=== PATIENT | male | born 1955 | race Caucasian/White ===

== ENCOUNTER → 2016-08-29 | Outpatient (CLI) | payer OTHER ==
[~2016-08-29] MED LIST: /PANT40TA PO; AZIT250T3 PO; BENA25TA4 PO; DOCU10ELUD PO; MIRA255PW PO; MOM30SS PO; MORP10SU PO; PERCOCET FT; RISP1TAB3 PO; TYLE325T5 PO; ULTR50TA PO
--- NOTE | 2016-08-29 14:30 | REP ---
RIGHT FOOT SERIES: Four views. HISTORY: Contusion of the right foot. FINDINGS: Four views right foot demonstrate a transverse fracture through the mid shaft of the 5th proximal phalanx with associated swelling. There is plantar calcaneal spurring. No other fracture is seen. There is 1 to 2 mm of medial displacement. IMPRESSION: 5th proximal phalangeal fracture. Signed by Ata Desir MD 08/29/2016 03:49 P
== END ==
LOC: M ADAMS 12:58
PROVIDERS: ATTEND Physician Assistant Medical
DX: S92.511A Displaced fracture of proximal phalanx of right lesser toe(s), initial encounter for closed fracture (principal); X58.XXXA Exposure to other specified factors, initial encounter; Y92.89 Other specified places as the place of occurrence of the external cause; Y93.89 Activity, other specified; Y99.8 Other external cause status

== ENCOUNTER → 2017-03-24 | Outpatient (REF) | payer OTHER ==
[~2017-03-24] MED LIST changes: +AZIT-12 PO; -AZIT250T3 PO
[2017-03-24 12:44] LABS: ALBUMIN 3.8 GM/DL (3.2-5.2); ALBUMIN/GLOBULIN RATIO 1.41 (1.00-1.93); ALKALINE PHOSPHATASE 61 U/L (45-117); ALT/SGPT 28 U/L (12-78); ANION GAP 8 MEQ/L (8-16); AST/SGOT 14 U/L (15-37); BILIRUBIN,TOTAL 0.6 MG/DL (0.2-1.0); BLOOD UREA NITROGEN 11 MG/DL (7-18); CARBON DIOXIDE LEVEL 26 MEQ/L (21-32); CHLORIDE LEVEL 105 MEQ/L (98-107); CHOLESTEROL LEVEL 214 MG/DL (<200); GLOMERULAR FILTRATION RATE > 60.0 (>49); GLUCOSE, FASTING 89 MG/DL (80-110); POTASSIUM SERUM 4.7 MEQ/L (3.5-5.1); SODIUM LEVEL 139 MEQ/L (136-145); TOTAL PROTEIN 6.5 GM/DL (6.4-8.2); TRIGLYCERIDES LEVEL 56 MG/DL (<150)
== END ==
LOC: M SFHCADAM 10:11
PROVIDERS: ATTEND Physician Assistant Medical
DX: M54.5 Low back pain (principal); E78.2 Mixed hyperlipidemia; C91.10 Chronic lymphocytic leukemia of B-cell type not having achieved remission

== ENCOUNTER → 2017-03-31 | Outpatient (CLI) | payer OTHER ==
--- NOTE | 2017-03-31 14:16 | REP ---
RIGHT SHOULDER THREE VIEWS: HISTORY: Pain. There is no acute fracture or dislocation. There is narrowing of the acromioclavicular joint space with associated osteophyte formation. A calcified density is present in and superior to the joint space. This represents ligamentous or tendon calcification. IMPRESSION: Degenerative change as described above. Signed by Yon Prater MD 03/31/2017 02:19 P
== END ==
LOC: M ADAMS 13:40
PROVIDERS: ATTEND Physician Assistant Medical
DX: M25.511 Pain in right shoulder (principal)

== ENCOUNTER 2017-07-02 15:49 | Emergency (ER) | payer OTHER ==
[~2017-07-02] VITALS: Ht 180.3 cm; Wt 32.8 kg
--- NOTE | 2017-07-02 18:00 | REP ---
Clinical: Acute altered mental status. Comparison: 06/05/2015 . Findings: Age-related atrophy and microvascular ischemic changes are appreciated. The ventricles and sulci are symmetric. Crowell-white differentiation is maintained. There is no evidence for acute intracranial hemorrhage, mass/mass effect, pathology or infarction. No extra-axial fluid collection. Calvarium is intact. Paranasal sinuses and mastoid air cells are clear. Impression: Age related atrophy and microvascular ischemic changes. No acute intracranial hemorrhage, infarction, or mass/mass effect. Signed by Wale Green MD 07/02/2017 05:51 P
[2017-07-02 18:17] LABS: MEAN CORPUSCULAR HEMOGLOBIN 28.3 pg (27.0-33.0); MEAN CORPUSCULAR HGB CONC 33.3 g/dl (32.0-36.5); MEAN CORPUSCULAR VOLUME 85.1 fl (80.0-96.0); PLATELET COUNT, AUTOMATED 293 10^3/uL (150-450); RED CELL DISTRIBUTION WIDTH 14.7 % (11.5-14.5)
[2017-07-02 18:24] LABS: ADD MANUAL DIFFER YES; BLASTS POS FLAG; DIFF SLIDE NUMBER 298; POSITIVE DIFF POS FLAG; POSITIVE MORPH POS FLAG; WHITE BLOOD COUNT 28.3 10^3/uL (4.0-10.0)
--- NOTE | 2017-07-02 18:36 | REP ---
Clinical: Altered mental status . Comparison: 06/07/2015 . Findings: The mediastinum and cardiac silhouette are stable and within normal limits for portable technique. The lung ding are clear without acute consolidation, effusion, or pneumothorax. Skeletal structures are intact. Impression: No acute cardiopulmonary process appreciated. Signed by Wale Green MD 07/02/2017 06:28 P
[2017-07-02 18:42] LABS: ALBUMIN 4.3 GM/DL (3.2-5.2); ALBUMIN/GLOBULIN RATIO 1.43 (1.00-1.93); ALKALINE PHOSPHATASE 56 U/L (45-117); ALT/SGPT 27 U/L (12-78); ANION GAP 9 MEQ/L (8-16); AST/SGOT 18 U/L (7-37); BILIRUBIN,DIRECT 0.1 MG/DL (0.0-0.2); BILIRUBIN,TOTAL 0.7 MG/DL (0.2-1.0); BLOOD UREA NITROGEN 23 MG/DL (7-18); CALCIUM LEVEL 9.3 MG/DL (8.8-10.2); CARBON DIOXIDE LEVEL 24 MEQ/L (21-32); CHLORIDE LEVEL 104 MEQ/L (98-107); CREATININE FOR GFR 1.21 MG/DL (0.70-1.30); GLOMERULAR FILTRATION RATE > 60.0 (>49); GLUCOSE, FASTING 81 MG/DL (80-110); POTASSIUM SERUM 4.8 MEQ/L (3.5-5.1); SODIUM LEVEL 137 MEQ/L (136-145); TOTAL PROTEIN 7.3 GM/DL (6.4-8.2)
[2017-07-02 18:54] LABS: BASOPHILS 1 % (0-4); SMUDGE CELLS 3+
[2017-07-02] MEDS ORDERED: NS 1,000 ML IV ONE (19:00)
[2017-07-02 19:54] VITALS: BP 133/73
--- NOTE | 2017-07-03 09:19 | ECGEPIP ---
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
== END 2017-07-02 21:08 | disposition home or self-care (01) ==
LOC: M ED 15:49 → EDBD 15:49 → M ED 21:08
DX: C91.10 Chronic lymphocytic leukemia of B-cell type not having achieved remission (principal); G10 Huntington's disease

== ENCOUNTER → 2017-10-01 | Outpatient (REF) | payer OTHER ==
[2017-10-01 19:57] LABS: HEMATOCRIT 39.5 % (42.0-52.0); HEMOGLOBIN 12.5 g/dl (14.0-18.0); MEAN CORPUSCULAR HEMOGLOBIN 28.5 pg (27.0-33.0); MEAN CORPUSCULAR HGB CONC 31.6 g/dl (32.0-36.5); PLATELET COUNT, AUTOMATED 299 10^3/uL (150-450); RED BLOOD COUNT 4.39 10^6/uL (4.30-6.10); RED CELL DISTRIBUTION WIDTH 15.5 % (11.5-14.5)
[2017-10-01 20:03] LABS: POSITIVE DIFF POS FLAG; POSITIVE MORPH POS FLAG; WHITE BLOOD COUNT 19.3 10^3/uL (4.0-10.0)
[2017-10-01 20:04] LABS: ADD MANUAL DIFFER YES; DIFF SLIDE NUMBER 258
[2017-10-01 21:40] LABS: TOTAL 25(OH) VITAMIN D 15.4 NG/ML (30.0-100.0)
[2017-10-01 21:49] LABS: ALBUMIN 3.9 GM/DL (3.2-5.2); ALKALINE PHOSPHATASE 56 U/L (45-117); ALT/SGPT 26 U/L (12-78); ANION GAP 6 MEQ/L (8-16); AST/SGOT 20 U/L (7-37); BILIRUBIN,TOTAL 0.5 MG/DL (0.2-1.0); BLOOD UREA NITROGEN 14 MG/DL (7-18); CALCIUM LEVEL 8.8 MG/DL (8.8-10.2); CARBON DIOXIDE LEVEL 29 MEQ/L (21-32); CHLORIDE LEVEL 105 MEQ/L (98-107); CHOLESTEROL LEVEL 204 MG/DL (<200); CHOLESTEROL RISK RATIO 2.457 (<5); CREATININE FOR GFR 0.98 MG/DL (0.70-1.30); GLOMERULAR FILTRATION RATE > 60.0 (>49); GLUCOSE, FASTING 53 MG/DL (70-100); HDL CHOLESTEROL 83 MG/DL (>40); NON-HDL-C 121 MG/DL; POTASSIUM SERUM 4.5 MEQ/L (3.5-5.1); SODIUM LEVEL 140 MEQ/L (136-145); TOTAL PROTEIN 6.5 GM/DL (6.4-8.2); TRIGLYCERIDES LEVEL 65 MG/DL (<150)
[2017-10-01 22:34] LABS: ATYPICAL LYMPH 15 % (0-5); LYMPHOCYTES 68 % (16-52); MONOCYTES 3 % (0-8); NEUTROPHILS 14 % (35-75); PLATELET ESTIMATE NORMAL (NORMAL)
[2017-10-01 22:35] LABS: SMUDGE CELLS 1+
== END ==
LOC: M SFHCADAM 13:23
DX: M54.5 Low back pain (principal); E78.2 Mixed hyperlipidemia; G10 Huntington's disease
CPT/HCPCS: 84443

== ENCOUNTER 2017-12-11 11:39 | Emergency (ER) | payer OTHER ==
[2017-12-11] MEDS: LORazepam 2 MG/ML VIAL (J2060) IV (12:08)
[2017-12-11] MEDS: NS 1,000 ML IV (12:08)
[2017-12-11 12:12] LABS: HEMATOCRIT 39.2 % (42.0-52.0); HEMOGLOBIN 12.9 g/dl (13.5-17.5); MEAN CORPUSCULAR HEMOGLOBIN 28.7 pg (27.0-33.0); MEAN CORPUSCULAR HGB CONC 32.9 g/dl (32.0-36.5); MEAN CORPUSCULAR VOLUME 87.1 fl (80.0-96.0); PLATELET COUNT, AUTOMATED 276 10^3/uL (150-450); RED CELL DISTRIBUTION WIDTH 14.9 % (11.5-14.5)
[2017-12-11 12:16] LABS: ADD MANUAL DIFFER YES; DIFF SLIDE NUMBER 245; POSITIVE DIFF POS FLAG; POSITIVE MORPH POS FLAG; WHITE BLOOD COUNT 22.6 10^3/uL (4.0-10.0)
[2017-12-11 12:24] LABS: VENOUS BASE EXCESS -5.1 (-2.0-2.0); VENOUS HCO3 20.1 MEQ/L (23.0-27.0); VENOUS O2 SATURATION 83.1 % (60.0-80.0); VENOUS PARTIAL PRESSURE CO2 37.8 mmHg (38.0-50.0); VENOUS PARTIAL PRESSURE O2 48.6 mmHg (30.0-50.0); VENOUS PH 7.343 UNITS (7.330-7.430); VENOUS TOTAL CO2 21.2 MEQ/L (24.0-28.0)
[2017-12-11 12:25] LABS: BEDSIDE GLUCOSE 82 MG/DL (80-115)
[2017-12-11 12:31] LABS: ACETAMINOPHEN LEVEL < 2.0 UG/ML (10.0-30.0); ALBUMIN 3.9 GM/DL (3.2-5.2); ALKALINE PHOSPHATASE 61 U/L (45-117); ALT/SGPT 29 U/L (12-78); ANION GAP 6 MEQ/L (8-16); AST/SGOT 19 U/L (7-37); BILIRUBIN,DIRECT 0.2 MG/DL (0.0-0.2); BILIRUBIN,TOTAL 0.6 MG/DL (0.2-1.0); BLOOD UREA NITROGEN 15 MG/DL (7-18); CALCIUM LEVEL 8.7 MG/DL (8.8-10.2); CARBON DIOXIDE LEVEL 26 MEQ/L (21-32); CHLORIDE LEVEL 109 MEQ/L (98-107); CPK CREATINE PHOSPHOKINASE 126 U/L (39-308); CREATININE FOR GFR 1.09 MG/DL (0.70-1.30); GLOMERULAR FILTRATION RATE > 60.0 (>49); GLUCOSE, FASTING 98 MG/DL (70-100); POTASSIUM SERUM 3.9 MEQ/L (3.5-5.1); SALICYLATE LEVEL < 1.7 MG/DL (5.0-30.0); SODIUM LEVEL 141 MEQ/L (136-145); TOTAL PROTEIN 6.5 GM/DL (6.4-8.2); TROPONIN I < 0.02 NG/ML (< 0.10)
[2017-12-11 12:32] LABS: LACTIC ACID SEPSIS PROTOCOL 1.3 MMOL/L (0.4-2.0)
[2017-12-11 12:37] LABS: ATYPICAL LYMPH 18 % (0-5); CK-MB VALUE MASS 1.9 NG/ML (<3.6); LYMPHOCYTES 45 % (16-52); MONOCYTES 18 % (0-8); MYELOCYTES 1 % (0-0); NEUTROPHILS 18 % (35-75)
[2017-12-11 12:38] LABS: ANISOCYTOSIS 1+; HYPOCHROMASIA 1+; MICROCYTOSIS 1+; PLATELET ESTIMATE NORMAL (NORMAL)
[2017-12-11 12:40] LABS: ETHYL ALCOHOL (ETHANOL) < 0.003 % (0.000-0.010)
[2017-12-11 12:42] LABS: AMMONIA 28 uMOL/L (<32)
[2017-12-11 12:47] LABS: OSMOLALITY SERUM 289 MOSM/KG (280-301)
[2017-12-11 13:50] LABS: APPEARANCE, URINE CLEAR (CLEAR); BACTERIA, URINE AUTO NEGATIVE (NEGATIVE); BILIRUBIN, URINE AUTO NEGATIVE (NEGATIVE); BLOOD, URINE BLOOD NEGATIVE (NEGATIVE); COLOR, URINE YELLOW (YELLOW); GLUCOSE, URINE (UA) AUTO NEGATIVE (NEGATIVE); KETONE, URINE AUTO NEGATIVE (NEGATIVE); LEUKOCYTE ESTERASE, URINE AUTO NEGATIVE (NEGATIVE); NITRITE, URINE AUTO NEGATIVE (NEGATIVE); PROTEIN, URINE AUTO NEGATIVE (NEGATIVE); RBC, URINE AUTO 1 /HPF (0-3); SPECIFIC GRAVITY URINE AUTO 1.012 (1.002-1.035); SQUAMOUS EPITHELIAL CELL UR AU 0 /HPF (0-6); UROBILINOGEN, URINE AUTO 0.2 mg/dL (0.0-2.0); WBC, URINE AUTO 0 /HPF (0-3)
[2017-12-11 14:14] LABS: AMPHETAMINES LEVEL URINE NEGATIVE (NEGATIVE); BARBITURATES URINE NEGATIVE (NEGATIVE); BENZODIAZEPINES URINE NEGATIVE (NEGATIVE); CANNABINOIDS URINE NEGATIVE (NEGATIVE); COCAINE METABOLITE URINE NEGATIVE (NEGATIVE); METHADONE URINE NEGATIVE (NEGATIVE); OPIATES URINE NEGATIVE (NEGATIVE); PHENCYCLIDINE URINE NEGATIVE (NEGATIVE)
[2017-12-11 15:29] LABS: HEMATOCRIT 36.4 % (42.0-52.0); HEMOGLOBIN 11.8 g/dl (13.5-17.5); MEAN CORPUSCULAR HEMOGLOBIN 28.6 pg (27.0-33.0); MEAN CORPUSCULAR HGB CONC 32.4 g/dl (32.0-36.5); MEAN CORPUSCULAR VOLUME 88.1 fl (80.0-96.0); PLATELET COUNT, AUTOMATED 250 10^3/uL (150-450); RED BLOOD COUNT 4.13 10^6/uL (4.30-6.10); RED CELL DISTRIBUTION WIDTH 14.8 % (11.5-14.5); WHITE BLOOD COUNT 19.4 10^3/uL (4.0-10.0)
== END 2017-12-11 16:02 | disposition home or self-care (01) ==
LOC: M ED 11:39
DX: G10 Huntington's disease (principal); F02.80 Dementia in other diseases classified elsewhere, unspecified severity, without behavioral disturbance, psychotic disturbance, mood disturbance, and anxiety; R00.1 Bradycardia, unspecified; E78.5 Hyperlipidemia, unspecified; F79 Unspecified intellectual disabilities; C91.10 Chronic lymphocytic leukemia of B-cell type not having achieved remission; Z87.891 Personal history of nicotine dependence
CPT/HCPCS: J2060

== ENCOUNTER 2017-12-12 08:02 | Emergency (ER) | payer OTHER ==
[2017-12-12 08:24] LABS: HEMATOCRIT 37.4 % (42.0-52.0); HEMOGLOBIN 12.3 g/dl (13.5-17.5); MEAN CORPUSCULAR HEMOGLOBIN 28.7 pg (27.0-33.0); MEAN CORPUSCULAR HGB CONC 32.9 g/dl (32.0-36.5); MEAN CORPUSCULAR VOLUME 87.4 fl (80.0-96.0); PLATELET COUNT, AUTOMATED 284 10^3/uL (150-450); RED BLOOD COUNT 4.28 10^6/uL (4.30-6.10); RED CELL DISTRIBUTION WIDTH 14.9 % (11.5-14.5)
[2017-12-12 08:32] LABS: ADD MANUAL DIFFER YES; DIFF SLIDE NUMBER 111; POSITIVE DIFF POS FLAG
[2017-12-12 09:14] LABS: ATYPICAL LYMPH 22 % (0-5); LYMPHOCYTES 61 % (16-52); MONOCYTES 6 % (0-8); NEUTROPHILS 11 % (35-75)
[2017-12-12 09:15] LABS: ANISOCYTOSIS 1+; PLATELET ESTIMATE NORMAL (NORMAL)
== END 2017-12-12 09:51 | disposition home or self-care (01) ==
LOC: M ED 08:02
DX: D72.829 Elevated white blood cell count, unspecified (principal); G40.909 Epilepsy, unspecified, not intractable, without status epilepticus; G93.40 Encephalopathy, unspecified; G10 Huntington's disease
CPT/HCPCS: 85025

== ENCOUNTER 2018-01-02 23:37 | Emergency (ER) | payer OTHER ==
[2018-01-02 22:48] LABS: HEMATOCRIT 38.3 % (42.0-52.0); HEMOGLOBIN 12.5 g/dl (13.5-17.5); MEAN CORPUSCULAR HEMOGLOBIN 28.4 pg (27.0-33.0); MEAN CORPUSCULAR HGB CONC 32.6 g/dl (32.0-36.5); PLATELET COUNT, AUTOMATED 328 10^3/uL (150-450); RED CELL DISTRIBUTION WIDTH 15.1 % (11.5-14.5); WHITE BLOOD COUNT 25.6 10^3/uL (4.0-10.0)
[2018-01-02] MEDS: AMANTADINE 100 MG CAP PO (23:01)
[2018-01-02 23:23] LABS: ACETAMINOPHEN LEVEL < 2.0 UG/ML (10.0-30.0); ALBUMIN 3.9 GM/DL (3.2-5.2); ALKALINE PHOSPHATASE 61 U/L (45-117); ALT/SGPT 32 U/L (12-78); ANION GAP 9 MEQ/L (8-16); AST/SGOT 36 U/L (7-37); BILIRUBIN,DIRECT < 0.1 MG/DL (0.0-0.2); BILIRUBIN,TOTAL 0.5 MG/DL (0.2-1.0); BLOOD UREA NITROGEN 16 MG/DL (7-18); CALCIUM LEVEL 8.3 MG/DL (8.8-10.2); CARBON DIOXIDE LEVEL 23 MEQ/L (21-32); CHLORIDE LEVEL 105 MEQ/L (98-107); CREATININE FOR GFR 1.02 MG/DL (0.70-1.30); ETHYL ALCOHOL (ETHANOL) 0.117 % (0.000-0.010); GLOMERULAR FILTRATION RATE > 60.0 (>49); GLUCOSE, FASTING 88 MG/DL (70-100); POTASSIUM SERUM 4.7 MEQ/L (3.5-5.1); SALICYLATE LEVEL < 1.7 MG/DL (5.0-30.0); SODIUM LEVEL 137 MEQ/L (136-145); TOTAL PROTEIN 6.5 GM/DL (6.4-8.2)
== END 2018-01-02 23:40 | disposition home or self-care (01) ==
LOC: M ED 23:40
DX: D72.829 Elevated white blood cell count, unspecified (principal); G10 Huntington's disease; F10.129 Alcohol abuse with intoxication, unspecified
CPT/HCPCS: 80320

== ENCOUNTER 2018-03-13 08:39 | Emergency (ER) | payer MEDICARE, MEDICAID, OTHER ==
[2018-03-13 09:19] LABS: HEMATOCRIT 35.8 % (42.0-52.0); HEMOGLOBIN 11.7 g/dl (13.5-17.5); MEAN CORPUSCULAR HEMOGLOBIN 29.1 pg (27.0-33.0); MEAN CORPUSCULAR HGB CONC 32.7 g/dl (32.0-36.5); MEAN CORPUSCULAR VOLUME 89.1 fl (80.0-96.0); PLATELET COUNT, AUTOMATED 315 10^3/uL (150-450); RED BLOOD COUNT 4.02 10^6/uL (4.30-6.10); RED CELL DISTRIBUTION WIDTH 15.9 % (11.5-14.5)
[2018-03-13 09:22] LABS: ADD MANUAL DIFFER YES; DIFF SLIDE NUMBER 111; POSITIVE DIFF POS FLAG; POSITIVE MORPH POS FLAG; WHITE BLOOD COUNT 19.7 10^3/uL (4.0-10.0)
[2018-03-13] MEDS: NS 1,000 ML IV (09:32)
[2018-03-13 09:42] LABS: AMMONIA < 10 uMOL/L (<32)
[2018-03-13 09:44] LABS: BEDSIDE GLUCOSE 87 MG/DL (80-115)
[2018-03-13 09:47] LABS: ACETAMINOPHEN LEVEL < 2.0 UG/ML (10.0-30.0); ALBUMIN 3.4 GM/DL (3.2-5.2); ALBUMIN/GLOBULIN RATIO 1.36 (1.00-1.93); ALKALINE PHOSPHATASE 59 U/L (45-117); ALT/SGPT 33 U/L (12-78); ANION GAP 9 MEQ/L (8-16); AST/SGOT 23 U/L (7-37); BILIRUBIN,DIRECT 0.1 MG/DL (0.0-0.2); BILIRUBIN,TOTAL 0.4 MG/DL (0.2-1.0); BLOOD UREA NITROGEN 19 MG/DL (7-18); CALCIUM LEVEL 8.3 MG/DL (8.8-10.2); CARBON DIOXIDE LEVEL 25 MEQ/L (21-32); CHLORIDE LEVEL 109 MEQ/L (98-107); CPK CREATINE PHOSPHOKINASE 220 U/L (39-308); CREATININE FOR GFR 0.92 MG/DL (0.70-1.30); ETHYL ALCOHOL (ETHANOL) 0.003 % (0.000-0.010); GLOMERULAR FILTRATION RATE > 60.0 (>49); GLUCOSE, FASTING 100 MG/DL (70-100); SALICYLATE LEVEL < 1.7 MG/DL (5.0-30.0); SODIUM LEVEL 143 MEQ/L (136-145); TOTAL PROTEIN 5.9 GM/DL (6.4-8.2); TROPONIN I < 0.02 NG/ML (< 0.10)
[2018-03-13 09:53] LABS: CK-MB VALUE MASS 3.9 NG/ML (<3.6); MB/CK RELATIVE INDEX 1.77 (< OR =4)
[2018-03-13 09:57] LABS: ATYPICAL LYMPH 1 % (0-5); LYMPHOCYTES 66 % (16-52); MONOCYTES 2 % (0-8); NEUTROPHILS 31 % (35-75)
[2018-03-13 09:58] LABS: ANISOCYTOSIS 1+; PLATELET ESTIMATE NORMAL (NORMAL)
[2018-03-13 11:29] LABS: AMPHETAMINES LEVEL URINE NEGATIVE (NEGATIVE); BARBITURATES URINE NEGATIVE (NEGATIVE); BENZODIAZEPINES URINE NEGATIVE (NEGATIVE); CANNABINOIDS URINE NEGATIVE (NEGATIVE); COCAINE METABOLITE URINE NEGATIVE (NEGATIVE); METHADONE URINE NEGATIVE (NEGATIVE); OPIATES URINE NEGATIVE (NEGATIVE); PHENCYCLIDINE URINE NEGATIVE (NEGATIVE)
== END 2018-03-13 11:43 | disposition home or self-care (01) ==
LOC: M ED 08:39
DX: E86.0 Dehydration (principal); G10 Huntington's disease; E78.5 Hyperlipidemia, unspecified; C91.10 Chronic lymphocytic leukemia of B-cell type not having achieved remission
CPT/HCPCS: 93005

== ENCOUNTER 2018-03-28 11:30 | Emergency (ER) | payer MEDICARE, MEDICAID ==
[2018-03-28] MEDS: NS 1,000 ML IV (12:15)
[2018-03-28 12:32] LABS: HEMATOCRIT 32.9 % (42.0-52.0); HEMOGLOBIN 10.8 g/dl (13.5-17.5); MEAN CORPUSCULAR HGB CONC 32.8 g/dl (32.0-36.5); MEAN CORPUSCULAR VOLUME 88.2 fl (80.0-96.0); PLATELET COUNT, AUTOMATED 284 10^3/uL (150-450); RED BLOOD COUNT 3.73 10^6/uL (4.30-6.10); RED CELL DISTRIBUTION WIDTH 15.9 % (11.5-14.5)
[2018-03-28 12:47] LABS: ADD MANUAL DIFFER YES; DIFF SLIDE NUMBER 107; POSITIVE DIFF POS FLAG; POSITIVE MORPH POS FLAG; WHITE BLOOD COUNT 15.2 10^3/uL (4.0-10.0)
[2018-03-28 12:51] LABS: ALBUMIN 3.3 GM/DL (3.2-5.2); ALBUMIN/GLOBULIN RATIO 1.27 (1.00-1.93); ALKALINE PHOSPHATASE 54 U/L (45-117); ALT/SGPT 32 U/L (12-78); ANION GAP 4 MEQ/L (8-16); AST/SGOT 24 U/L (7-37); BILIRUBIN,DIRECT 0.1 MG/DL (0.0-0.2); BILIRUBIN,TOTAL 0.5 MG/DL (0.2-1.0); BLOOD UREA NITROGEN 17 MG/DL (7-18); C REACTIVE PROTEIN QUANTITATIV < 0.30 MG/DL (0.00-0.30); CALCIUM LEVEL 8.2 MG/DL (8.8-10.2); CARBON DIOXIDE LEVEL 29 MEQ/L (21-32); CHLORIDE LEVEL 107 MEQ/L (98-107); CREATININE FOR GFR 0.85 MG/DL (0.70-1.30); GLOMERULAR FILTRATION RATE > 60.0 (>49); GLUCOSE, FASTING 79 MG/DL (70-100); POTASSIUM SERUM 3.8 MEQ/L (3.5-5.1); SODIUM LEVEL 140 MEQ/L (136-145); TOTAL PROTEIN 5.9 GM/DL (6.4-8.2)
[2018-03-28 12:57] LABS: ERYTHROCYTE SEDIMENTATION RATE 4 mm/hr (0-20)
[2018-03-28 13:00] LABS: ATYPICAL LYMPH 1 % (0-5); LYMPHOCYTES 70 % (16-52); MONOCYTES 3 % (0-8); NEUTROPHILS 26 % (35-75)
[2018-03-28 13:01] LABS: ANISOCYTOSIS 1+; HYPOCHROMASIA 1+; PLATELET ESTIMATE NORMAL (NORMAL)
== END 2018-03-28 13:43 | disposition home or self-care (01) ==
LOC: M ED 11:30
DX: S00.86XA Insect bite (nonvenomous) of other part of head, initial encounter (principal); S20.469A Insect bite (nonvenomous) of unspecified back wall of thorax, initial encounter; S80.862A Insect bite (nonvenomous), left lower leg, initial encounter; W57.XXXA Bitten or stung by nonvenomous insect and other nonvenomous arthropods, initial encounter; Y92.007 Garden or yard of unspecified non-institutional (private) residence as the place of occurrence of the external cause
CPT/HCPCS: 80076

== ENCOUNTER → 2018-04-13 | Outpatient (REF) | payer MEDICARE, OTHER, MEDICAID | LOC: M SFHCADAM 11:22 | DX: E55.9 Vitamin D deficiency, unspecified (principal) | CPT/HCPCS: 82306 ==

== ENCOUNTER 2018-07-01 08:54 | Emergency (ER) | payer MEDICARE, MEDICAID, OTHER ==
[2018-07-01 10:24] LABS: HEMATOCRIT 36.7 % (42.0-52.0); MEAN CORPUSCULAR HEMOGLOBIN 28.5 pg (27.0-33.0); MEAN CORPUSCULAR HGB CONC 32.7 g/dl (32.0-36.5); MEAN CORPUSCULAR VOLUME 87.2 fl (80.0-96.0); PLATELET COUNT, AUTOMATED 267 10^3/uL (150-450); RED BLOOD COUNT 4.21 10^6/uL (4.30-6.10); RED CELL DISTRIBUTION WIDTH 14.7 % (11.5-14.5)
[2018-07-01 10:26] LABS: POSITIVE DIFF POS FLAG; POSITIVE MORPH POS FLAG; WHITE BLOOD COUNT 13.2 10^3/uL (4.0-10.0)
[2018-07-01 10:27] LABS: ADD MANUAL DIFFER YES; DIFF SLIDE NUMBER 176
[2018-07-01 10:36] LABS: ANION GAP 4 MEQ/L (8-16); BLOOD UREA NITROGEN 18 MG/DL (7-18); CALCIUM LEVEL 8.3 MG/DL (8.8-10.2); CARBON DIOXIDE LEVEL 27 MEQ/L (21-32); CHLORIDE LEVEL 106 MEQ/L (98-107); CPK CREATINE PHOSPHOKINASE 143 U/L (39-308); CREATININE FOR GFR 1.06 MG/DL (0.70-1.30); GLOMERULAR FILTRATION RATE > 60.0 (>49); GLUCOSE, FASTING 88 MG/DL (70-100); MB/CK RELATIVE INDEX 1.96 (< OR =4); POTASSIUM SERUM 4.3 MEQ/L (3.5-5.1); SODIUM LEVEL 137 MEQ/L (136-145); TROPONIN I < 0.02 NG/ML (< 0.10)
[2018-07-01 10:57] LABS: LYMPHOCYTES 78 % (16-52); NEUTROPHILS 22 % (35-75)
[2018-07-01 10:58] LABS: PLATELET ESTIMATE NORMAL (NORMAL); SMUDGE CELLS 1+
== END 2018-07-01 11:23 | disposition home or self-care (01) ==
LOC: M ED 08:54
DX: R55 Syncope and collapse (principal); C91.10 Chronic lymphocytic leukemia of B-cell type not having achieved remission; G10 Huntington's disease; F70 Mild intellectual disabilities; Z78.9 Other specified health status; F17.210 Nicotine dependence, cigarettes, uncomplicated
CPT/HCPCS: 93005

== ENCOUNTER → 2018-09-30 | Outpatient (REF) | payer MEDICARE, MEDICAID ==
[~2018-09-30] MED LIST changes: +APAP325T4 PO; +IBUP-1022 PO; +IBUP200T45 PO
[2018-09-30 13:00] LABS: HEMATOCRIT 40.1 % (42.0-52.0); HEMOGLOBIN 12.8 g/dl (13.5-17.5); MEAN CORPUSCULAR HGB CONC 31.9 g/dl (32.0-36.5); MEAN CORPUSCULAR VOLUME 90.7 fl (80.0-96.0); PLATELET COUNT, AUTOMATED 304 10^3/uL (150-450); RED BLOOD COUNT 4.42 10^6/uL (4.30-6.10)
[2018-09-30 13:22] LABS: ALBUMIN 4.1 GM/DL (3.2-5.2); ALT/SGPT 31 U/L (12-78); BILIRUBIN,TOTAL 0.4 MG/DL (0.2-1.0); BLOOD UREA NITROGEN 13 MG/DL (7-18); CALCIUM LEVEL 8.8 MG/DL (8.8-10.2); CARBON DIOXIDE LEVEL 30 MEQ/L (21-32); CHLORIDE LEVEL 108 MEQ/L (98-107); CHOLESTEROL LEVEL 208 MG/DL (<200); CHOLESTEROL RISK RATIO 2.736 (<5); CREATININE FOR GFR 0.94 MG/DL (0.70-1.30); GLOMERULAR FILTRATION RATE > 60.0 (>49); GLUCOSE, FASTING 100 MG/DL (70-100); HDL CHOLESTEROL 76 MG/DL (>40); LDL CHOLESTEROL 114 MG/DL (<100); NON-HDL-C 132 MG/DL; POTASSIUM SERUM 4.5 MEQ/L (3.5-5.1); SODIUM LEVEL 142 MEQ/L (136-145); TOTAL 25(OH) VITAMIN D 10.1 NG/ML (30.0-100.0); TOTAL PROTEIN 6.7 GM/DL (6.4-8.2); TRIGLYCERIDES LEVEL 88 MG/DL (<150)
[2018-09-30 13:31] LABS: WHITE BLOOD COUNT 16.8 10^3/uL (4.0-10.0)
[2018-09-30 14:01] LABS: ATYPICAL LYMPH 5 % (0-5); LYMPHOCYTES 54 % (16-52); MONOCYTES 4 % (0-8); NEUTROPHILS 37 % (35-75)
[2018-09-30 14:03] LABS: ANISOCYTOSIS 1+; PLATELET ESTIMATE NORMAL (NORMAL)
== END ==
LOC: M SFHCADAM 09:57
PROVIDERS: ATTEND Physician Assistant Medical
DX: E78.2 Mixed hyperlipidemia (principal); E55.9 Vitamin D deficiency, unspecified; R10.84 Generalized abdominal pain
CPT/HCPCS: 80053; 80061; 82306; 84443; 85025; 90471; 90732; G0463

== ENCOUNTER → 2018-11-09 | Outpatient (CLI) | payer MEDICARE, MEDICAID ==
[~2018-11-09] MED LIST changes: -/PANT40TA PO; -DOCU10ELUD PO; +DOCU5LIQ PO; +GASTROGRAFIN SOLUTION 30ML (Q9963) As Ordered ONE; +ISOVUE-370 76% 100ML VIAL (Q9967) As Ordered ONE; -MIRA255PW PO; +OXYC1TAB23 FT; -PERCOCET FT; +POLY1POW4 PO; +PROT1TAB2 PO
--- NOTE | 2018-11-09 17:39 | REP ---
CT of the abdomen pelvis with IV and oral contrast for generalized abdominal pain, left upper quadrant mass: Comparison is 09/26/2012. The visualized lung dign are unremarkable. The previous left pleural fluid collection has resolved. The hepatic parenchyma is homogeneous and unremarkable. The gallbladder and pancreas are unremarkable. The previous large in splenic subcapsular hematoma as significantly decreased in size and there are no calcifications at its periphery. The spleen is normal size and contains calcified granulomas. This is unchanged. There is no ascites or free pelvic fluid. The adrenals are unremarkable. The kidneys are unremarkable. Abdominal aorta is unremarkable. There is no retroperitoneal mass or adenopathy. There is lumbar scoliosis convex left. There is multilevel lumbar degenerative disc disease. This is unchanged. There is no bowel distension or obstruction. Pelvis: The pelvic bowel loops are unremarkable. The bladder is unremarkable. The prostate is enlarged and effaces the bladder base. There is no adenopathy or ascites. There is an old pubic symphysis fracture on the left with internal fixation. There is internal fixation of the iliac wings and sacrum. There is an old healed left ischial fracture. Impression: There is no bowel distension or obstruction. There is no ascites, adenopathy or mass. The previous left pleural fluid collection has resolved. The previous large splenic subcapsular hematoma has significantly decreased in size. There is lumbar scoliosis convex left and multilevel lumbar degenerative disc disease. There is internal fixation of the pelvis as described. The prostate is enlarged and effaces the bladder base. Electronically Signed by Nahum Lebron MD 11/09/2018 05:30 P
== END ==
LOC: M RAD 13:46
PROVIDERS: ATTEND Physician Assistant Medical
DX: R10.9 Unspecified abdominal pain (principal)
CPT/HCPCS: 74177; Q9963; Q9967

== ENCOUNTER 2018-11-27 15:38 | Emergency (ER) | payer MEDICARE, MEDICAID ==
[~2018-11-27] VITALS: Ht 180.3 cm; Wt 68.2 kg
[~2018-11-27 15:38] MED LIST changes: -GASTROGRAFIN SOLUTION 30ML (Q9963) As Ordered ONE; -ISOVUE-370 76% 100ML VIAL (Q9967) As Ordered ONE
[2018-11-27] MEDS ORDERED: IBUP200C28 PO (15:47)
[2018-11-27] MEDS ORDERED: NS 1,000 ML IV ONE (16:15)
[2018-11-27] MEDS ORDERED: KETOROLAC 30 MG/ML VIAL (J1885) IV ONE (16:30)
[2018-11-27 16:53] LABS: HEMOGLOBIN 13.6 g/dl (13.5-17.5); MEAN CORPUSCULAR HEMOGLOBIN 28.9 pg (27.0-33.0); MEAN CORPUSCULAR HGB CONC 32.4 g/dl (32.0-36.5); MEAN CORPUSCULAR VOLUME 89.4 fl (80.0-96.0); PLATELET COUNT, AUTOMATED 272 10^3/uL (150-450)
[2018-11-27 17:01] LABS: WHITE BLOOD COUNT 17.4 10^3/uL (4.0-10.0)
[2018-11-27 17:19] LABS: ATYPICAL LYMPH 1 % (0-5); LYMPHOCYTES 63 % (16-52); MONOCYTES 3 % (0-8); NEUTROPHILS 33 % (35-75)
[2018-11-27 17:20] LABS: ALBUMIN 4.1 GM/DL (3.2-5.2); ALT/SGPT 24 U/L (12-78); BILIRUBIN,DIRECT 0.1 MG/DL (0.0-0.2); BILIRUBIN,TOTAL 0.6 MG/DL (0.2-1.0); BLOOD UREA NITROGEN 18 MG/DL (7-18); CALCIUM LEVEL 8.7 MG/DL (8.8-10.2); CARBON DIOXIDE LEVEL 28 MEQ/L (21-32); CHLORIDE LEVEL 109 MEQ/L (98-107); CREATININE FOR GFR 0.82 MG/DL (0.70-1.30); GLOMERULAR FILTRATION RATE > 60.0 (>49); GLUCOSE, FASTING 87 MG/DL (70-100); LIPASE 110 U/L (73-393); PLATELET ESTIMATE NORMAL (NORMAL); POTASSIUM SERUM 4.1 MEQ/L (3.5-5.1); SODIUM LEVEL 141 MEQ/L (136-145); TOTAL PROTEIN 6.7 GM/DL (6.4-8.2)
[2018-11-27 17:21] LABS: SMUDGE CELLS 1+
[2018-11-27] MEDS ORDERED: ISOVUE-370 76% 100ML VIAL (Q9967) As Ordered ONE (17:36)
--- NOTE | 2018-11-27 18:40 | REPVR ---
EXAM: CT Abdomen and Pelvis With Contrast EXAM DATE/TIME: 11/27/2018 5:43 PM CLINICAL HISTORY: 63 years old, male; Abdominal pain; Generalized; Prior surgery; Surgery date: 6+ months; Surgery type: Pelvic fractures; Additional info: Diffuse abd pain TECHNIQUE: Imaging protocol: Axial computed tomography images of the abdomen and pelvis with intravenous contrast. Coronal and sagittal reformatted images were created and reviewed. Radiation optimization: All CT scans at this facility use at least one of these dose optimization techniques: automated exposure control; mA and/or kV adjustment per patient size (includes targeted exams where dose is matched to clinical indication); or iterative reconstruction. Contrast material: ISOVUE 370; Contrast volume: 100 ml; Contrast route: IV; COMPARISON: CT ABD PELVIS WITH CONTRAST 11/09/2018 4:04 PM FINDINGS: Limitations: This examination is limited secondary to motion artifact and artifact from orthopedic instrumentation. Lungs: Minimal opacities within the lung bases, likely atelectasis and/or scar. Pleural space: Minimal left posterior pleural thickening, unchanged. ABDOMEN: Liver: Unremarkable. No mass. Gallbladder and bile ducts: Unremarkable. No calcified stones. No ductal dilation. Pancreas: Unremarkable. No ductal dilation. 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 No new splenic hematoma. Calcified splenic granulomas, unchanged. Adrenals: Normal. No mass. Kidneys and ureters: Unremarkable. No stones. No hydronephrosis. Stomach and bowel: Unremarkable. No obstruction. No mucosal thickening. Appendix: No evidence of appendicitis. PELVIS: Bladder: Unremarkable as visualized. Reproductive: The prostate is mildly enlarged, measuring 5.8 cm transverse by 3.8 cm AP by 4.3 cm craniocaudad. ABDOMEN and PELVIS: Intraperitoneal space: Unremarkable. No free air. No significant fluid collection. Bones/joints: Degenerative spondylosis and scoliosis of the lower thoracic and lumbar spine. The sacroiliac joints are fixed by a single cannulated cancellus screw. There is a healed internally fixed fracture deformity of the left superior pubic ramus. Soft tissues: There are postoperative changes from left herniorrhaphy. No recurrent inguinal hernia identified. Vasculature: Unremarkable. No abdominal aortic aneurysm. Lymph nodes: Numerous small bilateral inguinal lymph nodes, unchanged. No pathologically enlarged lymphadenopathy. IMPRESSION: No acute abnormality. Electronically signed by: Mark Murillo On 11/27/2018 18:39:37 PM
[2018-11-27] MEDS ORDERED: ONDANSETRON 4MG/2ML VIAL (J2405) IV ONE (18:45)
[2018-11-27] MEDS ORDERED: MORPHINE 4 MG/ML 1ML VIAL/SYRINGE (J2270) IV PRN (18:45)
[2018-11-27 20:14] VITALS: BP 140/76
[2018-11-27] MEDS ORDERED: OXYCODONE/APAP 5MG/325MG(BULK FOR ED) 1 TABLET PO ONE (20:15)
== END 2018-11-27 20:29 | disposition home or self-care (01) ==
LOC: M ED 15:38
DX: G10 Huntington's disease (principal); F70 Mild intellectual disabilities; C91.10 Chronic lymphocytic leukemia of B-cell type not having achieved remission; E78.9 Disorder of lipoprotein metabolism, unspecified; G93.40 Encephalopathy, unspecified; Z87.891 Personal history of nicotine dependence
CPT/HCPCS: 74177; 80048; 80076; 81001; 83690; 85025; 96361; 96374; 96375; 99284; J1885; J2270; J2405; Q9967

== ENCOUNTER 2019-01-25 07:45 | Day surgery (SDC) | payer MEDICARE, MEDICAID ==
[~2019-01-25] VITALS: Ht 175.3 cm; Wt 81.6 kg
[~2019-01-25 07:45] MED LIST changes: +IBUP200C28 PO; +NS 1,000 ML IV ONE
[2019-01-25] MEDS ORDERED: fentaNYL 100 MCG/2 ML INJECTION (J3010) As Ordered ONE (09:37)
[2019-01-25] MEDS ORDERED: PROPOFOL 500 MG/50 ML VIAL As Ordered ONE (09:37)
[2019-01-25] MEDS ORDERED: LIDOCAINE 2% INJ 100 MG/5 ML SDV (FOR ANES.) As Ordered ONE (09:37)
--- NOTE | 2019-01-25 10:31 | ROOR ---
Patient Name: Yon Motley Procedure Date: 01/25/2019 9:29 AM Date of : 1955 Age: 63 Room: [facility] Gender: Male Note Status: Finalized Procedure: Upper GI endoscopy Indications: Epigastric abdominal pain, Dyspepsia Providers: Cal Bauer MD Referring MD: XAVIER Villatoro Requesting Provider: Medicines: Monitored Anesthesia Care Complications: No immediate complications. Procedure: Pre-Anesthesia Assessment: - Prior to the procedure, a History and Physical was performed, and patient medications and allergies were reviewed. The patient is competent. The risks and benefits of the procedure and the sedation options and risks were discussed with the patient. All questions were answered and informed consent was obtained. Patient identification and proposed procedure were verified by the physician, the nurse and the anesthesiologist in the procedure room. Mental Status Examination: alert and oriented. Airway Examination: normal oropharyngeal airway and neck mobility. Respiratory Examination: clear to auscultation. CV Examination: normal. Prophylactic Antibiotics: The patient does not require prophylactic antibiotics. Prior Anticoagulants: The patient has taken no previous anticoagulant or antiplatelet agents. ASA Grade Assessment: II - A patient with mild systemic disease. After reviewing the risks and benefits, the patient was deemed in satisfactory condition to undergo the procedure. The anesthesia plan was to use monitored anesthesia care (MAC). Immediately prior to administration of medications, the patient was re-assessed for adequacy to receive sedatives. The heart rate, respiratory rate, oxygen saturations, blood pressure, adequacy of pulmonary ventilation, and response to care were monitored throughout the procedure. The physical status of the patient was re-assessed after the procedure. The Endoscope was introduced through the mouth, and advanced to the second part of duodenum. The upper GI endoscopy was accomplished without difficulty. The patient tolerated the procedure well. Findings: The examined esophagus was normal. The Z-line was regular and was found in the distal esophagus. Scattered moderate inflammation characterized by erosions, erythema and granularity was found in the gastric body and in the gastric antrum. Biopsies were taken with a cold forceps for Helicobacter pylori testing. Verification of patient identification for the specimen was done by the physician and nurse using the patient's name, date and medical record number. Estimated blood loss was minimal. The duodenal bulb and second portion of the duodenum were normal. Biopsies for histology were taken with a cold forceps for evaluation of celiac disease. Impression: - Normal esophagus. - Z-line regular, in the distal esophagus. - Gastritis. Biopsied. - Normal duodenal bulb and second portion of the duodenum. Biopsied. Recommendation: - Patient has a contact number available for emergencies. The signs and symptoms of potential delayed complications were discussed with the patient. Return to normal activities tomorrow. Written discharge instructions were provided to the patient. - Resume previous diet. - Continue present medications. - Await pathology results. - Based on the biopsy results you will receive a phone call from GI clinic in 2-3 weeks to review the pathology results AND/OR your results will be faxed to your Primary care physician. - Return to primary care physician. Cal Bauer MD Cal Bauer MD 01/25/2019 10:31:05 AM Electronically signed by Cal Bauer MD Number of Addenda: 0 Note Initiated On: 01/25/2019 9:29 AM Estimated Blood Loss: Estimated blood loss was minimal.
--- NOTE | 2019-01-25 10:37 | ROOR ---
Patient Name: Yon Motley Procedure Date: 01/25/2019 9:30 AM Date of : 1955 Age: 63 Room: [facility] Gender: Male Note Status: Finalized Procedure: Colonoscopy Indications: Screening for colorectal malignant neoplasm Providers: Cal Bauer MD Referring MD: XAVIER Villatoro Requesting Provider: Medicines: Monitored Anesthesia Care Complications: No immediate complications. Procedure: Pre-Anesthesia Assessment: - Prior to the procedure, a History and Physical was performed, and patient medications and allergies were reviewed. The patient is competent. The risks and benefits of the procedure and the sedation options and risks were discussed with the patient. All questions were answered and informed consent was obtained. Patient identification and proposed procedure were verified by the physician, the nurse and the anesthesiologist in the procedure room. Mental Status Examination: alert and oriented. Airway Examination: normal oropharyngeal airway and neck mobility. Respiratory Examination: clear to auscultation. CV Examination: normal. Prophylactic Antibiotics: The patient does not require prophylactic antibiotics. Prior Anticoagulants: The patient has taken no previous anticoagulant or antiplatelet agents. ASA Grade Assessment: II - A patient with mild systemic disease. After reviewing the risks and benefits, the patient was deemed in satisfactory condition to undergo the procedure. The anesthesia plan was to use monitored anesthesia care (MAC). Immediately prior to administration of medications, the patient was re-assessed for adequacy to receive sedatives. The heart rate, respiratory rate, oxygen saturations, blood pressure, adequacy of pulmonary ventilation, and response to care were monitored throughout the procedure. The physical status of the patient was re-assessed after the procedure. The Colonoscope was introduced through the anus and advanced to the terminal ileum, with identification of the appendiceal orifice and IC valve. The colonoscopy was performed without difficulty. The patient tolerated the procedure well. The quality of the bowel preparation was good. The terminal ileum, ileocecal valve, appendiceal orifice, and rectum were photographed. Scope insertion time was 4 minutes. Scope withdrawal time was 8 minutes. The total duration of the procedure was 12 minutes. Findings: The perianal and digital rectal examinations were normal. The terminal ileum appeared normal. A 10 mm polyp was found in the transverse colon. The polyp was sessile. The polyp was removed with a cold snare. Resection and retrieval were complete. Verification of patient identification for the specimen was done by the physician and nurse using the patient's name, date and medical record number. Estimated blood loss was minimal. Non-bleeding external and internal hemorrhoids were found during retroflexion. The hemorrhoids were medium-sized. Impression: - The examined portion of the ileum was normal. - One 10 mm polyp in the transverse colon, removed with a cold snare. Resected and retrieved. - Non-bleeding external and internal hemorrhoids. Recommendation: - Patient has a contact number available for emergencies. The signs and symptoms of potential delayed complications were discussed with the patient. Return to normal activities tomorrow. Written discharge instructions were provided to the patient. - High fiber diet. - Continue present medications. - Await pathology results. - Repeat colonoscopy in 3 - 5 years for surveillance based on pathology results. - Based on the biopsy results you will receive a phone call from GI clinic in 2-3 weeks to review the pathology results AND/OR your results will be faxed to your Primary care physician. - Return to primary care physician. Cal Bauer MD Cal Bauer MD 01/25/2019 10:36:57 AM Electronically signed by Cal Bauer MD Number of Addenda: 0 Note Initiated On: 01/25/2019 9:30 AM Estimated Blood Loss: Estimated blood loss: none.
[2019-01-25 10:53] VITALS: BP 148/80
== END 2019-01-25 11:40 | disposition home or self-care (01) ==
LOC: M OPP 07:45
PROVIDERS: ATTEND Internal Medicine Gastroenterology
DX: D12.3 Benign neoplasm of transverse colon (principal); K64.8 Other hemorrhoids; K29.70 Gastritis, unspecified, without bleeding; R10.13 Epigastric pain; Z12.11 Encounter for screening for malignant neoplasm of colon
CPT/HCPCS: 45385; 88305; J3010

== ENCOUNTER 2019-07-26 14:14 | Emergency (ER) | payer MEDICARE, MEDICAID ==
[~2019-07-26] VITALS: Ht 167.6 cm; Wt 68.2 kg
[~2019-07-26 14:14] MED LIST changes: -NS 1,000 ML IV ONE
[2019-07-26] MEDS ORDERED: ACETAMINOPHEN 325 MG TAB PO ONE (15:00)
--- NOTE | 2019-07-26 15:07 | REP ---
Clinical: Trauma. Confusion . Comparison: 12/11/2017 . Findings: The ventricles, sulci, and cisterns are normal in position and appearance. Crowell-white differentiation is maintained. No acute intracranial hemorrhage, mass/mass effect, pathology or trauma/injury. No evidence for acute infarction. No extra-axial fluid collection. Calvarium is intact. Paranasal sinuses and mastoid air cells are clear. Impression: Normal noncontrast head CT. No evidence for acute intracranial pathology or trauma/injury. Electronically Signed by Wale Green MD 07/26/2019 02:58 P
--- NOTE | 2019-07-26 15:09 | REP ---
Clinical: Trauma. Confusion. Technique: Axial noncontrast images from the skull base to the thoracic inlet with coronal and sagittal re-formations. Comparison: 09/13/2012 Findings: Reversal of normal lordosis and moderate multilevel degenerative disc osteophyte complexes are appreciated which have mildly progressed since prior examination. Alignment is otherwise maintained. There is no evidence for acute fracture / compression injury or subluxation. Spinal canal appears patent. Posterior elements and spinous processes are intact. Paravertebral soft tissues are normal. Impression: Reversal of normal lordosis and moderate multilevel degenerative spondylosis. No evidence for acute fracture / compression injury. Electronically Signed by Wale Green MD 07/26/2019 03:00 P
[2019-07-26 16:53] VITALS: BP 115/82
== END 2019-07-26 16:59 | disposition home or self-care (01) ==
LOC: M ED 14:14 → EDBD 14:14 → M ED 16:59
DX: S06.0X0A Concussion without loss of consciousness, initial encounter (principal); W01.10XA Fall on same level from slipping, tripping and stumbling with subsequent striking against unspecified object, initial encounter; Y92.099 Unspecified place in other non-institutional residence as the place of occurrence of the external cause; Y93.9 Activity, unspecified; Y99.9 Unspecified external cause status; M25.78 Osteophyte, vertebrae; M47.812 Spondylosis without myelopathy or radiculopathy, cervical region

== ENCOUNTER → 2019-09-06 | Outpatient (REF) | payer MEDICARE, MEDICAID ==
[2019-09-06 13:12] LABS: HEMATOCRIT 41.2 % (42.0-52.0); HEMOGLOBIN 12.6 g/dl (13.5-17.5); MEAN CORPUSCULAR HEMOGLOBIN 27.2 pg (27.0-33.0); MEAN CORPUSCULAR HGB CONC 30.6 g/dl (32.0-36.5); MEAN CORPUSCULAR VOLUME 88.8 fl (80.0-96.0); PLATELET COUNT, AUTOMATED 370 10^3/uL (150-450); RED BLOOD COUNT 4.64 10^6/uL (4.30-6.10)
[2019-09-06 13:19] LABS: WHITE BLOOD COUNT 19.4 10^3/uL (4.0-10.0)
[2019-09-06 13:46] LABS: ATYPICAL LYMPH 27 % (0-5); EOSINOPHILS 2 % (0-3); LYMPHOCYTES 40 % (16-44); MONOCYTES 4 % (0-5); NEUTROPHILS 27 % (28-66)
[2019-09-06 13:58] LABS: OVALOCYTES 1+; PLATELET ESTIMATE NORMAL (NORMAL)
[2019-09-06 14:00] LABS: ALBUMIN 3.5 GM/DL (3.2-5.2); ALT/SGPT 19 U/L (12-78); BILIRUBIN,TOTAL 0.2 MG/DL (0.2-1.0); BLOOD UREA NITROGEN 21 MG/DL (7-18); CALCIUM LEVEL 8.6 MG/DL (8.8-10.2); CARBON DIOXIDE LEVEL 29 MEQ/L (21-32); CHLORIDE LEVEL 107 MEQ/L (98-107); CHOLESTEROL LEVEL 217 MG/DL (<200); CHOLESTEROL RISK RATIO 4.931 (<5); CREATININE FOR GFR 0.92 MG/DL (0.70-1.30); GLOMERULAR FILTRATION RATE > 60.0 (>49); GLUCOSE, FASTING 85 MG/DL (70-100); HDL CHOLESTEROL 44 MG/DL (>40); LDL CHOLESTEROL 151 MG/DL (<100); NON-HDL-C 173 MG/DL; POTASSIUM SERUM 4.1 MEQ/L (3.5-5.1); SODIUM LEVEL 140 MEQ/L (136-145); TOTAL 25(OH) VITAMIN D 11.2 NG/ML (30.0-100.0); TOTAL PROTEIN 6.5 GM/DL (6.4-8.2); TRIGLYCERIDES LEVEL 110 MG/DL (<150)
== END ==
LOC: M SFHCADAM 10:01
PROVIDERS: ATTEND Physician Assistant Medical
DX: K29.50 Unspecified chronic gastritis without bleeding (principal); E78.2 Mixed hyperlipidemia; C91.10 Chronic lymphocytic leukemia of B-cell type not having achieved remission; E55.9 Vitamin D deficiency, unspecified
CPT/HCPCS: 80053; 80061; 82306; 84443; 85025; G0463

== ENCOUNTER 2020-03-17 05:15 | Inpatient (IN) | payer MEDICARE, MEDICAID ==
[2020-03-17] MEDS ORDERED: GASTROGRAFIN SOLUTION 30ML (Q9963) As Ordered ONE (06:47)
[2020-03-17] MEDS ORDERED: ISOVUE-370 76% 100ML VIAL As Ordered ONE (07:25)
[2020-03-17] MEDS ORDERED: cefTRIAXone SOD 1GM VIAL (J0696 PER 250MG) As Ordered ONE ×2 (07:33→15:57)
[2020-03-17] MEDS ORDERED: AZITHROMYCIN INJ 500MG VIAL (J0456 PER 500MG) As Ordered ONE ×2 (08:58→17:02)
[2020-03-17] MEDS ORDERED: fentaNYL 100 MCG/2 ML INJECTION (J3010) As Ordered ONE (08:58)
[2020-03-17] MEDS ORDERED: FUROSEMIDE 20MG/2ML VIAL (J1940) As Ordered ONE (13:16)
[2020-03-17] MEDS ORDERED: ENOXAPARIN 40MG/0.4ML SYRINGE (J1650 PER 10MG) As Ordered ONE (15:57)
[2020-03-18] MEDS ORDERED: ENOXAPARIN 40MG/0.4ML SYRINGE (J1650 PER 10MG) As Ordered ONE (08:23)
[2020-03-18] MEDS ORDERED: cefTRIAXone SOD 1GM VIAL (J0696 PER 250MG) As Ordered ONE (14:06)
[2020-03-18] MEDS ORDERED: FUROSEMIDE 40 MG TAB As Ordered ONE (14:43)
[2020-03-18] MEDS ORDERED: AZITHROMYCIN INJ 500MG VIAL (J0456 PER 500MG) As Ordered ONE (15:30)
[2020-03-18] MEDS ORDERED: ONDANSETRON 4MG/2ML VIAL As Ordered ONE (16:18)
[2020-03-19] MEDS ORDERED: FUROSEMIDE 40 MG TAB As Ordered ONE (08:26)
[2020-03-19] MEDS ORDERED: ENOXAPARIN 40MG/0.4ML SYRINGE (J1650 PER 10MG) As Ordered ONE ×2 (08:26→14:47)
[2020-03-19] MEDS ORDERED: cefTRIAXone SOD 1GM VIAL (J0696 PER 250MG) As Ordered ONE (14:47)
[2020-03-19] MEDS ORDERED: AZITHROMYCIN INJ 500MG VIAL (J0456 PER 500MG) As Ordered ONE (15:44)
[2020-03-20] MEDS ORDERED: ENOXAPARIN 40MG/0.4ML SYRINGE (J1650 PER 10MG) As Ordered ONE (07:54)
[2020-03-20] MEDS ORDERED: FUROSEMIDE 40 MG TAB As Ordered ONE (07:54)
[2020-03-20] MEDS ORDERED: ACETAMINOPHEN TAB 650MG DOSE (2X325MG) PO PRN (10:15)
[2020-03-20] MEDS ORDERED: IBUPROFEN 400 MG TAB PO PRN (10:15)
[2020-03-20] MEDS ORDERED: ONDANSETRON 4MG/2ML VIAL IV PRN (10:15)
[2020-03-20] MEDS ORDERED: IBUP200C28 PO (10:57)
[2020-03-20] MEDS ORDERED: cefTRIAXone SOD 1GM VIAL (J0696 PER 250MG) As Ordered ONE (14:25)
[2020-03-20] MEDS ORDERED: AZITHROMYCIN INJ 500MG VIAL (J0456 PER 500MG) As Ordered ONE (15:21)
[2020-03-20 21:25] LABS: HEMATOCRIT 36.1 % (42.0-52.0); HEMOGLOBIN 11.3 g/dl (13.5-17.5); MEAN CORPUSCULAR HEMOGLOBIN 26.7 pg (27.0-33.0); MEAN CORPUSCULAR HGB CONC 31.3 g/dl (32.0-36.5); MEAN CORPUSCULAR VOLUME 85.3 fl (80.0-96.0); PLATELET COUNT, AUTOMATED 281 10^3/uL (150-450); RED BLOOD COUNT 4.23 10^6/uL (4.30-6.10); WHITE BLOOD COUNT 10.3 10^3/uL (4.0-10.0)
[2020-03-20 22:00] VITALS: BP 128/64
[2020-03-21 05:53] LABS: HEMATOCRIT 34.6 % (42.0-52.0); MEAN CORPUSCULAR HEMOGLOBIN 26.5 pg (27.0-33.0); MEAN CORPUSCULAR HGB CONC 31.8 g/dl (32.0-36.5); MEAN CORPUSCULAR VOLUME 83.4 fl (80.0-96.0); PLATELET COUNT, AUTOMATED 284 10^3/uL (150-450); RED BLOOD COUNT 4.15 10^6/uL (4.30-6.10); WHITE BLOOD COUNT 11.3 10^3/uL (4.0-10.0)
[2020-03-21 06:00] VITALS: BP 132/66
[2020-03-21 06:32] LABS: ALT/SGPT 47 U/L (12-78); BILIRUBIN,TOTAL 0.6 MG/DL (0.2-1.0); BLOOD UREA NITROGEN 20 MG/DL (7-18); C REACTIVE PROTEIN QUANTITATIV 0.85 MG/DL (0.00-0.30); CARBON DIOXIDE LEVEL 30 MEQ/L (21-32); CHLORIDE LEVEL 106 MEQ/L (98-107); CREATININE FOR GFR 0.96 MG/DL (0.70-1.30); GLOMERULAR FILTRATION RATE > 60.0 (>49); GLUCOSE, FASTING 86 MG/DL (70-100); LIPASE 97 U/L (73-393); MAGNESIUM LEVEL 2.1 MG/DL (1.8-2.4); PHOSPHORUS LEVEL 4.1 MG/DL (2.5-4.9); POTASSIUM SERUM 4.1 MEQ/L (3.5-5.1); SODIUM LEVEL 138 MEQ/L (136-145)
[2020-03-21 08:26] LABS: ERYTHROCYTE SEDIMENTATION RATE 22 mm/hr (0-20)
[2020-03-21] MEDS: FUROSEMIDE 40 MG TAB PO SCH (09:34)
[2020-03-21] MEDS: ENOXAPARIN 40MG/0.4ML SYRINGE (J1650 PER 10MG) SC SCH (09:34)
[2020-03-21 14:00] VITALS: BP 130/74
--- NOTE | 2020-03-21 15:27 | IPNPDOC ---
Date Seen The patient was seen on 03/21/20. Progress Note SUBJECTIVE: Patient seen and examined at bedside this AM. No issues overnight and no complaints today. Denies any SOB, CP, palpitation or abdominal pain. No diarrhea or urinary symptoms. He is very eager to go home. OBJECTIVE PHYSICAL EXAMINATION: VITAL SIGNS: Please see below. GENERAL: NAD, laying flat in bed, calm, cooperative, spastic movements, difficult to understand HEENT: NC/AT, MMM, EOMI CARDIOVASCULAR: RRR, no m/r/g RESPIRATORY: decreased tactile fremitus in RLL up to RML, otherwise CTAB ABDOMINAL: soft, nontender to light/deep palpation, +BS, no organomegaly EXTREMITIES: trace edema of lower extremities bilaterally NEUROLOGICAL: spastic movements, unable to perform entire neurologic exam PSYCHOLOGICAL: normal mood/flat affect LABORATORY DATA, IMAGING STUDIES, MICROBIOLOGY: Please see below. Echocardiogram: Performed on admission. 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 R pleural effusion: mostly resolved s/p thoracentesis -awaiting fluid cultures, although most likely 2/2 CHF 2. RLL PNA: -Continue IV Ceftriaxone/Azithromycin (day 4) -No cough, normal WBC, no oxygen requirement at this time 3. CHF: (unknown details, as Echo read in paper chart?) -Continue PO Lasix 40mg 4. Abdominal pain: patient reported abdominal pain on 03/20 with palpation. He was tolerating food, no diarrhea -CT abd/pel unrevealing for etiology. Abdominal pain resolved this AM. DISPOSITION: Will contact family and determine disposition, PT recommending home with services. Likely discharge in next 48h VS, I&O, 24H, [place] Vital Signs/I&O Vital Signs Date Time Temp Pulse Resp B/P (MAP) Pulse Ox O2 Delivery O2 Flow Rate FiO2 03/21/20 06:00 98.5 71 16 132/66 (88) 96 Room Air I&O- Last 24 Hours up to 6 AM 03/21/20 06:00 Intake Total 480 ml Output Total 650 ml Balance -170 ml Laboratory Data 24H LABS Laboratory Tests 2 03/21/20 05:34: Nucleated Red Blood Cells % (auto) 0.0, Erythrocyte Sedimentation Rate 22H, Anion Gap 2L, Glomerular Filtration Rate > 60.0, Calcium Level 9.0, Phosphorus Level 4.1, Magnesium Level 2.1, Total Bilirubin 0.6, Aspartate Amino Transf (AST/SGOT) 21, Alanine Aminotransferase (ALT/SGPT) 47, Alkaline Phosphatase 247H, C-Reactive Protein, Quantitative 0.85H, Total Protein 6.0L, Albumin 3.0L, Albumin/Globulin Ratio 1.0, Lipase 97 CBC/BMP Laboratory Tests 03/21/20 05:34 GME ATTESTATION GME ATTESTATION My faculty preceptor for this patient encounter was physically present during the encounter and was fully available. All aspects of the patient interview, examination, medical decision making process, and medical care plan development were reviewed and approved by the faculty preceptor. The faculty preceptor is aware and concurs with the plan as stated in the body of this note and will attest to such by his/her cosignature. ATTENDING NOTE Patient independently seen and examined. Agree with resident's note. DAVE HUNTER MD Mar 21, 2020 15:27 ANASTASIA TOLEDO MD Apr 17, 2020 11:41
[2020-03-21] MEDS: cefTRIAXone SOD 1 GM in D5W MINI-BAG PLUS 50 ML IV SCH (16:10)
[2020-03-21] MEDS: AZITHROMYCIN INJ 500 MG, VIAL MATE ADAPTER 1 EACH in D5W 250 ML IV SCH (16:56)
[2020-03-21 22:00] VITALS: BP 130/70
[2020-03-22 06:00] VITALS: BP 130/66
[2020-03-22 06:59] LABS: HEMATOCRIT 37.2 % (42.0-52.0); HEMOGLOBIN 11.7 g/dl (13.5-17.5); MEAN CORPUSCULAR HEMOGLOBIN 26.5 pg (27.0-33.0); MEAN CORPUSCULAR HGB CONC 31.5 g/dl (32.0-36.5); MEAN CORPUSCULAR VOLUME 84.2 fl (80.0-96.0); PLATELET COUNT, AUTOMATED 317 10^3/uL (150-450); RED BLOOD COUNT 4.42 10^6/uL (4.30-6.10); WHITE BLOOD COUNT 11.7 10^3/uL (4.0-10.0)
[2020-03-22 07:27] LABS: BLOOD UREA NITROGEN 19 MG/DL (7-18); CALCIUM LEVEL 9.3 MG/DL (8.8-10.2); CARBON DIOXIDE LEVEL 31 MEQ/L (21-32); CHLORIDE LEVEL 103 MEQ/L (98-107); CREATININE FOR GFR 1.03 MG/DL (0.70-1.30); GLOMERULAR FILTRATION RATE > 60.0 (>49); GLUCOSE, FASTING 80 MG/DL (70-100); POTASSIUM SERUM 4.2 MEQ/L (3.5-5.1); SODIUM LEVEL 138 MEQ/L (136-145)
[2020-03-22] MEDS: ENOXAPARIN 40MG/0.4ML SYRINGE (J1650 PER 10MG) SC SCH (08:46)
[2020-03-22] MEDS: FUROSEMIDE 40 MG TAB PO SCH (08:46)
[2020-03-22 12:54] LABS: APPEARANCE, BODY FLUID HAZY (CLEAR); PLEURAL FL COLOR YELLOW (COLORLESS); SOURCE, BODY FLUID PLEURAL
[2020-03-22 13:00] LABS: HEMATOCRIT 35.2 % (42.0-52.0); HEMOGLOBIN 10.9 g/dl (13.5-17.5); MEAN CORPUSCULAR HEMOGLOBIN 26.8 pg (27.0-33.0); MEAN CORPUSCULAR VOLUME 86.5 fl (80.0-96.0); PLATELET COUNT, AUTOMATED 275 10^3/uL (150-450); RED BLOOD COUNT 4.07 10^6/uL (4.30-6.10); WHITE BLOOD COUNT 11.6 10^3/uL (4.0-10.0)
[2020-03-22 14:00] VITALS: BP 130/74
--- NOTE | 2020-03-22 14:12 | IPNPDOC ---
Date Seen The patient was seen on 03/22/20. Progress Note SUBJECTIVE: Patient seen and examined at bedside this AM. No issues overnight and no complaints today. Denies any SOB, CP, palpitation or abdominal pain. No diarrhea or urinary symptoms. He is very eager to go home. OBJECTIVE PHYSICAL EXAMINATION: VITAL SIGNS: Please see below. GENERAL: NAD, laying flat in bed, calm, cooperative, spastic movements, difficult to understand HEENT: NC/AT, MMM, EOMI CARDIOVASCULAR: RRR, no m/r/g RESPIRATORY: decreased tactile fremitus in RLL up to RML, otherwise CTAB ABDOMINAL: soft, nontender to light/deep palpation, +BS, no organomegaly EXTREMITIES: trace edema of lower extremities bilaterally NEUROLOGICAL: spastic movements, unable to perform entire neurologic exam PSYCHOLOGICAL: normal mood/flat affect LABORATORY DATA, IMAGING STUDIES, MICROBIOLOGY: Please see below. Echocardiogram: Performed on admission. 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 R pleural effusion: mostly resolved s/p thoracentesis -awaiting fluid cultures, although most likely 2/2 CHF 2. RLL PNA: WBC increased today from 11.3 to 11.7 -Continue IV Ceftriaxone/Azithromycin (day 5/7) -No cough, normal WBC, no oxygen requirement at this time 3. CHF: (unknown details, as Echo read in paper chart?) -Continue PO Lasix 40mg 4. Abdominal pain: patient reported abdominal pain on 03/20 with palpation. He was tolerating food, no diarrhea -CT abd/pel unrevealing for etiology. Abdominal pain resolved this AM. DISPOSITION: Likely discharge in next 48h VS, I&O, 24H, [place] Vital Signs/I&O Vital Signs Date Time Temp Pulse Resp B/P (MAP) Pulse Ox O2 Delivery O2 Flow Rate FiO2 03/22/20 06:00 98.0 70 18 130/66 (87) 97 Room Air I&O- Last 24 Hours up to 6 AM 03/22/20 06:00 Intake Total 1160 ml Output Total 1400 ml Balance -240 ml Laboratory Data 24H LABS Laboratory Tests 2 03/22/20 05:38: Nucleated Red Blood Cells % (auto) 0.0 03/22/20 05:39: Anion Gap 4L, Glomerular Filtration Rate > 60.0, Calcium Level 9.3 CBC/BMP Laboratory Tests 03/22/20 05:38 03/22/20 05:39 Microbiology Microbiology 03/19/20 Gram Stain - Final, Complete 03/19/20 Body Fluid Culture - Final, Complete 03/17/20 Respiratory Virus Panel (PCR) ([facility]) - Final, Complete GME ATTESTATION GME ATTESTATION My faculty preceptor for this patient encounter was physically present during the encounter and was fully available. All aspects of the patient interview, examination, medical decision making process, and medical care plan development were reviewed and approved by the faculty preceptor. The faculty preceptor is aware and concurs with the plan as stated in the body of this note and will attest to such by his/her cosignature. ATTENDING NOTE Patient independently seen and examined. Agree with resident's note. DAVE HUNTER MD Mar 22, 2020 14:12 ANASTASIA TOLEDO MD Apr 17, 2020 11:41
[2020-03-22] MEDS: cefTRIAXone SOD 1 GM in D5W MINI-BAG PLUS 50 ML IV SCH (16:07)
[2020-03-22] MEDS: AZITHROMYCIN INJ 500 MG, VIAL MATE ADAPTER 1 EACH in D5W 250 ML IV SCH (16:59)
[2020-03-22 22:00] VITALS: BP 130/60
[2020-03-23 06:00] VITALS: BP 138/62
[2020-03-23 06:56] LABS: HEMATOCRIT 37.8 % (42.0-52.0); MEAN CORPUSCULAR HEMOGLOBIN 26.5 pg (27.0-33.0); MEAN CORPUSCULAR HGB CONC 31.7 g/dl (32.0-36.5); MEAN CORPUSCULAR VOLUME 83.6 fl (80.0-96.0); PLATELET COUNT, AUTOMATED 315 10^3/uL (150-450); RED BLOOD COUNT 4.52 10^6/uL (4.30-6.10)
[2020-03-23 07:12] LABS: WHITE BLOOD COUNT 11.6 10^3/uL (4.0-10.0)
[2020-03-23 07:25] LABS: BLOOD UREA NITROGEN 18 MG/DL (7-18); CALCIUM LEVEL 9.2 MG/DL (8.8-10.2); CARBON DIOXIDE LEVEL 30 MEQ/L (21-32); CHLORIDE LEVEL 105 MEQ/L (98-107); CREATININE FOR GFR 1.04 MG/DL (0.70-1.30); GLOMERULAR FILTRATION RATE > 60.0 (>49); GLUCOSE, FASTING 84 MG/DL (70-100); POTASSIUM SERUM 4.6 MEQ/L (3.5-5.1); SODIUM LEVEL 138 MEQ/L (136-145)
[2020-03-23 07:30] LABS: ANISOCYTOSIS 1+; ATYPICAL LYMPH 1 % (0-5); EOSINOPHILS 3 % (0-3); LYMPHOCYTES 56 % (16-44); MONOCYTES 5 % (0-5); NEUTROPHILS 35 % (28-66); PLATELET ESTIMATE NORMAL (NORMAL)
[2020-03-23] MEDS: ENOXAPARIN 40MG/0.4ML SYRINGE (J1650 PER 10MG) SC SCH (09:35)
[2020-03-23] MEDS: FUROSEMIDE 40 MG TAB PO SCH (09:35)
[2020-03-23] MEDS ORDERED: AZIT500T5 PO (10:41)
[2020-03-23] MEDS ORDERED: CEFD300CAP PO (10:41)
--- NOTE | 2020-03-24 15:47 | DS.PDOC ---
Discharge Summary General Date of Admission Mar 17, 2020 at 15:38 Date of Discharge March 23, 2020 Primary Care Physician: ANIL MARQUEZ PA-C Attending Physician: ANASTASIA TOLEDO MD Discharge Summary PROCEDURES PERFORMED DURING STAY: [None]. ADMITTING DIAGNOSES: 1. weakness DISCHARGE DIAGNOSES: 1. RLL PNA 2. R-sided pleural effusions COMPLICATIONS/CHIEF COMPLAINT: Abdominal Pain. 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 Patient unable to verbalize exactly what is wrong. He remotely complained of abdominal pain but no etiology was found. HOSPITAL COURSE: Patient was admitted to PCU as he was found to have large R pleural effusion. He underwent thoracentesis drainage in IR. Fluid was found to be transudative, most likely from CHF origin. After drainage, patient was found to have SOB and cough and imaging concerning for RLL PNA. He was started on Ceftriaxone/Azithromycin. He underwent CT abd/pelvis for his abdominal pain which was essentially normal. Patient was discharged home with rest of antibiotic course and instructed to follow up with PCP within 7 days. DISCHARGE MEDICATIONS: Please see below. ALLERGIES: Please see below. PHYSICAL EXAMINATION ON DISCHARGE: VITAL SIGNS: Please see below. PHYSICAL EXAMINATION: VITAL SIGNS: Please see below. GENERAL: NAD, laying flat in bed, calm, cooperative, spastic movements, difficult to understand HEENT: NC/AT, MMM, EOMI CARDIOVASCULAR: RRR, no m/r/g RESPIRATORY: decreased tactile fremitus in RLL up to RML, otherwise CTAB ABDOMINAL: soft, nontender to light/deep palpation, +BS, no organomegaly EXTREMITIES: trace edema of lower extremities bilaterally NEUROLOGICAL: spastic movements, unable to perform entire neurologic exam PSYCHOLOGICAL: normal mood/flat affect LABORATORY DATA: Please see below. IMAGING: See paper chart PROGNOSIS: fair ACTIVITY: [As tolerated]. DIET: mechanical soft DISCHARGE PLAN: home with home care DISPOSITION: . DISCHARGE INSTRUCTIONS: 1. f/u with PCP within 7 days DISCHARGE CONDITION: [Stable]. TIME SPENT ON DISCHARGE: Greater than 30 minutes. Vital Signs/I&Os Vital Signs Date Time Temp Pulse Resp B/P (MAP) Pulse Ox O2 Delivery O2 Flow Rate FiO2 03/23/20 06:00 98.5 68 18 138/62 (87) 96 Room Air I&O- Last 24 Hours up to 6 AM 03/23/20 06:00 Intake Total 1745 ml Output Total 1050 ml Balance 695 ml Laboratory Data Labs 24H Laboratory Tests 2 03/23/20 06:00: Neutrophils (%) (Auto) , Nucleated Red Blood Cells % (auto) 0.0, Neutrophils 35, Lymphocytes (Manual) 56H, Monocytes (Manual) 5, Eosinophils (Manual) 3, Atypical Lymphocytes 1, Anisocytosis 1+, Platelet Estimate NORMAL, Anion Gap 3L, Glomerular Filtration Rate > 60.0, Calcium Level 9.2 CBC/BMP Laboratory Tests 03/23/20 06:00 Microbiology Microbiology 03/19/20 Gram Stain - Final, Complete 03/19/20 Body Fluid Culture - Final, Complete 03/17/20 Respiratory Virus Panel (PCR) ([facility]) - Final, Complete Discharge Medications No Active Prescriptions or Reported Meds Allergies Coded Allergies: No Known Allergies (Unverified , 01/12/19) GME ATTESTATION GME ATTESTATION My faculty preceptor for this patient encounter was physically present during the encounter and was fully available. All aspects of the patient interview, examination, medical decision making process, and medical care plan development were reviewed and approved by the faculty preceptor. The faculty preceptor is aware and concurs with the plan as stated in the body of this note and will attest to such by his/her cosignature. ATTENDING NOTE Patient independently seen and examined. Agree with resident's note. DAVE HUNTER MD Mar 23, 2020 08:02 ANASTASIA TOLEDO MD Apr 17, 2020 11:31
[2020-03-24 23:19] LABS: BLOOD UREA NITROGEN 20 MG/DL (7-18); CALCIUM LEVEL 8.8 MG/DL (8.8-10.2); CARBON DIOXIDE LEVEL 31 MEQ/L (21-32); CHLORIDE LEVEL 106 MEQ/L (98-107); GLOMERULAR FILTRATION RATE > 60.0 (>49); GLUCOSE, FASTING 84 MG/DL (70-100); POTASSIUM SERUM 4.4 MEQ/L (3.5-5.1); SODIUM LEVEL 140 MEQ/L (136-145)
--- NOTE | 2020-04-13 15:14 | ECHO ---
DATE OF PROCEDURE: 03/19/2020 Height: 180 cm Weight: 68 kg REFERRING PHYSICIAN: Dr. Costa INDICATION: Congestive heart failure unspecified. MEASUREMENTS: 2D Measurements: Interventricular septum 1.21 cm Posterior wall 0.90 cm Left ventricle diastole 4.3 cm Aortic root 3.0 cm LVOT 2.0 cm Left atrium 3.8 cm Left atrial volume index 19 Inferior vena cava 2.4 cm Doppler Measurements: Very mild aortic regurgitation No aortic stenosis Aortic valve velocity 91.0 cm/s LVOT VTI 66.9 cm/s Very mild mitral regurgitation Mitral E velocity 64.7 cm/s Mitral A velocity 38.0 cm/s Mitral deceleration time 229 msec Mild tricuspid regurgitation Estimated right ventricular systolic pressure 18-23 mmHg Estimated right atrial pressure 5-10 mmHg No pulmonic regurgitation MITRAL ANNULAR TISSUE DOPPLER E prime lateral 8.1 cm/s, E prime septal 9.3 cm/s DESCRIPTION: Rhythm was sinus. Image quality was good. No pericardial effusion. This was a 2D, M-mode, color flow Doppler, and pulsed wave Doppler examination including mitral annular tissue Doppler. CONCLUSIONS: Mild focal hypertrophy of the basal interventricular septum. Normal regional LV wall motion and wall thickening. Normal LV systolic function. LVEF 60% by visual estimate. Normal LV diastolic function. Very mild aortic valve sclerosis. Very mild aortic regurgitation. Aortic valve was 3-cuspid. Normal right ventricle size and systolic function. Normal estimated right ventricle systolic pressure. Otherwise normal appearing echocardiogram Doppler findings. MTDD
--- NOTE | 2020-04-20 14:58 | ECGEPIP ---
SINUS RHYTHM POSSIBLE LEFT ATRIAL ENLARGEMENT NONSPECIFIC ST & T WAVE ABNORMALITY VS ISCHEMIA ABNORMAL ECG CLINICAL CORRELATION ADVISED NO PRIOR FOR COMPARISON DUE TO DOWNTIME SEE SCANNED DOWNTIME REPORT MTDD
--- NOTE | 2020-04-24 09:24 | ECGEPIP ---
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
--- NOTE | 2020-04-25 09:44 | REP ---
ULTRASOUND-GUIDED RIGHT THORACENTESIS The procedure was performed under the direct supervision of Dr. Desir. The risks and benefits of the procedure were explained to the patient and informed consent was obtained. The right pleural effusion was localized using ultrasound guidance. The skin was prepped and draped in a sterile fashion. 1% Lidocaine was used as a local anesthesia. An 8-Danish multi-side hole catheter was inserted using trocar technique. 1000 mL of clear yellow fluid was withdrawn with a sample sent to the lab for analysis. The patient tolerated the procedure well and there were no immediate complications. After the appropriate amount of monitored convalescence, the patient was discharged from the department. ZHANNA
--- NOTE | 2020-04-25 09:46 | REP ---
CHEST X-RAY: 2-VIEWS HISTORY: Post thoracentesis on the right. COMPARISON: 03/17/2020. FINDINGS: Monitoring electrodes overlie the chest. There is no evidence of pneumothorax. The right pleural angle is improved, much less blunted. Cardiomediastinal silhouette is unchanged. IMPRESSION: No complication seen. MTDD
[2020-04-30 11:39] LABS: INR 1.12; PARTIAL THROMBOPLASTIN TIME 33.2 SECONDS (24.2-38.5); PROTHROMBIN TIME 14.7 SECONDS (12.5-14.3)
[2020-04-30 13:38] LABS: BASO # 0.1 10^3/uL (0.0-0.2); BASO % 0.4 % (0.0-1.0); EOS # 0.1 10^3/uL (0.0-0.5); EOS % 0.5 % (0.0-3.0); HEMATOCRIT 38.2 % (42.0-52.0); HEMOGLOBIN 11.9 g/dl (13.5-17.5); LYMPH # 6.3 10^3/uL (1.5-5.0); LYMPH % 40.1 % (24.0-44.0); MEAN CORPUSCULAR HEMOGLOBIN 26.8 pg (27.0-33.0); MEAN CORPUSCULAR HGB CONC 31.2 g/dl (32.0-36.5); MONO # 1.1 10^3/uL (0.0-0.8); MONO % 6.7 % (0.0-5.0); NEUTROPHILS # 8.2 10^3/uL (1.5-8.5); NEUTROPHILS % 51.9 % (36.0-66.0); PLATELET COUNT, AUTOMATED 304 10^3/uL (150-450); RED BLOOD COUNT 4.44 10^6/uL (4.30-6.10); WHITE BLOOD COUNT 15.7 10^3/uL (4.0-10.0)
[2020-05-29 10:10] LABS: HEMATOCRIT 35.6 % (42.0-52.0); HEMOGLOBIN 10.9 g/dl (13.5-17.5); MEAN CORPUSCULAR VOLUME 86.4 fl (80.0-96.0); RED BLOOD COUNT 4.12 10^6/uL (4.30-6.10); WHITE BLOOD COUNT 12.1 10^3/uL (4.0-10.0)
[2020-05-29 10:11] LABS: LYMPHOCYTES 32 % (16-44); MEAN CORPUSCULAR HEMOGLOBIN 26.5 pg (27.0-33.0); MEAN CORPUSCULAR HGB CONC 30.6 g/dl (32.0-36.5); NEUTROPHILS 55 % (28-66); PLATELET COUNT, AUTOMATED 268 10^3/uL (150-450)
[2020-05-29 10:12] LABS: ANISOCYTOSIS 1+; ATYPICAL LYMPH 5 % (0-5); EOSINOPHILS 3 % (0-3); MONOCYTES 5 % (0-5); PLATELET ESTIMATE NORMAL (NORMAL); SMUDGE CELLS 1+
[2020-06-03 07:48] LABS: ALBUMIN 3.1 GM/DL (3.2-5.2); ALT/SGPT 59 U/L (12-78); BILIRUBIN,TOTAL 0.9 MG/DL (0.2-1.0); BLOOD UREA NITROGEN 19 MG/DL (7-18); CALCIUM LEVEL 8.8 MG/DL (8.8-10.2); CARBON DIOXIDE LEVEL 30 MEQ/L (21-32); CHLORIDE LEVEL 108 MEQ/L (98-107); CREATININE FOR GFR 1.08 MG/DL (0.70-1.30); GLOMERULAR FILTRATION RATE > 60.0 (>49); GLUCOSE, FASTING 83 MG/DL (70-100); NT-PRO BNP 1063 PG/ML (<125); POTASSIUM SERUM 4.4 MEQ/L (3.5-5.1); SODIUM LEVEL 141 MEQ/L (136-145); TROPONIN I < 0.02 NG/ML (< 0.10)
[2020-06-10 11:49] LABS: ALBUMIN 3.5 GM/DL (3.2-5.2); ALT/SGPT 72 U/L (12-78); BILIRUBIN,DIRECT 0.4 MG/DL (0.0-0.2); BLOOD UREA NITROGEN 21 MG/DL (7-18); CALCIUM LEVEL 8.7 MG/DL (8.8-10.2); CARBON DIOXIDE LEVEL 27 MEQ/L (21-32); CHLORIDE LEVEL 112 MEQ/L (98-107); CREATININE FOR GFR 1.07 MG/DL (0.70-1.30); GLOMERULAR FILTRATION RATE > 60.0 (>49); GLUCOSE, FASTING 102 MG/DL (70-100); LIPASE 93 U/L (73-393); NT-PRO BNP 1409 PG/ML (<125); POTASSIUM SERUM 4.5 MEQ/L (3.5-5.1); SODIUM LEVEL 144 MEQ/L (136-145); TOTAL PROTEIN 6.6 GM/DL (6.4-8.2); TROPONIN I < 0.02 NG/ML (< 0.10)
[2020-06-10 13:02] LABS: LDH, BODY FLUID 48 U/L (NOT ESTABLISHED); SOURCE, BODY FLUID LDH PLEURAL; SOURCE, BODY FLUID TOT PROTEIN PLEURAL; TOTAL PROTEIN, BODY FLUID 1.4 G/DL (NOT ESTABLISHED)
[2020-06-10 13:02] LABS: ALBUMIN 3.1 GM/DL (3.2-5.2); ALT/SGPT 51 U/L (12-78); BILIRUBIN,TOTAL 0.6 MG/DL (0.2-1.0); BLOOD UREA NITROGEN 21 MG/DL (7-18); CALCIUM LEVEL 8.8 MG/DL (8.8-10.2); CARBON DIOXIDE LEVEL 29 MEQ/L (21-32); CHLORIDE LEVEL 107 MEQ/L (98-107); CREATININE FOR GFR 1.09 MG/DL (0.70-1.30); GLOMERULAR FILTRATION RATE > 60.0 (>49); GLUCOSE, FASTING 83 MG/DL (70-100); MAGNESIUM LEVEL 2.1 MG/DL (1.8-2.4); NT-PRO BNP 966 PG/ML (<125); POTASSIUM SERUM 4.6 MEQ/L (3.5-5.1); SODIUM LEVEL 141 MEQ/L (136-145); TOTAL PROTEIN 5.9 GM/DL (6.4-8.2); TROPONIN I < 0.02 NG/ML (< 0.10)
[2020-06-14] MEDS ORDERED: SPIR-10 PO (13:59)
[2020-06-14] MEDS ORDERED: METO25TA4 PO (13:59)
[2020-06-14] MEDS ORDERED: LISI-542 PO (13:59)
[2020-06-14] MEDS ORDERED: FURO40TA2 PO (13:59)
[2020-06-14] MEDS ORDERED: ROZE8TAB16 PO (13:59)
== END 2020-03-23 14:52 | disposition home or self-care (01) | DRG 194 ==
LOC: M ED 05:15 → M MSPAV 15:38 → M ED 03-20 05:15
PROVIDERS: ADMIT Internal Medicine; ATTEND Internal Medicine
PROC: 0W993ZZ Drainage of Right Pleural Cavity, Percutaneous Approach (ICD-10-PCS; principal; 2020-03-19)
DX: J18.9 Pneumonia, unspecified organism (principal); J90 Pleural effusion, not elsewhere classified; G10 Huntington's disease; Z79.899 Other long term (current) drug therapy; I50.9 Heart failure, unspecified

== ENCOUNTER 2020-04-13 08:35 | Inpatient (IN) | payer MEDICARE, MEDICAID ==
[~2020-04-13] VITALS: Ht 180.3 cm; Wt 75.8 kg
[~2020-04-13 08:35] MED LIST changes: +AZIT500T5 PO; +CEFD300CAP PO
[2020-04-13] MEDS ORDERED: NS 1,000 ML IV SCH (08:46)
[2020-04-13] MEDS ORDERED: GI COCKTAIL 50ML BTL(HYOSCYAMINE/MAALOX/LIDOCAINE VISCOUS)(1:3:1) PO ONE (09:15)
[2020-04-13 09:39] LABS: HEMATOCRIT 36.7 % (42.0-52.0); HEMOGLOBIN 11.1 g/dl (13.5-17.5); MEAN CORPUSCULAR HEMOGLOBIN 26.4 pg (27.0-33.0); MEAN CORPUSCULAR HGB CONC 30.2 g/dl (32.0-36.5); MEAN CORPUSCULAR VOLUME 87.2 fl (80.0-96.0); PLATELET COUNT, AUTOMATED 228 10^3/uL (150-450); RED BLOOD COUNT 4.21 10^6/uL (4.30-6.10)
[2020-04-13 09:49] LABS: INR 1.13; PROTHROMBIN TIME 14.8 SECONDS (11.8-14.0)
[2020-04-13 10:08] LABS: ALBUMIN 3.2 GM/DL (3.2-5.2); ALT/SGPT 61 U/L (12-78); BILIRUBIN,DIRECT 0.3 MG/DL (0.0-0.2); BILIRUBIN,TOTAL 0.6 MG/DL (0.2-1.0); BLOOD UREA NITROGEN 26 MG/DL (7-18); CALCIUM LEVEL 8.7 MG/DL (8.8-10.2); CARBON DIOXIDE LEVEL 23 MEQ/L (21-32); CHLORIDE LEVEL 116 MEQ/L (98-107); CK-MB VALUE MASS 1.3 NG/ML (<3.6); CPK CREATINE PHOSPHOKINASE 56 U/L (39-308); CREATININE FOR GFR 1.51 MG/DL (0.70-1.30); GLOMERULAR FILTRATION RATE 49.8 (>49); GLUCOSE, FASTING 103 MG/DL (70-100); LIPASE 109 U/L (73-393); MB/CK RELATIVE INDEX 2.32 (< OR =4); POTASSIUM SERUM 3.5 MEQ/L (3.5-5.1); SODIUM LEVEL 146 MEQ/L (136-145); TOTAL PROTEIN 6.7 GM/DL (6.4-8.2); TROPONIN I < 0.02 NG/ML (< 0.10)
[2020-04-13 10:21] LABS: ATYPICAL LYMPH 14 % (0-5); BASOPHILS 1 % (0-1); EOSINOPHILS 2 % (0-3); LYMPHOCYTES 34 % (16-44); MONOCYTES 5 % (0-5); NEUTROPHILS 44 % (28-66)
[2020-04-13 10:22] LABS: ANISOCYTOSIS 1+; HYPOCHROMASIA 1+; MICROCYTOSIS 1+; PLATELET ESTIMATE NORMAL (NORMAL); SMUDGE CELLS 2+
[2020-04-13] MEDS ORDERED: NS 1,000 ML IV ONE (10:30)
--- NOTE | 2020-04-13 12:12 | REPVR ---
PROCEDURE INFORMATION: Exam: CT Abdomen And Pelvis Without Contrast Exam date and time: 04/13/2020 11:45 AM Age: 64 years old Clinical indication: Abdominal pain; Generalized; Additional info: [employer] TECHNIQUE: Imaging protocol: Computed tomography of the abdomen and pelvis without contrast. Radiation optimization: All CT scans at this facility use at least one of these dose optimization techniques: automated exposure control; mA and/or kV adjustment per patient size (includes targeted exams where dose is matched to clinical indication); or iterative reconstruction. COMPARISON: CT ABD/PEL W/IV ORAL CONTRAS 03/17/2020 8:29 AM FINDINGS: Limitations: Lack of intravenous contrast material limits evaluation of the vascular and visceral structures. Lungs: Mild atelectasis in the dependent lower lobes. Pleural space: Moderate right and small to moderate left pleural effusions. Right pleural effusion appears essentially unchanged. Left pleural effusion appears slightly increased in size. Heart: Small pericardial effusion, unchanged. Liver: Normal. No mass. Gallbladder and bile ducts: Normal. No calcified stones. No ductal dilation. Pancreas: Normal. No ductal dilation. Spleen: Calcified splenic granulomas. Stable partial peripheral calcification of the spleen, likely related to remote trauma or remote infection. Adrenals: Normal. No mass. Kidneys and ureters: Normal. No hydronephrosis. Stomach and bowel: No bowel obstruction. Appendix: No evidence of appendicitis. Intraperitoneal space: Moderate amount of ascites. Vasculature: Mild atherosclerotic vascular calcifications. Lymph nodes: Mildly prominent bilateral inguinal lymph nodes, measuring up to 15 mm in short axis dimension, essentially unchanged. Prominent bilateral iliac lymph nodes, measuring up to 14 mm in short axis dimension, essentially unchanged. Bladder: Unremarkable as visualized. Reproductive: Enlarged prostate gland. Bones/joints: Degenerative change of the spine. Fixation screw extends across the sacroiliac joints. Mild bilateral sacroiliac joint DJD. Fixation screw extends through the left anterior acetabular column and left superior pubic ramus. Chronic fracture deformities of the left superior and inferior pubic rami. Bilateral hip joint DJD. Soft tissues: Moderate sized left inguinal hernia, containing a short segment of small bowel. No evidence of bowel obstruction or strangulation. Small fluid containing right inguinal hernia. Prominent anasarca. IMPRESSION: 1. Moderate amount of ascites, similar to prior CT. 2. Prominent anasarca. 3. Moderate right and small to moderate left pleural effusions. 4. Small pericardial effusion. 5. Enlarged prostate gland. 6. Bilateral inguinal hernias. Electronically signed by: Reina Chow On 04/13/2020 12:12:13 PM
[2020-04-13] MEDS ORDERED: FUROSEMIDE 40MG/4ML VIAL (J1940) IV ONE (15:45)
[2020-04-13 16:34] LABS: NT-PRO BNP 1527 PG/ML (<125)
--- NOTE | 2020-04-13 17:19 | HPEPDOC ---
General Date of Admission Apr 13, 2020 at 15:32 Date of Service: Apr 13, 2020 Attending Physician: VICENTE AYALA DO Chief Complaint The patient is a 64-year-old male admitted with a reason for visit of Ascites. Source: Patient, Family Exam Limitations: Mild cognitive slowing (Intellectual disability) Associated Symptoms: Other (Abdominal pain) History of Present Illness Mr. Motley is a 64 year old male with [place]'s disease, CLL, and recurrent pleural effusion here with abdominal discomfort. He was recently admitted on 03/17/2020 and discharged on 03/23/2020 for right pleural effusion and right lower lobe PNA. The pleural effusion was transudative and most likely CHF in nature. Mr. Motley has intellectual disability and limited history was obtain from him. Most of his history comes from his sister. He was at his regular oncologist visit for when he started to fell ill. He wanted to go to the ED. While in the ED he was complaining of abdominal pain. CT of the abdomen and pelvis demonstrated moderate amount of ascites, similar to prior CT, prominent anasarca, and moderate right pleural effusion. The left side had small to moderate left pleural effusion. Patient was then called for admission. When I saw the patient, he felt that his abdominal pain was better. He did not want me to touch his abdomen. He did have pitting edema up to his hip and prominent JVD. He denied shortness of breath or chest pain. Denies fever/chills, chest pain, sore throat, diarrhea, or dysuria. Home Medications No Active Prescriptions or Reported Meds Allergies Coded Allergies: No Known Allergies (Unverified , 01/12/19) Past Medical History Medical History [place]'s chorea, CLL, Ascites, Recurrent pleural effusion, , chronic generalized abdominal pain, splenic hematoma, Pelvic and rib fracture Surgical History Repair of pelvic fracture Family History Obtained from chart Mother in her 80s from old age. History of CVA Father age 71 secondary to prostate cancer Siblings: Sister is alive ([place] [phone]) Social History * Smoker: other (Limited history due to intellectual disability) A-FIB/CHADSVASC A-FIB History Current/History of A-Fib/PAF?: No Review of Systems Constitutional: Denies: Chills, Fever Eyes: Denies: Pain ENT: Denies: Head Aches Skin: Denies: Rash Pulmonary: Denies: Dyspnea, Cough Cardiovascular: Denies: Chest Pain Gastrointestinal: Reports: Abdominal Pain Genitourinary: Denies: Dysuria Musculoskeletal: Reports: Other Symptoms (Edema) Neurological: Reports: Other Symptoms (Choreform movement) Physical Examination General Exam: Positive: No Acute Distress Eye Exam: Positive: EOMI, Sclera icteric ENT Exam: Positive: Atraumatic, Mucous membr. moist/pink Neck Exam: Positive: JVD Chest Exam: Positive: Other (Upper lungs clear to auscultation, lower lungs diminished) Heart Exam: Positive: Rate Normal, Regular Rhythm Abdomen Exam: Positive: Normal bowel sounds, Tenderness; Negative: Soft (Firm) Extremity Exam: Positive: Edema (Up to hip) Neuro Exam: Positive: Cranial Nerves 3-12 NL Psych Exam: Positive: Other (Intellectual disability) Vital Signs Vital Signs Date Time Temp Pulse Resp B/P (MAP) Pulse Ox O2 Delivery O2 Flow Rate FiO2 04/13/20 14:18 81 18 188/100 (129) 92 Room Air 04/13/20 08:36 97.3 Laboratory Data Labs 24H Laboratory Tests 2 04/13/20 09:20: Neutrophils (%) (Auto) , Nucleated Red Blood Cells % (auto) 0.0, Neutrophils 44, Lymphocytes (Manual) 34, Monocytes (Manual) 5, Eosinophils (Manual) 2, Basophils (Manual) 1, Atypical Lymphocytes 14H, Hypochromasia 1+, Anisocytosis 1+, Microcytosis 1+, Smudge Cells 2+, Platelet Estimate NORMAL, Prothrombin Time 14.8H, Prothromb Time International Ratio 1.13, Anion Gap 7L, Glomerular Filtration Rate 49.8, Calcium Level 8.7L, Total Bilirubin 0.6, Direct Bilirubin 0.3H, Aspartate Amino Transf (AST/SGOT) 31, Alanine Aminotransferase (ALT/SGPT) 61, Alkaline Phosphatase 249H, Total Creatine Kinase 56, Creatine Kinase MB 1.3, Creatine Kinase MB Relative Index 2.32, Troponin I < 0.02, PS-Eqc-J-Type Natriuretic Peptide 1527H, Total Protein 6.7, Albumin 3.2, Albumin/Globulin Ratio 0.9, Lipase 109 04/13/20 09:21: Lactic Acid Level 1.2 04/13/20 16:19: CBC/BMP Laboratory Tests 04/13/20 09:20 Microbiology Microbiology 04/13/20 Blood Culture, Received Pending 04/13/20 Blood Culture, Received Pending Assessment/Plan Mr. Motley is a 64 year old male with [place]'s disease here with abdominal pain, anasarca, and bilateral pleural effusion. He appears to be fluid overloaded with JVD, ascites, and anasarca. We will diurese and evaluate for CHF. Plan / VTE VTE Prophylaxis Ordered?: Yes Plan Plan 1. Decompensated heart failure - Imaging demonstrates pleural effusion, anasarca, and ascites. Physical exam demonstrates bilateral pitting edema up to his hip and JVD. AST and ALT are within normal. Albumin is 3.2. Pro-BNP elevated at 1527. We will diurese him and evaluate for CHF. He will be monitored on tele and put on a low sodium diet. I/O's and daily weights. Will order echocardiogram 2. Acute kidney injury - Baseline creatinine of 1, current creatinine 1.5. May be secondary to cardiorenal disease vs hypertensive damage. Will continue to trend creatinine and control blood pressure 3. Hypertension - Blood pressure labile, which may be secondary to uncontrolled movement. Will hold off on EVERT/ARB until renal function improves. Will start amlodipine and monitor blood pressures. Current asymptomatic 4. CLL - WBC at 10 today. Will monitor CBC 5. Code status - Spoke with his sister who wants him to be full code 6. DVT ppx - Due to MARA, will start patient on heparin. VICENTE AYALA DO Apr 13, 2020 17:19
[2020-04-13] MEDS ORDERED: amLODIPine 5 MG TAB PO SCH (18:00)
[2020-04-13] MEDS ORDERED: SLF 3 ML SYR IV PRN (18:15)
[2020-04-13 18:30] VITALS: BP 150/110
[2020-04-13 18:53] VITALS: BP 150/92
[2020-04-13 20:00] VITALS: BP 182/106
[2020-04-13] MEDS: HEPARIN SOD (PORCINE) 5000UNITS/ML 1ML VIAL/SYRINGE SC SCH (20:40)
[2020-04-13] MEDS: SLF 3 ML SYR IV SCH (20:40)
[2020-04-14] VITALS: BP 150/82
[2020-04-14 04:00] VITALS: BP 162/106
[2020-04-14 04:53] LABS: HEMATOCRIT 37.1 % (42.0-52.0); HEMOGLOBIN 11.5 g/dl (13.5-17.5); MEAN CORPUSCULAR HEMOGLOBIN 26.6 pg (27.0-33.0); MEAN CORPUSCULAR VOLUME 85.7 fl (80.0-96.0); PLATELET COUNT, AUTOMATED 234 10^3/uL (150-450); RED BLOOD COUNT 4.33 10^6/uL (4.30-6.10); WHITE BLOOD COUNT 10.9 10^3/uL (4.0-10.0)
[2020-04-14 05:09] LABS: ALBUMIN 3.4 GM/DL (3.2-5.2); BILIRUBIN,TOTAL 0.9 MG/DL (0.2-1.0); CREATININE FOR GFR 1.48 MG/DL (0.70-1.30); GLOMERULAR FILTRATION RATE 50.9 (>49); POTASSIUM SERUM 3.5 MEQ/L (3.5-5.1); TOTAL PROTEIN 6.7 GM/DL (6.4-8.2)
[2020-04-14] MEDS: SLF 3 ML SYR IV SCH ×3 (06:42→21:30)
[2020-04-14 07:53] VITALS: BP 160/90
[2020-04-14] MEDS ORDERED: POTASSIUM CHLORIDE 10 MEQ SR TABLET PO ONE (09:00)
[2020-04-14] MEDS: HEPARIN SOD (PORCINE) 5000UNITS/ML 1ML VIAL/SYRINGE SC SCH ×2 (09:21→21:30)
[2020-04-14] MEDS: FUROSEMIDE 40MG/4ML VIAL (J1940) IV SCH (09:22)
[2020-04-14] MEDS: amLODIPine 10 MG TAB PO SCH (09:22)
--- NOTE | 2020-04-14 10:00 | IPNPDOC ---
Subjective Date Seen The patient was seen on 04/14/20. Subjective Chief Complaint/HPI Mr. Motley is a 64 year old male with [place]'s disease and recurrent pleural effusions here with abdominal discomfort. When he was here in March,, he hald pleural effusions secondary to CHF. The echo report at that time reported EF of 60 suggesting heart failure with preserved ejection fraction. Overnight no events. This morning, he feels better. Denies abdominal pain, but has abdominal tenderness. Denies fever/chills, chest pain, dyspnea, diarrhea, or dysuria. Constitutional: Denies: Chills, Fever Eyes: Denies: Pain ENT: Denies: Head Aches Pulmonary: Denies: Dyspnea Cardiovascular: Denies: Chest Pain Gastrointestinal: Denies: Abdominal Pain Genitourinary: Denies: Dysuria Objective Physical Examination General Exam: Positive: No Acute Distress Eye Exam: Positive: EOMI, Sclera icteric ENT Exam: Positive: Atraumatic, Mucous membr. moist/pink Neck Exam: Positive: JVD Chest Exam: Positive: Other (Upper lungs clear to auscultation, lower lungs diminished) Heart Exam: Positive: Rate Normal, Regular Rhythm Abdomen Exam: Positive: Normal bowel sounds, Tenderness; Negative: Soft (Firm) Extremity Exam: Positive: Edema (Up to hip) Neuro Exam: Positive: Cranial Nerves 3-12 NL Psych Exam: Positive: Other (Intellectual disability) Assessment /Plan Assessment Mr. Motley is a 64 year old male with [place]'s disease who is here for fluid overload demonstrated by anasarca, bilateral pleural effusion, and JVD. Echocardiogram demonstrated an EF of 60% less than a month ago. Albumin at 3.4 and INR at 1.13. Suspecting heart failure with preserved ejection fraction as liver is functional. Will continue diuresis Plan/VTE VTE Prophylaxis Ordered?: Yes Plan 1. Decompensated heart failure with preserved ejection fracture - Imaging demonstrates pleural effusion, anasarca, and ascites. Physical exam demonstrates bilateral pitting edema up to his hip and JVD. AST and ALT are within normal. Albumin is 3.2 on admission. Pro-BNP elevated at 1527 on admission. We will diurese him. He will be monitored on tele and put on a low sodium diet. I/O's and daily weights. Repeat echo was done since previous echo report had not been up at time of admission. 2. Acute kidney injury - Baseline creatinine of 1, admission creatinine 1.5. May be secondary to cardiorenal disease vs hypertensive damage. Will continue to trend creatinine and control blood pressure. 3. Hypertension - Blood pressure labile, which may be secondary to uncontrolled movement. Will hold off on EVERT/ARB until renal function improves. Will start amlodipine and monitor blood pressures. Current asymptomatic. Today, increased amlodipine from 5mg to 10mg daily 4. CLL - On admission, WBC 10. Will monitor CBC 5. Code status - Spoke with his sister who wants him to be full code 6. DVT ppx - Due to MARA, will start patient on heparin. VS, I&O, 24H, Fishbone Vital Signs/I&O Vital Signs Date Time Temp Pulse Resp B/P (MAP) Pulse Ox O2 Delivery O2 Flow Rate FiO2 04/14/20 09:22 71 160/90 04/14/20 07:53 97.7 16 98 Room Air I&O- Last 24 Hours up to 6 AM 04/14/20 06:00 Intake Total 2900 ml Output Total 1000 ml Balance 1900 ml Laboratory Data 24H LABS Laboratory Tests 2 04/13/20 16:19: Troponin I < 0.02 04/14/20 04:24: Nucleated Red Blood Cells % (auto) 0.0, Anion Gap 4L, Glomerular Filtration Rate 50.9, Calcium Level 9.0, Total Bilirubin 0.9, Aspartate Amino Transf (AST/SGOT) 21, Alanine Aminotransferase (ALT/SGPT) 53, Alkaline Phosphatase 247H, Total Protein 6.7, Albumin 3.4, Albumin/Globulin Ratio 1.0 CBC/BMP Laboratory Tests 04/14/20 04:24 Microbiology Microbiology 04/13/20 Blood Culture - Preliminary, Resulted No growth after 24 hours . All specim... 04/13/20 Blood Culture - Preliminary, Resulted No growth after 24 hours . All specim... VICENTE AYALA DO Apr 14, 2020 10:00
[2020-04-14 11:56] VITALS: BP 120/80
[2020-04-14 15:54] VITALS: BP 130/90
[2020-04-14 20:00] VITALS: BP 128/70
[2020-04-15] VITALS: BP 138/90
[2020-04-15] MEDS ORDERED: ACETAMINOPHEN 500 MG TAB PO ONE (02:30)
[2020-04-15 04:00] VITALS: BP 138/92
[2020-04-15] MEDS: SLF 3 ML SYR IV SCH ×3 (04:36→20:20)
[2020-04-15 04:45] LABS: BASO # 0.1 10^3/uL (0.0-0.2); BASO % 0.5 % (0.0-1.0); EOS # 0.2 10^3/uL (0.0-0.5); EOS % 1.6 % (0.0-3.0); HEMATOCRIT 35.4 % (42.0-52.0); LYMPH # 4.9 10^3/uL (1.5-5.0); LYMPH % 52.1 % (24.0-44.0); MEAN CORPUSCULAR HEMOGLOBIN 26.5 pg (27.0-33.0); MEAN CORPUSCULAR HGB CONC 31.1 g/dl (32.0-36.5); MEAN CORPUSCULAR VOLUME 85.3 fl (80.0-96.0); MONO # 0.7 10^3/uL (0.0-0.8); MONO % 7.3 % (0.0-5.0); NEUTROPHILS # 3.6 10^3/uL (1.5-8.5); NEUTROPHILS % 38.2 % (36.0-66.0); PLATELET COUNT, AUTOMATED 203 10^3/uL (150-450); RED BLOOD COUNT 4.15 10^6/uL (4.30-6.10); WHITE BLOOD COUNT 9.5 10^3/uL (4.0-10.0)
[2020-04-15 05:10] LABS: CALCIUM LEVEL 8.1 MG/DL (8.8-10.2); CREATININE FOR GFR 1.46 MG/DL (0.70-1.30); GLOMERULAR FILTRATION RATE 51.7 (>49); POTASSIUM SERUM 3.5 MEQ/L (3.5-5.1)
[2020-04-15 07:35] VITALS: BP 140/98
[2020-04-15] MEDS: amLODIPine 10 MG TAB PO SCH (08:24)
[2020-04-15] MEDS: HEPARIN SOD (PORCINE) 5000UNITS/ML 1ML VIAL/SYRINGE SC SCH ×2 (08:25→20:20)
[2020-04-15] MEDS: FUROSEMIDE 40MG/4ML VIAL (J1940) IV SCH (08:25)
[2020-04-15] MEDS ORDERED: FLUBLOK(EGG FREE)(QUAD)INFLUENZA VACC 0.5ML SYRINGE 18YRS & OLDER IM ONE (09:00)
[2020-04-15 11:49] VITALS: BP 140/90
[2020-04-15 16:00] VITALS: BP 130/88
--- NOTE | 2020-04-15 17:04 | IPNPDOC ---
Subjective Date Seen The patient was seen on 04/15/20. Subjective Chief Complaint/HPI Mr. Motley is a 64 year old male with [place]'s disease and recurrent pleural effusions here with abdominal discomfort. Overnight, no events. Denies abdominal pain, but has abdominal tenderness. Denies fever/chills, chest pain, dyspnea, diarrhea, or dysuria. Constitutional: Denies: Chills, Fever Eyes: Denies: Pain ENT: Denies: Head Aches Pulmonary: Denies: Dyspnea Cardiovascular: Denies: Chest Pain Gastrointestinal: Denies: Abdominal Pain Genitourinary: Denies: Dysuria Objective Physical Examination General Exam: Positive: No Acute Distress Eye Exam: Positive: EOMI, Sclera icteric ENT Exam: Positive: Atraumatic, Mucous membr. moist/pink Neck Exam: Positive: JVD Chest Exam: Positive: Other (Upper lungs clear to auscultation, lower lungs diminished) Heart Exam: Positive: Rate Normal, Regular Rhythm Abdomen Exam: Positive: Normal bowel sounds, Tenderness; Negative: Soft (Firm) Extremity Exam: Positive: Edema (Up to hip) Neuro Exam: Positive: Cranial Nerves 3-12 NL Psych Exam: Positive: Other (Intellectual disability) Assessment /Plan Assessment Mr. Motley is a 64 year old male with [place]'s disease who is here for fluid overload demonstrated by anasarca, bilateral pleural effusion, and JVD. Echocardiogram demonstrated an EF of 60% less than a month ago. Albumin at 3.4 and INR at 1.13. Suspecting heart failure with preserved ejection fraction as liver is functional. Will continue diuresis. Renal function slowly improving. Continue to monitor creatinine Plan/VTE VTE Prophylaxis Ordered?: Yes Plan 1. Decompensated heart failure with preserved ejection fracture - Imaging demonstrates pleural effusion, anasarca, and ascites. Physical exam demonstrates bilateral pitting edema up to his hip and JVD. AST and ALT are within normal. Albumin is 3.2 on admission. Pro-BNP elevated at 1527 on admission. We will diurese him. He will be monitored on tele and put on a low sodium diet. I/O's and daily weights. Repeat echo was done since previous echo report had not been up at time of admission. 2. Acute kidney injury - Baseline creatinine of 1, admission creatinine 1.5. May be secondary to cardiorenal disease vs hypertensive damage. Will continue to trend creatinine and control blood pressure. Creatinine slowly downtrending. 3. Hypertension - Blood pressure labile, which may be secondary to uncontrolled movement. Will hold off on EVERT/ARB until renal function improves. Will start amlodipine and monitor blood pressures. Current asymptomatic. Continue amlodipine 10mg. Blood pressure better controlled today 4. CLL - On admission, WBC 10. Will monitor CBC 5. Code status - Spoke with his sister who wants him to be full code 6. DVT ppx - Due to MARA, heparin Subq VS, I&O, 24H, Fishbone Vital Signs/I&O Vital Signs Date Time Temp Pulse Resp B/P (MAP) Pulse Ox O2 Delivery O2 Flow Rate FiO2 04/15/20 16:00 97.8 70 18 130/88 (102) 96 Room Air I&O- Last 24 Hours up to 6 AM 04/15/20 06:00 Intake Total 1170 ml Output Total 4150 ml Balance -2980 ml Laboratory Data 24H LABS Laboratory Tests 2 04/15/20 04:11: Immature Granulocyte % (Auto) 0.3, Neutrophils (%) (Auto) 38.2, Lymphocytes (%) (Auto) 52.1H, Monocytes (%) (Auto) 7.3H, Eosinophils (%) (Auto) 1.6, Basophils (%) (Auto) 0.5, Neutrophils # (Auto) 3.6, Lymphocytes # (Auto) 4.9, Monocytes # (Auto) 0.7, Eosinophils # (Auto) 0.2, Basophils # (Auto) 0.1, Nucleated Red Blood Cells % (auto) 0.0, Anion Gap 6L, Glomerular Filtration Rate 51.7, Calcium Level 8.1L CBC/BMP Laboratory Tests 04/15/20 04:11 Microbiology Microbiology 04/13/20 Blood Culture - Preliminary, Resulted No Growth after 48 hours. All Specime... 04/13/20 Blood Culture - Preliminary, Resulted No Growth after 48 hours. All Specime... VICENTE AYALA DO Apr 15, 2020 17:04
[2020-04-15 20:00] VITALS: BP 131/98
[2020-04-16] VITALS: BP 139/86
[2020-04-16 04:00] VITALS: BP 143/92
[2020-04-16] MEDS: SLF 3 ML SYR IV SCH ×3 (04:49→21:19)
[2020-04-16 06:44] LABS: HEMATOCRIT 36.8 % (42.0-52.0); HEMOGLOBIN 11.5 g/dl (13.5-17.5); MEAN CORPUSCULAR HEMOGLOBIN 26.6 pg (27.0-33.0); MEAN CORPUSCULAR HGB CONC 31.3 g/dl (32.0-36.5); MEAN CORPUSCULAR VOLUME 85.2 fl (80.0-96.0); PLATELET COUNT, AUTOMATED 215 10^3/uL (150-450); RED BLOOD COUNT 4.32 10^6/uL (4.30-6.10); WHITE BLOOD COUNT 9.5 10^3/uL (4.0-10.0)
[2020-04-16 07:03] LABS: CALCIUM LEVEL 8.5 MG/DL (8.8-10.2); CREATININE FOR GFR 1.31 MG/DL (0.70-1.30); GLOMERULAR FILTRATION RATE 58.6 (>49); POTASSIUM SERUM 3.6 MEQ/L (3.5-5.1)
[2020-04-16 07:10] VITALS: BP 139/88
[2020-04-16] MEDS: HEPARIN SOD (PORCINE) 5000UNITS/ML 1ML VIAL/SYRINGE SC SCH ×2 (08:22→21:19)
[2020-04-16] MEDS: FUROSEMIDE 40MG/4ML VIAL (J1940) IV SCH (08:23)
[2020-04-16] MEDS: amLODIPine 10 MG TAB PO SCH (08:23)
[2020-04-16 11:44] VITALS: BP 132/93
[2020-04-16 16:00] VITALS: BP 136/83
[2020-04-16] MEDS ORDERED: FLUBLOK(EGG FREE)(QUAD)INFLUENZA VACC 0.5ML SYRINGE 18YRS & OLDER IM ONE (17:00)
--- NOTE | 2020-04-16 19:05 | IPNPDOC ---
Subjective Date Seen The patient was seen on 04/16/20. Subjective Chief Complaint/HPI Mr. Motley is a 64 year old male with [place]'s disease, intellectual disability, and recurrent pleural effusions here with abdominal discomfort. Overnight, no events. Denies abdominal pain, but has abdominal tenderness. Denies fever/chills, chest pain, dyspnea, diarrhea, or dysuria. Constitutional: Denies: Chills, Fever ENT: Denies: Head Aches Pulmonary: Denies: Dyspnea Cardiovascular: Denies: Chest Pain Gastrointestinal: Reports: Other Symptoms (has abdominal tenderness); Denies: Abdominal Pain Genitourinary: Denies: Dysuria Objective Physical Examination General Exam: Positive: No Acute Distress Eye Exam: Positive: EOMI, Sclera icteric ENT Exam: Positive: Atraumatic, Mucous membr. moist/pink Neck Exam: Positive: JVD Chest Exam: Positive: Other (Upper lungs clear to auscultation, lower lungs diminished) Heart Exam: Positive: Rate Normal, Regular Rhythm Abdomen Exam: Positive: Normal bowel sounds, Tenderness; Negative: Soft (Firm) Extremity Exam: Positive: Edema (Up to hip) Neuro Exam: Positive: Cranial Nerves 3-12 NL Psych Exam: Positive: Other (Intellectual disability) Assessment /Plan Assessment Mr. Motley is a 64 year old male with [place]'s disease who is here for fluid overload demonstrated by anasarca, bilateral pleural effusion, and JVD. Echocardiogram demonstrated an EF of 60% less than a month ago. Albumin at 3.4 and INR at 1.13. Suspecting heart failure with preserved ejection fraction as liver is functional. Will continue diuresis. Renal function slowly improving. Continue to monitor creatinine Plan/VTE VTE Prophylaxis Ordered?: Yes Plan 1. Decompensated heart failure with preserved ejection fracture - Imaging demonstrates pleural effusion, anasarca, and ascites. Physical exam demonstrates bilateral pitting edema up to his hip and JVD. AST and ALT are within normal. Albumin is 3.2 on admission. Pro-BNP elevated at 1527 on admission. Low sodium diet with 1800cc fluid restriction (patient does drink a lot of fluids throughout day). Continue with diuresis. I/O's and daily weights. Repeat echo was done since previous echo report had not been up at time of admission. 2. Acute kidney injury - Baseline creatinine of 1, admission creatinine 1.5. May be secondary to cardiorenal disease vs hypertensive damage. Will continue to trend creatinine and control blood pressure. Creatinine slowly downtrending. 3. Hypertension - Blood pressure labile, which may be secondary to uncontrolled movement. Will hold off on EVERT/ARB until renal function improves. Will start amlodipine and monitor blood pressures. Current asymptomatic. Continue amlodipine 10mg. Blood pressure better controlled today 4. CLL - On admission, WBC 10. Will monitor CBC 5. Code status - Spoke with his sister who wants him to be full code 6. Intellectual disability - Severe intellectual disability. Lives with sister. May need help with home. 6. DVT ppx - Due to MARA, heparin Subq VS, I&O, 24H, Fishbone Vital Signs/I&O Vital Signs Date Time Temp Pulse Resp B/P (MAP) Pulse Ox O2 Delivery O2 Flow Rate FiO2 04/16/20 16:00 98.0 65 20 136/83 (100) 97 Room Air I&O- Last 24 Hours up to 6 AM 04/16/20 06:00 Intake Total 1180 ml Output Total 3150 ml Balance -1970 ml Laboratory Data 24H LABS Laboratory Tests 2 04/16/20 06:09: Nucleated Red Blood Cells % (auto) 0.0, Anion Gap 7L, Glomerular Filtration Rate 58.6, Calcium Level 8.5L CBC/BMP Laboratory Tests 04/16/20 06:09 Microbiology Microbiology 04/13/20 Blood Culture - Preliminary, Resulted No Growth after 72 hours. All specime... 04/13/20 Blood Culture - Preliminary, Resulted No Growth after 72 hours. All specime... VICENTE AYALA DO Apr 16, 2020 18:42
[2020-04-16 22:00] VITALS: BP 147/79
[2020-04-17 02:00] VITALS: BP 143/81
[2020-04-17] MEDS: SLF 3 ML SYR IV SCH ×3 (04:54→20:38)
[2020-04-17 05:48] LABS: BASO # 0.1 10^3/uL (0.0-0.2); BASO % 0.5 % (0.0-1.0); EOS # 0.1 10^3/uL (0.0-0.5); EOS % 1.4 % (0.0-3.0); HEMATOCRIT 35.8 % (42.0-52.0); HEMOGLOBIN 11.3 g/dl (13.5-17.5); LYMPH # 5.1 10^3/uL (1.5-5.0); LYMPH % 51.5 % (24.0-44.0); MEAN CORPUSCULAR HEMOGLOBIN 26.5 pg (27.0-33.0); MEAN CORPUSCULAR HGB CONC 31.6 g/dl (32.0-36.5); MEAN CORPUSCULAR VOLUME 83.8 fl (80.0-96.0); MONO # 0.7 10^3/uL (0.0-0.8); NEUTROPHILS # 3.9 10^3/uL (1.5-8.5); NEUTROPHILS % 39.3 % (36.0-66.0); PLATELET COUNT, AUTOMATED 219 10^3/uL (150-450); RED BLOOD COUNT 4.27 10^6/uL (4.30-6.10)
[2020-04-17 05:54] LABS: WHITE BLOOD COUNT 9.9 10^3/uL (4.0-10.0)
[2020-04-17 06:00] VITALS: BP 139/87
[2020-04-17 06:09] LABS: BLOOD UREA NITROGEN 20 MG/DL (7-18); CALCIUM LEVEL 8.6 MG/DL (8.8-10.2); CARBON DIOXIDE LEVEL 29 MEQ/L (21-32); CHLORIDE LEVEL 111 MEQ/L (98-107); CREATININE FOR GFR 1.06 MG/DL (0.70-1.30); GLOMERULAR FILTRATION RATE > 60.0 (>49); GLUCOSE, FASTING 87 MG/DL (70-100); POTASSIUM SERUM 3.6 MEQ/L (3.5-5.1); SODIUM LEVEL 145 MEQ/L (136-145)
[2020-04-17] MEDS: HEPARIN SOD (PORCINE) 5000UNITS/ML 1ML VIAL/SYRINGE SC SCH ×2 (09:58→20:37)
[2020-04-17] MEDS: FUROSEMIDE 40MG/4ML VIAL (J1940) IV SCH (09:58)
[2020-04-17 10:00] VITALS: BP 136/74
[2020-04-17] MEDS: amLODIPine 10 MG TAB PO SCH (10:06)
--- NOTE | 2020-04-17 13:45 | ECHO ---
DATE OF PROCEDURE: 04/13/2020 Age: Gender: Male Height: Weight: Patient Location: [facility] REFERRING PHYSICIAN: Dr. Fidencio Ramos INDICATION: Congestive heart failure. MEASUREMENTS: 2D measurements: IVS 1.4 cm LV 3.5 cm LVPW 1.4 cm LA 3.6 cm Aorta 2.9 cm IVC 2.3 cm DOPPLER MEASUREMENTS: Peak velocity across the aortic valve 0.94 m/s Peak velocity across the LVOT 0.75 m/s Mitral E 0.65, mitral A 0.71 with a ratio of 0.9 Maximum tricuspid jet velocity 2.2 m/s 2D COMMENTS: 1. Mildly increased left ventricular wall thickness with normal left ventricular size, but left ventricular systolic function appears to be mildly depressed. The anterior septum, the mid portion and the apical septum appear to be hypokinetic. The mid anterior wall, as well as the apical anterior also appear to be hypokinetic. Estimated global left ventricular systolic ejection fraction is 45 to 50% 2. Subjectively, the left atrium appear to be mildly enlarged, as well as the right atrium. The right ventricle also appears to be mildly enlarged, but the right ventricular free wall was not well visualized. 3. The atrial septum appears to be normal without evidence of defect or shunt. 4. Normal aortic root. 5. Trace pericardial effusion noted. No evidence of cardiac tamponade. In limited views, there are findings that may be associated with right pleural effusion. 6. Mildly calcified aortic valve with normal leaflet excursion. Mildly calcified mitral annulus with normal anterior mitral valve leaflet motion. Normal tricuspid valve and pulmonary valve. The proximal pulmonary artery branches were not well visualized. 7. The inferior vena cava was mildly enlarged, central venous pressure might be elevated. DOPPLER: It detects just mild mitral regurgitation (MR) and mild tricuspid regurgitation. The calculated pulmonary artery systolic pressure appears to be normal, but may be underestimated. Abnormal relaxation pattern was noted across the mitral valve leaflets, as well as the mitral valve annulus consisted with features of grade 1 left ventricular diastolic dysfunction. IMPRESSION: 1. Probably mildly depressed global left ventricular systolic dysfunction with regional wall motion abnormalities. The findings consistent with left ventricular systolic dysfunction, grade 1. 2. Aortic valve sclerosis without stenosis or aortic regurgitation. 3. Mitral annulus calcification with just mild mitral regurgitation and subjectively, the left atrium appear to be mildly enlarged. 4. Mild tricuspid regurgitation with a normal pulmonary artery systolic pressure. The right atrium appears to be mildly enlarged. 5. There are features consistent with elevated central venous pressure; the inferior vena cava was mildly enlarged. 6. Trace pericardial effusion noted. Possible pleural effusion. 7. The patient had an echocardiogram on 03/19/2020; and at that time, left ventricular ejection fraction (LVEF) appeared to be higher. There was also mild aortic regurgitation and moderate mitral regurgitation, as well as moderate tricuspid regurgitation. The inferior vena cava/IVC then was also dilated. MTDD
[2020-04-17 14:00] VITALS: BP 132/85
--- NOTE | 2020-04-17 14:19 | IPNPDOC ---
Text Note Date of Service The patient was seen on 04/17/20. NOTE S: Patient seen and examined at bedside. no acute overnight events reported. He states he has abdominal discomfort in the morning and at night, but seems to spontaneously resolve. He states there were some medications he had previously, with apple sauce, that helped. Difficult to understand details. Otherwise, no other medical complaints. O: General: NAD, sitting comfortably in chair HEENT: NC/AT Lungs: CTA B/L Heart: +S1S2, RRR Abd: soft, NT, +BS Ext: +1 edema A/P: Mr. Motley is a 64 year old male with [place]'s disease who is here for fluid overload demonstrated by anasarca, bilateral pleural effusion, and JVD. Echocardiogram demonstrated an EF of 60% less than a month ago. Albumin at 3.4 and INR at 1.13. Suspecting heart failure with preserved ejection fraction as liver is functional. Will continue diuresis. Renal function slowly improving. Continue to monitor creatinine #Decompensated HFpEF - appears grossly euvolemic today - Low sodium diet with 1800cc fluid restriction (patient does drink a lot of fluids throughout day). Continue with diuresis. I/O's and daily weights. Repeat echo was done since previous echo report had not been up at time of admission. #MARA - resolved - Baseline creatinine of 1, admission creatinine 1.5. #HTN - continue norvasc - will reassess home meds #CLL - On admission, WBC 10. Will monitor CBC #Code status - Spoke with his sister who wants him to be full code #Intellectual disability - Severe intellectual disability. Lives with sister. May need help with home. #DVT ppx - heparin Subq VS,Fishbone, I+O VS, Fishbone, I+O Laboratory Tests 04/17/20 05:07 Vital Signs Date Time Temp Pulse Resp B/P (MAP) Pulse Ox O2 Delivery O2 Flow Rate FiO2 04/17/20 10:06 77 137/87 04/17/20 10:00 97.4 17 96 Room Air I&O- Last 24 Hours up to 6 AM0 04/17/20 06:00 Intake Total 1360 ml Output Total 1200 ml Balance 160 ml ANASTASIA TOLEDO MD Apr 17, 2020 14:19
[2020-04-17 22:00] VITALS: BP 132/84
[2020-04-18 02:00] VITALS: BP 127/84
[2020-04-18] MEDS: SLF 3 ML SYR IV SCH ×3 (05:05→20:45)
[2020-04-18 06:00] VITALS: BP 126/83
[2020-04-18] MEDS: HEPARIN SOD (PORCINE) 5000UNITS/ML 1ML VIAL/SYRINGE SC SCH ×2 (08:37→20:45)
[2020-04-18] MEDS: FUROSEMIDE 40MG/4ML VIAL (J1940) IV SCH (08:37)
[2020-04-18] MEDS: amLODIPine 10 MG TAB PO SCH (08:39)
[2020-04-18 10:00] VITALS: BP 125/84
--- NOTE | 2020-04-18 10:33 | IPNPDOC ---
Text Note Date of Service The patient was seen on 04/18/20. NOTE S: Patient seen and examined at bedside. No acute overnight events reported. No new medical complaints. Feels his abdominal pain has improved. O: General: NAD, sitting comfortably in chair HEENT: NC/AT Lungs: CTA B/L Heart: +S1S2, RRR Abd: soft, NT, +BS Ext: +1 edema A/P: Mr. Motley is a 64 year old male with [place]'s disease who is here for fluid overload demonstrated by anasarca, bilateral pleural effusion, and JVD on admission. Echocardiogram demonstrated an EF of 60% less than a month ago. #Decompensated HFpEF - appears grossly euvolemic today - Low sodium diet with 1800cc fluid restriction (patient does drink a lot of fluids throughout day) - will continue with IV lasix for today - monitor creatinine - I/O's and daily weights - as per documentation - repeat echo was done since previous echo report had not been up at time of admission. #abdominal pain? - unclear etiology - trial of PPI #MARA - resolved #HTN - continue norvasc #CLL - as per medical records - On admission, WBC 10. Will monitor CBC #Code status - Spoke with his sister who wants him to be full code #Intellectual disability - Severe intellectual disability. Lives with sister. May need help with home. #DVT ppx - heparin Subq VS,Fishbone, I+O VS, Fishbone, I+O Vital Signs Date Time Temp Pulse Resp B/P (MAP) Pulse Ox O2 Delivery O2 Flow Rate FiO2 04/18/20 08:39 73 124/82 04/18/20 06:00 97.5 20 97 Room Air I&O- Last 24 Hours up to 6 AM 04/18/20 05:59 Intake Total 1530 ml Output Total 1325 ml Balance 205 ml ANASTASIA TOLEDO MD Apr 18, 2020 10:33
[2020-04-18] MEDS: PANTOPRAZOLE 20 MG TAB PO SCH (10:46)
[2020-04-18 14:25] LABS: ALBUMIN 3.4 GM/DL (3.2-5.2); ALT/SGPT 61 U/L (12-78); BILIRUBIN,TOTAL 0.8 MG/DL (0.2-1.0); BLOOD UREA NITROGEN 23 MG/DL (7-18); CALCIUM LEVEL 9.1 MG/DL (8.8-10.2); CARBON DIOXIDE LEVEL 32 MEQ/L (21-32); CHLORIDE LEVEL 107 MEQ/L (98-107); CREATININE FOR GFR 1.21 MG/DL (0.70-1.30); GLOMERULAR FILTRATION RATE > 60.0 (>49); GLUCOSE, FASTING 108 MG/DL (70-100); POTASSIUM SERUM 3.6 MEQ/L (3.5-5.1); SODIUM LEVEL 142 MEQ/L (136-145); TOTAL PROTEIN 6.7 GM/DL (6.4-8.2)
[2020-04-18 18:00] VITALS: BP 123/85
--- NOTE | 2020-04-18 21:02 | REPVR ---
PROCEDURE INFORMATION: Exam: US Abdomen; Limited Exam date and time: 04/18/2020 2:19 PM Age: 64 years old Clinical indication: Screening exam; Other: Eval for ascites; Additional info: Further eval ascites TECHNIQUE: Imaging protocol: US abdomen. Real time ultrasound with image documentation. Limited exam focused on the region of clinical interest. COMPARISON: CT ABD PELVIS W/O CONTRAST 04/13/2020 11:34 AM FINDINGS: Pleural space: Right pleural effusion. Intraperitoneal space: Scant ascites demonstrated in the right flank and adjacent to the right lobe of the liver and within Kauffman's pouch. IMPRESSION: 1. Right pleural effusion. 2. Scant ascites demonstrated in the right flank and adjacent to the right lobe of the liver and within Kauffman's pouch. Electronically signed by: Jett Abdullahi On 04/18/2020 21:02:01 PM
--- NOTE | 2020-04-18 21:41 | ECGEPIP ---
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
[2020-04-18 22:00] VITALS: BP 128/87
[2020-04-19 02:00] VITALS: BP 135/75
[2020-04-19] MEDS: SLF 3 ML SYR IV SCH ×3 (05:08→20:07)
[2020-04-19 06:00] VITALS: BP 128/86
[2020-04-19] MEDS: PANTOPRAZOLE 20 MG TAB PO SCH (08:56)
[2020-04-19] MEDS: HEPARIN SOD (PORCINE) 5000UNITS/ML 1ML VIAL/SYRINGE SC SCH ×2 (08:56→20:06)
[2020-04-19] MEDS: amLODIPine 10 MG TAB PO SCH (09:01)
--- NOTE | 2020-04-19 09:12 | REPVR ---
PROCEDURE INFORMATION: Exam: CT Chest Without Contrast Exam date and time: 04/19/2020 7:32 AM Age: 64 years old Clinical indication: Further evaluate pleural effusions TECHNIQUE: Imaging protocol: Computed tomography of the chest without contrast. Coronal and sagittal reformats were created and reviewed. 3D rendering (Not supervised by radiologist): MIP and/or 3D reconstructed images were created by the technologist. Radiation optimization: All CT scans at this facility use at least one of these dose optimization techniques: automated exposure control; mA and/or kV adjustment per patient size (includes targeted exams where dose is matched to clinical indication); or iterative reconstruction. COMPARISON: 1. CT ABD PELVIS W/O CONTRAST 04/13/2020 11:34:[address] Chest without contrast 12/11/2017 12:[address] Chest with contrast 06/18/2016 2:55:59 PM FINDINGS: Thyroid: Unremarkable as visualized. Lungs: Evaluation of the lungs is limited by motion. The trachea is unremarkable. Mild lingular atelectasis. Mild left lower lobe basilar atelectasis. Mild right upper lobe atelectasis. Mild right middle lobe atelectasis. Moderate right lower lobe atelectasis. Multiple calcified pulmonary nodules consistent with benign remote granulomas. Pleural space: Very small dependently layering low-attenuation left pleural effusion. Large low-attenuation right pleural effusion mostly layers dependently. Some contours of the right lower lobe and right upper lobe are angular and are suspicious for a partly loculated right pleural effusion. No pneumothorax. Heart: Mild coronary arterial atherosclerotic calcification. Minimal pericardial effusion. Mild diffuse pericardial thickening, most pronounced overlying the right atrium and right ventricle. Mild cardiomegaly with biatrial dilation. Mediastinal space: No abnormal esophageal dilation. Pulmonary arteries: The main pulmonary arterial trunk is not enlarged. Aorta: Mild aortic atherosclerosis. Mild fusiform dilation of the descending thoracic aorta measuring up to 3.3 cm in diameter. Veins: The imaged inferior vena cava at the upper abdomen is dilated. Lymph nodes: Mildly enlarged right axillary lymph nodes are increased in size compared to 12/11/2017. Enlarged left internal mammary lymph node measuring 0.6 cm in short axis. Spleen: Splenic and perisplenic calcifications are unchanged compared to 04/13/2020. Intraperitoneal space: Ascites is redemonstrated at the imaged upper abdomen. Bones/joints: Degenerative spine disease. Soft tissues: Diffuse body wall edema appears improved compared to 04/13/2020 but is not resolved. Other findings: Diffuse hypoattenuation of the blood pool suggestive of anemia. IMPRESSION: 1. Large right pleural effusion mostly layers dependently but appears partly loculated. 2. Very small dependently layering left pleural effusion. 3. Bilateral pulmonary atelectasis as described, most pronounced at the right lower lobe. 4. Improved but not resolved diffuse body wall edema compared to 04/13/2020. Ascites redemonstrated. 5. Mild cardiomegaly with biatrial dilation. 6. Mild diffuse pericardial thickening. Minimal pericardial effusion. Clinical correlation for possible pericarditis is recommended. 7. Nonspecific right axillary and left internal mammary adenopathy. 8. Please see the body of the report for other findings as described. Electronically signed by: Basim Bradshaw On 04/19/2020 09:11:39 AM
[2020-04-19 10:00] VITALS: BP 120/82
--- NOTE | 2020-04-19 12:20 | IPNPDOC ---
Text Note Date of Service The patient was seen on 04/19/20. NOTE S: Patient seen and examined at bedside. No acute overnight events reported. No new medical complaints. Feels his abdominal pain has improved. O: General: NAD, sitting comfortably in chair HEENT: NC/AT Lungs: CTA B/L Heart: +S1S2, RRR Abd: soft, NT, +BS Ext: +1 edema A/P: Mr. Motley is a 64 year old male with [place]'s disease who is here for fluid overload demonstrated by anasarca, bilateral pleural effusion, and JVD on admission. Echocardiogram demonstrated an EF of 60% less than a month ago. #Decompensated HFpEF - appears grossly euvolemic today - Low sodium diet with 1800cc fluid restriction (patient does drink a lot of fluids throughout day) - will continue with IV lasix for today - monitor creatinine - I/O's and daily weights - as per documentation - repeat echo was done since previous echo report had not been up at time of admission. #pleural effusion - plan for thoracentesis today #abdominal pain? - unclear etiology - trial of PPI #MARA - resolved #HTN - continue norvasc #CLL - as per medical records - On admission, WBC 10. Will monitor CBC #Code status - Spoke with his sister who wants him to be full code #Intellectual disability - Severe intellectual disability. Lives with sister. May need help with home. #DVT ppx - heparin Subq Dispo: thoracentesis today; discussed with sister danielle [phone] VS,Fishbone, I+O VS, Fishbone, I+O Laboratory Tests 04/18/20 13:45 Vital Signs Date Time Temp Pulse Resp B/P (MAP) Pulse Ox O2 Delivery O2 Flow Rate FiO2 04/19/20 10:00 97.1 68 20 120/82 (95) 96 Room Air I&O- Last 24 Hours up to 6 AM 04/19/20 06:00 Intake Total 1795 ml Output Total 2200 ml Balance -405 ml ANASTASIA TOLEDO MD Apr 19, 2020 12:20
[2020-04-19 18:00] VITALS: BP 122/89
[2020-04-19 22:00] VITALS: BP 128/84
[2020-04-20] VITALS (9 sets, daily range): BP systolic 110–126; BP diastolic 79–83
[2020-04-20] MEDS: SLF 3 ML SYR IV SCH ×3 (05:36→19:45)
[2020-04-20] MEDS: amLODIPine 10 MG TAB PO SCH (08:28)
[2020-04-20] MEDS: PANTOPRAZOLE 20 MG TAB PO SCH (08:28)
[2020-04-20 12:18] LABS: PH BODY FLUID 7.733 UNITS (NOT ESTABLISHED); SOURCE, BODY FLUID pH PLEURAL
[2020-04-20 12:23] LABS: SOURCE, BODY FLUID PLEURAL
[2020-04-20 12:24] LABS: APPEARANCE, BODY FLUID HAZY (CLEAR); PLEURAL FL COLOR PALE YELLOW (COLORLESS)
[2020-04-20 13:05] LABS: LDH, BODY FLUID 55 U/L (NOT ESTABLISHED); SOURCE, BODY FLUID GLUCOSE PLEURAL; SOURCE, BODY FLUID LDH PLEURAL
[2020-04-20 13:23] LABS: SOURCE, BODY FLUID TOT PROTEIN THORACENTESIS; TOTAL PROTEIN, BODY FLUID 1.9 G/DL (NOT ESTABLISHED)
[2020-04-21 02:00] VITALS: BP 118/82
[2020-04-21] MEDS: SLF 3 ML SYR IV SCH (04:58)
[2020-04-21 06:00] VITALS: BP 118/82
[2020-04-21 08:30] LABS: HEMATOCRIT 39.2 % (42.0-52.0); HEMOGLOBIN 12.1 g/dl (13.5-17.5); MEAN CORPUSCULAR HEMOGLOBIN 26.7 pg (27.0-33.0); MEAN CORPUSCULAR HGB CONC 30.9 g/dl (32.0-36.5); MEAN CORPUSCULAR VOLUME 86.5 fl (80.0-96.0); PLATELET COUNT, AUTOMATED 235 10^3/uL (150-450); RED BLOOD COUNT 4.53 10^6/uL (4.30-6.10)
[2020-04-21 08:40] LABS: WHITE BLOOD COUNT 10.2 10^3/uL (4.0-10.0)
[2020-04-21 08:43] VITALS: BP 122/86
[2020-04-21] MEDS: amLODIPine 10 MG TAB PO SCH (08:43)
[2020-04-21] MEDS: PANTOPRAZOLE 20 MG TAB PO SCH (08:43)
[2020-04-21 08:55] LABS: ALBUMIN 3.3 GM/DL (3.2-5.2); ALT/SGPT 75 U/L (12-78); BILIRUBIN,TOTAL 0.9 MG/DL (0.2-1.0); BLOOD UREA NITROGEN 24 MG/DL (7-18); CALCIUM LEVEL 8.9 MG/DL (8.8-10.2); CARBON DIOXIDE LEVEL 30 MEQ/L (21-32); CHLORIDE LEVEL 109 MEQ/L (98-107); CREATININE FOR GFR 1.02 MG/DL (0.70-1.30); GLOMERULAR FILTRATION RATE > 60.0 (>49); GLUCOSE, FASTING 112 MG/DL (70-100); POTASSIUM SERUM 3.7 MEQ/L (3.5-5.1); SODIUM LEVEL 144 MEQ/L (136-145); TOTAL PROTEIN 6.2 GM/DL (6.4-8.2)
[2020-04-21 09:11] LABS: ATYPICAL LYMPH 6 % (0-5); BASOPHILS 1 % (0-1); LYMPHOCYTES 55 % (16-44); MONOCYTES 3 % (0-5); NEUTROPHILS 35 % (28-66); PLATELET ESTIMATE NORMAL (NORMAL)
[2020-04-21 09:12] LABS: ANISOCYTOSIS 1+
[2020-04-21] MEDS ORDERED: AMLO1TAB25 PO (09:14)
[2020-04-21] MEDS ORDERED: PANT20TA6 PO (09:14)
[2020-04-21 10:00] VITALS: BP 120/80
--- NOTE | 2020-04-21 11:09 | DS.PDOC ---
Discharge Summary General Date of Admission Apr 13, 2020 at 15:32 Date of Discharge 04/21/20 Discharge Summary PROCEDURES PERFORMED DURING STAY: thoracentesis DISCHARGE DIAGNOSES: recurrent pleural effusion abdominal pain COMPLICATIONS/CHIEF COMPLAINT: Ascites. HISTORY OF PRESENT ILLNESS: Mr. Motley is a 64 year old male with [place]'s disease, CLL, and recurrent pleural effusion here with abdominal discomfort. He was recently admitted on 03/17/2020 and discharged on 03/23/2020 for right pleural effusion and right lower lobe PNA. The pleural effusion was transudative and most likely CHF in nature. Mr. Motley has intellectual disability and limited history was obtain from him. Most of his history comes from his sister. He was at his regular oncologist visit for when he started to fell ill. He wanted to go to the ED. While in the ED he was complaining of abdominal pain. CT of the abdomen and pelvis demonstrated moderate amount of ascites, similar to prior CT, prominent anasarca, and moderate right pleural effusion. The left side had small to moderate left pleural effusion. Patient was then called for admission. HOSPITAL COURSE: #Decompensated HFpEF - appears grossly euvolemic today - responded well to IV lasix - Low sodium diet with 1800cc fluid restriction (patient does drink a lot of fluids throughout day) - echo completed - hypokinetic LV - EF 50% #pleural effusion - s/p thoracentesis - d/w CTS - no further intervention - question etiology - LAURY/RA pending - outpatient follow up #abdominal pain? - improving - trial of PPI - ultrasound showed not enough fluid for paracentesis #MARA - resolved #HTN - continue norvasc #CLL - as per medical records #Code status - Spoke with his sister who wants him to be full code #Intellectual disability - Severe intellectual disability. Lives with sister. PT/OT/PFS evaluation noted DISCHARGE MEDICATIONS: Please see below. ALLERGIES: Please see below. PHYSICAL EXAMINATION ON DISCHARGE: VITAL SIGNS: Please see below. General: NAD, sitting comfortably in chair HEENT: NC/AT Lungs: CTA B/L Heart: +S1S2, RRR Abd: soft, NT, +BS Ext: +1 edema LABORATORY DATA: Please see below. ACTIVITY: [As tolerated]. DIET: low salt, 1800 cc daily fluid restriction DISPOSITION: discharge home DISCHARGE INSTRUCTIONS: 1. PCP in 3-5 days DISCHARGE CONDITION: [Stable]. TIME SPENT ON DISCHARGE: 35 minutes. Vital Signs/I&Os Vital Signs Date Time Temp Pulse Resp B/P (MAP) Pulse Ox O2 Delivery O2 Flow Rate FiO2 04/21/20 10:00 98.3 76 17 120/80 (93) 97 Room Air I&O- Last 24 Hours up to 6 AM 04/21/20 06:00 Intake Total 1560 ml Output Total 600 ml Balance 960 ml Laboratory Data Labs 24H Laboratory Tests 2 04/20/20 11:30: Body Fluid pH 7.733, Body Fluid pH Source PLEURAL, Body Fluid WBC (Auto) 1084H, Body Fluid RBC (Auto) < 2, Body Fluid Mononuclear Cells % Auto 96.9H, Fluid Polymorphonuclear Cell % Auto 3.1H, Body Fluid Glucose Source PLEURAL, Body Fluid Glucose 114, Body Fluid Protein Source THORACENTESIS, Body Fluid Total Protein 1.9, Body Fluid LDH Source PLEURAL, Body Fluid Lactate Dehydrogenase 55, Pleural Fluid Source PLEURAL, Pleural Fluid Color PALE YELLOW, Pleural Fluid A ppearance HAZY 04/20/20 13:08: Rheumatoid Factor < 10.0 04/21/20 07:52: Neutrophils (%) (Auto) , Nucleated Red Blood Cells % (auto) 0.0, Neutrophils 35, Lymphocytes (Manual) 55H, Monocytes (Manual) 3, Basophils (Manual) 1, Atypical Lymphocytes 6H, Anisocytosis 1+, Platelet Estimate NORMAL, Anion Gap 5L, Glomerular Filtration Rate > 60.0, Calcium Level 8.9, Total Bilirubin 0.9, Aspartate Amino Transf (AST/SGOT) 40H, Alanine Aminotransferase (ALT/SGPT) 75, Alkaline Phosphatase 254H, Total Protein 6.2L, Albumin 3.3, Albumin/Globulin Ratio 1.1 CBC/BMP Laboratory Tests 04/21/20 07:52 Microbiology Microbiology 04/20/20 Gram Stain - Final, Resulted 04/20/20 Body Fluid Culture, Resulted Pending 04/13/20 Blood Culture - Final, Complete NO GROWTH AFTER 5 DAYS 04/13/20 Blood Culture - Final, Complete NO GROWTH AFTER 5 DAYS Discharge Medications Scheduled Amlodipine Besylate (Amlodipine Besylate) 10 Mg Tablet, 10 MG PO DAILY Pantoprazole Sodium (Pantoprazole Sodium) 20 Mg Tablet.dr, 20 MG PO DAILY Allergies Coded Allergies: No Known Allergies (Unverified , 01/12/19) ANASTASIA TOLEDO MD Apr 21, 2020 11:09
[2020-04-21 16:08] LABS: ANTINUCLEAR ANTIBODIES DIRECT Negative (Negative)
--- NOTE | 2020-05-02 13:52 | REP ---
LEFT SHOULDER SERIES: CLINICAL: Pain. TECHNIQUE: Internal rotation, external rotation and Y-view of the left shoulder. FINDINGS: The acromioclavicular joint appears essentially normal and age appropriate. Bulky calcification along the posterior inferior glenoid rim is suggested and may represent sequelae of old injury or arthritic change. The humeral head is intact and normal in appearance. The subacromial space is normal. IMPRESSION: Bulky calcification/heterotopic ossification along the posteroinferior margin of the glenoid rim is appreciated. Evaluation is limited due to positioning. Findings may represent arthritic change or sequelae of old injury. If the patient remains symptomatic, MRI may be considered for further investigation, if necessary. LEONILAD
--- NOTE | 2020-05-02 13:54 | REP ---
ULTRASOUND-GUIDED RIGHT THORACENTESIS The procedure was performed under the direct supervision of Dr. Desir. The risks and benefits of the procedure were explained to the patient and informed consent was obtained. The right pleural effusion was localized using ultrasound guidance. The skin was prepped and draped in a sterile fashion. A 1% Lidocaine was used as a local anesthetic. An 8-English multi-side holed catheter was inserted using trocar technique. There was 1000 mL of yellow fluid withdrawn with a sample sent to the lab for analysis. The patient tolerated the procedure well and there were no immediate complications. After the appropriate amount of monitored convalescence, the patient was discharged from the department. ZHANNA
--- NOTE | 2020-05-02 13:56 | REP ---
CHEST X-RAY: 2-VIEWS HISTORY: Post thoracentesis. COMPARISON: Chest x-ray 04/16/2020. FINDINGS: Sitting AP view and lateral view shows no evidence of pneumothorax. There is sling blunting of the right lateral pleural angle. No complication is identified. IMPRESSION: No complication seen. MTDD
== END 2020-04-21 12:15 | disposition home health service (06) | DRG 682 ==
LOC: M ED 08:35 → M ED INP 15:32 → M PCU 18:15 → M MSPAV 04-16 18:04
PROVIDERS: ADMIT Internal Medicine; ATTEND Internal Medicine
PROC: 0W993ZZ Drainage of Right Pleural Cavity, Percutaneous Approach (ICD-10-PCS; principal; 2020-04-20 14:00)
DX: N17.9 Acute kidney failure, unspecified (principal); I50.33 Acute on chronic diastolic (congestive) heart failure; G10 Huntington's disease; C91.10 Chronic lymphocytic leukemia of B-cell type not having achieved remission; J90 Pleural effusion, not elsewhere classified; F72 Severe intellectual disabilities

== ENCOUNTER → 2020-04-26 | Outpatient (CLI) | payer MEDICARE, MEDICAID ==
[~2020-04-26] MED LIST changes: +ACET-907 PO; +ACET1TAB55 PO; +ALDA25TA2 PO; +AMLO1TAB25 PO; +FURO40TA2 PO; +FURO80TA2 PO; +KLOR10TA76 PO; +LASI40TA9 PO; +LISI-542 PO; +MED REC COMMENT; +METO1TAB87 PO; +METO25TA4 PO; +PANT20TA51 PO; +PANT20TA6; +PANT20TA6 PO; +PATIENT COMMENT; +POTA10TA17 PO; +RAME8TAB2 PO; +ROZE8TAB16 PO; +SPIR-10 PO
[2020-04-26 12:55] LABS: BLOOD UREA NITROGEN 24 MG/DL (7-18); CALCIUM LEVEL 9.2 MG/DL (8.8-10.2); CARBON DIOXIDE LEVEL 25 MEQ/L (21-32); CHLORIDE LEVEL 111 MEQ/L (98-107); CREATININE FOR GFR 1.06 MG/DL (0.70-1.30); GLOMERULAR FILTRATION RATE > 60.0 (>49); GLUCOSE, FASTING 90 MG/DL (70-100); NT-PRO BNP 683 PG/ML (<125); POTASSIUM SERUM 4.6 MEQ/L (3.5-5.1); SODIUM LEVEL 143 MEQ/L (136-145)
== END ==
LOC: M LABDRWAD 10:18
PROVIDERS: ATTEND Physician Assistant Medical
DX: I50.82 Biventricular heart failure (principal)

== ENCOUNTER → 2020-04-26 | Outpatient (CLI) | payer MEDICARE, MEDICAID ==
--- NOTE | 2020-05-02 13:57 | REP ---
CHEST X-RAY: 2-VIEWS HISTORY: Edema. COMPARISON: Chest x-ray from 04/20/2020. On that date, the patient had undergone an ultrasound-guided right thoracentesis with removal of 1 liter of pleural fluid. FINDINGS: There is slight blunting of the right lateral pleural angle similar to the prior study. A small amount of right pleural fluid is likely present. No new infiltrate is seen. Left hemidiaphragm remains slightly elevated. The aorta is calcific and tortuous. The heart is not felt to be enlarged. No acute bony abnormality. IMPRESSION: Slight blunting of the right lateral pleural angles consistent with small right pleural effusion. Elevated left hemidiaphragm. No evidence of pulmonary edema. MTDD
== END ==
LOC: M ADAMS 10:14
PROVIDERS: ATTEND Physician Assistant Medical
DX: R60.9 Edema, unspecified (principal); I50.82 Biventricular heart failure
CPT/HCPCS: 36415; 71046; 80048; 83880; G0463

== ENCOUNTER 2020-04-30 19:46 | Inpatient (IN) | payer MEDICARE, MEDICAID ==
[~2020-04-30] VITALS: Ht 182.9 cm; Wt 76.7 kg
[~2020-04-30 19:46] MED LIST changes: -ACET-907 PO; -ACET1TAB55 PO; -ALDA25TA2 PO; -FURO40TA2 PO; -FURO80TA2 PO; -KLOR10TA76 PO; -LASI40TA9 PO; -LISI-542 PO; -MED REC COMMENT; -METO1TAB87 PO; -METO25TA4 PO; -PANT20TA51 PO; -PANT20TA6; -PATIENT COMMENT; -POTA10TA17 PO; -RAME8TAB2 PO; -ROZE8TAB16 PO; -SPIR-10 PO
[2020-04-30] MEDS ORDERED: LASI40TA9 PO (19:58)
--- NOTE | 2020-04-30 21:36 | REPVR ---
PROCEDURE INFORMATION: Exam: XR Chest, 1 View Exam date and time: 04/30/2020 9:29 PM Age: 64 years old Clinical indication: Shortness of breath; Additional info: Dyspnea/cough TECHNIQUE: Imaging protocol: XR of the chest Views: 1 view. COMPARISON: DX CHEST 2 VIEW 04/26/2020 10:02 AM FINDINGS: Lungs: There is decreased inflation of the lungs. There is bibasilar vascular crowding. Pleural space: Blunted right costophrenic angle which is similar to the prior study. Heart/Mediastinum: The heart and mediastinum are unchanged. Bones/joints: Unremarkable. IMPRESSION: Decreased inflation since 04/26/2020. In view of this, there has probably been little change. Electronically signed by: Sanjeev Yousif On 04/30/2020 21:36:13 PM
[2020-04-30 21:40] LABS: HEMATOCRIT 38.4 % (42.0-52.0); HEMOGLOBIN 11.9 g/dl (13.5-17.5); MEAN CORPUSCULAR HEMOGLOBIN 26.5 pg (27.0-33.0); MEAN CORPUSCULAR VOLUME 85.5 fl (80.0-96.0); PLATELET COUNT, AUTOMATED 328 10^3/uL (150-450); RED BLOOD COUNT 4.49 10^6/uL (4.30-6.10)
[2020-04-30 21:51] LABS: INR 1.12; PROTHROMBIN TIME 14.6 SECONDS (12.5-14.3)
[2020-04-30 21:52] LABS: PARTIAL THROMBOPLASTIN TIME 32.2 SECONDS (24.2-38.5)
[2020-04-30 22:10] LABS: BASOPHILS 1 % (0-1); EOSINOPHILS 2 % (0-3); LYMPHOCYTES 37 % (16-44); MONOCYTES 8 % (0-5); NEUTROPHILS 52 % (28-66)
[2020-04-30 22:11] LABS: ANISOCYTOSIS 1+; PLATELET ESTIMATE NORMAL (NORMAL); POIKILOCYTOSIS 1+
[2020-04-30 22:14] LABS: ALBUMIN 3.5 GM/DL (3.2-5.2); ALT/SGPT 48 U/L (12-78); BILIRUBIN,DIRECT 0.4 MG/DL (0.0-0.2); BILIRUBIN,TOTAL 0.7 MG/DL (0.2-1.0); BLOOD UREA NITROGEN 22 MG/DL (7-18); C REACTIVE PROTEIN QUANTITATIV 0.88 MG/DL (0.00-0.30); CARBON DIOXIDE LEVEL 29 MEQ/L (21-32); CHLORIDE LEVEL 110 MEQ/L (98-107); CK-MB VALUE MASS 1.3 NG/ML (<3.6); CPK CREATINE PHOSPHOKINASE 56 U/L (39-308); CREATININE FOR GFR 1.19 MG/DL (0.70-1.30); GLOMERULAR FILTRATION RATE > 60.0 (>49); GLUCOSE, FASTING 104 MG/DL (70-100); MB/CK RELATIVE INDEX 2.32 (< OR =4); NT-PRO BNP 943 PG/ML (<125); POTASSIUM SERUM 3.4 MEQ/L (3.5-5.1); SODIUM LEVEL 142 MEQ/L (136-145); THYROXINE (T4) 9.2 UG/DL (4.5-12.0); TOTAL PROTEIN 6.7 GM/DL (6.4-8.2); TROPONIN I < 0.02 NG/ML (< 0.10)
[2020-04-30] MEDS ORDERED: ISOVUE-370 76% 100ML VIAL As Ordered ONE (22:32)
[2020-04-30 22:53] LABS: ERYTHROCYTE SEDIMENTATION RATE 13 mm/hr (0-20)
--- NOTE | 2020-04-30 23:41 | REPVR ---
PROCEDURE INFORMATION: Exam: CT Abdomen And Pelvis With Contrast Exam date and time: 04/30/2020 10:58 PM Age: 64 years old Clinical indication: Abdominal pain; Generalized; Additional info: Shortness of breath/abd pain TECHNIQUE: Imaging protocol: Computed tomography of the abdomen and pelvis with intravenous contrast. Radiation optimization: All CT scans at this facility use at least one of these dose optimization techniques: automated exposure control; mA and/or kV adjustment per patient size (includes targeted exams where dose is matched to clinical indication); or iterative reconstruction. Contrast material: ISOVUE 370; Contrast volume: 100 ml; Contrast route: INTRAVENOUS (IV); COMPARISON: CT ABD PELVIS W/O CONTRAST 04/13/2020 11:34 AM FINDINGS: Lungs: Mild bibasilar fibro-atelectatic change, greatest in the lower lobes. Pleural space: Mild right pleural effusion and minimal left pleural effusion. Heart: Trace pericardial effusion. Liver: Normal. No mass. Gallbladder and bile ducts: The gallbladder is contracted with no stones. Pancreas: Normal. No ductal dilation. Spleen: Splenic calcifications are noted. Adrenals: Normal. No mass. Kidneys and ureters: Normal. No hydronephrosis. Stomach and bowel: Unremarkable. No obstruction. No mucosal thickening. Appendix: There are no changes of appendicitis. A normal appendix is not seen. Intraperitoneal space: Mild peritoneal ascites about the abdomen. Vasculature: Incidental note of an accessory retroaortic left renal vein. Lymph nodes: Unremarkable. No enlarged lymph nodes. Urinary bladder: Unremarkable as visualized. Reproductive: Unremarkable as visualized. Bones/joints: Old fractures of the left superior and inferior pubic rami with a metallic pin traversing the left superior pubic ramus. Soft tissues: Mild left inguinal hernia and minimal right inguinal hernia which contain ascites fluid. Mild subcutaneous edema about the abdomen and pelvis. IMPRESSION: 1. Mild right pleural effusion and minimal left pleural effusion, trace pericardial effusion, mild peritoneal ascites and diffuse subcutaneous edema which is similar to 04/13/2020 and may reflect generalized anasarca. 2. Mild bibasilar fibro-atelectatic change, greatest in the lower lobes which is similar. 3. Bilateral inguinal hernias, left greater than right containing ascites fluid, slightly decreased in size on the left since the prior study. Electronically signed by: Sanjeev Yousif On 04/30/2020 23:40:42 PM
--- NOTE | 2020-04-30 23:47 | REPVR ---
PROCEDURE INFORMATION: Exam: CT Angiography Chest With Contrast Exam date and time: 04/30/2020 10:58 PM Age: 64 years old Clinical indication: Shortness of breath; Additional info: Shortness of breath/abd pain TECHNIQUE: Imaging protocol: Computed tomographic angiography of the chest with intravenous contrast. 3D rendering (Not supervised by radiologist): MIP and/or 3D reconstructed images were created by the technologist. Radiation optimization: All CT scans at this facility use at least one of these dose optimization techniques: automated exposure control; mA and/or kV adjustment per patient size (includes targeted exams where dose is matched to clinical indication); or iterative reconstruction. Contrast material: ISOVUE 370; Contrast volume: 100 ml; Contrast route: INTRAVENOUS (IV); COMPARISON: CT Chest without contrast 04/19/2020 8:12 AM FINDINGS: Pulmonary arteries: The main pulmonary artery measures 28 mm. No pulmonary embolism is identified. Aorta: The ascending thoracic aorta measures 32 mm. Lungs: Mild bibasilar fibro-atelectatic change, greatest in the lower lobes. Pleural space: Mild right pleural effusion and minimal left pleural effusion. Heart: Trace pericardial effusion. Lymph nodes: Unremarkable. No enlarged lymph nodes. Bones/joints: Decreased height of T7 and T8 and to a lesser degree T9 which appear to be chronic. Old fracture of the left 12th rib. Soft tissues: Unremarkable. IMPRESSION: 1. Mild right and minimal left pleural effusions with mild bibasilar fibro-atelectatic change, greatest in the lower lobes. The left pleural effusion is slightly increased since 04/19/2020. The right pleural effusion is similar to slightly increased. 2. Trace pericardial effusion. 3. Otherwise negative CTA chest. No pulmonary embolism is identified. Electronically signed by: Sanjeev Yousif On 04/30/2020 23:47:43 PM
[2020-05-01] MEDS ORDERED: FUROSEMIDE 40MG/4ML VIAL (J1940) IV ONE (00:30)
[2020-05-01] MEDS ORDERED: PANT20TA51 PO (00:37)
[2020-05-01] MEDS ORDERED: AMLO1TAB25 PO (00:37)
[2020-05-01] MEDS ORDERED: ACETAMINOPHEN TAB 650MG DOSE (2X325MG) PO PRN (01:00)
--- NOTE | 2020-05-01 01:04 | HPEPDOC ---
General Date of Admission 05/01/20 Date of Service: May 01, 2020 Chief Complaint The patient is a 64-year-old male admitted with a reason for visit of Increased Sob. 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 According to his sister patient was recently discharged from [facility] with prescribed Lasix by mouth due to CHF exacerbation. However for past 2-3 days days he has been having increased shortness of breath with increased leg swelling. In emergency room patient was found to have hemoglobin 11.9, BNP 943, CTA showed Mild right and minimal left pleural effusions with mild bibasilar fibro-atelectatic change, greatest in the lower lobes. The left pleural \effusion is slightly increased since 04/19/2020. The right pleural effusion is similar to slightly increased. No PE Home Medications Scheduled Amlodipine Besylate (Amlodipine Besylate) 10 Mg Tablet, 10 MG PO DAILY, (Reported) Furosemide (Lasix) 40 Mg Tablet, 40 MG PO DAILY, (Reported) Pantoprazole Sodium (Pantoprazole Sodium) 20 Mg Tablet.dr, 20 MG PO DAILY, (Reported) Allergies Coded Allergies: No Known Allergies (Unverified , 01/12/19) Past Medical History Medical History [place]'s chorea, CLL, Ascites, Recurrent pleural effusion, , chronic generalized abdominal pain, splenic hematoma, Pelvic and rib fracture, diastolic CHF Family History Obtained from chart Mother in her 80s from old age. History of CVA Father age 71 secondary to prostate cancer Siblings: Sister is alive (Chantel [phone]) Social History * Smoker: Denies Alcohol: Denies Drugs: denies A-FIB/CHADSVASC A-FIB History Current/History of A-Fib/PAF?: No Current PO Anticoag Therapy: No Review of Systems Constitutional: Reports: Fatigue; Denies: Chills Eyes: Denies: Pain ENT: Reports: Head Aches Skin: Denies: Rash, Lesions Pulmonary: Reports: Dyspnea Cardiovascular: Denies: Chest Pain, Palpitations Gastrointestinal: Denies: Nausea, Vomiting Genitourinary: Denies: Dysuria Hematologic: Denies: Bruising Endocrine: Denies: Polydipsia, Polyphagia Musculoskeletal: Denies: Neck Pain Neurological: Denies: Weakness Psych: Reports: Mood Normal, Other Psych (intellectual disability) Physical Examination General Exam: Positive: No Acute Distress Eye Exam: Positive: PERRLA, Conjunctiva & lids normal ENT Exam: Positive: Atraumatic Neck Exam: Positive: Supple, JVD Chest Exam: Positive: Diminished Heart Exam: Positive: Rate Normal Telemetry: Positive: No significant arrhythmia Abdomen Exam: Positive: Normal bowel sounds Extremity Exam: Negative: Clubbing Skin Exam: Positive: Nl turgor and temperature Neuro Exam: Positive: Normal Tone, Cranial Nerves 3-12 NL Psych Exam: Positive: Other (intellectual disability) Vital Signs Vital Signs Date Time Temp Pulse Resp B/P (MAP) Pulse Ox O2 Delivery O2 Flow Rate FiO2 04/30/20 23:31 70 04/30/20 23:30 151/90 (110) 04/30/20 22:46 96 04/30/20 20:52 20 Room Air 04/30/20 19:50 98.5 Laboratory Data Labs 24H Laboratory Tests 2 04/30/20 21:32: Neutrophils (%) (Auto) , Nucleated Red Blood Cells % (auto) 0.0, Neutrophils 52, Lymphocytes (Manual) 37, Monocytes (Manual) 8H, Eosinophils (Manual) 2, Basophils (Manual) 1, Poikilocytosis 1+, Anisocytosis 1+, Platelet Estimate NORMAL, Erythrocyte Sedimentation Rate 13, Prothrombin Time 14.6H, Prothromb Time International Ratio 1.12, Activated Partial Thromboplast Time 32.2, Anion Gap 3L, Glomerular Filtration Rate > 60.0, Calcium Level 9.0, Total Bilirubin 0.7, Direct Bilirubin 0.4H, Aspartate Amino Transf (AST/SGOT) 23, Alanine Aminotransferase (ALT/SGPT) 48, Alkaline Phosphatase 273H, Total Creatine Kinase 56, Creatine Kinase MB 1.3, Creatine Kinase MB Relative Index 2.32, Troponin I < 0.02, C-Reactive Protein, Quantitative 0.88H, KN-Ett-R-Type Natriuretic Peptide 943H, Total Protein 6.7, Albumin 3.5, Albumin/Globulin Ratio 1.1, Thyroid Stimulating Hormone (TSH) 3.150, Thyroxine (T4) 9.2 CBC/BMP Laboratory Tests 04/30/20 21:32 Microbiology Microbiology 04/30/20 Blood Culture, Received Pending 04/30/20 Blood Culture, Received Pending Assessment/Plan Patient is a 64 year old male with [place]'s disease, CLL, diastolic CHF and recurrent pleural effusion presented to the hospital with increased shortness of breath and leg swelling. According to his sister patient was recently discharged from [facility] with prescribed Lasix by mouth. However for past 2-3 days days he has been having increased shortness of breath with increased leg swelling. In emergency room patient was found to have hemoglobin 11.9, BNP 943, CTA showed Mild right and minimal left pleural effusions with mild bibas ilar fibro-atelectatic change, greatest in the lower lobes. The left pleural \effusion is slightly increased since 04/19/2020. The right pleural effusion is similar to slightly increased. No PE Problems (1) CHF exacerbation Status: Acute Problem Text: Diastolic CHF exacerbation Echo was done on the April 13 and showed ejection fraction 40-45% Lasix IV I's and O's Cardiac diet Plan / VTE VTE Prophylaxis Ordered?: Yes JANEE FLORES DO May 01, 2020 01:04
[2020-05-01] MEDS ORDERED: POTASSIUM CHLORIDE 10 MEQ SR TABLET PO ONE (01:15)
[2020-05-01 02:15] VITALS: BP 148/105
[2020-05-01] MEDS: FUROSEMIDE 40MG/4ML VIAL (J1940) IV SCH ×4 (03:13→16:00)
[2020-05-01 06:00] VITALS: BP 138/90
[2020-05-01] MEDS: PANTOPRAZOLE 20 MG TAB PO SCH (08:20)
[2020-05-01] MEDS: HEPARIN SOD (PORCINE) 5000UNITS/ML 1ML VIAL/SYRINGE SC SCH ×2 (08:20→20:47)
[2020-05-01] MEDS: amLODIPine 10 MG TAB PO SCH (08:23)
--- NOTE | 2020-05-01 09:41 | ECGEPIP ---
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
[2020-05-01 12:15] LABS: HEMATOCRIT 37.7 % (42.0-52.0); HEMOGLOBIN 11.7 g/dl (13.5-17.5); MEAN CORPUSCULAR HEMOGLOBIN 26.5 pg (27.0-33.0); MEAN CORPUSCULAR VOLUME 85.5 fl (80.0-96.0); PLATELET COUNT, AUTOMATED 320 10^3/uL (150-450); RED BLOOD COUNT 4.41 10^6/uL (4.30-6.10); WHITE BLOOD COUNT 9.1 10^3/uL (4.0-10.0)
[2020-05-01 12:43] LABS: ALBUMIN 3.4 GM/DL (3.2-5.2); ALT/SGPT 46 U/L (12-78); BILIRUBIN,TOTAL 0.7 MG/DL (0.2-1.0); BLOOD UREA NITROGEN 17 MG/DL (7-18); CARBON DIOXIDE LEVEL 30 MEQ/L (21-32); CHLORIDE LEVEL 107 MEQ/L (98-107); CREATININE FOR GFR 1.03 MG/DL (0.70-1.30); GLOMERULAR FILTRATION RATE > 60.0 (>49); GLUCOSE, FASTING 64 MG/DL (70-100); MAGNESIUM LEVEL 2.1 MG/DL (1.8-2.4); PHOSPHORUS LEVEL 4.2 MG/DL (2.5-4.9); POTASSIUM SERUM 3.4 MEQ/L (3.5-5.1); SODIUM LEVEL 143 MEQ/L (136-145); TOTAL PROTEIN 6.6 GM/DL (6.4-8.2)
[2020-05-01 13:19] LABS: EOSINOPHILS 3 % (0-3); LYMPHOCYTES 43 % (16-44); MONOCYTES 5 % (0-5); NEUTROPHILS 49 % (28-66)
[2020-05-01 13:23] LABS: ANISOCYTOSIS 2+; HYPOCHROMASIA 1+
[2020-05-01 13:24] LABS: POIKILOCYTOSIS 1+
[2020-05-01 13:25] LABS: PLATELET ESTIMATE NORMAL (NORMAL)
--- NOTE | 2020-05-01 13:55 | IPNPDOC ---
Date Seen The patient was seen on 05/01/20. Progress Note SUBJECTIVE: Patient was seen and examined at bedside, doing well, no acute overnight events. Her RN. Patient denies acute shortness of breath, chest pain, palpitations. He does endorse persistent swelling of his bilateral lower extremities. OBJECTIVE PHYSICAL EXAMINATION: VITAL SIGNS: Please see below. General: NAD, comfortable HEENT: PERRLA, EOMI, sclerae clear Neck: supple, normal ROM, no JVD Resp: lungs CTAB, no wheeze, no rales, no crackles CVS: RRR, normal S1, S2, no murmurs Abdo: soft, no masses, no hepatosplenomegaly, BS+, no rebound tenderness Extremities: 2+ pitting edema bilaterally MSK: no joint deformities, normal ROM Neuro: chorea Psych: calm, cooperative, AAO x 3 LABORATORY DATA, IMAGING STUDIES, MICROBIOLOGY: Please see below. Echocardiogram: last performed 04/13/20. EF 40-45%. Left ventricular systolic dysfunction, Grade 1. Mod mitral regurg. DVT prophylaxis ordered?: Y ASSESSMENT AND PLAN: Patient is a 64 year old male with [place]'s disease, CLL, diastolic CHF and recurrent pleural effusion presented to the hospital with increased shortness of breath and leg swelling. According to his sister patient was recently discharged from [facility] with prescribed Lasix by mouth. However for past 2-3 days days he has been having increased shortness of breath with increased leg swelling. In emergency room patient was found to have hemoglobin 11.9, BNP 943, CTA showed Mild right and minimal left pleural effusions with mild bibasilar fibro-atelectatic change, greatest in the lower lobes. The left pleural \effusion is slightly increased since 04/19/2020. The right pleural effusion is similar to slightly increased. No PE PROBLEMS: #Decompensated HFpEF: lasix 40 mg q8h IV. Recent 2D echo as above. Strict I&O. Fluid restiction 1.5L. Keep Mg >2. #Pleural effusion: stable, slight increase from prior. likely 2/2 CHF. Drained on prior admission. RF, LAURY screen negative. #HTN: norvasc #CLL: outpatient follow up oncology Dispo: The patient is has been physical therapy will likely be cleared to return home in 1-2 sessions. VS, I&O, 24H, Fishbone Vital Signs/I&O Vital Signs Date Time Temp Pulse Resp B/P (MAP) Pulse Ox O2 Delivery O2 Flow Rate FiO2 05/01/20 08:23 69 147/98 05/01/20 06:00 97.3 18 93 Room Air I&O- Last 24 Hours up to 6 AM 05/01/20 05:59 Intake Total 120 ml Output Total 1800 ml Balance -1680 ml Laboratory Data 24H LABS Laboratory Tests 2 04/30/20 21:32: Neutrophils (%) (Auto) , Nucleated Red Blood Cells % (auto) 0.0, Neutrophils 52, Lymphocytes (Manual) 37, Monocytes (Manual) 8H, Eosinophils (Manual) 2, Basophils (Manual) 1, Poikilocytosis 1+, Anisocytosis 1+, Platelet Estimate NORMAL, Erythrocyte Sedimentation Rate 13, Prothrombin Time 14.6H, Prothromb Time International Ratio 1.12, Activated Partial Thromboplast Time 32.2, Anion Gap 3L, Glomerular Filtration Rate > 60.0, Calcium Level 9.0, Total Bilirubin 0.7, Direct Bilirubin 0.4H, Aspartate Amino Transf (AST/SGOT) 23, Alanine Aminotransferase (ALT/SGPT) 48, Alkaline Phosphatase 273H, Total Creatine Kinase 56, Creatine Kinase MB 1.3, Creatine Kinase MB Relative Index 2.32, Troponin I < 0.02, C-Reactive Protein, Quantitative 0.88H, ML-Tqi-G-Type Natriuretic Peptide 943H, Total Protein 6.7, Albumin 3.5, Albumin/Globulin Ratio 1.1, Thyroid Stimulating Hormone (TSH) 3.150, Thyroxine (T4) 9.2 05/01/20 11:58: Neutrophils (%) (Auto) , Nucleated Red Blood Cells % (auto) 0.0, Neutrophils 49, Lymphocytes (Manual) 43, Monocytes (Manual) 5, Eosinophils (Manual) 3, Poi kilocytosis 1+, Anisocytosis 2+, Platelet Estimate NORMAL, Anion Gap 6L, Glomerular Filtration Rate > 60.0, Calcium Level 9.0, Total Bilirubin 0.7, Aspartate Amino Transf (AST/SGOT) 18, Alanine Aminotransferase (ALT/SGPT) 46, Alkaline Phosphatase 265H, Total Protein 6.6, Albumin 3.4, Albumin/Globulin Ratio 1.1, Hypochromasia 1+, Phosphorus Level 4.2, Magnesium Level 2.1 CBC/BMP Laboratory Tests 04/30/20 21:32 05/01/20 11:58 Microbiology Microbiology 04/30/20 Blood Culture, Received Pending 04/30/20 Blood Culture, Received Pending ANY TREVINO MD May 01, 2020 13:55
[2020-05-01 14:00] VITALS: BP 93/68
[2020-05-01 18:00] VITALS: BP 96/68
[2020-05-01 22:00] VITALS: BP 96/68
[2020-05-02] VITALS (7 sets, daily range): BP systolic 98–123; BP diastolic 62–90
[2020-05-02 06:24] LABS: HEMATOCRIT 36.9 % (42.0-52.0); HEMOGLOBIN 11.7 g/dl (13.5-17.5); MEAN CORPUSCULAR HEMOGLOBIN 26.8 pg (27.0-33.0); MEAN CORPUSCULAR HGB CONC 31.7 g/dl (32.0-36.5); MEAN CORPUSCULAR VOLUME 84.4 fl (80.0-96.0); PLATELET COUNT, AUTOMATED 303 10^3/uL (150-450); RED BLOOD COUNT 4.37 10^6/uL (4.30-6.10); WHITE BLOOD COUNT 10.4 10^3/uL (4.0-10.0)
[2020-05-02 06:47] LABS: BLOOD UREA NITROGEN 22 MG/DL (7-18); CALCIUM LEVEL 8.8 MG/DL (8.8-10.2); CARBON DIOXIDE LEVEL 31 MEQ/L (21-32); CHLORIDE LEVEL 106 MEQ/L (98-107); CREATININE FOR GFR 1.06 MG/DL (0.70-1.30); GLOMERULAR FILTRATION RATE > 60.0 (>49); GLUCOSE, FASTING 84 MG/DL (70-100); MAGNESIUM LEVEL 2.2 MG/DL (1.8-2.4); POTASSIUM SERUM 3.7 MEQ/L (3.5-5.1); SODIUM LEVEL 141 MEQ/L (136-145)
[2020-05-02] MEDS: FUROSEMIDE 40MG/4ML VIAL (J1940) IV SCH ×2 (09:22)
[2020-05-02] MEDS: HEPARIN SOD (PORCINE) 5000UNITS/ML 1ML VIAL/SYRINGE SC SCH ×2 (09:23→20:25)
[2020-05-02] MEDS: amLODIPine 10 MG TAB PO SCH (09:23)
[2020-05-02] MEDS: PANTOPRAZOLE 20 MG TAB PO SCH (09:29)
--- NOTE | 2020-05-02 12:25 | IPNPDOC ---
Date Seen The patient was seen on 05/02/20. Progress Note SUBJECTIVE: Patient was seen and examined at bedside, doing well, no acute overnight events. Patient denies acute shortness of breath, chest pain, palpitations. Reports improvement in bilateral leg swelling. OBJECTIVE PHYSICAL EXAMINATION: VITAL SIGNS: Please see below. General: NAD, comfortable HEENT: PERRLA, EOMI, sclerae clear Neck: supple, normal ROM, no JVD Resp: lungs CTAB, no wheeze, no rales, no crackles CVS: RRR, normal S1, S2, no murmurs Abdo: soft, no masses, no hepatosplenomegaly, BS+, no rebound tenderness Extremities: 1+ pitting edema bilaterally (improved) MSK: no joint deformities, normal ROM Neuro: chorea Psych: calm, cooperative, AAO x 3 LABORATORY DATA, IMAGING STUDIES, MICROBIOLOGY: Please see below. Echocardiogram: last performed 04/13/20. EF 40-45%. Left ventricular systolic dysfunction, Grade 1. Mod mitral regurg. 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 According to his sister patient was recently discharged from [facility] with prescribed Lasix by mouth. However for past 2-3 days days he has been having increased shortness of breath with increased leg swelling. In emergency room patient was found to have hemoglobin 11.9, BNP 943, CTA showed Mild right and minimal left pleural effusions with mild bibasilar fibro-atelectatic change, greatest in the lower lobes. The left pleural \effusion is slightly increased since 04/19/2020. The right pleural effusion is similar to slightly increased. No PE PROBLEMS: #Decompensated HFpEF: transition to lasix 60 mg PO BID. Negative fluid balance 3L. Weight reduced by 3 KG. LLE much imrpoved. Recent 2D echo as above. Strict I&O. Fluid restiction 1.5L. Keep Mg >2. #Pleural effusion: stable, slight increase from prior. likely 2/2 CHF. Drained on prior admission. RF, LAURY screen negative. #HTN: norvasc #CLL: outpatient follow up oncology Dispo: The patient is has been physical therapy will likely be cleared to return home in 1-2 sessions. Transitioned to PO lasix, if fluid overload controlled on PO meds, will DC home. VS, I&O, 24H, Fishbone Vital Signs/I&O Vital Signs Date Time Temp Pulse Resp B/P (MAP) Pulse Ox O2 Delivery O2 Flow Rate FiO2 05/02/20 10:00 97.5 71 18 114/74 (87) 96 Room Air I&O- Last 24 Hours up to 6 AM 05/02/20 06:00 Intake Total 1400 ml Output Total 2175 ml Balance -775 ml Laboratory Data 24H LABS Laboratory Tests 2 05/02/20 05:54: Nucleated Red Blood Cells % (auto) 0.0, Anion Gap 4L, Glomerular Filtration Rate > 60.0, Calcium Level 8.8, Magnesium Level 2.2 CBC/BMP Laboratory Tests 05/02/20 05:54 Microbiology Microbiology 04/30/20 Blood Culture - Preliminary, Resulted No growth after 24 hours . All specim... 04/30/20 Blood Culture - Preliminary, Resulted No growth after 24 hours . All specim... ANY TREVINO MD May 02, 2020 12:25
[2020-05-02] MEDS ORDERED: FUROSEMIDE 20 MG TAB PO SCH (17:00)
[2020-05-03 02:00] VITALS: BP 120/78
[2020-05-03 06:00] VITALS: BP 114/80
[2020-05-03 08:46] LABS: HEMOGLOBIN 11.3 g/dl (13.5-17.5); MEAN CORPUSCULAR HEMOGLOBIN 26.7 pg (27.0-33.0); MEAN CORPUSCULAR HGB CONC 31.4 g/dl (32.0-36.5); MEAN CORPUSCULAR VOLUME 85.1 fl (80.0-96.0); PLATELET COUNT, AUTOMATED 299 10^3/uL (150-450); RED BLOOD COUNT 4.23 10^6/uL (4.30-6.10)
[2020-05-03 08:48] LABS: WHITE BLOOD COUNT 10.1 10^3/uL (4.0-10.0)
[2020-05-03] MEDS: lisinopriL 5 MG TAB PO SCH (09:00)
[2020-05-03] MEDS: SPIRONOLACTONE 25 MG TAB PO SCH (09:00)
[2020-05-03] MEDS: PANTOPRAZOLE 20 MG TAB PO SCH (09:00)
[2020-05-03 09:21] LABS: ALBUMIN 3.2 GM/DL (3.2-5.2); ALT/SGPT 37 U/L (12-78); BILIRUBIN,TOTAL 0.9 MG/DL (0.2-1.0); BLOOD UREA NITROGEN 22 MG/DL (7-18); CALCIUM LEVEL 8.9 MG/DL (8.8-10.2); CARBON DIOXIDE LEVEL 30 MEQ/L (21-32); CHLORIDE LEVEL 104 MEQ/L (98-107); CREATININE FOR GFR 1.17 MG/DL (0.70-1.30); GLOMERULAR FILTRATION RATE > 60.0 (>49); GLUCOSE, FASTING 221 MG/DL (70-100); POTASSIUM SERUM 3.8 MEQ/L (3.5-5.1); SODIUM LEVEL 139 MEQ/L (136-145); TOTAL PROTEIN 6.1 GM/DL (6.4-8.2)
[2020-05-03 09:23] LABS: LYMPHOCYTES 45 % (16-44); MONOCYTES 13 % (0-5); NEUTROPHILS 42 % (28-66); PLATELET ESTIMATE NORMAL (NORMAL)
[2020-05-03 10:00] VITALS: BP 113/79
[2020-05-03] MEDS: HEPARIN SOD (PORCINE) 5000UNITS/ML 1ML VIAL/SYRINGE SC SCH ×2 (10:15→22:13)
[2020-05-03] MEDS: amLODIPine 10 MG TAB PO SCH (10:15)
--- NOTE | 2020-05-03 10:55 | IPNPDOC ---
Date Seen The patient was seen on 05/03/20. Progress Note SUBJECTIVE: Patient was seen and examined at bedside, doing well, no acute overnight events. Patient denies acute shortness of breath, chest pain, palpitations. Bilateral LE edema persists. Patient endorses mild diffuse abdo pain. No diarrhea, no vomiting. Good appetite. OBJECTIVE PHYSICAL EXAMINATION: VITAL SIGNS: Please see below. General: NAD, comfortable HEENT: PERRLA, EOMI, sclerae clear Neck: supple, normal ROM, no JVD Resp: lungs CTAB, no wheeze, no rales, no crackles CVS: RRR, normal S1, S2, no murmurs Abdo: soft, no masses, no hepatosplenomegaly, BS+, no rebound tenderness. Extremities: 2+ pitting edema bilaterally MSK: no joint deformities, normal ROM Neuro: chorea Psych: calm, cooperative, AAO x 3 LABORATORY DATA, IMAGING STUDIES, MICROBIOLOGY: Please see below. Echocardiogram: last performed 04/13/20. EF 40-45%. Left ventricular systolic dysfunction, Grade 1. Mod mitral regurg. 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 According to his sister patient was recently discharged from [facility] with prescribed Lasix by mouth. However for past 2-3 days days he has been having increased shortness of breath with increased leg swelling. In emergency room patient was found to have hemoglobin 11.9, BNP 943, CTA showed Mild right and minimal left pleural effus ions with mild bibasilar fibro-atelectatic change, greatest in the lower lobes. The left pleural \effusion is slightly increased since 04/19/2020. The right pleural effusion is similar to slightly increased. No PE PROBLEMS: #Decompensated HFpEF: will require an additional day of IV lasix. 60 mg IV BID. Edema persists today. Negative fluid balance. Weight reduced by 3 KG. Recent 2D echo as above. Strict I&O. Fluid restiction 1.5L. Keep Mg >2. #Pleural effusions: stable, slight increase from prior. likely 2/2 CHF. Drained on prior admission. RF, LAURY screen negative. #Abdo pain: repeat limited abdo US. Had trace ascites on prior exam 04/20/20. PPI. Tolerating PO well. Had degree of anasarca on admission. #HTN: norvasc #CLL: outpatient follow up oncology Dispo: pending ongoing diuresis. Ongoing PT eval. VS, I&O, 24H, Fishbone Vital Signs/I&O Vital Signs Date Time Temp Pulse Resp B/P (MAP) Pulse Ox O2 Delivery O2 Flow Rate FiO2 05/03/20 10:15 72 114/79 05/03/20 10:00 98.7 19 92 Room Air I&O- Last 24 Hours up to 6 AM 05/03/20 05:59 Intake Total 1070 ml Output Total 1275 ml Balance -205 ml Laboratory Data 24H LABS Laboratory Tests 2 05/03/20 08:23: Neutrophils (%) (Auto) , Nucleated Red Blood Cells % (auto) 0.0, Neutrophils 42, Lymphocytes (Manual) 45H, Monocytes (Manual) 13H, Red Blood Cell Morphology NORMAL, Platelet Estimate NORMAL, Anion Gap 5L, Glomerular Filtration Rate > 60.0, Calcium Level 8.9, Total Bilirubin 0.9, Aspartate Amino Transf (AST/SGOT) 19, Alanine Aminotransferase (ALT/SGPT) 37, Alkaline Phosphatase 231H, Total Protein 6.1L, Albumin 3.2, Albumin/Globulin Ratio 1.1 CBC/BMP Laboratory Tests 05/03/20 08:23 Microbiology Microbiology 04/30/20 Blood Culture - Preliminary, Resulted No Growth after 48 hours. All Specime... 04/30/20 Blood Culture - Preliminary, Resulted No Growth after 48 hours. All Specime... ANY TREVINO MD May 03, 2020 10:55
--- NOTE | 2020-05-03 12:07 | REPVR ---
PROCEDURE INFORMATION: Exam: US Abdomen; Limited Exam date and time: 05/03/2020 11:48 AM Age: 64 years old Clinical indication: Screening exam; Other: Evaluate for ascites; Additional info: Abdominal pain, trace ascites on prior exam TECHNIQUE: Imaging protocol: US abdomen. Real time ultrasound with image documentation. Limited exam focused on the region of clinical interest. COMPARISON: 1. US Abdomen 04/18/2020 2:[address] ABD/PEL W/IV CONTRAST ONLY 04/30/2020 10:41:07 PM FINDINGS: Pleural space: Incompletely imaged right pleural effusion. Inferior vena cava: The inferior vena cava is incompletely imaged. The imaged inferior vena cava at the upper abdomen appears dilated. Intraperitoneal space: Very small anechoic perihepatic ascites does not appear significantly changed in volume compared to 04/18/2020. IMPRESSION: 1. Very small perihepatic ascites does not appear significantly changed in volume compared to 04/18/2020. 2. Incompletely imaged right pleural effusion. 3. The imaged inferior vena cava at the upper abdomen appears dilated. Clinical correlation for volume overload and/or right heart failure is recommended. Electronically signed by: Basim Bradshaw On 05/03/2020 12:06:47 PM
[2020-05-03] MEDS: FUROSEMIDE 40MG/4ML VIAL (J1940) IV SCH (12:55)
[2020-05-03 14:00] VITALS: BP 111/74
[2020-05-03 18:00] VITALS: BP 112/73
[2020-05-03 22:00] VITALS: BP 120/79
[2020-05-03] MEDS: METOPROLOL TART 12.5 MG PER 1/2 TAB PO SCH (22:14)
[2020-05-04] MEDS: FUROSEMIDE 40MG/4ML VIAL (J1940) IV SCH (00:13)
[2020-05-04 02:00] VITALS: BP 108/71
[2020-05-04 06:00] VITALS: BP 114/79
[2020-05-04] MEDS ORDERED: FUROSEMIDE 80 MG TAB PO SCH (09:00)
[2020-05-04] MEDS ORDERED: PANTOPRAZOLE 40MG TAB (PROTONIX) PO SCH (09:00)
[2020-05-04] MEDS: HEPARIN SOD (PORCINE) 5000UNITS/ML 1ML VIAL/SYRINGE SC SCH (09:13)
[2020-05-04 09:14] VITALS: BP 116/77
[2020-05-04] MEDS: SPIRONOLACTONE 25 MG TAB PO SCH (09:14)
[2020-05-04] MEDS: METOPROLOL TART 12.5 MG PER 1/2 TAB PO SCH (09:14)
[2020-05-04] MEDS: lisinopriL 5 MG TAB PO SCH (09:14)
[2020-05-04 09:42] LABS: HEMATOCRIT 36.7 % (42.0-52.0); HEMOGLOBIN 11.3 g/dl (13.5-17.5); MEAN CORPUSCULAR HEMOGLOBIN 26.3 pg (27.0-33.0); MEAN CORPUSCULAR HGB CONC 30.8 g/dl (32.0-36.5); MEAN CORPUSCULAR VOLUME 85.5 fl (80.0-96.0); PLATELET COUNT, AUTOMATED 301 10^3/uL (150-450); RED BLOOD COUNT 4.29 10^6/uL (4.30-6.10); WHITE BLOOD COUNT 8.9 10^3/uL (4.0-10.0)
[2020-05-04 09:48] LABS: ALBUMIN 3.2 GM/DL (3.2-5.2); ALT/SGPT 37 U/L (12-78); BILIRUBIN,TOTAL 0.9 MG/DL (0.2-1.0); BLOOD UREA NITROGEN 22 MG/DL (7-18); CALCIUM LEVEL 8.6 MG/DL (8.8-10.2); CARBON DIOXIDE LEVEL 32 MEQ/L (21-32); CHLORIDE LEVEL 105 MEQ/L (98-107); CREATININE FOR GFR 1.09 MG/DL (0.70-1.30); GLOMERULAR FILTRATION RATE > 60.0 (>49); GLUCOSE, FASTING 138 MG/DL (70-100); MAGNESIUM LEVEL 2.2 MG/DL (1.8-2.4); POTASSIUM SERUM 3.8 MEQ/L (3.5-5.1); SODIUM LEVEL 141 MEQ/L (136-145); TOTAL PROTEIN 6.2 GM/DL (6.4-8.2)
[2020-05-04 10:00] VITALS: BP 114/76
[2020-05-04 11:08] LABS: BASOPHILS 2 % (0-1); EOSINOPHILS 3 % (0-3); METAMYELOCYTES 1 % (0-0); NEUTROPHILS 47 % (28-66)
[2020-05-04 11:09] LABS: LYMPHOCYTES 38 % (16-44); MONOCYTES 9 % (0-5)
[2020-05-04 11:12] LABS: PLATELET ESTIMATE NORMAL (NORMAL)
[2020-05-04 12:22] VITALS: BP 115/76
--- NOTE | 2020-05-04 14:08 | DS.PDOC ---
Discharge Summary General Date of Admission May 01, 2020 at 00:51 Date of Discharge 05/04/20 Attending Physician: ANY TREVINO MD Discharge Summary PROCEDURES PERFORMED DURING STAY: None ADMITTING DIAGNOSES: acute diastolic CHF exacerbation DISCHARGE DIAGNOSES: decompensated HFpEF Pleural effusion abdominal pain CLL COMPLICATIONS/CHIEF COMPLAINT: Chf Exacerbation. 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 According to his sister patient was recently discharged from [facility] with prescribed Lasix by mouth. However for past 2-3 days days he has been having increased shortness of breath with increased leg swelling. In emergency room patient was found to have hemoglobin 11.9, BNP 943, CTA showed Mild right and minimal left pleural effusions with mild bibasilar fibro-atelectatic change, greatest in the lower lobes. The left pleural \effusion is slightly increased since 04/19/2020. The right pleural effusion is similar to slightly increased. No PE. HOSPITAL COURSE: Decompensated HFpEF: underwent sufficient diuresis with IV lasix. Negative fluid balance. Weight reduced by 5.7 KG. Recent 2D echo (04/13) EF 40-45%. Strict I&O. Fluid restriction 1.5L. Keep Mg >2. DC on lasix 40 mg BID. Started ACEi, BB on DC. Added spironolactone given frequent fluid overload, ascites. #Pleural effusions: stable, slight increase from prior. likely 2/2 CHF. Drained via thoracentesis on prior admission. RF, LAURY screen negative. #Abdo pain: repeat limited abdo US showing minimal amount of ascites. Had trace ascites on prior exam 04/20/20. PPI. Tolerating PO well. Had degree of anasarca on admission. #HTN: norvasc #CLL: outpatient follow up oncology DISCHARGE MEDICATIONS: Please see below. ALLERGIES: Please see below. PHYSICAL EXAMINATION ON DISCHARGE: VITAL SIGNS: Please see below. General: NAD, comfortable HEENT: PERRLA, EOMI, sclerae clear Neck: supple, normal ROM, no JVD Resp: lungs CTAB, no wheeze, no rales, no crackles CVS: RRR, normal S1, S2, no murmurs Abdo: soft, no masses, no hepatosplenomegaly, BS+, no rebound tenderness. Extremities: 1+ pitting edema bilaterally MSK: no joint deformities, normal ROM Neuro: chorea Psych: calm, cooperative, AAO x 3 LABORATORY DATA: Please see below. IMAGING: US abdomen (05/03/20) FINDINGS: Pleural space: Incompletely imaged right pleural effusion. Inferior vena cava: The inferior vena cava is incompletely imaged. The imaged inferior vena cava at the upper abdomen appears dilated. Intraperitoneal space: Very small anechoic perihepatic ascites does not appear significantly changed in volume compared to 04/18/2020. IMPRESSION: 1. Very small perihepatic ascites does not appear significantly changed in volume compared to 04/18/2020. 2. Incompletely imaged right pleural effusion. 3. The imaged inferior vena cava at the upper abdomen appears dilated. Clinical correlation for volume overload and/or right heart failure is recommended. CT abdo pelvis 04/30/20: FINDINGS: Lungs: Mild bibasilar fibro-atelectatic change, greatest in the lower lobes. Pleural space: Mild right pleural effusion and minimal left pleural effusion. Heart: Trace pericardial effusion. Liver: Normal. No mass. Gallbladder and bile ducts: The gallbladder is contracted with no stones. Pancreas: Normal. No ductal dilation. Spleen: Splenic calcifications are noted. Adrenals: Normal. No mass. Kidneys and ureters: Normal. No hydronephrosis. Stomach and bowel: Unremarkable. No obstruction. No mucosal thickening. Appendix: There are no changes of appendicitis. A normal appendix is not seen. Intraperitoneal space: Mild peritoneal ascites about the abdomen. Vasculature: Incidental note of an accessory retroaortic left renal vein. Lymph nodes: Unremarkable. No enlarged lymph nodes. Urinary bladder: Unremarkable as visualized. Reproductive: Unremarkable as visualized. Bones/joints: Old fractures of the left superior and inferior pubic rami with a metallic pin traversing the left superior pubic ramus. Soft tissues: Mild left inguinal hernia and minimal right inguinal hernia which contain ascites fluid. Mild subcutaneous edema about the abdomen and pelvis. IMPRESSION: 1. Mild right pleural effusion and minimal left pleural effusion, trace pericardial effusion, mild peritoneal ascites and diffuse subcutaneous edema which is similar to 04/13/2020 and may reflect generalized anasarca. 2. Mild bibasilar fibro-atelectatic change, greatest in the lower lobes which is similar. 3. Bilateral inguinal hernias, left greater than right containing ascites fluid, slightly decreased in size on the left since the prior study. CT angiogram chest (04/30/20): Pulmonary arteries: The main pulmonary artery measures 28 mm. No pulmonary embolism is identified. Aorta: The ascending thoracic aorta measures 32 mm. Lungs: Mild bibasilar fibro-atelectatic change, greatest in the lower lobes. Pleural space: Mild right pleural effusion and minimal left pleural effusion. Heart: Trace pericardial effusion. Lymph nodes: Unremarkable. No enlarged lymph nodes. Bones/joints: Decreased height of T7 and T8 and to a lesser degree T9 which appear to be chronic. Old fracture of the left 12th rib. Soft tissues: Unremarkable. IMPRESSION: 1. Mild right and minimal left pleural effusions with mild bibasilar fibro-atelectatic change, greatest in the lower lobes. The left pleural effusion is slightly increased since 04/19/2020. The right pleural effusion is similar to slightly increased. 2. Trace pericardial effusion. 3. Otherwise negative CTA chest. No pulmonary embolism is identified. PROGNOSIS: good ACTIVITY: As tolerated DIET: 2g Na limit, restrict PO fluids to 1800 cc/day DISCHARGE PLAN: PCP follow up. Recommend cardiology referral as outpatient. DISPOSITION: home. Cleared by PT. DISCHARGE INSTRUCTIONS: PLEASE FOLLOW UP WITH YOUR PRIMARY CARE DOCTOR WITHIN 3-5 DAYS PLEASE TAKE YOUR MEDICATIONS PRESCRIBED IF YOU DEVELOP CHEST PAIN, SHORTNESS OF BREATH, FEVERS, CHILLS, BLEEDING OR OTHERWISE WORSENING FO YOUR SYMPTOMS, PLASE CALL 911 OR RETURN TO THE EMERGENCY DEPARTMENT. ITEMS TO FOLLOWUP ON ON OUTPATIENT: WOULD RECOMMEND CARDIOLOGY REFERRAL PLEASE CHECK BMP FOR POTASSIUM IN 1 WEEK, PATIENT WAS STARTED ON SPIRONOLACTONE DISCHARGE CONDITION: Stable TIME SPENT ON DISCHARGE: Greater than 30 minutes. Vital Signs/I&Os Vital Signs Date Time Temp Pulse Resp B/P (MAP) Pulse Ox O2 Delivery O2 Flow Rate FiO2 05/04/20 12:22 62 115/76 (89) 05/04/20 10:00 98.4 18 96 Room Air l I&O- Last 24 Hours up to 6 AM 05/04/20 06:00 Intake Total 1300 ml Output Total 2590 ml Balance -1290 ml Laboratory Data Labs 24H Laboratory Tests 2 05/04/20 08:49: Neutrophils (%) (Auto) , Nucleated Red Blood Cells % (auto) 0.0, Neutrophils 47, Lymphocytes (Manual) 38, Monocytes (Manual) 9H, Eosinophils (Manual) 3, Basophils (Manual) 2H, Metamyelocytes 1H, Platelet Estimate NORMAL, Anion Gap 4L, Glomerular Filtration Rate > 60.0, Calcium Level 8.6L, Magnesium Level 2.2, Total Bilirubin 0.9, Aspartate Amino Transf (AST/SGOT) 20, Alanine Aminotransferase (ALT/SGPT) 37, Alkaline Phosphatase 241H, Total Protein 6.2L, Albumin 3.2, Albumin/Globulin Ratio 1.1 CBC/BMP Laboratory Tests 05/04/20 08:49 Microbiology Microbiology 04/30/20 Blood Culture - Preliminary, Resulted No Growth after 72 hours. All specime... 04/30/20 Blood Culture - Preliminary, Resulted No Growth after 72 hours. All specime... Discharge Medications Scheduled Furosemide (Furosemide) 40 Mg Tablet, 40 MG PO BID Lisinopril (Lisinopril) 5 Mg Tablet, 5 MG PO DAILY Metoprolol Tartrate (Metoprolol Tartrate) 25 Mg Tablet, 12.5 MG PO BID Pantoprazole Sodium (Pantoprazole Sodium) 20 Mg Tablet.dr, 20 MG PO DAILY, (Reported) Spironolactone (Aldactone) 25 Mg Tablet, 25 MG PO QAM Allergies Coded Allergies: No Known Allergies (Unverified , 01/12/19) ANY TREVINO MD May 04, 2020 14:08
[2020-05-04] MEDS ORDERED: METO1TAB87 PO (14:19)
[2020-05-04] MEDS ORDERED: ALDA25TA2 PO (14:19)
[2020-05-04] MEDS ORDERED: LISI-542 PO (14:19)
[2020-05-04] MEDS ORDERED: FURO40TA2 PO (14:20)
[2020-05-04] MEDS ORDERED: NYSTATIN 100,000 UNITS/GM TOPICAL PWD 15 GM TOP SCH (21:00)
--- NOTE | 2020-05-09 11:41 | REP ---
PORTABLE CHEST X-RAY: SINGLE VIEW HISTORY: Pleural effusion. COMPARISON: Portable chest x-ray 04/30/2020. Chest CT study 04/30/2020. FINDINGS: There is blunting of the right lateral pleural angle indicating small right pleural effusion. This is essentially unchanged from the 04/30/2020 study. Pulmonary vasculature is somewhat cephalized. Heart is not enlarged. Left pleural angle is sharp. IMPRESSION: Small right pleural effusion again noted radiographically essentially unchanged from comparison chest x-ray. MTDD
== END 2020-05-04 15:18 | disposition home or self-care (01) | DRG 292 ==
LOC: M ED 19:46 → M ED INP 05-01 00:51 → ENRESERV 05-01 01:27 → M MSPAV 05-01 02:10
PROVIDERS: ADMIT Internal Medicine; ATTEND Family Medicine
DX: I11.0 Hypertensive heart disease with heart failure (principal); C91.11 Chronic lymphocytic leukemia of B-cell type in remission; G10 Huntington's disease; Z79.899 Other long term (current) drug therapy; I50.33 Acute on chronic diastolic (congestive) heart failure

== ENCOUNTER → 2020-05-10 | Outpatient (REF) | payer MEDICARE, MEDICAID ==
[~2020-05-10] MED LIST changes: +ACET-907 PO; +ACET1TAB55 PO; +ALDA25TA2 PO; +FURO40TA2 PO; +FURO80TA2 PO; +KLOR10TA76 PO; +LASI40TA9 PO; +LISI-542 PO; +MED REC COMMENT; +METO1TAB87 PO; +METO25TA4 PO; +PANT20TA51 PO; +PANT20TA6; +PATIENT COMMENT; +POTA10TA17 PO; +RAME8TAB2 PO; +ROZE8TAB16 PO; +SPIR-10 PO
[2020-05-10 13:09] LABS: INR 1.12; PROTHROMBIN TIME 14.7 SECONDS (12.5-14.3)
[2020-05-10 13:32] LABS: ALBUMIN 3.6 GM/DL (3.2-5.2); ALT/SGPT 40 U/L (12-78); BILIRUBIN,TOTAL 0.9 MG/DL (0.2-1.0); BLOOD UREA NITROGEN 26 MG/DL (7-18); CALCIUM LEVEL 9.2 MG/DL (8.8-10.2); CARBON DIOXIDE LEVEL 31 MEQ/L (21-32); CHLORIDE LEVEL 108 MEQ/L (98-107); CREATININE FOR GFR 1.18 MG/DL (0.70-1.30); GLOMERULAR FILTRATION RATE > 60.0 (>49); GLUCOSE, FASTING 87 MG/DL (70-100); SODIUM LEVEL 142 MEQ/L (136-145); TOTAL PROTEIN 6.7 GM/DL (6.4-8.2)
[2020-05-10 13:51] LABS: HEPATITIS B SURFACE ANTIGEN NEGATIVE (NEGATIVE)
[2020-05-10 14:18] LABS: HEPATITIS C VIRUS ABY INDEX 0.1 INDEX (<0.8)
[2020-05-10 14:19] LABS: HEPATITIS B CORE ANTIBODY IGM NEGATIVE (NEGATIVE)
[2020-05-10 14:21] LABS: HEPATITIS A ANTIBODY IGM NEGATIVE (NEGATIVE)
== END ==
LOC: M SFHCADAM 11:33
PROVIDERS: ATTEND Physician Assistant Medical
DX: R18.8 Other ascites (principal); I11.0 Hypertensive heart disease with heart failure; I50.42 Chronic combined systolic (congestive) and diastolic (congestive) heart failure; F17.220 Nicotine dependence, chewing tobacco, uncomplicated

== ENCOUNTER 2020-05-11 13:16 | Inpatient (IN) | payer MEDICARE, MEDICAID ==
[~2020-05-11] VITALS: Ht 180.3 cm; Wt 70.3 kg
[~2020-05-11 13:16] MED LIST changes: -ACET-907 PO; -ACET1TAB55 PO; -FURO80TA2 PO; -KLOR10TA76 PO; -MED REC COMMENT; -METO25TA4 PO; -PANT20TA6; -PATIENT COMMENT; -POTA10TA17 PO; -RAME8TAB2 PO; -ROZE8TAB16 PO; -SPIR-10 PO
[2020-05-11] MEDS ORDERED: PANT20TA6 (13:40)
--- NOTE | 2020-05-11 14:51 | REPVR ---
PROCEDURE INFORMATION: Exam: XR Chest, 1 View Exam date and time: 05/11/2020 2:43 PM Age: 64 years old Clinical indication: Other: Abdominal pain TECHNIQUE: Imaging protocol: XR of the chest Views: 1 view. COMPARISON: MD Chest, 1 view 05/02/2020 1:42 PM FINDINGS: Lungs: Compression atelectasis/consolidation right lung base. Pleural space: Blunting right lateral costophrenic angle with hazy density over both lungs and prominence of the pulmonary vessels. Heart/Mediastinum: Unremarkable. No cardiomegaly. Bones/joints: Unremarkable. Other findings: Patient is slightly rotated to the right. Degenerative changes of the thoracolumbar spine IMPRESSION: Pulmonary vascular congestion with right pleural effusion and compression atelectasis at the right base no change. . Electronically signed by: Judy Dodge On 05/11/2020 14:51:07 PM
[2020-05-11 15:22] LABS: HEMATOCRIT 38.2 % (42.0-52.0); HEMOGLOBIN 11.8 g/dl (13.5-17.5); MEAN CORPUSCULAR HEMOGLOBIN 26.7 pg (27.0-33.0); MEAN CORPUSCULAR HGB CONC 30.9 g/dl (32.0-36.5); MEAN CORPUSCULAR VOLUME 86.4 fl (80.0-96.0); PLATELET COUNT, AUTOMATED 305 10^3/uL (150-450); RED BLOOD COUNT 4.42 10^6/uL (4.30-6.10); WHITE BLOOD COUNT 9.8 10^3/uL (4.0-10.0)
[2020-05-11] MEDS ORDERED: ISOVUE-370 76% 100ML VIAL As Ordered ONE (15:34)
[2020-05-11 15:51] LABS: ANISOCYTOSIS 1+; ATYPICAL LYMPH 4 % (0-5); BASOPHILS 1 % (0-1); EOSINOPHILS 1 % (0-3); LYMPHOCYTES 29 % (16-44); MONOCYTES 3 % (0-5); NEUTROPHILS 60 % (28-66); PLATELET ESTIMATE NORMAL (NORMAL); SCHISTOCYTES 1+
[2020-05-11 15:52] LABS: ALBUMIN 3.6 GM/DL (3.2-5.2); ALT/SGPT 35 U/L (12-78); AMYLASE 33 U/L (25-115); BILIRUBIN,DIRECT 0.5 MG/DL (0.0-0.2); BILIRUBIN,TOTAL 0.7 MG/DL (0.2-1.0); CK-MB VALUE MASS 1.2 NG/ML (<3.6); CPK CREATINE PHOSPHOKINASE 58 U/L (39-308); LIPASE 116 U/L (73-393); MB/CK RELATIVE INDEX 2.07 (< OR =4); NT-PRO BNP 1109 PG/ML (<125); TOTAL PROTEIN 6.9 GM/DL (6.4-8.2); TROPONIN I < 0.02 NG/ML (< 0.10)
--- NOTE | 2020-05-11 16:22 | REPVR ---
PROCEDURE INFORMATION: Exam: CT Abdomen And Pelvis With Contrast Exam date and time: 05/11/2020 2:34 PM Age: 64 years old Clinical indication: Abdominal pain TECHNIQUE: Imaging protocol: Computed tomography of the abdomen and pelvis with intravenous contrast. Radiation optimization: All CT scans at this facility use at least one of these dose optimization techniques: automated exposure control; mA and/or kV adjustment per patient size (includes targeted exams where dose is matched to clinical indication); or iterative reconstruction. Contrast material: ISOVUE 370; Contrast volume: 100 ml; Contrast route: INTRAVENOUS (IV); COMPARISON: CT ABD/PEL W/IV CONTRAST ONLY 04/30/2020 10:41 PM FINDINGS: Lungs: Compression atelectasis in the dependent portion of the right lower lobe. Pleural space: Large right pleural effusion. Small left pleural effusion. Heart: Small amount of pericardial fluid present. Liver: Liver measures 14.3 cm in craniocaudal span. Gallbladder and bile ducts: Normal. No calcified stones. No ductal dilation. Pancreas: Normal. No ductal dilation. Spleen: Calcified granuloma in the spleen. Spleen measures 9.1 cm in craniocaudal span. Adrenals: Normal. No mass. Kidneys and ureters: Normal. No hydronephrosis. Stomach and bowel: Unremarkable. No obstruction. No mucosal thickening. Appendix: No evidence of appendicitis. Intraperitoneal space: Large amount of intra-abdominal ascites. Ascites fluid extends into the inguinal canal bilaterally, left much greater than right. Vasculature: Unremarkable. No abdominal aortic aneurysm. Lymph nodes: Unremarkable. No enlarged lymph nodes. Urinary bladder: Unremarkable as visualized. Reproductive: Prostate measures 5.4 x 3 point 4 by 3.4 cm. Bones/joints: Underlying levoscoliosis of the lumbar spine with moderately advanced secondary degenerative disc disease. A screw projects through the left superior pubic ramus into the ileum. A screw projects through the left ilium into the sacrum and into the right ilium. Healed fracture left inferior pubic ramus Soft tissues: There is anasarca. Other findings: Hyperinflation noted at anterior basal segment of left lower lobe. IMPRESSION: Moderate amount of intra-abdominal ascites with anasarca, small pericardial effusion and bilateral pleural effusions right greater than left 2. Compression atelectasis dependent portion right lower lobe. Electronically signed by: Judy Dodge On 05/11/2020 16:22:22 PM
[2020-05-11] MEDS: MORPHINE 2 MG/ML 1ML VIAL (J2270) IV PRN ×2 (17:03→18:12)
[2020-05-11] MEDS ORDERED: FUROSEMIDE 40MG/4ML VIAL (J1940) IV ONE (18:45)
[2020-05-11] MEDS ORDERED: LISI-542 PO (18:56)
[2020-05-11] MEDS ORDERED: FURO40TA2 PO (18:56)
[2020-05-11] MEDS ORDERED: SPIR-10 PO (18:58)
[2020-05-11] MEDS ORDERED: METO25TA4 PO (18:58)
[2020-05-11] MEDS ORDERED: MOM 30ML SUSPENSION UDC PO PRN (19:45)
[2020-05-11 20:51] LABS: BLOOD UREA NITROGEN 31 MG/DL (7-18); CALCIUM LEVEL 9.2 MG/DL (8.8-10.2); CARBON DIOXIDE LEVEL 29 MEQ/L (21-32); CHLORIDE LEVEL 105 MEQ/L (98-107); CREATININE FOR GFR 1.38 MG/DL (0.70-1.30); GLOMERULAR FILTRATION RATE 55.2 (>49); GLUCOSE, FASTING 82 MG/DL (70-100); POTASSIUM SERUM 3.8 MEQ/L (3.5-5.1); SODIUM LEVEL 140 MEQ/L (136-145)
--- NOTE | 2020-05-11 20:57 | HPEPDOC ---
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 Found to have 2+ pitting edema increasing pleural effusion on chest x-ray and increasing abdominal ascites on abdominal CT. Patient admitted to medical for further management. 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 PAST MEDICAL HISTORY: Telfair's disease, CLL, diastolic CHF and recurrent pleural effusion SOCIAL HISTORY: Smoker: Denies Alcohol: Denies Drugs: denies FAMILY HISTORY: Obtained from chart Mother in her 80s from old age. History of CVA Father age 71 secondary to prostate cancer Siblings: Sister is alive ([place] [phone]) ALLERGIES: Please see below. REVIEW OF SYSTEMS: Unable to obtain review of systems due to patient's advanced Reid chorea HOME MEDICATIONS: Please see below. PHYSICAL EXAMINATION: Constitutional: Awake and alert, in no apparent distress has significant chorea ENT: Sclera are clear. Mucosa is moist. Respiratory: Lungs rhales at bases bilaterally. No respiratory distress. No use of accessory muscles. Cardiovascular: RRR S1 and S2 are normal, no murmur Gastrointestinal: Abdomen is soft, non distended, non tender, BS present. No fluid shift appreciated. Musculoskeletal: 2+ pitting edema extremities bilaterally. Neurologic: Chorea. Skin: Warm, dry LABORATORY DATA: See below. IMAGING: See chart MICROBIOLOGY: Please see below. 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 Found to have 2+ pitting edema increasing pleural effusion on chest x-ray and increasing abdominal ascites on abdominal CT. Patient admitted to medical for further management. # Acute on chronic HFpEF: IV lasix. Recent 2D echo (04/13) EF 40-45%. I and O, daily weights, elevate head of bed, Fluid restriction 1.5L. Maintain K>4 and Mg>2. Hold BB in light of acute CHF exacerbation. Consider consulting cardiology in a.m. given repeat CHF exacerbations. Continue spironolactone. #Pleural effusions: likely 2/2 CHF. Repeat CXR in am. Drained via thoracentesis on prior admission. #Abdo pain: Abdominal CT showing more ascites. Had trace ascites on prior exams. PPI. Consider IR consult for paracentesis #HTN: Lisinopril increased home dose & HCTZ. Monitor and titrate. #CLL: outpatient follow up oncology # DVT proph: heparin Vital Signs Vital Signs Date Time Temp Pulse Resp B/P (MAP) Pulse Ox O2 Delivery O2 Flow Rate FiO2 05/11/20 18:39 140/86 (104) 05/11/20 18:12 16 05/11/20 16:16 50 93 Room Air 05/11/20 13:36 97.8 Laboratory Data Labs 24H Laboratory Tests 2 05/11/20 14:34: Neutrophils (%) (Auto) , Nucleated Red Blood Cells % (auto) 0.0, Neutrophils 60, Band Neutrophils 2, Lymphocytes (Manual) 29, Monocytes (Manual) 3, Eosinophils (Manual) 1, Basophils (Manual) 1, Atypical Lymphocytes 4, Anisocytosis 1+, Schistocytes 1+, Platelet Estimate NORMAL, Lactic Acid Level 0.9, Total Bilirubin 0.7, Direct Bilirubin 0.5H, Aspartate Amino Transf (AST/SGOT) 20, Alanine Aminotransferase (ALT/SGPT) 35, Alkaline Phosphatase 256H, Total Creatine Kinase 58, Creatine Kinase MB 1.2, Creatine Kinase MB Relative Index 2.07, Troponin I < 0.02, YH-Iij-F-Type Natriuretic Peptide 1109H, Total Protein 6.9, Albumin 3.6, Albumin/Globulin Ratio 1.1, Amylase Level 33, Lipase 116 05/11/20 14:58: Urine Color STRAW, Urine Appearance CLEAR, Urine pH 5.0, Urine Specific [place] 1.009, Urine Protein NEGATIVE, Urine Glucose (UA) NEGATIVE, Urine Ketones NEGATIVE, Urine Blood NEGATIVE, Urine Nitrite NEGATIVE, Urine Bilirubin NEGATIVE, Urine Urobilinogen 0.2, Urine Leukocyte Esterase NEGATIVE, Urine WBC (Auto) 3, Urine RBC (Auto) 2, Urine Hyaline Casts (Auto) 4, Urine Bacteria (Auto) NEGATIVE, Urine Squamous Epithelial Cells 0, Urine Sperm (Auto) CBC/BMP Laboratory Tests 05/11/20 14:34 Home Medications Scheduled Furosemide (Furosemide) 40 Mg Tablet, 80 MG PO QAM Lisinopril (Lisinopril) 5 Mg Tablet, 5 MG PO DAILY Metoprolol Tartrate (Metoprolol Tartrate) 25 Mg Tablet, 12.5 MG PO BID Spironolactone (Spironolactone) 25 Mg Tablet, 25 MG PO QAM Allergies Coded Allergies: No Known Allergies (Unverified , 01/12/19) A-FIB/CHADSVASC A-FIB History Current/History of A-Fib/PAF?: No LIGIASECHRIS Maurer MD May 11, 2020 20:42
[2020-05-11 22:19] VITALS: BP 143/65
[2020-05-12 05:44] LABS: HEMATOCRIT 35.5 % (42.0-52.0); MEAN CORPUSCULAR HEMOGLOBIN 26.6 pg (27.0-33.0); MEAN CORPUSCULAR VOLUME 85.7 fl (80.0-96.0); PLATELET COUNT, AUTOMATED 298 10^3/uL (150-450); RED BLOOD COUNT 4.14 10^6/uL (4.30-6.10); WHITE BLOOD COUNT 9.4 10^3/uL (4.0-10.0)
[2020-05-12 06:00] VITALS: BP 142/67
[2020-05-12 06:08] LABS: CALCIUM LEVEL 8.7 MG/DL (8.8-10.2); CREATININE FOR GFR 1.35 MG/DL (0.70-1.30); GLOMERULAR FILTRATION RATE 56.6 (>49); POTASSIUM SERUM 3.6 MEQ/L (3.5-5.1)
[2020-05-12 06:09] LABS: ALBUMIN 3.3 GM/DL (3.2-5.2); BILIRUBIN,TOTAL 0.7 MG/DL (0.2-1.0); TOTAL PROTEIN 6.2 GM/DL (6.4-8.2)
--- NOTE | 2020-05-12 06:39 | ECGEPIP ---
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
[2020-05-12] MEDS ORDERED: lisinopriL 10 MG TAB PO SCH (09:00)
[2020-05-12] MEDS ORDERED: hydroCHLOROthiazide 12.5 MG CAPSULE PO SCH (09:00)
[2020-05-12] MEDS: SPIRONOLACTONE 25 MG TAB PO SCH (09:07)
[2020-05-12] MEDS: FUROSEMIDE 40MG/4ML VIAL (J1940) IV SCH ×2 (09:07→17:00)
[2020-05-12] MEDS: HEPARIN SOD (PORCINE) 5000UNITS/ML 1ML VIAL/SYRINGE SC SCH ×2 (09:07→20:18)
[2020-05-12 14:00] VITALS: BP 109/71
[2020-05-12] MEDS: ACETAMINOPHEN TAB 650MG DOSE (2X325MG) PO PRN ×2 (15:14→20:19)
--- NOTE | 2020-05-12 17:01 | IPNPDOC ---
Date Seen The patient was seen on 05/12/20. Progress Note SUBJECTIVE: No complaints overnight. IR to drain ascites on 05/14/20. Patient denies chest pain, increased SOB, fever, chills, n/v/d. OBJECTIVE: PHYSICAL EXAMINATION: VS: Please see below Constitutional: Awake and alert, in no apparent distress has significant chorea ENT: Sclera are clear. Mucosa is moist. Respiratory: crackles in lower lungs bilaterally. No W/R Cardiovascular: RRR S1 and S2 are normal, no murmur/R/G Gastrointestinal: Abdomen is soft, non distended, non tender, BS present. No fluid shift appreciated. Musculoskeletal: 2+ pitting edema extremities bilaterally. Neurologic: Chorea. No other focal deficits Skin: Warm, dry LABORATORY DATA: See below. IMAGING: No new imaging MICROBIOLOGY: Please see below. 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 Found to have 2+ pitting edema increasing pleural effusion on chest x-ray and increasing abdominal ascites on abdominal CT. Patient admitted to medical for further management. PLAN: # Acute on chronic HFpEF: -820 cc since midnight, on IV lasix BID. Recent 2D ech o (04/13) EF 40-45%. I and O, daily weights, elevate head of bed, Fluid restriction 1.5L. Hold BB in light of acute CHF exacerbation, c/w spironolactone. Consider cardiology consult if not improving #Pleural effusions likely 2/2 CHF. Drained via thoracentesis on prior admission. C/w diuresis for next 24-48 hrs to see if this helps and then reimage. Has not had enough time to see if this will be enough. C/w treatment above #Abdo pain: Abdominal CT showing more ascites. Had trace ascites on prior exams. PPI. IR consult for paracentesis likely to occur on 05/14/20 #Acute kidney injury likely 2/2 to medications. Stopping lisinopril for now. Monitor closely with daily labs. Avoid adding other nephrotoxic meds. #HTN: Stopped lisinopril. C/w HCTZ. Monitor and titrate. #CLL: outpatient follow up oncology #Reid's disease. Stable. F/u as o/p. # DVT proph: heparin DISPOSITION: C/w inpatient treatment. IR for paracentesis on 05/14/20. Plan is undecided for place of discharge. VS, I&O, 24H, Fishbone Vital Signs/I&O Vital Signs Date Time Temp Pulse Resp B/P (MAP) Pulse Ox O2 Delivery O2 Flow Rate FiO2 05/12/20 14:00 99.4 67 17 109/71 (84) 95 Room Air I&O- Last 24 Hours up to 6 AM 05/12/20 06:00 Intake Total 630 ml Output Total 1100 ml Balance -470 ml Laboratory Data 24H LABS Laboratory Tests 2 05/12/20 05:28: Nucleated Red Blood Cells % (auto) 0.0, Anion Gap 8, Glomerular Filtration Rate 56.6, Calcium Level 8.7L, Total Bilirubin 0.7, Aspartate Amino Transf (AST/SGOT) 15, Alanine Aminotransferase (ALT/SGPT) 31, Alkaline Phosphatase 230H, RT-Jqu-[id number]-Type Natriuretic Peptide 837H, Total Protein 6.2L, Albumin 3.3, Albumin/Globulin Ratio 1.1 CBC/BMP Laboratory Tests 05/12/20 05:28 Current Medications Current Medications Medications (Trade) Dose Ordered Sig/Gina Route PRN Reason Start Time Stop Time Status Last Admin Dose Admin Acetaminophen (Tylenol Tab) 650 mg Q4H PRN PO PAIN OR FEVER 05/11/20 19:45 05/12/20 15:14 Furosemide (LASIX injection) 40 mg BID@09,17 IV 05/12/20 09:00 05/12/20 09:07 Heparin Sodium (Porcine) (Heparin) 5,000 units Q12H SC 05/12/20 09:00 05/12/20 09:07 Home Med (Med Rec Complete!) ASDIRECTED XX 05/11/20 19:00 05/11/20 19:04 DC Hydrochlorothiazide (Hydrodiuril) 12.5 mg DAILY PO 05/12/20 09:00 05/12/20 09:07 Lisinopril (Prinivil) 10 mg DAILY PO 05/12/20 09:00 05/12/20 08:55 DC Magnesium Hydroxide (Milk Of Magnesia) 30 ml DAILY PRN PO CONSTIPATION 05/11/20 19:45 Morphine Sulfate (Morphine Sulfate Inj) 2 mg Q30M PRN IV MODERATE PAIN (PS 5-7) 05/11/20 17:00 05/11/20 18:12 DC 05/11/20 18:12 Spironolactone (Aldactone) 25 mg QAM PO 05/12/20 09:00 05/12/20 09:07 Allergies Coded Allergies: No Known Allergies (Unverified , 01/12/19) Arlene Jones MD May 12, 2020 17:01
[2020-05-12] MEDS ORDERED: ONDANSETRON 4MG/2ML VIAL IV PRN (20:30)
[2020-05-12 22:00] VITALS: BP 115/77
--- NOTE | 2020-05-13 05:40 | REPVR ---
PROCEDURE INFORMATION: Exam: XR Chest, 1 View Exam date and time: 05/12/2020 8:42 AM Age: 64 years old Clinical indication: Other: Chf TECHNIQUE: Imaging protocol: XR of the chest Views: 1 view. COMPARISON: CR PORTABLE CHEST X-RAY 05/11/2020 2:39 PM FINDINGS: Lungs: There is nonspecific central perihilar fullness with some vascular cephalization. Pleural space: There is small right-sided pleural effusion with overlying atelectasis versus infiltrates. Heart/Mediastinum: The cardiomediastinal silhouette is magnified. Bones/joints: Unremarkable. IMPRESSION: Congestive lung changes with small right-sided pleural effusion with overlying atelectasis versus infiltrates. Overall grossly unchanged since the prior exam. Electronically signed by: Jose G Jimenez On 05/13/2020 05:39:34 AM
[2020-05-13 06:00] VITALS: BP 110/72
[2020-05-13 06:32] LABS: HEMATOCRIT 35.5 % (42.0-52.0); MEAN CORPUSCULAR HEMOGLOBIN 26.6 pg (27.0-33.0); PLATELET COUNT, AUTOMATED 298 10^3/uL (150-450); RED BLOOD COUNT 4.13 10^6/uL (4.30-6.10); WHITE BLOOD COUNT 9.1 10^3/uL (4.0-10.0)
[2020-05-13 06:55] LABS: INR 1.23; PROTHROMBIN TIME 15.8 SECONDS (12.5-14.3)
[2020-05-13 06:56] LABS: PARTIAL THROMBOPLASTIN TIME 34.7 SECONDS (24.2-38.5)
[2020-05-13 07:04] LABS: ALBUMIN 3.2 GM/DL (3.2-5.2); BILIRUBIN,TOTAL 0.7 MG/DL (0.2-1.0); CALCIUM LEVEL 8.8 MG/DL (8.8-10.2); CREATININE FOR GFR 1.58 MG/DL (0.70-1.30); GLOMERULAR FILTRATION RATE 47.2 (>49); POTASSIUM SERUM 3.8 MEQ/L (3.5-5.1)
[2020-05-13] MEDS: SPIRONOLACTONE 25 MG TAB PO SCH (08:22)
[2020-05-13] MEDS: FUROSEMIDE 40MG/4ML VIAL (J1940) IV SCH ×2 (08:30→17:38)
[2020-05-13] MEDS: HEPARIN SOD (PORCINE) 5000UNITS/ML 1ML VIAL/SYRINGE SC SCH ×2 (08:31→20:00)
--- NOTE | 2020-05-13 12:44 | IPNPDOC ---
Date Seen The patient was seen on 05/13/20. Progress Note SUBJECTIVE: No complaints overnight. IR to drain ascites on 05/14/20. Patient denies chest pain, increased SOB, fever, chills, n/v/d. OBJECTIVE: PHYSICAL EXAMINATION: VS: Please see below Constitutional: Awake and alert, in no apparent distress has significant chorea ENT: Sclera are clear. Mucosa is moist. Respiratory: crackles in lower lungs bilaterally. No W/R Cardiovascular: RRR S1 and S2 are normal, no murmur/R/G Gastrointestinal: Abdomen is slightly tense but not distended, non tender, BS present. No fluid shift appreciated. Musculoskeletal: 2+ pitting edema extremities bilaterally. Neurologic: Chorea. No other focal deficits Skin: Warm, dry LABORATORY DATA: See below. IMAGING: No new imaging MICROBIOLOGY: Please see below. ASSESSMENT:64 year old male with [place]'s disease, CLL, CHF and recurrent pleural effusion presented to the hospital with increasing lower extremity edema and abdominal discomfort. Found to have 2+ pitting edema increasing pleural eff usion on chest x-ray and increasing abdominal ascites on abdominal CT. Patient admitted to medical for further management. PLAN: # Acute on chronic HFpEF - -750 mL/24hr, on RA without shortness of breath - Recent 2D echo (04/13) EF 40-45% - C/w IV lasix BID, close I & O monitoring, daily weights, elevate head of bed, fluid restriction 1.5L. Hold BB in light of acute CHF exacerbation - Stopped spironolactone, HCTZ due to MARA - Consider cardiology consult if not improving #Pleural effusions likely 2/2 CHF - Drained via thoracentesis on prior admission - C/w diuresis for next 24 hrs, then will reimage in the AM - If effusions persist, consider consulting thoracentesis - C/w treatment above #Lower ext swelling likely 2/2 to CHF; however, r/o DVT - R>L swelling - F/u doppler - C/w diuresis above #Abdo pain on admission likely 2/2 to abdominal ascities - Abdominal CT showing more ascites. Had trace ascites on prior exams. - IR consult for paracentesis likely to occur on 05/14/20 #Acute kidney injury likely 2/2 to medications -Cr even higher today at 1.58. -Holding lisinopril since 05/12/20. Stopped HCTZ and spironolactone today, as patient is also getting lasix BID. -Monitor daily labs and avoid future nephrotoxic meds. #HTN -Softer BP today -Stopped lisinopril. and holding HCTZ, spironolactone while diuresing with lasix BID -Monitor BP closely #CLL -Outpatient follow up oncology #Reid's disease -At baseline and Stable -F/u as o/p. # DVT Px -Heparin DISPOSITION: C/w inpatient treatment. IR for paracentesis on 05/14/20. Plan is undecided for place of discharge. VS, I&O, 24H, Fishbone Vital Signs/I&O Vital Signs Date Time Temp Pulse Resp B/P (MAP) Pulse Ox O2 Delivery O2 Flow Rate FiO2 05/13/20 06:00 99.1 70 18 110/72 (85) 96 Room Air I&O- Last 24 Hours up to 6 AM 05/13/20 06:00 Intake Total 1040 ml Output Total 1675 ml Balance -635 ml Laboratory Data 24H LABS Laboratory Tests 2 05/13/20 05:43: Nucleated Red Blood Cells % (auto) 0.0, Prothrombin Time 15.8H, Prothromb Time International Ratio 1.23, Activated Partial Thromboplast Time 34.7, Anion Gap 5L, Glomerular Filtration Rate 47.2L, Calcium Level 8.8, Total Bilirubin 0.7, Aspartate Amino Transf (AST/SGOT) 12, Alanine Aminotransferase (ALT/SGPT) 28, Alkaline Phosphatase 218H, Total Protein 6.0L, Albumin 3.2, Albumin/Globulin Ratio 1.1 CBC/BMP Laboratory Tests 05/13/20 05:43 Current Medications Current Medications Medications (Trade) Dose Ordered Sig/Gina Route PRN Reason Start Time Stop Time Status Last Admin Dose Admin Acetaminophen (Tylenol Tab) 650 mg Q4H PRN PO PAIN OR FEVER 05/11/20 19:45 05/12/20 20:19 Furosemide (LASIX injection) 40 mg BID@09,17 IV 05/12/20 09:00 05/13/20 08:30 Heparin Sodium (Porcine) (Heparin) 5,000 units Q12H SC 05/12/20 09:00 05/13/20 08:31 Home Med (Med Rec Complete!) ASDIRECTED XX 05/11/20 19:00 05/11/20 19:04 DC Hydrochlorothiazide (Hydrodiuril) 12.5 mg DAILY PO 05/12/20 09:00 05/13/20 08:30 DC 05/12/20 09:07 Lisinopril (Prinivil) 10 mg DAILY PO 05/12/20 09:00 05/12/20 08:55 DC Magnesium Hydroxide (Milk Of Magnesia) 30 ml DAILY PRN PO CONSTIPATION 05/11/20 19:45 Morphine Sulfate (Morphine Sulfate Inj) 2 mg Q30M PRN IV MODERATE PAIN (PS 5-7) 05/11/20 17:00 05/11/20 18:12 DC 05/11/20 18:12 Ondansetron HCl (ZOFRAN INJection) 4 mg Q6HP PRN IV NAUSEA OR VOMITING 05/12/20 20:30 05/12/20 20:40 Spironolactone (Aldactone) 25 mg QAM PO 05/12/20 09:00 05/13/20 08:30 DC 05/12/20 09:07 Allergies Coded Allergies: No Known Allergies (Unverified , 01/12/19) Arlene Jones MD May 13, 2020 12:44
[2020-05-13 14:00] VITALS: BP 110/76
--- NOTE | 2020-05-13 15:02 | REPVR ---
PROCEDURE INFORMATION: Exam: US Duplex Lower Extremity Veins, Bilateral Exam date and time: 05/13/2020 2:16 PM Age: 64 years old Clinical indication: Swelling (edema) of limb; Lower extremity, bilateral; Additional info: R>l swelling, R/O dvt TECHNIQUE: Imaging protocol: Real-time duplex ultrasound of the extremities with 2-D wooten scale, color Doppler flow and spectral waveform analysis with image documentation. Complete exam focused on the bilateral lower extremity veins. COMPARISON: US Duplex, Ext LOWER veins, bilat BILATERAL 03/17/2020 6:17 AM (report not provided) FINDINGS: Right deep veins: The common femoral, femoral, proximal profunda femoral and popliteal veins are patent without thrombus. Normal Doppler waveforms. Normal compressibility and/or augmentation response. The femoral vein is duplicated in its mid and distal aspects. Right superficial veins: Saphenofemoral junction is patent without thrombus. Left deep veins: The common femoral, femoral, proximal profunda femoral and popliteal veins are patent without thrombus. Normal Doppler waveforms. Normal compressibility and/or augmentation response. The femoral vein is duplicated in its mid and distal aspects. Left superficial veins: Saphenofemoral junction is patent without thrombus. Soft tissues: Subcutaneous edema is noted bilaterally. IMPRESSION: No deep venous thrombus demonstrated in either lower extremity. Electronically signed by: Charlie Russell On 05/13/2020 15:01:43 PM
[2020-05-13] MEDS: ACETAMINOPHEN TAB 650MG DOSE (2X325MG) PO PRN (20:00)
[2020-05-13 22:00] VITALS: BP 123/86
[2020-05-14 06:00] VITALS: BP 121/73
[2020-05-14 06:48] LABS: HEMATOCRIT 37.1 % (42.0-52.0); HEMOGLOBIN 11.4 g/dl (13.5-17.5); MEAN CORPUSCULAR HEMOGLOBIN 26.7 pg (27.0-33.0); MEAN CORPUSCULAR HGB CONC 30.7 g/dl (32.0-36.5); MEAN CORPUSCULAR VOLUME 86.9 fl (80.0-96.0); PLATELET COUNT, AUTOMATED 297 10^3/uL (150-450); RED BLOOD COUNT 4.27 10^6/uL (4.30-6.10); WHITE BLOOD COUNT 8.6 10^3/uL (4.0-10.0)
[2020-05-14 07:16] LABS: ALBUMIN 3.2 GM/DL (3.2-5.2); ALT/SGPT 27 U/L (12-78); BILIRUBIN,TOTAL 0.9 MG/DL (0.2-1.0); BLOOD UREA NITROGEN 29 MG/DL (7-18); CALCIUM LEVEL 8.5 MG/DL (8.8-10.2); CARBON DIOXIDE LEVEL 32 MEQ/L (21-32); CHLORIDE LEVEL 106 MEQ/L (98-107); CREATININE FOR GFR 1.26 MG/DL (0.70-1.30); GLOMERULAR FILTRATION RATE > 60.0 (>49); GLUCOSE, FASTING 90 MG/DL (70-100); POTASSIUM SERUM 3.7 MEQ/L (3.5-5.1); SODIUM LEVEL 144 MEQ/L (136-145); TOTAL PROTEIN 6.2 GM/DL (6.4-8.2)
[2020-05-14] MEDS: HEPARIN SOD (PORCINE) 5000UNITS/ML 1ML VIAL/SYRINGE SC SCH ×2 (08:27→20:40)
[2020-05-14] MEDS: FUROSEMIDE 40MG/4ML VIAL (J1940) IV SCH ×2 (09:04→17:11)
--- NOTE | 2020-05-14 10:14 | IPNPDOC ---
Date Seen The patient was seen on 05/14/20. Progress Note SUBJECTIVE: No complaints overnight but does continue to have diffuse abd discomfort. Doppler LE b/l neg for DVT. IR to drain ascites on 05/14/20. Patient denies chest pain, increased SOB, fever, chills, n/v/d. OBJECTIVE: PHYSICAL EXAMINATION: VS: Please see below Constitutional: Awake and alert x2- difficult to understand at times due to chorea ENT: Sclera are clear. Mucosa is moist. Respiratory: crackles in lower lungs bilaterally. No W/R Cardiovascular: RRR S1 and S2 are normal, no murmur/R/G Gastrointestinal: Abdomen is soft, mildly uncomfortable on exam, BS present. No fluid shift appreciated. Musculoskeletal: 2+ pitting edema extremities bilaterally. Neurologic: Chorea. No other focal deficits Skin: Warm, dry LABORATORY DATA: See below. IMAGING: Doppler LE b/l: No DVT MICROBIOLOGY: Please see below. ASSESSMENT:64 year old male with [place]'s disease, CLL, CHF and recurrent pleural effusion presented to the hospital with increasing lower extremity edema and abdominal discomfort. Found to have 2+ pitting edema increasing pleural effusion on chest x-ray and increasing abdominal ascites on abdominal CT. Patient admitted to medical for further management. PLAN: #Abd pain on admission likely 2/2 to abdominal ascities - Discomfort diffuse per patient - Abdominal CT showing more ascites. Had trace ascites on prior exams. - IR consult for paracentesis likely to occur on 05/14/20 # Acute on chronic HFpEF - -945 mL/24hr, on RA without shortness of breath - Recent 2D echo (04/13) EF 40-45% - C/w IV lasix BID, close I & O monitoring, daily weights, elevate head of bed, fluid restriction 1.5L. Hold BB in light of acute CHF exacerbation - Stopped spironolactone, HCTZ due to MARA - Consider cardiology consult if not improving #Pleural effusions likely 2/2 CHF - hx of thoracentesis - C/w diuresis for next 24 hrs, then will reimage in the AM - If effusions persist, consider consulting thoracentesis - C/w treatment above #Lower ext swelling likely 2/2 to CHF - R>L swelling - US LE b/l neg for DVT - C/w diuresis above #Acute kidney injury likely 2/2 to medications -Cr improved to 1.23 from 1.58. -Holding lisinopril since 05/12/20. Stopped HCTZ and spironolactone 05/14/20, as patient is getting lasix BID. -Monitor daily labs and avoid future nephrotoxic meds. #HTN -Softer BP on admission, improving with holding ACEi and multiple diuretics -Monitor BP closely #CLL -Outpatient follow up oncology #Reid's disease -At baseline and Stable -F/u as o/p. #GI Px -PPI # DVT Px -Heparin DISPOSITION: C/w inpatient treatment. PT/OT. IR for paracentesis on 05/14/20. Plan is undecided for place of discharge. VS, I&O, 24H, Fishbone Vital Signs/I&O Vital Signs Date Time Temp Pulse Resp B/P (MAP) Pulse Ox O2 Delivery O2 Flow Rate FiO2 05/14/20 06:00 98.6 71 17 121/73 (89) 97 Room Air I&O- Last 24 Hours up to 6 AM 05/14/20 06:00 Intake Total 1230 ml Output Total 2025 ml Balance -795 ml Laboratory Data 24H LABS Laboratory Tests 2 05/14/20 06:25: Nucleated Red Blood Cells % (auto) 0.0, Anion Gap 6L, Glomerular Filtration Rate > 60.0, Calcium Level 8.5L, Total Bilirubin 0.9, Aspartate Amino Transf (AST/SGOT) 16, Alanine Aminotransferase (ALT/SGPT) 27, Alkaline Phosphatase 219H, Total Protein 6.2L, Albumin 3.2, Albumin/Globulin Ratio 1.1 CBC/BMP Laboratory Tests 05/14/20 06:25 Current Medications Current Medications Medications (Trade) Dose Ordered Sig/Gina Route PRN Reason Start Time Stop Time Status Last Admin Dose Admin Acetaminophen (Tylenol Tab) 650 mg Q4H PRN PO PAIN OR FEVER 05/11/20 19:45 05/13/20 20:00 Furosemide (LASIX injection) 40 mg BID@09,17 IV 05/12/20 09:00 05/14/20 09:04 Heparin Sodium (Porcine) (Heparin) 5,000 units Q12H SC 05/12/20 09:00 05/13/20 20:00 Home Med (Med Rec Complete!) ASDIRECTED XX 05/11/20 19:00 05/11/20 19:04 DC Hydrochlorothiazide (Hydrodiuril) 12.5 mg DAILY PO 05/12/20 09:00 05/13/20 08:30 DC 05/12/20 09:07 Lisinopril (Prinivil) 10 mg DAILY PO 05/12/20 09:00 05/12/20 08:55 DC Magnesium Hydroxide (Milk Of Magnesia) 30 ml DAILY PRN PO CONSTIPATION 05/11/20 19:45 Morphine Sulfate (Morphine Sulfate Inj) 2 mg Q30M PRN IV MODERATE PAIN (PS 5-7) 05/11/20 17:00 05/11/20 18:12 DC 05/11/20 18:12 Ondansetron HCl (ZOFRAN INJection) 4 mg Q6HP PRN IV NAUSEA OR VOMITING 05/12/20 20:30 05/12/20 20:40 Spironolactone (Aldactone) 25 mg QAM PO 05/12/20 09:00 05/13/20 08:30 DC 05/12/20 09:07 Allergies Coded Allergies: No Known Allergies (Unverified , 01/12/19) Arlene Jones MD May 14, 2020 10:14
[2020-05-14] MEDS: PANTOPRAZOLE 20 MG TAB PO SCH (11:48)
[2020-05-14] MEDS ORDERED: SODIUM BICARBONATE 8.4% INJ 50MEQ 50 ML VIAL As Ordered ONE (13:25)
[2020-05-14 14:00] VITALS: BP 119/61
[2020-05-14 22:00] VITALS: BP 116/68
[2020-05-15 05:57] LABS: HEMATOCRIT 37.7 % (42.0-52.0); HEMOGLOBIN 11.6 g/dl (13.5-17.5); MEAN CORPUSCULAR HEMOGLOBIN 26.7 pg (27.0-33.0); MEAN CORPUSCULAR HGB CONC 30.8 g/dl (32.0-36.5); MEAN CORPUSCULAR VOLUME 86.9 fl (80.0-96.0); PLATELET COUNT, AUTOMATED 313 10^3/uL (150-450); RED BLOOD COUNT 4.34 10^6/uL (4.30-6.10); WHITE BLOOD COUNT 10.3 10^3/uL (4.0-10.0)
[2020-05-15 06:00] VITALS: BP 101/67
[2020-05-15 06:28] LABS: ALBUMIN 3.3 GM/DL (3.2-5.2); ALT/SGPT 27 U/L (12-78); BLOOD UREA NITROGEN 29 MG/DL (7-18); CARBON DIOXIDE LEVEL 33 MEQ/L (21-32); CHLORIDE LEVEL 105 MEQ/L (98-107); CREATININE FOR GFR 1.17 MG/DL (0.70-1.30); GLOMERULAR FILTRATION RATE > 60.0 (>49); GLUCOSE, FASTING 91 MG/DL (70-100); SODIUM LEVEL 142 MEQ/L (136-145); TOTAL PROTEIN 6.4 GM/DL (6.4-8.2)
[2020-05-15] MEDS: FUROSEMIDE 40MG/4ML VIAL (J1940) IV SCH (09:29)
[2020-05-15] MEDS: HEPARIN SOD (PORCINE) 5000UNITS/ML 1ML VIAL/SYRINGE SC SCH ×2 (09:29→20:40)
[2020-05-15] MEDS: PANTOPRAZOLE 20 MG TAB PO SCH (11:10)
--- NOTE | 2020-05-15 12:05 | IPNPDOC ---
Text Note Date of Service The patient was seen on 05/15/20. NOTE SUBJECTIVE: No complaints overnight, no chest pain, increased SOB, fever, chills, n/v/d. OBJECTIVE: VS: Please see below Constitutional: Has chorea per baseline. Sitting up in chair. EENT: PERRLA, EOMI, anicteric, MMM Respiratory: Persistent bilateral basilar crackles in lower lungs posteriorly. No wheezing or rhonchi. Cardiovascular: RRR, S1 and S2 are normal, no M/R/G GI: Normoactive sounds, is soft, mildly discomfort on exam throughout, negative Campos's, no rebound, no guarding EXT: 2+ pitting edema extremities bilaterally, otherwise WWP. Neurologic: Chorea. No other focal deficits, CN2-12 appear grossly intact. Psych: Aox3 LABORATORY DATA: Reviewed. See below. WBC 10.3 Hgb 11.6 platelets 313 na 142 K 4 Cr 1.17 IMAGING: Doppler LE b/l: No DVT MICROBIOLOGY: Please see below. ASSESSMENT:64 year old M with [place]'s disease, CLL, CHF and recurrent pleural effusion presented to the hospital with increasing lower extremity edema and abdominal girth with increasing abdominal ascites on abdominal CT admitted for acute on chronic HFrEF. PLAN: #Abd pain on admission likely 2/2 to abdominal ascites - Abdominal CT showed more ascites. s/paracentesis by IR on 05/14/20 -Diuresis as outlined below # Acute on chronic HFrEF - Recent 2D echo (04/13) EF 40-45% - Increase IV lasix to 60mg BID, close I & O monitoring, daily weights, elevate head of bed, fluid restriction 1.5L. Continue holding BB in light of acute CHF exacerbation - Held spironolactone, HCTZ due to MARA and soft BPs - Consider cardiology consult if not improving #Pleural effusions likely 2/2 CHF - hx of thoracentesis - C/w diuresis for now, would otherwise reaccumulate - If effusions worsen, will consider consulting thoracentesis #Lower ext swelling likely 2/2 to CHF - R>L swelling - US LE b/l neg for DVT - C/w diuresis above #Acute kidney injury likely 2/2 to medications and congestive nephropathy. Holding nephrotoxic meds and ongoing diuresis as chikis -Holding lisinopril, HCTZ and spironolactone 05/14/20 -getting lasix BID. -Monitor daily BMP #HTN -Softer BP on admission, improving with holding ACEi and multiple diuretics -Monitor BP closely #CLL -Outpatient follow up oncology #Reid's disease -At baseline and Stable -F/u as o/p. #GI Px -PPI # DVT Px -Heparin SC DISPOSITION: C/w inpatient treatment. PT/OT. VS,Fishbone, I+O VS, Fishbone, I+O Laboratory Tests 05/15/20 05:43 Vital Signs Date Time Temp Pulse Resp B/P (MAP) Pulse Ox O2 Delivery O2 Flow Rate FiO2 05/15/20 06:00 97.1 62 20 101/67 (78) 94 Room Air I&O- Last 24 Hours up to 6 AM 05/15/20 05:59 Intake Total 1310 ml Output Total 2025 ml Balance -715 ml JULISSA KILLIAN MD May 15, 2020 09:31
[2020-05-15 14:00] VITALS: BP 93/63
[2020-05-15] MEDS: FUROSEMIDE 100MG/10ML VIAL (J1940) IV SCH (17:16)
[2020-05-15 22:00] VITALS: BP 138/90
[2020-05-16 06:00] VITALS: BP 124/83
[2020-05-16 06:38] LABS: HEMOGLOBIN 11.5 g/dl (13.5-17.5); MEAN CORPUSCULAR HEMOGLOBIN 26.9 pg (27.0-33.0); MEAN CORPUSCULAR HGB CONC 31.1 g/dl (32.0-36.5); MEAN CORPUSCULAR VOLUME 86.4 fl (80.0-96.0); PLATELET COUNT, AUTOMATED 310 10^3/uL (150-450); RED BLOOD COUNT 4.28 10^6/uL (4.30-6.10); WHITE BLOOD COUNT 10.4 10^3/uL (4.0-10.0)
[2020-05-16 07:05] LABS: ALBUMIN 3.3 GM/DL (3.2-5.2); ALT/SGPT 28 U/L (12-78); BILIRUBIN,TOTAL 0.9 MG/DL (0.2-1.0); BLOOD UREA NITROGEN 30 MG/DL (7-18); CALCIUM LEVEL 8.9 MG/DL (8.8-10.2); CARBON DIOXIDE LEVEL 33 MEQ/L (21-32); CHLORIDE LEVEL 106 MEQ/L (98-107); CREATININE FOR GFR 1.17 MG/DL (0.70-1.30); GLOMERULAR FILTRATION RATE > 60.0 (>49); GLUCOSE, FASTING 98 MG/DL (70-100); POTASSIUM SERUM 3.6 MEQ/L (3.5-5.1); SODIUM LEVEL 143 MEQ/L (136-145); TOTAL PROTEIN 6.1 GM/DL (6.4-8.2)
[2020-05-16] MEDS: PANTOPRAZOLE 20 MG TAB PO SCH (08:45)
[2020-05-16] MEDS: HEPARIN SOD (PORCINE) 5000UNITS/ML 1ML VIAL/SYRINGE SC SCH ×2 (08:45→21:33)
[2020-05-16] MEDS: FUROSEMIDE 100MG/10ML VIAL (J1940) IV SCH (08:46)
[2020-05-16 14:00] VITALS: BP 121/76
[2020-05-16] MEDS ORDERED: ONDANSETRON 4 MG TAB PO PRN (14:15)
--- NOTE | 2020-05-16 14:20 | IPNPDOC ---
Text Note Date of Service The patient was seen on 05/16/20. NOTE SUBJECTIVE: No complaints overnight, no chest pain, increased SOB, fever, chills, n/v/d. OBJECTIVE: VS: Please see below Constitutional: Has chorea per baseline. Sitting up in chair. EENT: PERRLA, EOMI, anicteric, MMM Respiratory: Diminished bases posteriorly but no luis crackles today. No wheezing or rhonchi. Cardiovascular: RRR, S1 and S2 are normal, no M/R/G GI: Normoactive sounds, is soft, mildly discomfort on exam throughout, negative Campos's, no rebound, no guarding EXT: 1+ pitting edema extremities bilaterally, improving, otherwise WWP. Neurologic: Chorea. No other focal deficits, CN2-12 appear grossly intact. Psych: Aox3 LABORATORY DATA: Reviewed. Stable. Cr remains 1.17 IMAGING: Doppler LE b/l: No DVT MICROBIOLOGY: Please see below. ASSESSMENT:64 year old M with [place]'s disease, CLL, CHF and recurrent pleural effusion presented to the hospital with increasing lower extremity edema and abdominal girth with increasing abdominal ascites on abdominal CT admitted for acute on chronic HFrEF, much improved, now switching back to PO diuretics in preparation for discharge. PLAN: #Abd pain on admission likely 2/2 to abdominal ascites - Abdominal CT showed more ascites. s/paracentesis by IR on 05/14/20 -Diuresis as outlined below # Acute on chronic HFrEF - Recent 2D echo (04/13) EF 40-45% - Change IV lasix 60mg BID to 80mg PO BID, close I & O monitoring, daily weights, elevate head of bed, fluid restriction 1.5L. - Held spironolactone, HCTZ due to MARA and soft BPs - Consider cardiology consult if not improving #Pleural effusions likely 2/2 CHF - hx of thoracentesis - C/w diuresis - If effusions worsen, will consider consulting thoracentesis #Lower ext swelling likely 2/2 to CHF - R>L swelling - US LE b/l neg for DVT - C/w diuresis above #Acute kidney injury likely 2/2 to medications and congestive nephropathy. Holding nephrotoxic meds and ongoing diuresis as chikis -Holding lisinopril, HCTZ and spironolactone 05/14/20 -getting lasix BID. -Monitor daily BMP #HTN -Softer BP on admission, improving with holding ACEi and multiple diuretics -Monitor BP closely #CLL -Outpatient follow up oncology #[place]'s disease -At baseline and Stable -F/u as o/p. #GI Px -PPI # DVT Px -Heparin SC DISPOSITION: C/w inpatient treatment as we switch to PO diuretics today. PT/OT. VS,Fishbone, I+O VS, Fishbone, I+O Laboratory Tests 05/16/20 06:19 Vital Signs Date Time Temp Pulse Resp B/P (MAP) Pulse Ox O2 Delivery O2 Flow Rate FiO2 05/16/20 06:00 98.4 66 17 124/83 (97) 95 Room Air I&O- Last 24 Hours up to 6 AM 05/16/20 06:00 Intake Total 1270 ml Output Total 1475 ml Balance -205 ml JULISSA KILLIAN MD May 16, 2020 14:20
[2020-05-16] MEDS: FUROSEMIDE 80 MG TAB PO SCH (17:13)
[2020-05-16 22:00] VITALS: BP 117/78
[2020-05-17] MEDS: ACETAMINOPHEN TAB 650MG DOSE (2X325MG) PO PRN (01:03)
[2020-05-17 05:52] LABS: HEMATOCRIT 35.9 % (42.0-52.0); HEMOGLOBIN 11.3 g/dl (13.5-17.5); MEAN CORPUSCULAR HEMOGLOBIN 26.4 pg (27.0-33.0); MEAN CORPUSCULAR HGB CONC 31.5 g/dl (32.0-36.5); MEAN CORPUSCULAR VOLUME 83.9 fl (80.0-96.0); PLATELET COUNT, AUTOMATED 311 10^3/uL (150-450); RED BLOOD COUNT 4.28 10^6/uL (4.30-6.10); WHITE BLOOD COUNT 11.6 10^3/uL (4.0-10.0)
[2020-05-17 06:00] VITALS: BP 117/81
[2020-05-17 06:15] LABS: ALT/SGPT 28 U/L (12-78); BILIRUBIN,TOTAL 0.8 MG/DL (0.2-1.0); BLOOD UREA NITROGEN 24 MG/DL (7-18); CALCIUM LEVEL 8.5 MG/DL (8.8-10.2); CARBON DIOXIDE LEVEL 29 MEQ/L (21-32); CHLORIDE LEVEL 109 MEQ/L (98-107); CREATININE FOR GFR 1.14 MG/DL (0.70-1.30); GLOMERULAR FILTRATION RATE > 60.0 (>49); GLUCOSE, FASTING 92 MG/DL (70-100); POTASSIUM SERUM 3.4 MEQ/L (3.5-5.1); SODIUM LEVEL 145 MEQ/L (136-145); TOTAL PROTEIN 5.9 GM/DL (6.4-8.2)
[2020-05-17] MEDS ORDERED: POTASSIUM CHLORIDE 10 MEQ SR TABLET PO ONE (08:45)
[2020-05-17] MEDS: HEPARIN SOD (PORCINE) 5000UNITS/ML 1ML VIAL/SYRINGE SC SCH (09:17)
[2020-05-17] MEDS: FUROSEMIDE 80 MG TAB PO SCH (09:17)
[2020-05-17] MEDS: PANTOPRAZOLE 20 MG TAB PO SCH (09:17)
--- NOTE | 2020-05-17 09:19 | DS.PDOC ---
Discharge Summary General Date of Admission May 11, 2020 at 19:33 Date of Discharge 05/17/2020 Attending Physician: JULISSA KILLIAN MD Discharge Summary PROCEDURES PERFORMED DURING STAY: None ADMITTING DIAGNOSES: 1. 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 HISTORY OF PRESENT ILLNESS: 64 year old M with [place]'s disease, CLL, diastolic CHF and recurrent pleural effusion who presented to the hospital with increasing lower extremity edema and abdominal discomfort. HOSPITAL COURSE: In the ED, he was found to have 2+ pitting edema increasing pleural effusion on chest x-ray and increasing abdominal ascites on abdominal CT. He was admitted to the medicine service for CHF exacerbation for further management of his volume overload during which he had an attempted paracentesis by IR but did not have enough ascitic fluid and aggressive diuresis with improvement in his volume status. He was also quite deconditioned and worked with PT with eventual clearance for home discharge with continued supervised mobility given the degree of his [place]'s chorea. He is now being discharged home on lasix 80 BID with 20meq of K daily, with close PCP follow up for close volume status monitoring. DISCHARGE MEDICATIONS: Please see below. ALLERGIES: Please see below. PHYSICAL EXAMINATION ON DISCHARGE: VITAL SIGNS: Please see below. Constitutional: Has chorea per baseline. Sitting up in chair. EENT: PERRLA, EOMI, anicteric, MMM Respiratory: Diminished bases posteriorly but no luis crackles. No wheezing or rhonchi. Cardiovascular: RRR, S1 and S2 are normal, no M/R/G GI: Normoactive sounds, is soft, mildly discomfort on exam throughout, negative Campos's, no rebound, no guarding EXT: 1+ pitting edema extremities bilaterally, much improved. WWP. Neurologic: Chorea. No other focal deficits, CN2-12 appear grossly intact. Psych: Aox3 LABORATORY DATA: Please see below. IMAGING: Doppler LE bilateral venous ultrasound: No DVT CT A/P: Lungs: Compression atelectasis in the dependent portion of the right lower lobe. Pleural space: Large right pleural effusion. Small left pleural effusion. Heart: Small amount of pericardial fluid present. Liver: Liver measures 14.3 cm in craniocaudal span. Gallbladder and bile ducts: Normal. No calcified stones. No ductal dilation. Pancreas: Normal. No ductal dilation. Spleen: Calcified granuloma in the spleen. Spleen measures 9.1 cm in craniocaudal span. Adrenals: Normal. No mass. Kidneys and ureters: Normal. No hydronephrosis. Stomach and bowel: Unremarkable. No obstruction. No mucosal thickening. Appendix: No evidence of appendicitis. Intraperitoneal space: Large amount of intra-abdominal ascites. Ascites fluid extends into the inguinal canal bilaterally, left much greater than right. Vasculature: Unremarkable. No abdominal aortic aneurysm. Lymph nodes: Unremarkable. No enlarged lymph nodes. Urinary bladder: Unremarkable as visualized. Reproductive: Prostate measures 5.4 x 3 point 4 by 3.4 cm. Bones/joints: Underlying levoscoliosis of the lumbar spine with moderately advanced secondary degenerative disc disease. A screw projects through the left superior pubic ramus into the ileum. A screw projects through the left ilium into the sacrum and into the right ilium. Healed fracture left inferior pubic ramus Soft tissues: There is anasarca. Other findings: Hyperinflation noted at anterior basal segment of left lower lobe. IMPRESSION: Moderate amount of intra-abdominal ascites with anasarca, small pericardial effusion and bilateral pleural effusions right greater than left 2. Compression atelectasis dependent portion right lower lobe. PROGNOSIS: Good ACTIVITY: As tolerated DIET: Regular DISCHARGE PLAN: Home with lasix 80mg BID and close PCP follow up DISPOSITION: Home DISCHARGE INSTRUCTIONS: Home with lasix 80mg BID and close PCP follow up ITEMS TO FOLLOWUP ON ON OUTPATIENT: 1. CHF for continued volume optimization DISCHARGE CONDITION: Stable TIME SPENT ON DISCHARGE: 56 minutes. Vital Signs/I&Os Vital Signs Date Time Temp Pulse Resp B/P (MAP) Pulse Ox O2 Delivery O2 Flow Rate FiO2 05/17/20 06:00 98.6 68 18 117/81 (93) 96 Room Air I&O- Last 24 Hours up to 6 AM 05/17/20 06:00 Intake Total 1140 ml Output Total 2650 ml Balance -1510 ml Laboratory Data Labs 24H Laboratory Tests 2 05/17/20 05:31: Nucleated Red Blood Cells % (auto) 0.0, Anion Gap 7L, Glomerular Filtration Rate > 60.0, Calcium Level 8.5L, Total Bilirubin 0.8, Aspartate Amino Transf (AST/SGOT) 16, Alanine Aminotransferase (ALT/SGPT) 28, Alkaline Phosphatase 227H, Total Protein 5.9L, Albumin 3.0L, Albumin/Globulin Ratio 1.0 CBC/BMP Laboratory Tests 05/17/20 05:31 Discharge Medications Scheduled Furosemide (Furosemide) 40 Mg Tablet, 80 MG PO QAM, (Reported) Lisinopril (Lisinopril) 5 Mg Tablet, 5 MG PO DAILY, (Reported) Metoprolol Tartrate (Metoprolol Tartrate) 25 Mg Tablet, 12.5 MG PO BID, (Reported) Spironolactone (Spironolactone) 25 Mg Tablet, 25 MG PO QAM, (Reported) Allergies Coded Allergies: No Known Allergies (Unverified , 01/12/19) JULISSA KILLIAN MD May 17, 2020 09:10
[2020-05-17] MEDS ORDERED: FURO40TA2 PO ×2 (09:27→21:16)
[2020-05-17] MEDS ORDERED: KLOR10TA76 PO ×2 (09:27→21:16)
--- NOTE | 2020-05-17 10:53 | REP ---
CHEST X-RAY: 2-VIEWS HISTORY: Follow-up pleural effusions. COMPARISON CHEST X-RAY: 05/12/2020. FINDINGS: Frontal and lateral views of the chest show blunting of the posterior pleural angles and increased density in the lower lobe distribution bilaterally. There is plate-like atelectasis in the left base. Left hemidiaphragm is somewhat elevated. The right lateral pleural angle is also blunted. The findings are similar to the 05/12/2020 portable chest x-ray. Cardiomediastinal silhouette is unchanged. IMPRESSION: Bilateral effusions, right greater than left. Plate-like atelectasis left base. MTDD
--- NOTE | 2020-05-17 10:54 | REP ---
ABDOMINAL ULTRASOUND SURVEY HISTORY: Ascites. Patient referred for possible paracentesis. FINDINGS: Four quadrant abdominal ascites survey shows only a trace of ascites in the right flank. Paracentesis was deferred. IMPRESSION: Trace of abdominal ascites. MTDD
--- NOTE | 2020-05-22 19:24 | DS.PDOC ---
Discharge Summary General Date of Admission May 11, 2020 at 19:33 Date of Discharge 05/22/20 Attending Physician: Arlene Jones MD Discharge Summary HISTORY OF PRESENT ILLNESS: Patient is a 64 year old male with Kunkle's disease, CLL, CHF and recurrent pleural effusion presented to the hospital with increasing lower extremity edema and abdominal discomfort. Found to have 2+ pitting edema increasing pleural effusion on chest x-ray and increasing abdominal ascites on abdominal CT. Patient admitted to medical for further management. Patient may need assistance with placement as there is concern for him being able to take his medicines at home as he lives with his sister who tries system but his Kunkle chorea is fairly advanced. Patient was admitted for CHF, abdominal pain and ascites. In the ED, he was found to have 2+ pitting edema increasing pleural effusion on chest x-ray and increasing abdominal ascites on abdominal CT. HOSPITAL COURSE: He was admitted to the medicine service for CHF exacerbation for further management of his volume overload. He had an attempted paracentesis by IR but there was not enough ascitic fluid to drain. Aggressive diuresis showed improvement in his volume status. He was deconditioned and worked with PT, who eventually cleared him only with continued supervised mobility given the degree of his Kunkle's chorea. He is now being discharged to rehab today. PAST MEDICAL HISTORY: Reid's disease, CLL, diastolic CHF and recurrent pleural effusion SOCIAL HISTORY: Smoker: Denies Alcohol: Denies Drugs: denies FAMILY HISTORY: Obtained from chart Mother in her 80s from old age. History of CVA Father age 71 secondary to prostate cancer Siblings: Sister is alive (Chantel [phone]) ALLERGIES: Please see below. DISCHARGE MEDICATIONS: Please see below. PHYSICAL EXAMINATION: VS: Please see below Constitutional: Has chorea baseline. in bed EENT: PERRLA, EOMI, anicteric, MMM Respiratory: Diminished bases posteriorly but no luis crackles today. No wheezing or rhonchi. Cardiovascular: RRR, S1 and S2 are normal, no M/R/G GI: Normoactive sounds, is soft, mildly discomfort on exam throughout, negative Campos's, no rebound, no guarding EXT: 1+ pitting edema extremities bilaterally, improving, otherwise WWP. Neurologic: Chorea. No other focal deficits, CN2-12 appear grossly intact. Psych: Aox3 LABORATORY DATA: Please see below IMAGING: Doppler LE b/l: No DVT MICROBIOLOGY: Please see below. ASSESSMENT:64 year old M with Kunkle's disease, CLL, CHF and recurrent pleural effusion presented to the hospital with increasing lower extremity edema and abdominal girth with increasing abdominal ascites on abdominal CT admitted for acute on chronic HFrEF, much improved, now switching back to PO diuretics in preparation for discharge. PLAN: Abd pain on admission likely 2/2 to abdominal ascites -Abdominal CT showed more ascites. s/paracentesis by IR on 05/14/20 -C/w spironolactone Acute on chronic HFrEF - Recent 2D echo (04/13) EF 40-45% - Spironolactone on d/c - Consider cardiology consult as o/p Pleural effusions likely 2/2 CHF - hx of thoracentesis - C/w diuresis Lower ext swelling likely 2/2 to CHF - R>L swelling - US LE b/l neg for DVT - C/w diuresis above Acute kidney injury likely 2/2 to medications and congestive nephropathy. -Resolved. -C/w lisinopril, spironolactone -Monitor BMP at rehab HTN -Stable CLL -Outpatient follow up oncology Reid's disease -At baseline and Stable -F/u as o/p. DISPOSITION: Discharge today. TIME SPENT ON DISCHARGE: Greater than 30 minutes. Vital Signs/I&Os Vital Signs Date Time Temp Pulse Resp B/P (MAP) Pulse Ox O2 Delivery O2 Flow Rate FiO2 05/17/20 06:00 98.6 68 18 117/81 (93) 96 Room Air Discharge Medications Scheduled Furosemide (Furosemide) 40 Mg Tablet, 80 MG PO BID, (Reported) FOR 14 DAYS STARTING 05/17/2020 Potassium Chloride (Klor-Con M10) 10 Meq Tab.er.prt, 10 MEQ PO DAILY, (Reported) FOR 14 DAYS STARTING 05/17/2020 Spironolactone (Aldactone) 25 Mg Tablet, 25 MG PO QAM Scheduled PRN Ramelteon (Ramelteon) 8 Mg Tablet, 8 MG PO QHSP PRN for INSOMNIA Allergies Coded Allergies: No Known Allergies (Unverified , 01/12/19) Arlene Jones MD May 22, 2020 19:24
== END 2020-05-17 12:33 | disposition home or self-care (01) | DRG 292 ==
LOC: M ED 13:16 → EDBD 13:16 → M ED INP 19:33 → ENRESERV 20:43 → M MSPAV 22:18
PROVIDERS: ADMIT Family Medicine; ATTEND Internal Medicine
DX: I11.0 Hypertensive heart disease with heart failure (principal); G10 Huntington's disease; C91.90 Lymphoid leukemia, unspecified not having achieved remission; J90 Pleural effusion, not elsewhere classified; N17.9 Acute kidney failure, unspecified; R18.8 Other ascites; I50.33 Acute on chronic diastolic (congestive) heart failure; Z79.899 Other long term (current) drug therapy; Z53.20 Procedure and treatment not carried out because of patient's decision for unspecified reasons

== ENCOUNTER 2020-05-17 18:56 | Inpatient (IN) | payer MEDICARE, MEDICAID ==
[~2020-05-17] VITALS: Ht 180.3 cm; Wt 70.0 kg
[~2020-05-17 18:56] MED LIST changes: +KLOR10TA76 PO; +METO25TA4 PO; +PANT20TA6; +SPIR-10 PO
[2020-05-17] MEDS ORDERED: ISOVUE-370 76% 100ML VIAL As Ordered ONE (19:28)
[2020-05-17] MEDS ORDERED: ONDANSETRON 4MG/2ML VIAL IV ONE (19:30)
[2020-05-17 19:54] LABS: HEMOGLOBIN 12.2 g/dl (13.5-17.5); MEAN CORPUSCULAR HGB CONC 30.5 g/dl (32.0-36.5); MEAN CORPUSCULAR VOLUME 85.1 fl (80.0-96.0); PLATELET COUNT, AUTOMATED 360 10^3/uL (150-450); WHITE BLOOD COUNT 12.6 10^3/uL (4.0-10.0)
--- NOTE | 2020-05-17 19:58 | REPVR ---
PROCEDURE INFORMATION: Exam: CT Abdomen And Pelvis With Contrast Exam date and time: 05/17/2020 7:37 PM Age: 64 years old Clinical indication: Abdominal pain; Generalized; Additional info: Abd pain TECHNIQUE: Imaging protocol: Computed tomography of the abdomen and pelvis with intravenous contrast. Radiation optimization: All CT scans at this facility use at least one of these dose optimization techniques: automated exposure control; mA and/or kV adjustment per patient size (includes targeted exams where dose is matched to clinical indication); or iterative reconstruction. Contrast material: ISOVUE 370; Contrast volume: 100 ml; Contrast route: INTRAVENOUS (IV); COMPARISON: CT ABD/PEL W/IV CONTRAST ONLY 05/11/2020 3:34 PM FINDINGS: Lungs: Bibasilar atelectasis. Pleural space: Bilateral pleural effusions, right greater than left. Liver: There is a diffuse decrease in hepatic parenchymal density, consistent with steatosis. Gallbladder and bile ducts: The gallbladder is incompletely distended. This is most likely related to incomplete fasting. Clinical correlation to exclude gallbladder pathology suggested. Pancreas: Normal. No ductal dilation. Spleen: The spleen demonstrates punctate calcifications, consistent with remote granulomatous organism exposure. Peripherally calcified ovoid mass lateral to the spleen may represent a calcified chronic intra splenic or subcapsular hematoma. Findings are stable. Adrenals: Normal. No mass. Kidneys and ureters: Normal. No hydronephrosis. Stomach and bowel: Several small bowel loops demonstrate thickened hoang. Findings may indicate changes related to hypoproteinemia however enteritis is to be excluded clinically. Appendix: No evidence of appendicitis. Intraperitoneal space: There is a small amount of free intraperitoneal fluid present. Vasculature: The aortoiliac vessels demonstrate mild atherosclerotic calcification. Lymph nodes: Unremarkable. No enlarged lymph nodes. Urinary bladder: Unremarkable as visualized. Reproductive: The prostate gland demonstrates moderate hyperplasia. Bones/joints: Levoscoliosis.The spine demonstrates moderate degenerative changes. Moderate central spinal stenosis L2-L3, severe central spinal stenosis L3-L4 and L4-L5. Status post ORIF left superior pubic ramus. Soft tissues: Bilateral inguinal hernias without incarceration. There is soft tissue edema demonstrated in the abdominal wall, flanks and buttock regions consistent with anasarca. IMPRESSION: 1. Bilateral pleural effusions, right greater than left. 2. There is a small amount of free intraperitoneal fluid present. 3. There is a diffuse decrease in hepatic parenchymal density, consistent with steatosis. 4. The gallbladder is incompletely distended. This is most likely related to incomplete fasting. Clinical correlation to exclude gallbladder pathology suggested. 5. Moderate prostatic hyperplasia. 6. Anasarca. 7. Several small bowel loops demonstrate thickened hoang. Findings may indicate changes related to hypoproteinemia however enteritis is to be excluded clinically. Electronically signed by: Jett Abdullahi On 05/17/2020 19:57:23 PM
[2020-05-17 20:06] LABS: PARTIAL THROMBOPLASTIN TIME 33.1 SECONDS (24.2-38.5)
[2020-05-17 20:14] LABS: ALBUMIN 3.6 GM/DL (3.2-5.2); ALT/SGPT 34 U/L (12-78); BILIRUBIN,DIRECT 0.5 MG/DL (0.0-0.2); CK-MB VALUE MASS 6.8 NG/ML (<3.6); CPK CREATINE PHOSPHOKINASE 291 U/L (39-308); LIPASE 148 U/L (73-393); MB/CK RELATIVE INDEX 2.34 (< OR =4); TOTAL PROTEIN 6.9 GM/DL (6.4-8.2); TROPONIN I < 0.02 NG/ML (< 0.10)
[2020-05-17 20:27] LABS: ATYPICAL LYMPH 5 % (0-5); LYMPHOCYTES 26 % (16-44); NEUTROPHILS 69 % (28-66); PLATELET ESTIMATE NORMAL (NORMAL)
[2020-05-17 20:28] LABS: ANISOCYTOSIS 1+
[2020-05-17 20:28] LABS: INR 1.18; PROTHROMBIN TIME 15.2 SECONDS (12.5-14.3)
[2020-05-17] MEDS ORDERED: KLOR10TA76 PO (21:16)
[2020-05-17] MEDS ORDERED: FURO40TA2 PO (21:16)
[2020-05-17] MEDS: MORPHINE 4 MG/ML 1ML VIAL/SYRINGE (J2270) IV PRN (21:34)
[2020-05-17] MEDS ORDERED: POTASSIUM CHLORIDE 10 MEQ SR TABLET PO ONE (23:15)
--- NOTE | 2020-05-17 23:15 | HPEPDOC ---
General Date of Admission 05/17/20 Date of Service: May 17, 2020 Chief Complaint The patient is a 64-year-old male admitted with a reason for visit of Abd Pain. Source: Patient Exam Limitations: Clinical conditions, Mild cognitive slowing Timing/Duration: 24 hours Severity: Mild History of Present Illness Patient is 64 years old male with past medical history of with [place]'s disease, mental disability, CLL, CHF and recurrent pleural effusion presented to the hospital with generalized abdominal pain. Patient was discharged earlier today with recommendation to take Lasix for CHF exacerbation. However according to his sister patient developed generalized abdominal pain and she brought him to ER. In ER patient was found to have leukocytes count of 12.6 , hemoglobin 12.2. CT abdomen and pelvis showed Bilateral pleural effusions, right greater than left. There is a small amount of free intraperitoneal fluid present. Several small bowel loops demonstrate thickened hoang. Findings may indicate changes related to hypoproteinemia however enteritis is to be excluded clinically. Home Medications Scheduled Furosemide (Furosemide) 40 Mg Tablet, 80 MG PO BID, (Reported) FOR 14 DAYS STARTING 05/17/2020 Potassium Chloride (Klor-Con M10) 10 Meq Tab.er.prt, 10 MEQ PO DAILY, (Reported) FOR 14 DAYS STARTING 05/17/2020 Allergies Coded Allergies: No Known Allergies (Unverified , 01/12/19) Past Medical History Medical History Reid's disease, CLL, CHF and recurrent pleural effusion, mental disability Family History Mother in her 80s from old age. History of CVA Father age 71 secondary to prostate cancer Siblings: Sister is alive (Chantel [phone]) Social History * Smoker: Denies Alcohol: Denies Drugs: denies A-FIB/CHADSVASC A-FIB History Current/History of A-Fib/PAF?: No Current PO Anticoag Therapy: No Review of Systems Constitutional: Denies: Chills, Fever Eyes: Denies: Pain ENT: Denies: Head Aches Skin: Denies: Rash Pulmonary: Denies: Dyspnea, Cough Cardiovascular: Denies: Chest Pain Gastrointestinal: Reports: Abdominal Pain; Denies: Nausea, Vomiting Genitourinary: Denies: Dysuria Hematologic: Denies: Bruising Endocrine: Denies: Polydipsia Musculoskeletal: Denies: Neck Pain Neurological: Denies: Weakness Psych: Reports: Other Psych (mental disability) Physical Examination General Exam: Positive: Alert, No Acute Distress Eye Exam: Positive: PERRLA ENT Exam: Positive: Atraumatic Neck Exam: Positive: Supple, JVD Chest Exam: Positive: Rales Heart Exam: Positive: Rate Normal Telemetry: Positive: No significant arrhythmia Abdomen Exam: Positive: BS Hypoactive, Soft, Tenderness (diffuse abdominal tenderness) Extremity Exam: Negative: Clubbing Skin Exam: Positive: Nl turgor and temperature Neuro Exam: Positive: Strength at 5/5 X4 ext, Cranial Nerves 3-12 NL Psych Exam: Positive: Other (mental disability) Vital Signs Vital Signs Date Time Temp Pulse Resp B/P (MAP) Pulse Ox O2 Delivery O2 Flow Rate FiO2 05/17/20 21:34 19 05/17/20 21:15 121/85 (97) 05/17/20 21:11 75 05/17/20 20:26 98 Room Air 05/17/20 20:21 98.9 Laboratory Data Labs 24H Laboratory Tests 2 05/17/20 19:23: Neutrophils (%) (Auto) , Nucleated Red Blood Cells % (auto) 0.0, Neutrophils 69H, Lymphocytes (Manual) 26, Atypical Lymphocytes 5, Anisocytosis 1+, Platelet Estimate NORMAL 05/17/20 19:37: Prothrombin Time 15.2H, Prothromb Time International Ratio 1.18, Activated Partial Thromboplast Time 33.1, Total Bilirubin 1.0, Direct Bilirubin 0.5H, Aspartate Amino Transf (AST/SGOT) 25, Alanine Aminotransferase (ALT/SGPT) 34, Alkaline Phosphatase 259H, Total Creatine Kinase 291, Creatine Kinase MB 6.8H, Creatine Kinase MB Relative Index 2.34, Troponin I < 0.02, Total Protein 6.9, Albumin 3.6, Albumin/Globulin Ratio 1.1, Lipase 148 05/17/20 19:55: Lactic Acid Level 1.3 05/17/20 20:57: POC Glucose (Misc Panel) 104, POC Sodium (Misc Panel) 145, POC Potassium (Misc Panel) 2.9*L, POC Chloride (Misc Panel) 105, POC Total CO2 (Misc Panel) 23.0, P OC Blood Urea Nitrogen (Misc Panel 20, POC Ionized Calcium (Misc Panel) 4.3L, POC Creatinine (Misc Panel) 1.0, POC Hematocrit (Misc Panel) 34.0L CBC/BMP Laboratory Tests 10/15/20 19:23 Microbiology Microbiology 05/17/20 Blood Culture, Received Pending 05/17/20 Blood Culture, Received Pending Assessment/Plan Patient is 64 years old male with past medical history of with [place]'s disease, mental disability, CLL, CHF and recurrent pleural effusion presented to the hospital with generalized abdominal pain. Patient was discharged earlier today with recommendation to take Lasix for CHF exacerbation. However according to his sister patient developed generalized abdominal pain and she brought him to ER. In ER patient was found to have leukocytes count of 12.6 , hemoglobin 12.2. CT abdomen and pelvis showed Bilateral pleural effusions, right greater than left. There is a small amount of free intraperitoneal fluid present. Several small bowel loops demonstrate thickened hoang. Findings may indicate changes related to hypoproteinemia however enteritis is to be excluded clinically. Problems (1) CHF exacerbation Status: Acute Problem Text: Diastolic CHF Patient was recently treated for CHF exacerbation and was discharged with Lasix by mouth Patient has positive JVD and +2 pitting edema Continue Lasix by mouth I's and O's (2) Reid's disease Status: Chronic Problem Text: Follow-up with neurologist in the outpatient settings (3) Chronic generalized abdominal pain Status: Acute Problem Text: CT showed Several small bowel loops demonstrate thickened hoang. Findings may indicate changes related to hypoproteinemia however enteritis Flagyl IV, Cipro IV (4) Ascites Status: Chronic Problem Text: CT showed small amount of intraperitoneal fluid Most likely secondary to CHF Continue Lasix, spironolactone 25 mg added (5) Physical deconditioning Status: Chronic Problem Text: PT /OT Plan / VTE VTE Prophylaxis Ordered?: Yes JANEE FLORES DO May 17, 2020 23:15
[2020-05-17] MEDS: CIPROFLOXACIN 400 MG in IV 1 EA IV SCH (23:44)
[2020-05-18 00:34] VITALS: BP 126/78
[2020-05-18] MEDS: metroNIDAZOLE 500 MG in IV 1 EA IV SCH ×4 (03:08→22:17)
[2020-05-18 05:30] LABS: HEMATOCRIT 35.4 % (42.0-52.0); HEMOGLOBIN 10.8 g/dl (13.5-17.5); MEAN CORPUSCULAR HEMOGLOBIN 26.5 pg (27.0-33.0); MEAN CORPUSCULAR HGB CONC 30.5 g/dl (32.0-36.5); MEAN CORPUSCULAR VOLUME 86.8 fl (80.0-96.0); PLATELET COUNT, AUTOMATED 307 10^3/uL (150-450); RED BLOOD COUNT 4.08 10^6/uL (4.30-6.10); WHITE BLOOD COUNT 9.4 10^3/uL (4.0-10.0)
--- NOTE | 2020-05-18 05:49 | ECGEPIP ---
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
[2020-05-18 05:54] LABS: ALBUMIN 2.9 GM/DL (3.2-5.2); ALT/SGPT 26 U/L (12-78); BILIRUBIN,TOTAL 0.9 MG/DL (0.2-1.0); BLOOD UREA NITROGEN 23 MG/DL (7-18); CALCIUM LEVEL 8.6 MG/DL (8.8-10.2); CARBON DIOXIDE LEVEL 32 MEQ/L (21-32); CHLORIDE LEVEL 108 MEQ/L (98-107); CREATININE FOR GFR 1.24 MG/DL (0.70-1.30); GLOMERULAR FILTRATION RATE > 60.0 (>49); GLUCOSE, FASTING 96 MG/DL (70-100); MAGNESIUM LEVEL 2.3 MG/DL (1.8-2.4); POTASSIUM SERUM 4.2 MEQ/L (3.5-5.1); SODIUM LEVEL 144 MEQ/L (136-145); TOTAL PROTEIN 6.3 GM/DL (6.4-8.2)
[2020-05-18 08:00] VITALS: BP 107/73
[2020-05-18] MEDS: FUROSEMIDE 80 MG TAB PO SCH ×2 (08:30→17:58)
[2020-05-18] MEDS: POTASSIUM CHLORIDE 10 MEQ SR TABLET PO SCH (08:30)
[2020-05-18] MEDS: SPIRONOLACTONE 25 MG TAB PO SCH (08:30)
[2020-05-18] MEDS: CIPROFLOXACIN 400 MG in IV 1 EA IV SCH ×2 (08:30→20:52)
--- NOTE | 2020-05-18 11:42 | IPNPDOC ---
Text Note Date of Service The patient was seen on 05/18/20. NOTE SUBJECTIVE: -No complaints overnight, no chest pain, increased SOB, fever, chills -No complaints of abdominal pain this morning OBJECTIVE: VS: Please see below Constitutional: Has chorea per baseline. Sitting up in chair. EENT: PERRLA, EOMI, anicteric, MMM Respiratory: Diminished bases posteriorly but no luis crackles today. No wheezing or rhonchi. Cardiovascular: RRR, S1 and S2 are normal, no M/R/G GI: Normoactive sounds, is soft, no TTP, negative Campos's, no rebound, no guarding EXT: 1+ pitting edema extremities bilaterally, improving, otherwise WWP. Neurologic: Chorea. No other focal deficits, CN2-12 appear grossly intact. Psych: Aox3 LABORATORY DATA: Reviewed. WBC 9.4 hgb 10.8 na 144 K 4.2 Cr 1.24 lactate 1.3 AST 16 ALT 26 alk phos 218 IMAGING: CT A/P: 1. Bilateral pleural effusions, right greater than left. 2. There is a small amount of free intraperitoneal fluid present. 3. There is a diffuse decrease in hepatic parenchymal density, consistent with steatosis. 4. The gallbladder is incompletely distended. This is most likely related to incomplete fasting. Clinical correlation to exclude gallbladder pathology suggested. 5. Moderate prostatic hyperplasia. 6. Anasarca. 7. Several small bowel loops demonstrate thickened hoang. Findings may indicate changes related to hypoproteinemia however enteritis is to be excluded clinically. MICROBIOLOGY: Please see below. ASSESSMENT:64 year old M with [place]'s disease, CLL, CHF and recurrent pleural effusions who represented to the ED hours after discharge home with new abdominal after discharge discharge after treatment of CHF exacerbation with CT A/P with stable findings without acute pathology to explain sudden transient pain, now on empiric antibiotics. PLAN: #Abd pain on admission with CT showing minimal ascites, previously noted steatosis and small bowel loops with thickened hoang. -Diuresis as outlined below -on empiric cipro/flagyl day 2 -placed back on diet, tolerating it, will monitor -will discuss thoughts on safe discharge with family and what their thoughts are at this time given that he was home for a few hours and now readmitted for abdominal pain that has now subsided without clearly noted new pathology, with stable imaging, labs and nonfocal examination. # Acute on chronic HFrEF - Recent 2D echo (04/13) EF 40-45% - continue lasix 80mg PO BID, close I & O monitoring, daily weights, elevate head of bed, fluid restriction 1.5L. - hold spironolactone, HCTZ for now -close monitor Cr while diuresing #Pleural effusions likely 2/2 CHF, chronic - hx of thoracentesis - C/w diuresis - If effusions worsen, will consider consulting for thoracentesis #Lower ext swelling likely 2/2 to CHF - R>L swelling - recent US LE b/l neg for DVT - C/w diuresis above #Acute kidney injury likely 2/2 to medications and congestive nephropathy. Holding nephrotoxic meds and ongoing diuresis as chikis -Holding lisinopril, HCTZ and spironolactone -getting lasix BID. -Monitor daily BMP #HTN -holding his baselie ACEi and aldactone -Monitor BP closely #CLL -Outpatient follow up oncology #Reid's disease -At baseline and Stable -F/u as o/p. #GI Px -PPI # DVT Px -Heparin SC DISPOSITION: C/w inpatient treatment and discuss safe discharge planning with family and PFS. PT/OT. VS,Fishbone, I+O VS, Fishbone, I+O Laboratory Tests 05/17/20 19:23 05/18/20 04:58 Vital Signs Date Time Temp Pulse Resp B/P (MAP) Pulse Ox O2 Delivery O2 Flow Rate FiO2 05/18/20 00:34 97.1 67 18 126/78 (94) 99 Room Air I&O- Last 24 Hours up to 6 AM 05/18/20 06:00 Intake Total 100 ml Output Total 150 ml Balance -50 ml JULISSA KILLIAN MD May 18, 2020 08:12
[2020-05-18 16:00] VITALS: BP 112/68
[2020-05-19] VITALS: BP 106/78
[2020-05-19] MEDS: CIPROFLOXACIN 400 MG in IV 1 EA IV SCH (00:19)
[2020-05-19] MEDS: metroNIDAZOLE 500 MG in IV 1 EA IV SCH (03:24)
[2020-05-19 05:17] LABS: HEMATOCRIT 34.8 % (42.0-52.0); HEMOGLOBIN 10.8 g/dl (13.5-17.5); MEAN CORPUSCULAR HEMOGLOBIN 26.4 pg (27.0-33.0); MEAN CORPUSCULAR VOLUME 85.1 fl (80.0-96.0); PLATELET COUNT, AUTOMATED 280 10^3/uL (150-450); RED BLOOD COUNT 4.09 10^6/uL (4.30-6.10); WHITE BLOOD COUNT 10.2 10^3/uL (4.0-10.0)
[2020-05-19 05:36] LABS: BLOOD UREA NITROGEN 23 MG/DL (7-18); CALCIUM LEVEL 8.7 MG/DL (8.8-10.2); CARBON DIOXIDE LEVEL 29 MEQ/L (21-32); CHLORIDE LEVEL 107 MEQ/L (98-107); CREATININE FOR GFR 1.11 MG/DL (0.70-1.30); GLOMERULAR FILTRATION RATE > 60.0 (>49); GLUCOSE, FASTING 105 MG/DL (70-100); POTASSIUM SERUM 3.8 MEQ/L (3.5-5.1); SODIUM LEVEL 141 MEQ/L (136-145)
[2020-05-19 08:00] VITALS: BP 120/73
[2020-05-19] MEDS: FUROSEMIDE 80 MG TAB PO SCH ×2 (08:03→16:18)
[2020-05-19] MEDS: POTASSIUM CHLORIDE 10 MEQ SR TABLET PO SCH (08:03)
[2020-05-19] MEDS: SPIRONOLACTONE 25 MG TAB PO SCH (08:03)
[2020-05-19] MEDS ORDERED: SLF 3 ML SYR IV PRN (11:00)
[2020-05-19 12:00] VITALS: BP 115/78
--- NOTE | 2020-05-19 13:08 | IPNPDOC ---
Text Note Date of Service The patient was seen on 05/19/20. NOTE SUBJECTIVE: -No complaints overnight, no chest pain, increased SOB, fever, chills -No complaints of abdominal pain this morning OBJECTIVE: VS: Please see below Constitutional: Has chorea per baseline. Sitting up in chair. EENT: PERRLA, EOMI, anicteric, MMM Respiratory: Diminished bases posteriorly but no luis crackles today. No wheezing or rhonchi. Cardiovascular: RRR, S1 and S2 are normal, no M/R/G GI: Normoactive sounds, is soft, no TTP, negative Campos's, no rebound, no guarding EXT: 1+ pitting edema extremities bilaterally, improving, otherwise WWP. Neurologic: Chorea. No other focal deficits, CN2-12 appear grossly intact. Psych: Aox3 LABORATORY DATA: Reviewed. WBC 10.2 hgb 10.8 na 141 K 3.8 Cr 1.11 IMAGING: CT A/P: 1. Bilateral pleural effusions, right greater than left. 2. There is a small amount of free intraperitoneal fluid present. 3. There is a diffuse decrease in hepatic parenchymal density, consistent with steatosis. 4. The gallbladder is incompletely distended. This is most likely related to incomplete fasting. Clinical correlation to exclude gallbladder pathology suggested. 5. Moderate prostatic hyperplasia. 6. Anasarca. 7. Several small bowel loops demonstrate thickened hoang. Findings may indicate changes related to hypoproteinemia however enteritis is to be excluded clinically. MICROBIOLOGY: Please see below. ASSESSMENT:64 year old M with [place]'s disease, CLL, CHF and recurrent pleural effusions who represented to the ED hours after discharge home with new abdominal after discharge discharge after treatment of CHF exacerbation with CT A/P with stable findings without acute pathology to explain sudden transient pain, and was placed on GI coverage empiric antibiotics that I will discontinue today and monitor. PLAN: #Abd pain on admission with CT showing minimal ascites, previously noted steatosis and small bowel loops with thickened hoang. -Diuresis as outlined below -s/p 2d of empiric cipro/flagyl -placed back on diet, tolerating it, will monitor -Planning on safe discharge with family and what their thoughts are at this time given that he was home for a few hours and now readmitted for abdominal pain that has now subsided without clearly noted new pathology, with stable imaging, labs and nonfocal examination. The patient appears concerned about discharge home and does not feel ready at this time. Will continue PT/OT and will monitor him off abx and his labs as well. # Acute on chronic HFrEF - Recent 2D echo (04/13) EF 40-45% - continue lasix 80mg PO BID, close I & O monitoring, daily weights, elevate head of bed, fluid restriction 1.5L. - hold spironolactone, HCTZ for now -close monitor Cr while diuresing #Pleural effusions likely 2/2 CHF, chronic - hx of thoracentesis - C/w diuresis - If effusions worsen, will consider consulting for thoracentesis #Lower ext swelling likely 2/2 to CHF - R>L swelling - recent US LE b/l neg for DVT - C/w diuresis above #HTN -holding his baselie ACEi and aldactone -Monitor BP closely #CLL -Outpatient follow up oncology #[place]'s disease -At baseline and Stable -F/u as o/p. #GI Px -PPI # DVT Px -Heparin SC DISPOSITION: C/w inpatient treatment and discuss safe discharge planning with family and PFS. PT/OT. VS,Fishbone, I+O VS, Fishbone, I+O Laboratory Tests 05/19/20 05:06 Vital Signs Date Time Temp Pulse Resp B/P (MAP) Pulse Ox O2 Delivery O2 Flow Rate FiO2 05/19/20 00:00 97.3 69 18 106/78 (87) 96 Room Air I&O- Last 24 Hours up to 6 AM0 05/19/20 06:00 Intake Total 1440 ml Output Total 2975 ml Balance -1535 ml JULISSA KILLIAN MD May 19, 2020 07:39
[2020-05-19] MEDS: SLF 3 ML SYR IV SCH ×2 (13:13→22:27)
[2020-05-19 20:00] VITALS: BP 118/80
[2020-05-19] MEDS ORDERED: diphenhydrAMINE 25MG CAP PO ONE (23:30)
[2020-05-19] MEDS ORDERED: RAMELTEON 8 MG TAB (ROZEREM) PO PRN (23:30)
[2020-05-19] MEDS: ACETAMINOPHEN TAB 650MG DOSE (2X325MG) PO PRN (23:40)
[2020-05-20 04:00] VITALS: BP 114/73
[2020-05-20 05:00] LABS: HEMATOCRIT 35.3 % (42.0-52.0); MEAN CORPUSCULAR HEMOGLOBIN 26.3 pg (27.0-33.0); MEAN CORPUSCULAR HGB CONC 31.2 g/dl (32.0-36.5); MEAN CORPUSCULAR VOLUME 84.4 fl (80.0-96.0); PLATELET COUNT, AUTOMATED 300 10^3/uL (150-450); RED BLOOD COUNT 4.18 10^6/uL (4.30-6.10); WHITE BLOOD COUNT 11.9 10^3/uL (4.0-10.0)
[2020-05-20] MEDS: SLF 3 ML SYR IV SCH ×3 (05:11→22:17)
[2020-05-20 05:22] LABS: BLOOD UREA NITROGEN 26 MG/DL (7-18); CALCIUM LEVEL 8.7 MG/DL (8.8-10.2); CARBON DIOXIDE LEVEL 29 MEQ/L (21-32); CHLORIDE LEVEL 106 MEQ/L (98-107); CREATININE FOR GFR 1.15 MG/DL (0.70-1.30); GLOMERULAR FILTRATION RATE > 60.0 (>49); GLUCOSE, FASTING 89 MG/DL (70-100); POTASSIUM SERUM 3.9 MEQ/L (3.5-5.1); SODIUM LEVEL 140 MEQ/L (136-145)
[2020-05-20 08:00] VITALS: BP 125/76
[2020-05-20] MEDS: FUROSEMIDE 80 MG TAB PO SCH ×2 (08:31→17:19)
[2020-05-20] MEDS: SPIRONOLACTONE 25 MG TAB PO SCH (08:32)
[2020-05-20] MEDS: POTASSIUM CHLORIDE 10 MEQ SR TABLET PO SCH (08:32)
--- NOTE | 2020-05-20 10:35 | IPNPDOC ---
Text Note Date of Service The patient was seen on 05/20/20. NOTE SUBJECTIVE: -No complaints overnight, no chest pain, increased SOB, fever, chills -No complaints of abdominal pain this morning OBJECTIVE: VS: Please see below Constitutional: Has chorea per baseline. Sitting up in chair. EENT: PERRLA, EOMI, anicteric, MMM Respiratory: Diminished bases posteriorly without crackles. No wheezing or rhonchi. Cardiovascular: RRR, S1 and S2 are normal, no M/R/G GI: Normoactive sounds, is soft, no TTP, negative Campos's, no rebound, no gu arding EXT: 1+ pitting edema extremities bilaterally, improving, otherwise WWP. Neurologic: Chorea. No other focal deficits, CN2-12 appear grossly intact. Psych: Aox3 LABORATORY DATA: Reviewed. WBC 11.9 (uptrending) hgb 11 platelets 300 na 140 K 3.9 Cr 1.15 IMAGING: CT A/P: 1. Bilateral pleural effusions, right greater than left. 2. There is a small amount of free intraperitoneal fluid present. 3. There is a diffuse decrease in hepatic parenchymal density, consistent with steatosis. 4. The gallbladder is incompletely distended. This is most likely related to incomplete fasting. Clinical correlation to exclude gallbladder pathology suggested. 5. Moderate prostatic hyperplasia. 6. Anasarca. 7. Several small bowel loops demonstrate thickened hoang. Findings may indicate changes related to hypoproteinemia however enteritis is to be excluded clinically. MICROBIOLOGY: Please see below. 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 PLAN: #Abd pain on admission with CT showing minimal ascites, previously noted steatosis and small bowel loops with thickened hoang. -Diuresis as outlined below -s/p 2d of empiric cipro/flagyl. Discontinued on 05/19. Closely monitoring -On regular diet, tolerating it well -Planning on safe discharge with family and what their thoughts are at this time given that he was home for a few hours and now readmitted for abdominal pain that has now subsided without clearly noted new pathology, with stable imaging and nonfocal examination. Will monitor mild leukocytosis while off antibiotics and nonfocal examination. On my discussion with Mr. Motley and his sister, they were both open to STR after he did poorly with PT on 05/19 AM. # Acute on chronic HFrEF - Recent 2D echo (04/13) EF 40-45% - continue lasix 80mg PO BID, close I & O monitoring, daily weights, elevate head of bed, fluid restriction 1.5L. - hold spironolactone, HCTZ for now -close monitor Cr while diuresing #Pleural effusions likely 2/2 CHF, chronic - hx of thoracentesis - C/w diuresis - If effusions worsen, will consider consulting for thoracentesis #Lower ext swelling likely 2/2 to CHF - R>L swelling - recent US LE b/l neg for DVT - C/w diuresis above #HTN -holding his baseline ACEi and aldactone -Monitor BP closely #CLL -Outpatient follow up oncology #[place]'s disease -At baseline and Stable -F/u as o/p. #GI Px -PPI # DVT Px -Heparin SC DISPOSITION: C/w inpatient treatment and discuss safe discharge planning with family and PFS. PT/OT. At this time, Mr. Motley is clinically stable but has a mild leukocytosis that I am monitoring while off antibiotics and currently no nfocal on examination. PT is concerned that he may require STR and in speaking with him and his sister, they are in agreement with such a plan if that is the final recommendation. VS,Fishbone, I+O VS, Fishbone, I+O Laboratory Tests 05/20/20 04:27 Vital Signs Date Time Temp Pulse Resp B/P (MAP) Pulse Ox O2 Delivery O2 Flow Rate FiO2 05/20/20 08:00 97.1 64 20 125/76 (92) 99 Room Air I&O- Last 24 Hours up to 6 AM 05/20/20 06:00 Intake Total 780 ml Output Total 1750 ml Balance -970 ml JULISSA KILLIAN MD May 20, 2020 08:33
[2020-05-20 15:50] VITALS: BP 135/78
[2020-05-20 16:19] VITALS: BP 134/84
[2020-05-20] MEDS: ACETAMINOPHEN TAB 650MG DOSE (2X325MG) PO PRN ×2 (19:43→23:56)
[2020-05-20 22:00] VITALS: BP 114/43
[2020-05-21 06:00] VITALS: BP 122/84
[2020-05-21] MEDS: SLF 3 ML SYR IV SCH ×3 (06:00→21:56)
[2020-05-21] MEDS: SPIRONOLACTONE 25 MG TAB PO SCH (09:19)
[2020-05-21] MEDS: FUROSEMIDE 80 MG TAB PO SCH ×2 (09:19→16:53)
[2020-05-21] MEDS: POTASSIUM CHLORIDE 10 MEQ SR TABLET PO SCH (09:19)
--- NOTE | 2020-05-21 13:21 | IPN ---
DATE: 05/21/2020 SUBJECTIVE: Yon is seen in [facility] while rounding for the hospitalist. Case was discussed on case care rounds, it was decided he was SNF level of care. He has frequent admission. He has Huntingtons disease, CLL, recurrent pleural effusions, and several admissions for abdominal pain without acute pathology. Today he is back on a regular diet. OBJECTIVE: GENERAL: Communication is limited. He has chorea baseline. Lying in bed. HEENT: Unremarkable. LUNGS: Scattered rhonchi. HEART: Regular rhythm. ABDOMEN: Soft and nondistended. No masses. EXTREMITIES: No peripheral edema. LABORATORY DATA: No labs ordered for today. ASSESSMENT AND PLAN: 1. Abdominal pain. He seems to be tolerating this well. He is off his antibiotics. He is taking his usual diet. Per discussion today, he will be fdc facility (SNF) level. Plan for short term rehab. 2. Congestive heart failure with reduced ejection fraction. Echocardiogram shows ejection fraction of 40% to 45%. He is compensated on exam. 3. Huntingtons chorea. He is at his baseline. [facility]
[2020-05-21 14:01] VITALS: BP 97/63
[2020-05-21] MEDS ORDERED: LR 1,000 ML IV ONE (14:45)
[2020-05-21] MEDS: MORPHINE 4 MG/ML 1ML VIAL/SYRINGE (J2270) IV PRN (18:38)
[2020-05-22] MEDS: SLF 3 ML SYR IV SCH ×2 (05:38→13:34)
[2020-05-22 06:00] VITALS: BP 118/71
[2020-05-22] MEDS: FUROSEMIDE 80 MG TAB PO SCH (09:44)
[2020-05-22] MEDS: ACETAMINOPHEN TAB 650MG DOSE (2X325MG) PO PRN (09:44)
[2020-05-22] MEDS: SPIRONOLACTONE 25 MG TAB PO SCH (09:44)
[2020-05-22] MEDS: POTASSIUM CHLORIDE 10 MEQ SR TABLET PO SCH (09:44)
[2020-05-22] MEDS ORDERED: RAME8TAB2 PO (10:59)
[2020-05-22] MEDS ORDERED: ALDA25TA2 PO (10:59)
== END 2020-05-22 15:23 | DRG 391 ==
LOC: M ED 18:56 → M ED INP 22:57 → ENRESERV 23:36 → M PCU 05-18 00:51 → OBSVTOIN 05-18 18:05 → M MSPAV 05-20 16:00
PROVIDERS: ADMIT Internal Medicine; ATTEND Internal Medicine
DX: R10.84 Generalized abdominal pain (principal); I50.33 Acute on chronic diastolic (congestive) heart failure; G10 Huntington's disease; R18.8 Other ascites; J90 Pleural effusion, not elsewhere classified; C91.90 Lymphoid leukemia, unspecified not having achieved remission; F79 Unspecified intellectual disabilities; Z79.899 Other long term (current) drug therapy

== ENCOUNTER 2020-06-06 13:42 | Inpatient (IN) | payer MEDICARE, MEDICAID ==
[~2020-06-06] VITALS: Ht 188 cm; Wt 75.0 kg
[~2020-06-06 13:42] MED LIST changes: +RAME8TAB2 PO
[2020-06-06 14:27] LABS: HEMATOCRIT 40.6 % (42.0-52.0); HEMOGLOBIN 12.6 g/dl (13.5-17.5); MEAN CORPUSCULAR VOLUME 87.1 fl (80.0-96.0); PLATELET COUNT, AUTOMATED 349 10^3/uL (150-450); RED BLOOD COUNT 4.66 10^6/uL (4.30-6.10)
[2020-06-06 14:28] LABS: WHITE BLOOD COUNT 16.4 10^3/uL (4.0-10.0)
--- NOTE | 2020-06-06 14:29 | REP ---
INDICATION: CHEST PAIN. COMPARISON: 05/14/2020. TECHNIQUE: Single frontal portable view of the chest is performed. FINDINGS: Chronic vascular congestion is again noted. The heart does not appear to be significantly enlarged. The mediastinal silhouette is unchanged. There is poor ventilation. There appears to be improvement of the previously noted right pleural effusion and right base parenchymal opacity. IMPRESSION: Chronic vascular congestion again noted. Small right pleural effusion and adjacent right basilar parenchymal opacity improved since the prior study. <Electronically signed by Nahum Crowell > 06/06/20 [id number]
[2020-06-06 15:01] LABS: ALBUMIN 3.4 GM/DL (3.2-5.2); ALT/SGPT 46 U/L (12-78); BILIRUBIN,DIRECT 0.2 MG/DL (0.0-0.2); BILIRUBIN,TOTAL 1.9 MG/DL (0.2-1.0); LIPASE 68 U/L (73-393)
[2020-06-06 15:11] LABS: LYMPHOCYTES 39 % (16-44); MONOCYTES 3 % (0-5); NEUTROPHILS 58 % (28-66); PLATELET ESTIMATE NORMAL (NORMAL)
[2020-06-06 15:48] LABS: BLOOD UREA NITROGEN 25 MG/DL (7-18); CALCIUM LEVEL 9.3 MG/DL (8.8-10.2); CARBON DIOXIDE LEVEL 23 MEQ/L (21-32); CHLORIDE LEVEL 110 MEQ/L (98-107); CK-MB VALUE MASS 1.1 NG/ML (<3.6); CPK CREATINE PHOSPHOKINASE 196 U/L (39-308); CREATININE FOR GFR 1.21 MG/DL (0.70-1.30); GLOMERULAR FILTRATION RATE > 60.0 (>49); GLUCOSE, FASTING 114 MG/DL (70-100); MB/CK RELATIVE INDEX 0.56 (< OR =4); SODIUM LEVEL 138 MEQ/L (136-145)
[2020-06-06 16:20] LABS: NT-PRO BNP 731 PG/ML (<125)
--- NOTE | 2020-06-06 17:11 | REP ---
INDICATION: effusion/possible pneumonia. COMPARISON: Chest x-ray 06/06/2020, 05/14/2020 TECHNIQUE: Noncontrast chest CT with coronal and sagittal reconstructions. FINDINGS: A moderate-sized right pleural effusion and trace left. Dependent/compressive atelectatic changes adjacent to both in the lower lung zones. Lung ding were otherwise clear and with no pneumothorax. Do not see dense consolidation. Heart size not grossly enlarged. Some mild pericardial thickening or trace effusion in the pericardial space. The aorta has of calcifications at the arch without aneurysm. See no pathologic sized mediastinal or hilar adenopathy. No hiatal hernia. Appears to be some trace amount of ascites around the with right lobe of the liver. There is also small amount of ascites about the left upper quadrant. Calcifications in the spleen are noted. Gallbladder seen only in part and is partially contracted. Limited views of the pancreas and adrenal glands due to spray artifact from the patient's upper extremity bones as arms could not be moved from his sides. There was motion artifact on both the sets of images involving the arms. [employer] image confirms that there is no humeral fracture. Degenerative changes throughout the spine without acute compression deformity. Motion artifact involves the manubrium as well. Visualized ribs, scapulae, humeral heads and clavicles intact. IMPRESSION: 1. Exam limited by motion artifact. A moderate-sized right and small left pleural effusion but no parenchymal lung mass or acute infiltrate. Some dependent atelectatic and compressive atelectatic changes suggested, particularly in the right base. 2. Motion artifact limits evaluations of the bony structures no gross evidence for fracture on the shoder filler image set. 3. Small amount of ascites in the upper abdomen. Limited evaluation of upper abdominal organs as described above. Calcified foci in the spleen from prior granulomatous disease. 4. No cardiomegaly. Trace pericardial fluid or thickening. No aortic aneurysm. No mediastinal mass or adenopathy. <Electronically signed by Antonio Morris > 06/06/20 [id number]
[2020-06-06] MEDS ORDERED: FUROSEMIDE 40MG/4ML VIAL (J1940) IV ONE (18:45)
[2020-06-06] MEDS ORDERED: LISI-542 PO (19:05)
[2020-06-06] MEDS ORDERED: SPIR-10 PO (19:05)
[2020-06-06] MEDS ORDERED: ROZE8TAB16 PO (19:05)
[2020-06-06] MEDS ORDERED: FURO80TA2 PO (19:05)
[2020-06-06] MEDS ORDERED: POTA10TA17 PO (19:05)
[2020-06-06] MEDS ORDERED: METO25TA4 PO (19:05)
[2020-06-06] MEDS ORDERED: MED REC COMMENT (19:07)
--- NOTE | 2020-06-06 19:50 | HPEPDOC ---
[facility] Medical History & Physical Date of Admission Jun 06, 2020 Date of Service: Jun 06, 2020 History and Physical CHIEF COMPLAINT: Chest discomfort HISTORY OF PRESENT ILLNESS: History obtained from chart review and ER physician as well as based on my physical exam patient has significant [place] chorea and unable to communicate beyond very simple gestures and very briefly yes/no answers that can be difficult to interpret. Patient is a 64 year old male with Clarissa's disease, CLL, CHFpEF and recurrent pleural effusion presented to the hospital with increasing lower extremity edema and Chest discomfort. Found to have 2+ pitting edema. Patient denies any CP to me at this time. Patient admitted to medical unit for further management. Questionable compliance with Lasix at home. PAST MEDICAL HISTORY: Clarissa's disease, CLL, CHFpEF and recurrent pleural effusion SOCIAL HISTORY: Smoker: Denies Alcohol: Denies Drugs: denies FAMILY HISTORY: Obtained from chart Mother in her 80s from old age. History of CVA Father age 71 secondary to prostate cancer Siblings: Sister is alive (Chantel [phone]) ALLERGIES: Please see below. REVIEW OF SYSTEMS: Unable to obtain review of systems due to patient's advanced Reid chorea HOME MEDICATIONS: Please see below. PHYSICAL EXAMINATION: Constitutional: Awake and alert, in no apparent distress has significant chorea ENT: Sclera are clear. Mucosa is moist. Respiratory: Lungs rhales at bases bilaterally. No respiratory distress. No use of accessory muscles. Cardiovascular: RRR S1 and S2 are normal, no murmur Gastrointestinal: Abdomen is soft, non distended, non tender, BS present. No fluid shift. Musculoskeletal: 2+ pitting edema extremities bilaterally up to below his knees. Neurologic: Chorea. Skin: Warm, dry LABORATORY DATA: See below. IMAGING: See chart MICROBIOLOGY: Please see below. ASSESSMENT/PLAN 64 year old male with Clarissa's disease, CLL, CHFpEF and recurrent pleural effusion presented to the hospital with increasing lower extremity edema and chest discomfort. Found to have 2+ pitting edema. Patient admitted to medical for further management. # Chest discomfort/pain: Rule out ACS. trend trops/ekgs. Denies CP when I saw him. Pt has difficulty communicating could be trying to say he's having SOB, clinically fluid overloaded. Chest CT negative for PNA. # Acute on chronic CHFpEF: IV lasix. Recent 2D echo (04/13) EF 40-45%. BNP elevated. I and O, daily weights, elevate head of bed, Fluid restriction 1.5L. Maintain K>4 and Mg>2. Continue spironolactone. # Hyperkalemia: 6.0 on admit. Kayexelate. Insulin. Monitor BMP. Consider holding home potassium upon discharge. # Pleural effusions: likely 2/[address] shows moderate R and small L effusions. Diuresis. # HTN: Continue home meds. Monitor and titrate. # Leukocytosis: increased from prior. has hx of CLL. Afebrile. CXR/Chest CT negative. UA ok. No suspicion for infection at this time. Trend CBC. # CLL: outpatient follow up oncology # DVT proph: heparin Dispo: Patient may need assistance with placement as there is concern for him being able to take his medicines at home as he lives with his sister who tries s ystem but his Clarissa chorea is fairly advanced. Vital Signs Vital Signs Date Time Temp Pulse Resp B/P (MAP) Pulse Ox O2 Delivery O2 Flow Rate FiO2 06/06/20 19:31 141/104 (116) 06/06/20 18:31 78 98 Room Air 06/06/20 17:45 18 06/06/20 13:43 97.8 Laboratory Data Labs 24H Laboratory Tests 2 06/06/20 13:56: Neutrophils (%) (Auto) , Nucleated Red Blood Cells % (auto) 0.0, Neutrophils 58, Lymphocytes (Manual) 39, Monocytes (Manual) 3, Platelet Estimate NORMAL, Anion Gap 5L, Glomerular Filtration Rate > 60.0, Calcium Level 9.3, Total Bilirubin 1.9H, Direct Bilirubin 0.2, Aspartate Amino Transf (AST/SGOT) 74H, Alanine Aminotransferase (ALT/SGPT) 46, Alkaline Phosphatase 274H, Total Creatine Kinase 196, Creatine Kinase MB 1.1, Creatine Kinase MB Relative Index 0.56, BD-Ojn-K-Type Natriuretic Peptide 731H, Total Protein 7.0, Albumin 3.4, Albumin/Globulin Ratio 0.9, Lipase 68L 06/06/20 14:15: POC Troponin I (Misc) 0.00 06/06/20 16:08: Urine Color EDDA, Urine Appearance CLEAR, Urine pH 5.0, Urine Specific [place] 1.029, Urine Protein NEGATIVE, Urine Glucose (UA) NEGATIVE, Urine Ketones NEGATIVE, Urine Blood NEGATIVE, Urine Nitrite NEGATIVE, Urine Bilirubin NEGATIVE, Urine Urobilinogen 4.0H, Urine Leukocyte Esterase NEGATIVE, Urine WBC (Auto) 1, Urine RBC (Auto) 1, Urine Hyaline Casts (Auto) 0, Urine Bacteria (A uto) NEGATIVE, Urine Squamous Epithelial Cells 0, Urine Mucus (Auto) SMALL, Urine Sperm (Auto) CBC/BMP Laboratory Tests 06/06/20 13:56 Home Medications Scheduled Furosemide (Furosemide) 80 Mg Tablet, 80 MG PO BID Lisinopril (Lisinopril) 5 Mg Tablet, 5 MG PO DAILY Metoprolol Tartrate (Metoprolol Tartrate) 25 Mg Tablet, 12.5 MG PO BID Potassium Chloride (Potassium Chloride) 10 Meq Tab.er.prt, 10 MEQ PO QPM Ramelteon (Rozerem) 8 Mg Tablet, 8 MG PO QHS Spironolactone (Spironolactone) 25 Mg Tablet, 25 MG PO DAILY Miscellaneous Medications [Med Rec Comment] PT STATES HE HAS A BUNCH OF PILL BOTTLES AT HOME, UNABLE TO TELL US WHAT HE TAKES, LIST OBTAINED FROM PHARMACY Allergies Coded Allergies: No Known Allergies (Unverified , 01/12/19) A-FIB/CHADSVASC A-FIB History Current/History of A-Fib/PAF?: No LIGIASECHRIS Maurer MD Jun 06, 2020 19:50
[2020-06-06] MEDS ORDERED: HumuLIN R (REGULAR) INSULIN (NovoLIN R) **100U/ML** PER UNIT IV STA (19:59)
[2020-06-06] MEDS ORDERED: DEXTROSE 50% 50 ML SYRINGE IV STA (19:59)
[2020-06-06] MEDS ORDERED: MOM 30ML SUSPENSION UDC PO PRN (20:00)
[2020-06-06] MEDS: SOD POLYSTYRENE SULFONATE SUSP 15 GM/60 ML UD PO SCH (20:32)
--- NOTE | 2020-06-06 20:55 | ECGEPIP ---
[facility] - ED Test Date: 2020-06-06 Pat Name: ANASTASIA GARCIA Department: Room: - Gender: Male [employer]: ranjeet : 1955 Requested By: STEVEN Nevarez Order Number: [id number] Reading MD: Steven Sanchez Measurements Intervals [place] Rate: 91 P: 27 IA: 136 QRS: 51 QRSD: 82 T: 260 QT: 325 QTc: 401 Interpretive Statements SINUS RHYTHM POSSIBLE LEFT ATRIAL ENLARGEMENT LOW QRS VOLTAGE IN EXTREMITY LEADS Nonspecific ST-T wave abnormalities Similar to tracing done 05-17-20 Electronically Signed on 06-06-2020 20:55:27 EST by Steven Sanchez
[2020-06-06 22:40] VITALS: BP 113/78
[2020-06-06] MEDS: METOPROLOL TART 12.5 MG PER 1/2 TAB PO SCH (23:36)
[2020-06-06] MEDS: RAMELTEON 8 MG TAB (ROZEREM) PO SCH (23:37)
[2020-06-07] VITALS (8 sets, daily range): BP systolic 70–134; BP diastolic 40–98
[2020-06-07] MEDS: SOD POLYSTYRENE SULFONATE SUSP 15 GM/60 ML UD PO SCH (00:30)
[2020-06-07 05:41] LABS: HEMATOCRIT 34.5 % (42.0-52.0); HEMOGLOBIN 10.8 g/dl (13.5-17.5); MEAN CORPUSCULAR HEMOGLOBIN 26.6 pg (27.0-33.0); MEAN CORPUSCULAR HGB CONC 31.3 g/dl (32.0-36.5); PLATELET COUNT, AUTOMATED 297 10^3/uL (150-450); RED BLOOD COUNT 4.06 10^6/uL (4.30-6.10); WHITE BLOOD COUNT 14.4 10^3/uL (4.0-10.0)
[2020-06-07 06:05] LABS: BLOOD UREA NITROGEN 22 MG/DL (7-18); CALCIUM LEVEL 8.3 MG/DL (8.8-10.2); CARBON DIOXIDE LEVEL 23 MEQ/L (21-32); CHLORIDE LEVEL 112 MEQ/L (98-107); CHOLESTEROL LEVEL 128 MG/DL (<200); CHOLESTEROL RISK RATIO 2.098 (<5); GLOMERULAR FILTRATION RATE > 60.0 (>49); GLUCOSE, FASTING 95 MG/DL (70-100); HDL CHOLESTEROL 61 MG/DL (>40); LDL CHOLESTEROL 55 MG/DL (<100); NON-HDL-C 67 MG/DL; POTASSIUM SERUM 3.4 MEQ/L (3.5-5.1); SODIUM LEVEL 142 MEQ/L (136-145); TRIGLYCERIDES LEVEL 58 MG/DL (<150)
[2020-06-07] MEDS ORDERED: POTASSIUM CHLORIDE 10 MEQ SR TABLET PO ONE (08:30)
[2020-06-07] MEDS: METOPROLOL TART 12.5 MG PER 1/2 TAB PO SCH ×2 (08:41→21:00)
[2020-06-07] MEDS: lisinopriL 5 MG TAB PO SCH (08:41)
[2020-06-07] MEDS: FUROSEMIDE 40MG/4ML VIAL (J1940) IV SCH ×2 (08:42→17:44)
[2020-06-07] MEDS: HEPARIN SOD (PORCINE) 5000UNITS/ML 1ML VIAL/SYRINGE SC SCH ×2 (08:43→21:49)
[2020-06-07] MEDS ORDERED: SPIRONOLACTONE 25 MG TAB PO SCH (09:00)
--- NOTE | 2020-06-07 16:18 | IPNPDOC ---
Date Seen The patient was seen on 06/07/20. Progress Note SUBJECTIVE: Pt had incr bili, AST, alk phos with incr abdominal discomfort on exam. Ordered abdominal US to be done later today. Trop neg x3, -2.8 L since admission, no s/s of fluid overload. PT/OT. Denies chest pain, fevers, chills, shortness of breath. OBJECTIVE: PHYSICAL EXAMINATION: VS: Please see below. Constitutional: Awake and alert, in no apparent distress has significant chorea, difficult to understand at times 2/2 to chorea. Follows commands well. ENT: Sclera are clear. Mucosa is moist. Respiratory: CTAB, no w/r/r. No respiratory distress. No use of accessory muscles. Cardiovascular: RRR S1 and S2 are normal, no murmur Gastrointestinal: Abdomen is soft, non distended,tender to touch RUQ, epigastric area, BS present. No fluid shift. Musculoskeletal: 2+ pitting edema extremities bilaterally up to below his knees. Neurologic: Chorea. No other focal deficits. Skin: Warm, dry, intact LABORATORY DATA: See below. IMAGING: US Abdomen- to be done this evening ASSESSMENT: 64 year old male with [place]'s disease, CLL, CHFpEF and recurrent pleural effusion presented to the hospital with increasing lower extremity edema and chest discomfort. Found to have 2+ pitting edema. Patient admitted to medical for further management. PLAN: #Abdominal discomfort r/o biliary cause -Elevated bili, AST, alk phos, abdominal pain in RUQ, WBC incr to 14K, afebrile -F/u US abdomen today -CMP in the AM. # Chest discomfort/pain likely atypical chest pain -Resolved. -Trop neg x 3. -Chest CT negative for PNA. -Recommend f/u with PCP after d/c # Acute on chronic CHFpEF -Neg 2.8 L since admission, denies shortness of breath, chest pain -Recent 2D echo (04/13) EF 40-45%. -BNP elevated at 700 but prior on file was >800- not worsening. -C/w lasix 40 mg IV BID (home dose is 80 mg PO BID), I and O, daily weights, elevate head of bed, Fluid restriction 1.5L. -Continue spironolactone. # Hypokalemia, acute likely 2/2 to diuresis -Admitted for hyperkalemia, acute and likely 2/2 to supplement potassium at home. -S/p 30 mEq today -Monitor BMP # Pleural effusions likely 2/2 CHF. -Chest CT shows moderate R and small L effusions. -C/w diuresis, treatment above # HTN. -Stable. -C/w home meds. # CLL -Outpatient follow up oncology # DVT Px - heparin DISPOSITION: Patient may need assistance with placement as there is concern for him being able to take his medicines at home as he lives with his sister who tries system but his [place] chorea is fairly advanced. SW aware. VS, I&O, 24H, Fishbone Vital Signs/I&O Vital Signs Date Time Temp Pulse Resp B/P (MAP) Pulse Ox O2 Delivery O2 Flow Rate FiO2 06/07/20 12:00 98.8 66 18 118/88 (98) 90 Room Air I&O- Last 24 Hours up to 6 AM 06/07/20 06:00 Intake Total 0 ml Output Total 2850 ml Balance -2850 ml Laboratory Data 24H LABS Laboratory Tests 2 06/06/20 16:08: Urine Color EDDA, Urine Appearance CLEAR, Urine pH 5.0, Urine Specific [place] 1.029, Urine Protein NEGATIVE, Urine Glucose (UA) NEGATIVE, Urine Ketones NEGATIVE, Urine Blood NEGATIVE, Urine Nitrite NEGATIVE, Urine Bilirubin NEGATIVE, Urine Urobilinogen 4.0H, Urine Leukocyte Esterase NEGATIVE, Urine WBC (Auto) 1, Urine RBC (Auto) 1, Urine Hyaline Casts (Auto) 0, Urine Bacteria (Auto) NEGATIVE, Urine Squamous Epithelial Cells 0, Urine Mucus (Auto) SMALL, Urine Sperm (Auto) 06/06/20 20:40: Troponin I < 0.02 06/07/20 01:33: Troponin I < 0.02 06/07/20 05:28: Nucleated Red Blood Cells % (auto) 0.0, Anion Gap 7L, Glomerular Filtration Rate > 60.0, Calcium Level 8.3L, Triglycerides Level 58, Total Cholesterol 128, LDL Cholesterol 55, Non-HDL Cholesterol (LDL + VLDL) 67, Total HDL Cholesterol 61, Cholesterol/HDL Ratio 2.098 CBC/BMP Laboratory Tests 06/07/20 01:33 06/07/20 05:28 Current Medications Current Medications Medications (Trade) Dose Ordered Sig/Gina Route PRN Reason Start Time Stop Time Status Last Admin Dose Admin Acetaminophen (Tylenol Tab) 650 mg Q4H PRN PO PAIN OR FEVER 06/06/20 20:00 Dextrose (Dextrose 50%) 50 ml STAT STAT IV 06/06/20 19:59 06/06/20 20:02 DC 06/06/20 20:28 Furosemide (LASIX injection) 40 mg BID@09,17 IV 06/07/20 09:00 06/07/20 08:42 Heparin Sodium (Porcine) (Heparin) 5,000 units Q12H SC 06/07/20 09:00 06/07/20 08:43 Home Med (Med Rec Complete!) ASDIRECTED XX 06/06/20 19:15 06/06/20 19:09 DC Insulin Human Regular (HumuLIN R INSULIN) 10 units STAT STAT IV 06/06/20 19:59 06/06/20 20:02 DC 06/06/20 20:31 Lisinopril (Prinivil) 5 mg DAILY PO 06/07/20 09:00 06/07/20 08:41 Magnesium Hydroxide (Milk Of Magnesia) 30 ml DAILY PRN PO CONSTIPATION 06/06/20 20:00 Metoprolol Tartrate (Lopressor) 12.5 mg BID PO 06/06/20 21:00 06/07/20 08:41 Ramelteon (Rozerem) 8 mg QHS PO 06/06/20 21:00 06/06/20 23:37 Sodium Polystyrene Sulfonate (Kayexalate) 30 gm Q4H PO 06/06/20 20:00 06/07/20 00:01 DC 06/07/20 00:30 Spironolactone (Aldactone) 25 mg DAILY PO 06/07/20 09:00 06/07/20 08:42 Allergies Coded Allergies: No Known Allergies (Unverified , 01/12/19) Arlene Jones MD Jun 07, 2020 16:18
--- NOTE | 2020-06-07 17:32 | REP ---
INDICATION: elevated AST/ALT, bili, r/o biliary obstruction. COMPARISON: Comparison CT study May 17, 2020.. TECHNIQUE: Right upper quadrant sonography. FINDINGS: Scan quality was inhibited some degree by patient inability to remain motionless. Scanning demonstrates apparent thickening of the gallbladder wall without evidence of stone or polyp. No tenderness is seen. Common bile duct is normal measuring 0.5 cm in greatest diameter. There is ascites and right pleural effusion. The ascites is minimal. No liver mass lesion is seen. Pancreas is obscured by abdominal gas. No right renal abnormality. Right kidney measures 10.9 x 5.9 x 4.5 cm.. . IMPRESSION: Thickening of the gallbladder wall. Minimal ascites. Right pleural effusion. Normal CBD. <Electronically signed by Jose Desir > 06/07/20 [id number]
[2020-06-07] MEDS: RAMELTEON 8 MG TAB (ROZEREM) PO SCH (21:49)
[2020-06-08] VITALS (8 sets, daily range): BP systolic 88–144; BP diastolic 60–89
[2020-06-08] MEDS ORDERED: NS 500 ML IV ONE ×2 (04:00)
[2020-06-08 05:33] LABS: HEMATOCRIT 33.4 % (42.0-52.0); HEMOGLOBIN 10.7 g/dl (13.5-17.5); MEAN CORPUSCULAR VOLUME 84.3 fl (80.0-96.0); PLATELET COUNT, AUTOMATED 283 10^3/uL (150-450); RED BLOOD COUNT 3.96 10^6/uL (4.30-6.10); WHITE BLOOD COUNT 10.9 10^3/uL (4.0-10.0)
[2020-06-08 06:04] LABS: ALBUMIN 2.9 GM/DL (3.2-5.2); ALT/SGPT 36 U/L (12-78); BILIRUBIN,TOTAL 1.3 MG/DL (0.2-1.0); BLOOD UREA NITROGEN 28 MG/DL (7-18); CALCIUM LEVEL 8.7 MG/DL (8.8-10.2); CARBON DIOXIDE LEVEL 25 MEQ/L (21-32); CHLORIDE LEVEL 110 MEQ/L (98-107); CREATININE FOR GFR 1.23 MG/DL (0.70-1.30); GLOMERULAR FILTRATION RATE > 60.0 (>49); GLUCOSE, FASTING 105 MG/DL (70-100); POTASSIUM SERUM 3.3 MEQ/L (3.5-5.1); SODIUM LEVEL 143 MEQ/L (136-145); TOTAL PROTEIN 5.9 GM/DL (6.4-8.2)
[2020-06-08] MEDS ORDERED: POTASSIUM CHLORIDE 10 MEQ SR TABLET PO ONE ×2 (06:45→08:45)
[2020-06-08] MEDS: METOPROLOL TART 12.5 MG PER 1/2 TAB PO SCH ×2 (08:49→20:56)
[2020-06-08] MEDS: lisinopriL 5 MG TAB PO SCH (08:49)
[2020-06-08] MEDS: HEPARIN SOD (PORCINE) 5000UNITS/ML 1ML VIAL/SYRINGE SC SCH ×2 (08:56→21:11)
--- NOTE | 2020-06-08 17:55 | IPNPDOC ---
Date Seen The patient was seen on 06/08/20. Progress Note SUBJECTIVE: Complains of RUQ discomfort, nausea on exam. Discussed case with Dr. Davenport who reviewed imaging. Possible acalculous cholecystitis, treating with abx for now. PT: would benefit from rehab before returning to home if able. Denies chest pain, fevers, chills, shortness of breath. OBJECTIVE: PHYSICAL EXAMINATION: VS: Please see below. Constitutional: Awake and alert, in no apparent distress has significant chorea, difficult to understand at times 2/2 to chorea. Follows commands well. ENT: Sclera are clear. Mucosa is moist. Respiratory: CTAB, no w/r/r. No respiratory distress. No use of accessory muscles. Cardiovascular: RRR S1 and S2 are normal, no murmur Gastrointestinal: Abdomen is soft, non distended,tender to touch RUQ, epigastric area, BS present. No fluid shift. Musculoskeletal: 1+ pitting edema extremities bilaterally up to below his knees. Neurologic: Chorea. No other focal deficits. Skin: Warm, dry, intact LABORATORY DATA: See below. IMAGING: US Abdomen: Thickening of the gallbladder wall. Minimal ascites. Right pleural effusion. Normal CBD. CT abd/pelvis from 05/2020: The gallbladder is incompletely distended. This is most likely related to incomplete fasting. Clinical correlation to exclude gallbladder pathology suggested. 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 Found to have 2+ pitting edema. Patient admitted to medical for further management. PLAN: #Abdominal discomfort cannot r/o acalculous cholecystitis -WBC on admission 16K, currently 10.9. Afebrile, + RUQ pain with nausea -Elevated bili, AST, alk phos- improving -US abdomen above -Discussed with surgery, Dr. Davenport. Starting on Zosyn IV and will treat with normal course of abx. If worsens, consult officially. Will need f/u with GI as o/p so will touch base with them after weekend to discuss case prior to discharge. -CMP in the AM. #Hypotension likely 2/2 to overdiuresis, medications -Hx of HTN -Stopped all diuretics and placed HP on meds -Monitor closely. #Unsteady gait likely multifactorial to chronic deconditioning, Reid's disease -PT: rehab -PFS aware -C/w PT/OT while here, fall risk # Chronic CHFpEF, not thinking this is exacerbation -Neg 2.8 L since admission, denies shortness of breath, chest pain -Recent 2D echo (04/13) EF 40-45%. -BNP elevated at 700 but prior on file was >800- not worsening. -Stopped diuretics for now with hypotension, I and O, daily weights, elevate head of bed, Fluid restriction 1.5L. # Hypokalemia, acute likely 2/2 to diuresis -S/p 40 mEq today -Monitor BMP # Pleural effusions likely 2/2 CHF. -Chest CT shows moderate R and small L effusions. -Holding diuresis for now, resume when BP improves # CLL -Outpatient follow up oncology # DVT Px - heparin Resolved issues: Chest discomfort/pain likely atypical chest pain DISPOSITION: PT: benefit from rehab before returning to home situation. May need skilled vs. 23/02 care if does poorly with rehab. PFS awaiting clearance from medicine standpoint. Sister is involved in care. VS, I&O, 24H, [facility] Vital Signs/I&O Vital Signs Date Time Temp Pulse Resp B/P (MAP) Pulse Ox O2 Delivery O2 Flow Rate FiO2 06/08/20 16:00 98.3 84 20 122/83 (96) 97 Room Air I&O- Last 24 Hours up to 6 AM0 06/08/20 06:00 Intake Total 240 ml Output Total 800 ml Balance -560 ml Laboratory Data 24H LABS Laboratory Tests 2 06/08/20 04:54: Nucleated Red Blood Cells % (auto) 0.0, Anion Gap 8, Glomerular Filtration Rate > 60.0, Calcium Level 8.7L, Total Bilirubin 1.3H, Aspartate Amino Transf (AST/SGOT) 21, Alanine Aminotransferase (ALT/SGPT) 36, Alkaline Phosphatase 261H, Total Protein 5.9L, Albumin 2.9L, Albumin/Globulin Ratio 1.0 CBC/BMP Laboratory Tests 06/08/20 04:54 Current Medications Current Medications Medications (Trade) Dose Ordered Sig/Gina Route PRN Reason Start Time Stop Time Status Last Admin Dose Admin Acetaminophen (Tylenol Tab) 650 mg Q4H PRN PO PAIN OR FEVER 06/06/20 20:00 Dextrose (Dextrose 50%) 50 ml STAT STAT IV 06/06/20 19:59 06/06/20 20:02 DC 06/06/20 20:28 Furosemide (LASIX injection) 40 mg BID@09,17 IV 06/07/20 09:00 06/08/20 08:27 DC 06/07/20 17:44 Heparin Sodium (Porcine) (Heparin) 5,000 units Q12H SC 06/07/20 09:00 06/08/20 08:56 Home Med (Med Rec Complete!) ASDIRECTED XX 06/06/20 19:15 06/06/20 19:09 DC Insulin Human Regular (HumuLIN R INSULIN) 10 units STAT STAT IV 06/06/20 19:59 06/06/20 20:02 DC 06/06/20 20:31 Lisinopril (Prinivil) 5 mg DAILY PO 06/07/20 09:00 06/07/20 08:41 Magnesium Hydroxide (Milk Of Magnesia) 30 ml DAILY PRN PO CONSTIPATION 06/06/20 20:00 Metoprolol Tartrate (Lopressor) 12.5 mg BID PO 06/06/20 21:00 06/07/20 08:41 Ramelteon (Rozerem) 8 mg QHS PO 06/06/20 21:00 06/07/20 21:49 Sodium Polystyrene Sulfonate (Kayexalate) 30 gm Q4H PO 06/06/20 20:00 06/07/20 00:01 DC 06/07/20 00:30 Spironolactone (Aldactone) 25 mg DAILY PO 06/07/20 09:00 06/08/20 08:27 DC 06/07/20 08:42 Allergies Coded Allergies: No Known Allergies (Unverified , 01/12/19) Arlene Jones MD Jun 08, 2020 17:55
[2020-06-08] MEDS: ONDANSETRON 4 MG ORAL DISINTEGRATING TAB PO PRN (18:07)
[2020-06-08] MEDS: PIPERACILLIN/TAZOBACTAM SOD 3.375 GM in D5W MINI-BAG PLUS 50 ML IV SCH (18:07)
[2020-06-08] MEDS: RAMELTEON 8 MG TAB (ROZEREM) PO SCH (21:10)
[2020-06-09] VITALS: BP 114/58
[2020-06-09] MEDS: PIPERACILLIN/TAZOBACTAM SOD 3.375 GM in D5W MINI-BAG PLUS 50 ML IV SCH ×4 (00:52→18:19)
[2020-06-09 04:00] VITALS: BP 108/74
[2020-06-09 06:01] LABS: HEMATOCRIT 34.9 % (42.0-52.0); HEMOGLOBIN 11.2 g/dl (13.5-17.5); MEAN CORPUSCULAR HEMOGLOBIN 27.5 pg (27.0-33.0); MEAN CORPUSCULAR HGB CONC 32.1 g/dl (32.0-36.5); MEAN CORPUSCULAR VOLUME 85.5 fl (80.0-96.0); PLATELET COUNT, AUTOMATED 322 10^3/uL (150-450); RED BLOOD COUNT 4.08 10^6/uL (4.30-6.10); WHITE BLOOD COUNT 10.5 10^3/uL (4.0-10.0)
[2020-06-09 06:23] LABS: ALBUMIN 3.1 GM/DL (3.2-5.2); ALT/SGPT 41 U/L (12-78); BILIRUBIN,TOTAL 1.5 MG/DL (0.2-1.0); BLOOD UREA NITROGEN 23 MG/DL (7-18); CARBON DIOXIDE LEVEL 25 MEQ/L (21-32); CHLORIDE LEVEL 110 MEQ/L (98-107); CREATININE FOR GFR 1.03 MG/DL (0.70-1.30); GLOMERULAR FILTRATION RATE > 60.0 (>49); GLUCOSE, FASTING 106 MG/DL (70-100); POTASSIUM SERUM 3.9 MEQ/L (3.5-5.1); SODIUM LEVEL 141 MEQ/L (136-145); TOTAL PROTEIN 6.2 GM/DL (6.4-8.2)
[2020-06-09] MEDS: METOPROLOL TART 12.5 MG PER 1/2 TAB PO SCH ×2 (07:45→21:21)
[2020-06-09] MEDS: HEPARIN SOD (PORCINE) 5000UNITS/ML 1ML VIAL/SYRINGE SC SCH ×2 (07:45→21:22)
[2020-06-09] MEDS: lisinopriL 5 MG TAB PO SCH (07:45)
[2020-06-09 09:30] VITALS: BP 116/70
[2020-06-09 14:00] VITALS: BP 124/73
--- NOTE | 2020-06-09 20:46 | IPNPDOC ---
Date Seen The patient was seen on 06/09/20. Progress Note SUBJECTIVE: Continued mild RUQ discomfort, resolved nausea and eating well. WBC improved to 10.5 from 10.9, on IV zosyn. If pain persists on 06/11/20, will discuss with surgery at that time. Denies chest pain, fevers, chills, shortness of breath. OBJECTIVE: PHYSICAL EXAMINATION: VS: Please see below. Constitutional: Awake and alert, in no apparent distress has significant chorea, difficult to understand at times 2/2 to chorea. Follows commands well. ENT: Sclera are clear. Mucosa is moist. Respiratory: CTAB, no w/r/r. No respiratory distress. No use of accessory muscles. Cardiovascular: RRR S1 and S2 are normal, no murmur Gastrointestinal: Abdomen is soft, non distended,mild tenderness to touch RUQ, BS present. No fluid shift. Musculoskeletal: 1+ pitting edema extremities bilaterally up to below his knees. Neurologic: Chorea. No other focal deficits. Skin: Warm, dry, intact LABORATORY DATA: See below. IMAGING: US Abdomen: Thickening of the gallbladder wall. Minimal ascites. Right pleural effusion. Normal CBD. CT abd/pelvis from 05/2020: The gallbladder is incompletely distended. This is most likely related to incomplete fasting. Clinical correlation to exclude gallbladder pathology suggested. 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 Found to have 2+ pitting edema. Patient admitted to medical for further management. PLAN: #Abdominal discomfort cannot r/o acalculous cholecystitis -WBC on admission 16K, currently 10.5-improving slowly. Afebrile, only very mild + RUQ pain, resolved nausea -T bili and alk phos remain elevated, AST/ALT wnl -US abdomen above -C/w IV zosyn (Day 2) -Discussed with surgery, Dr. Davenport. If worsens, consult officially. Will need f/u with GI as o/p so will touch base with them after weekend to discuss case prior to discharge. -CMP daily #Hypotension likely 2/2 to overdiuresis, medications- resolved -Hx of HTN -Stopped all diuretics and placed HP on meds -Consider reintroducing spironolactone 06/10/20 back to regimen -Monitor closely. #Unsteady gait likely multifactorial to chronic deconditioning, Zahl's disease -PT: rehab -PFS aware -C/w PT/OT while here, fall risk # Chronic CHFpEF, not thinking this is exacerbation -Denies shortness of breath, chest pain -Recent 2D echo (04/13) EF 40-45%. -BNP elevated at 700 but prior on file was >800- not worsening. -Stopped diuretics for now with hypotension, I and O, daily weights, elevate head of bed, Fluid restriction 1.5L. # Hypokalemia, acute likely 2/2 to diuresis- resolved -Monitor BMP # Pleural effusions likely 2/2 CHF. -Chest CT shows moderate R and small L effusions. -Holding diuresis for now, resume poss 06/10/20 # CLL -Outpatient follow up oncology # DVT Px - heparin Resolved issues: Chest discomfort/pain likely atypical chest pain DISPOSITION: PT: benefit from rehab before returning to home situation. May need skilled vs. 23/02 care if does poorly with rehab. PFS awaiting clearance from medicine standpoint. Sister is involved in care. VS, I&O, 24H, [facility] Vital Signs/I&O Vital Signs Date Time Temp Pulse Resp B/P (MAP) Pulse Ox O2 Delivery O2 Flow Rate FiO2 06/09/20 14:00 98.2 88 20 124/73 (90) 98 Room Air I&O- Last 24 Hours up to 6 AM 06/09/20 06:00 Intake Total 600 ml Output Total 600 ml Balance 0 ml Laboratory Data 24H LABS Laboratory Tests 2 06/09/20 05:34: Nucleated Red Blood Cells % (auto) 0.0, Anion Gap 6L, Glomerular Filtration Rate > 60.0, Calcium Level 9.0, Total Bilirubin 1.5H, Aspartate Amino Transf (AST/SGOT) 20, Alanine Aminotransferase (ALT/SGPT) 41, Alkaline Phosphatase 296H, Total Protein 6.2L, Albumin 3.1L, Albumin/Globulin Ratio 1.0 CBC/BMP Laboratory Tests 06/09/20 05:34 Current Medications Current Medications Medications (Trade) Dose Ordered Sig/Gina Route PRN Reason Start Time Stop Time Status Last Admin Dose Admin Acetaminophen (Tylenol Tab) 650 mg Q4H PRN PO PAIN OR FEVER 06/06/20 20:00 Dextrose (Dextrose 50%) 50 ml STAT STAT IV 06/06/20 19:59 06/06/20 20:02 DC 06/06/20 20:28 Furosemide (LASIX injection) 40 mg BID@09,17 IV 06/07/20 09:00 06/08/20 08:27 DC 06/07/20 17:44 Heparin Sodium (Porcine) (Heparin) 5,000 units Q12H SC 06/07/20 09:00 06/09/20 07:45 Home Med (Med Rec Complete!) ASDIRECTED XX 06/06/20 19:15 06/06/20 19:09 DC Insulin Human Regular (HumuLIN R INSULIN) 10 units STAT STAT IV 06/06/20 19:59 06/06/20 20:02 DC 06/06/20 20:31 Lisinopril (Prinivil) 5 mg DAILY PO 06/07/20 09:00 06/07/20 08:41 Magnesium Hydroxide (Milk Of Magnesia) 30 ml DAILY PRN PO CONSTIPATION 06/06/20 20:00 Metoprolol Tartrate (Lopressor) 12.5 mg BID PO 06/06/20 21:00 06/07/20 08:41 Ondansetron HCl (Zofran Odt) 4 mg Q6HP PRN PO NAUSEA OR VOMITING 06/08/20 18:00 06/08/20 18:07 Piperacillin Sod/ Tazobactam Sod 3.375 gm/Dextrose 50 ml @ 50 mls/hr Q6H IV 06/08/20 18:00 06/09/20 18:19 Ramelteon (Rozerem) 8 mg QHS PO 06/06/20 21:00 06/08/20 21:10 Sodium Polystyrene Sulfonate (Kayexalate) 30 gm Q4H PO 06/06/20 20:00 06/07/20 00:01 DC 06/07/20 00:30 Spironolactone (Aldactone) 25 mg DAILY PO 06/07/20 09:00 06/08/20 08:27 DC 06/07/20 08:42 Allergies Coded Allergies: No Known Allergies (Unverified , 01/12/19) Arlene Jones MD Jun 09, 2020 20:46
[2020-06-09] MEDS: RAMELTEON 8 MG TAB (ROZEREM) PO SCH (21:22)
[2020-06-09] MEDS: ACETAMINOPHEN TAB 650MG DOSE (2X325MG) PO PRN (21:23)
[2020-06-09 22:00] VITALS: BP 120/73
[2020-06-10] MEDS: PIPERACILLIN/TAZOBACTAM SOD 3.375 GM in D5W MINI-BAG PLUS 50 ML IV SCH ×4 (00:33→18:40)
[2020-06-10 01:00] VITALS: BP 119/78
[2020-06-10] MEDS: ACETAMINOPHEN TAB 650MG DOSE (2X325MG) PO PRN ×5 (01:45→23:10)
[2020-06-10] MEDS ORDERED: IPRATROPIUM 0.5MG/ALBUTEROL 2.5MG INH SOL UD 3ML (DUONEB) NEB PRN (02:15)
[2020-06-10 06:00] VITALS: BP 116/78
[2020-06-10 06:59] LABS: HEMATOCRIT 34.4 % (42.0-52.0); HEMOGLOBIN 10.5 g/dl (13.5-17.5); MEAN CORPUSCULAR HEMOGLOBIN 26.6 pg (27.0-33.0); MEAN CORPUSCULAR HGB CONC 30.5 g/dl (32.0-36.5); MEAN CORPUSCULAR VOLUME 87.1 fl (80.0-96.0); PLATELET COUNT, AUTOMATED 320 10^3/uL (150-450); RED BLOOD COUNT 3.95 10^6/uL (4.30-6.10); WHITE BLOOD COUNT 8.9 10^3/uL (4.0-10.0)
[2020-06-10 07:20] LABS: ALT/SGPT 41 U/L (12-78); BILIRUBIN,TOTAL 1.1 MG/DL (0.2-1.0); BLOOD UREA NITROGEN 24 MG/DL (7-18); CALCIUM LEVEL 8.7 MG/DL (8.8-10.2); CARBON DIOXIDE LEVEL 25 MEQ/L (21-32); CHLORIDE LEVEL 109 MEQ/L (98-107); CREATININE FOR GFR 0.95 MG/DL (0.70-1.30); GLOMERULAR FILTRATION RATE > 60.0 (>49); GLUCOSE, FASTING 97 MG/DL (70-100); POTASSIUM SERUM 3.7 MEQ/L (3.5-5.1); SODIUM LEVEL 141 MEQ/L (136-145)
[2020-06-10] MEDS: METOPROLOL TART 12.5 MG PER 1/2 TAB PO SCH ×2 (09:00→21:43)
[2020-06-10] MEDS: lisinopriL 5 MG TAB PO SCH (09:00)
[2020-06-10] MEDS: ONDANSETRON 4 MG ORAL DISINTEGRATING TAB PO PRN ×2 (09:41→21:42)
[2020-06-10] MEDS: HEPARIN SOD (PORCINE) 5000UNITS/ML 1ML VIAL/SYRINGE SC SCH ×2 (09:42→21:42)
[2020-06-10 13:46] VITALS: BP 114/74
--- NOTE | 2020-06-10 16:19 | IPNPDOC ---
Date Seen The patient was seen on 06/10/20. Progress Note SUBJECTIVE: Continued mild RUQ discomfort, eating well. Discussed with Dr. Davenport, general surgery who recommended HIDA scan to r/o cystic duct obstruction. On fluid restriction. WBC now wnl on zosyn. Denies chest pain, fevers, chills, shortness of breath. OBJECTIVE: PHYSICAL EXAMINATION: VS: Please see below. Constitutional: Awake and alert, in no apparent distress has significant chorea, difficult to understand at times 2/2 to chorea. Follows commands well. ENT: Sclera are clear. Mucosa is moist. Respiratory: CTAB, no w/r/r. No respiratory distress. No use of accessory muscles. Cardiovascular: RRR S1 and S2 are normal, no murmur Gastrointestinal: Abdomen is soft, non distended, tenderness to touch RUQ, BS present. No fluid shift. Musculoskeletal: 1+ pitting edema extremities bilaterally up to below his knees. Neurologic: Chorea. No other focal deficits. Skin: Warm, dry, intact LABORATORY DATA: See below. IMAGING: US Abdomen: Thickening of the gallbladder wall. Minimal ascites. Right pleural effusion. Normal CBD. CT abd/pelvis from 05/2020: The gallbladder is incompletely distended. This is most likely related to incomplete fasting. Clinical correlation to exclude gallbladder pathology suggested. ASSESSMENT: 64 year old male with [place]. Joseph's disease, CLL, CHFpEF and recurrent pleural effusion presented to the hospital with increasing lower extremity edema and chest discomfort. Found to have 2+ pitting edema. Patient admitted to medical for further management. PLAN: #Abdominal discomfort, r/o acalculous cholecystitis -WBC wnl. Afebrile, + RUQ pain -T bili and alk phos remain elevated, AST/ALT wnl -US abdomen above -Discussed with surgery, Dr. Davenport. Ordering HIDA scan 06/11/20 in AM, f/u results. -C/w IV zosyn (Day 3) -CMP daily #Unsteady gait likely multifactorial to chronic deconditioning, St. Joseph's disease -PT: rehab -PFS aware -C/w PT/OT while here, fall risk # Chronic CHFpEF, not thinking this is exacerbation -Denies shortness of breath, chest pain -Recent 2D echo (04/13) EF 40-45%. -BNP elevated at 700 but prior on file was >800- not worsening. -Stopped diuretics for now with hypotension, I and O, daily weights, elevate head of bed, Fluid restriction 1.5L. # Pleural effusions likely 2/2 CHF. -Chest CT shows moderate R and small L effusions. -Holding diuresis for now, resume poss 06/10/20 # CLL -Outpatient follow up oncology #HTN -Stable # DVT Px - heparin Resolved issues: Chest discomfort/pain likely atypical chest pain Hypotension likely 2/2 to overdiuresis, medications Acute hypokalemia likely 2/2 to diuresis DISPOSITION: F/u HIDA scan. PT: benefit from rehab before returning to home situation. May need skilled vs. 23/02 care if does poorly with rehab. PFS a waiting clearance from medicine standpoint. VS, I&O, 24H, [facility] Vital Signs/I&O Vital Signs Date Time Temp Pulse Resp B/P (MAP) Pulse Ox O2 Delivery O2 Flow Rate FiO2 06/10/20 13:46 98.0 68 19 114/74 (87) 85 06/10/20 06:00 Room Air I&O- Last 24 Hours up to 6 AM 06/10/20 06:00 Intake Total 1630 ml Output Total 250 ml Balance 1380 ml Laboratory Data 24H LABS Laboratory Tests 2 06/10/20 05:51: Nucleated Red Blood Cells % (auto) 0.0, Anion Gap 7L, Glomerular Filtration Rate > 60.0, Calcium Level 8.7L, Total Bilirubin 1.1H, Aspartate Amino Transf (AST/SGOT) 26, Alanine Aminotransferase (ALT/SGPT) 41, Alkaline Phosphatase 304H , Total Protein 6.0L, Albumin 3.0L, Albumin/Globulin Ratio 1.0 CBC/BMP Laboratory Tests 06/10/20 05:51 Current Medications Current Medications Medications (Trade) Dose Ordered Sig/Gina Route PRN Reason Start Time Stop Time Status Last Admin Dose Admin Acetaminophen (Tylenol Tab) 650 mg Q4H PRN PO PAIN OR FEVER 06/06/20 20:00 06/10/20 12:33 Albuterol/ Ipratropium (Duoneb (Ipr 0.5mg/Alb 2.5mg)) 3 ml Q4HP PRN NEB SOB/WHEEZING 06/10/20 02:15 06/10/20 02:27 Dextrose (Dextrose 50%) 50 ml STAT STAT IV 06/06/20 19:59 06/06/20 20:02 DC 06/06/20 20:28 Furosemide (LASIX injection) 40 mg BID@09,17 IV 06/07/20 09:00 06/08/20 08:27 DC 06/07/20 17:44 Heparin Sodium (Porcine) (Heparin) 5,000 units Q12H SC 06/07/20 09:00 06/10/20 09:42 Home Med (Med Rec Complete!) ASDIRECTED XX 06/06/20 19:15 06/06/20 19:09 DC Insulin Human Regular (HumuLIN R INSULIN) 10 units STAT STAT IV 06/06/20 19:59 06/06/20 20:02 DC 06/06/20 20:31 Lisinopril (Prinivil) 5 mg DAILY PO 06/07/20 09:00 06/07/20 08:41 Magnesium Hydroxide (Milk Of Magnesia) 30 ml DAILY PRN PO CONSTIPATION 06/06/20 20:00 Metoprolol Tartrate (Lopressor) 12.5 mg BID PO 06/06/20 21:00 06/09/20 21:21 Ondansetron HCl (Zofran Odt) 4 mg Q6HP PRN PO NAUSEA OR VOMITING 06/08/20 18:00 06/10/20 09:41 Piperacillin Sod/ Tazobactam Sod 3.375 gm/Dextrose 50 ml @ 50 mls/hr Q6H IV 06/08/20 18:00 06/10/20 12:33 Ramelteon (Rozerem) 8 mg QHS PO 06/06/20 21:00 06/09/20 21:22 Sodium Polystyrene Sulfonate (Kayexalate) 30 gm Q4H PO 06/06/20 20:00 06/07/20 00:01 DC 06/07/20 00:30 Spironolactone (Aldactone) 25 mg DAILY PO 06/07/20 09:00 06/08/20 08:27 DC 06/07/20 08:42 Allergies Coded Allergies: No Known Allergies (Unverified , 01/12/19) Arlene Jones MD Jun 10, 2020 16:19
[2020-06-10] MEDS: RAMELTEON 8 MG TAB (ROZEREM) PO SCH (21:41)
[2020-06-10 22:00] VITALS: BP 113/74
[2020-06-11] MEDS: PIPERACILLIN/TAZOBACTAM SOD 3.375 GM in D5W MINI-BAG PLUS 50 ML IV SCH ×4 (01:15→17:45)
[2020-06-11 06:00] VITALS: BP 121/88
[2020-06-11 06:18] LABS: HEMATOCRIT 36.8 % (42.0-52.0); HEMOGLOBIN 11.6 g/dl (13.5-17.5); MEAN CORPUSCULAR HEMOGLOBIN 27.4 pg (27.0-33.0); MEAN CORPUSCULAR HGB CONC 31.5 g/dl (32.0-36.5); PLATELET COUNT, AUTOMATED 339 10^3/uL (150-450); RED BLOOD COUNT 4.23 10^6/uL (4.30-6.10)
[2020-06-11 06:40] LABS: ALBUMIN 2.8 GM/DL (3.2-5.2); ALT/SGPT 41 U/L (12-78); BLOOD UREA NITROGEN 27 MG/DL (7-18); CALCIUM LEVEL 8.5 MG/DL (8.8-10.2); CARBON DIOXIDE LEVEL 26 MEQ/L (21-32); CHLORIDE LEVEL 109 MEQ/L (98-107); CREATININE FOR GFR 1.05 MG/DL (0.70-1.30); GLOMERULAR FILTRATION RATE > 60.0 (>49); GLUCOSE, FASTING 94 MG/DL (70-100); POTASSIUM SERUM 3.9 MEQ/L (3.5-5.1); SODIUM LEVEL 140 MEQ/L (136-145); TOTAL PROTEIN 6.1 GM/DL (6.4-8.2)
[2020-06-11] MEDS: lisinopriL 5 MG TAB PO SCH (10:31)
[2020-06-11] MEDS: HEPARIN SOD (PORCINE) 5000UNITS/ML 1ML VIAL/SYRINGE SC SCH ×2 (10:32→20:47)
[2020-06-11] MEDS: METOPROLOL TART 12.5 MG PER 1/2 TAB PO SCH ×2 (10:32→20:47)
[2020-06-11] MEDS: ACETAMINOPHEN TAB 650MG DOSE (2X325MG) PO PRN ×2 (10:33→20:46)
[2020-06-11 14:00] VITALS: BP 110/72
--- NOTE | 2020-06-11 14:51 | REP ---
INDICATION: r/o cystic duct obstruction. COMPARISON: None. TECHNIQUE/RADIOTRACER AND DOSE: 6.4 mCi of Technetium-99m mebrofenin was injected and sequential anterior images are acquired. 65 minutes after the mebrofenin injection, the patient consumed 8 ounces Ensure and an additional 60 minutes of imaging was acquired. Regions of interest are plotted around the gallbladder. FINDINGS: The initial hepatocellular parenchymal uptake phase is normal and homogeneous. Intra- and extra-hepatic bile ducts are labeled by the 10-minute image. The gallbladder is not labile during the initial 60 minutes of imaging. It does label between 60 minutes and the 3 hour delayed study.. There is normal washout from the liver parenchyma into the small intestine on subsequent images. IMPRESSION: The gallbladder is not labile during the initial 60 minutes period it does fill at 3 hours. Findings are consistent with chronic cholecystitis. Otherwise negative hepatobiliary scan. <Electronically signed by Jose Desir > 06/11/20 [id number]
[2020-06-11] MEDS: RAMELTEON 8 MG TAB (ROZEREM) PO SCH (20:46)
--- NOTE | 2020-06-11 21:03 | IPNPDOC ---
Date Seen The patient was seen on 06/11/20. Progress Note SUBJECTIVE: HIDA: chronic cholecystitis. On IV abx. Still having RUQ abd discomfort without n/v.WBC wnl. Denies chest pain, fevers, chills, shortness of breath. OBJECTIVE: PHYSICAL EXAMINATION: VS: Please see below. Constitutional: Awake and alert, in no apparent distress has significant chorea, difficult to understand at times 2/2 to chorea. Follows commands well. ENT: Sclera are clear. Mucosa is moist. Respiratory: CTAB, no w/r/r. No respiratory distress. No use of accessory musc les. Cardiovascular: RRR S1 and S2 are normal, no murmur Gastrointestinal: Abdomen is soft, non distended, tenderness to touch RUQ, BS present. No fluid shift. Musculoskeletal: 1+ pitting edema extremities bilaterally up to below his knees. Neurologic: Chorea. No other focal deficits. Skin: Warm, dry, intact LABORATORY DATA: See below. IMAGING: HIDA scan: The gallbladder is not labile during the initial 60 minutes period it does fill at 3 hours. Findings are consistent with chronic cholecystitis. Otherwise negative hepatobiliary scan. US Abdomen: Thickening of the gallbladder wall. Minimal ascites. Right pleural effusion. Normal CBD. CT abd/pelvis from 05/2020: The gallbladder is incompletely distended. This is most likely related to incomplete fasting. Clinical correlation to exclude gallbladder pathology suggested. 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 PLAN: #Abdominal discomfort likely 2/2 to chronic cholecystitis -WBC wnl. Afebrile, + RUQ pain -T bili, AST/ALT wnl. alk phos remains elevated -HIDA: likely chronic cholecystitis -Have been in touch with surgery about case but have not updated on chronic cholecystitis findings on HIDA. No official consult in. Please call in AM to update to see what treatment options are. -C/w IV zosyn (Day 4) -CMP daily #Unsteady gait likely multifactorial to chronic deconditioning, Reid's disease -PT: rehab -PFS aware -C/w PT/OT while here, fall risk # Chronic CHFpEF, not thinking this is exacerbation -Denies shortness of breath, chest pain -Recent 2D echo (04/13) EF 40-45%. -BNP elevated at 700 but prior on file was >800- not worsening. -Stopped diuretics when hypotensive earlier in admission. Currently normotensive so will add only lasix at half dose (40 mg BID). Can re-incorporate spironolactone and up to full dose lasix slowly. -Monitor I and O, daily weights, elevate head of bed, Fluid restriction 1.5L. # Pleural effusions likely 2/2 CHF. -Chest CT shows moderate R and small L effusions. -See above for plan with diuretics # CLL -Outpatient follow up oncology #HTN -Stable # DVT Px - heparin Resolved issues: Chest discomfort/pain likely atypical chest pain Hypotension likely 2/2 to overdiuresis, medications Acute hypokalemia likely 2/2 to diuresis DISPOSITION: PT: benefit from rehab before returning to home situation. May need skilled vs. 24/ care if does poorly with rehab. PFS awaiting clearance from medicine standpoint. VS, I&O, 24H, [facility] Vital Signs/I&O Vital Signs Date Time Temp Pulse Resp B/P (MAP) Pulse Ox O2 Delivery O2 Flow Rate FiO2 06/11/20 20:47 73 112/73 06/11/20 14:00 98.1 18 94 Room Air I&O- Last 24 Hours up to 6 AM 06/11/20 06:00 Intake Total 1220 ml Output Total 270 ml Balance 950 ml Laboratory Data 24H LABS Laboratory Tests 2 06/11/20 05:47: Nucleated Red Blood Cells % (auto) 0.0, Anion Gap 5L, Glomerular Filtration Rate > 60.0, Calcium Level 8.5L, Total Bilirubin 1.0, Aspartate Amino Transf (AST/SGOT) 23, Alanine Aminotransferase (ALT/SGPT) 41, Alkaline Phosphatase 290H, Total Protein 6.1L, Albumin 2.8L, Albumin/Globulin Ratio 0.8 CBC/BMP Laboratory Tests 06/11/20 05:47 Current Medications Current Medications Medications (Trade) Dose Ordered Sig/Gina Route PRN Reason Start Time Stop Time Status Last Admin Dose Admin Acetaminophen (Tylenol Tab) 650 mg Q4H PRN PO PAIN OR FEVER 06/06/20 20:00 06/11/20 20:46 Albuterol/ Ipratropium (Duoneb (Ipr 0.5mg/Alb 2.5mg)) 3 ml Q4HP PRN NEB SOB/WHEEZING 06/10/20 02:15 06/10/20 02:27 Dextrose (Dextrose 50%) 50 ml STAT STAT IV 06/06/20 19:59 06/06/20 20:02 DC 06/06/20 20:28 Furosemide (LASIX injection) 40 mg BID@09,17 IV 06/07/20 09:00 06/08/20 08:27 DC 06/07/20 17:44 Heparin Sodium (Porcine) (Heparin) 5,000 units Q12H SC 06/07/20 09:00 06/11/20 20:47 Home Med (Med Rec Complete!) ASDIRECTED XX 06/06/20 19:15 06/06/20 19:09 DC Insulin Human Regular (HumuLIN R INSULIN) 10 units STAT STAT IV 06/06/20 19:59 06/06/20 20:02 DC 06/06/20 20:31 Lisinopril (Prinivil) 5 mg DAILY PO 06/07/20 09:00 06/11/20 10:31 Magnesium Hydroxide (Milk Of Magnesia) 30 ml DAILY PRN PO CONSTIPATION 06/06/20 20:00 Metoprolol Tartrate (Lopressor) 12.5 mg BID PO 06/06/20 21:00 06/11/20 20:47 Ondansetron HCl (Zofran Odt) 4 mg Q6HP PRN PO NAUSEA OR VOMITING 06/08/20 18:00 06/10/20 21:42 Piperacillin Sod/ Tazobactam Sod 3.375 gm/Dextrose 50 ml @ 50 mls/hr Q6H IV 06/08/20 18:00 06/11/20 17:45 Ramelteon (Rozerem) 8 mg QHS PO 06/06/20 21:00 06/11/20 20:46 Sodium Polystyrene Sulfonate (Kayexalate) 30 gm Q4H PO 06/06/20 20:00 06/07/20 00:01 DC 06/07/20 00:30 Spironolactone (Aldactone) 25 mg DAILY PO 06/07/20 09:00 06/08/20 08:27 DC 06/07/20 08:42 Allergies Coded Allergies: No Known Allergies (Unverified , 01/12/19) Arlene Jones MD Jun 11, 2020 21:03
[2020-06-11 22:00] VITALS: BP 112/73
[2020-06-12] MEDS: PIPERACILLIN/TAZOBACTAM SOD 3.375 GM in D5W MINI-BAG PLUS 50 ML IV SCH ×5 (00:16→23:37)
[2020-06-12 06:00] VITALS: BP 109/77
[2020-06-12 06:08] LABS: HEMATOCRIT 36.2 % (42.0-52.0); MEAN CORPUSCULAR HEMOGLOBIN 26.5 pg (27.0-33.0); MEAN CORPUSCULAR HGB CONC 30.4 g/dl (32.0-36.5); MEAN CORPUSCULAR VOLUME 87.2 fl (80.0-96.0); PLATELET COUNT, AUTOMATED 339 10^3/uL (150-450); RED BLOOD COUNT 4.15 10^6/uL (4.30-6.10); WHITE BLOOD COUNT 9.7 10^3/uL (4.0-10.0)
[2020-06-12 06:38] LABS: ALBUMIN 2.8 GM/DL (3.2-5.2); ALT/SGPT 38 U/L (12-78); BILIRUBIN,TOTAL 0.9 MG/DL (0.2-1.0); BLOOD UREA NITROGEN 27 MG/DL (7-18); CALCIUM LEVEL 8.9 MG/DL (8.8-10.2); CARBON DIOXIDE LEVEL 27 MEQ/L (21-32); CHLORIDE LEVEL 109 MEQ/L (98-107); CREATININE FOR GFR 1.04 MG/DL (0.70-1.30); GLOMERULAR FILTRATION RATE > 60.0 (>49); GLUCOSE, FASTING 88 MG/DL (70-100); POTASSIUM SERUM 3.9 MEQ/L (3.5-5.1); SODIUM LEVEL 140 MEQ/L (136-145); TOTAL PROTEIN 6.4 GM/DL (6.4-8.2)
[2020-06-12] MEDS: HEPARIN SOD (PORCINE) 5000UNITS/ML 1ML VIAL/SYRINGE SC SCH ×2 (08:10→20:45)
[2020-06-12] MEDS: FUROSEMIDE 40 MG TAB PO SCH ×2 (08:11→17:12)
[2020-06-12] MEDS: METOPROLOL TART 12.5 MG PER 1/2 TAB PO SCH ×2 (08:11→20:44)
[2020-06-12] MEDS: lisinopriL 5 MG TAB PO SCH (08:11)
[2020-06-12] MEDS: ACETAMINOPHEN TAB 650MG DOSE (2X325MG) PO PRN (11:00)
[2020-06-12 14:00] VITALS: BP 122/62
--- NOTE | 2020-06-12 18:45 | IPNPDOC ---
Date Seen The patient was seen on 06/12/20. Progress Note SUBJECTIVE: Patient was seen and examined at bedside this morning. He is comfortable sitting upright in bed. She continues to endorse epigastric abdominal pain after breakfast. Denies shortness of breath, chest pain, nausea, vomiting, diarrhea. OBJECTIVE PHYSICAL EXAMINATION: VITAL SIGNS: please see below General: NAD, comfortable HEENT: PERRLA, EOMI, sclerae clear Neck: supple, normal ROM, no JVD Respiratory: lungs CTAB, no wheeze, no rales, no crackles CVS: RRR, normal S1, S2, no murmurs Abdo: soft, no masses, no hepatosplenomegaly, BS+, no rebound tenderness Extremities: Bilateral 2+ pitting edema. MSK: no joint deformities, normal ROM Neuro: no focal neuro deficits, moving all 4 extremities, CN2-12 intact. Strength 5/5 in all 4 extremities. No nystagmus. Psych: calm, cooperative, AAO x 3 LABORATORY DATA, IMAGING STUDIES, MICROBIOLOGY: Please see below. DVT prophylaxis ordered?: Yes HIDA scan: The gallbladder is not labile during the initial 60 minutes period it does fill at 3 hours. Findings are consistent with chronic cholecystitis. Otherwise negative hepatobiliary scan. US Abdomen: Thickening of the gallbladder wall. Minimal ascites. Right pleural effusion. Normal CBD. CT abd/pelvis from 05/2020: The gallbladder is incompletely distended. This is most likely related to incomplete fasting. Clinical correlation to exclude gallbladder pathology suggested. 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 PLAN: #Abdominal discomfort likely 2/2 to chronic cholecystitis -WBC wnl. Afebrile, + RUQ pain -T bili, AST/ALT wnl. alk phos remains elevated -HIDA: likely chronic cholecystitis - Discussed with Dr. Davenport regarding findings on HIDA scan, recommend stopping antibiotics. No surgical management at this time. Would like to see patient in clinic as outpatient within 1-2 weeks. -DC IV Zosyn -CMP daily #Unsteady gait likely multifactorial to chronic deconditioning, [place]'s disease -PT: rehab -PFS aware -C/w PT/OT while here, fall risk # Chronic CHFpEF, not thinking this is exacerbation -Denies shortness of breath, chest pain -Recent 2D echo (04/13) EF 40-45%. -BNP elevated at 700 but prior on file was >800- not worsening. -Stopped diuretics when hypotensive earlier in admission. Currently normotensive so will add only lasix at half dose (40 mg BID). Can re-incorporate spironolactone and up to full dose lasix slowly. - BP stable in the mid 120s systolic. Resume spironolactone at 12.5 mg by mouth daily in the morning -Monitor I and O, daily weights, elevate head of bed, Fluid restriction 1.5L. # Pleural effusions likely 2/2 CHF. -Chest CT shows moderate R and small L effusions. -See above for plan with diuretics # CLL -Outpatient follow up oncology #HTN -Stable # DVT Px - heparin Resolved issues: Chest discomfort/pain likely atypical chest pain Hypotension likely 2/2 to overdiuresis, medications Acute hypokalemia likely 2/2 to diuresis DISPOSITION: PT: benefit from rehab before returning to home situation. May need skilled vs. 24/ care if does poorly with rehab. PFS awaiting clearance from medicine standpoint. VS, I&O, 24H, Fishbone Vital Signs/I&O Vital Signs Date Time Temp Pulse Resp B/P (MAP) Pulse Ox O2 Delivery O2 Flow Rate FiO2 06/12/20 14:00 97.2 73 18 122/62 (82) 96 Room Air I&O- Last 24 Hours up to 6 AM 06/12/20 06:00 Intake Total 420 ml Output Total 650 ml Balance -230 ml Laboratory Data 24H LABS Laboratory Tests 2 06/12/20 05:38: Nucleated Red Blood Cells % (auto) 0.0, Anion Gap 4L, Glomerular Filtration Rate > 60.0, Calcium Level 8.9, Total Bilirubin 0.9, Aspartate Amino Transf (AST/SGOT) 15, Alanine Aminotransferase (ALT/SGPT) 38, Alkaline Phosphatase 313H, Total Protein 6.4, Albumin 2.8L, Albumin/Globulin Ratio 0.8 CBC/BMP Laboratory Tests 06/12/20 05:38 ANY TREVINO MD Jun 12, 2020 18:45
[2020-06-12] MEDS: RAMELTEON 8 MG TAB (ROZEREM) PO SCH (20:44)
[2020-06-12 22:00] VITALS: BP 124/72
[2020-06-13] MEDS: ACETAMINOPHEN TAB 650MG DOSE (2X325MG) PO PRN ×3 (04:37→19:47)
[2020-06-13] MEDS: PIPERACILLIN/TAZOBACTAM SOD 3.375 GM in D5W MINI-BAG PLUS 50 ML IV SCH (05:40)
[2020-06-13 06:00] VITALS: BP 132/89
[2020-06-13 06:15] LABS: HEMATOCRIT 35.4 % (42.0-52.0); MEAN CORPUSCULAR HEMOGLOBIN 26.7 pg (27.0-33.0); MEAN CORPUSCULAR HGB CONC 31.1 g/dl (32.0-36.5); MEAN CORPUSCULAR VOLUME 85.9 fl (80.0-96.0); PLATELET COUNT, AUTOMATED 361 10^3/uL (150-450); RED BLOOD COUNT 4.12 10^6/uL (4.30-6.10); WHITE BLOOD COUNT 11.2 10^3/uL (4.0-10.0)
[2020-06-13 06:36] LABS: ALBUMIN 2.8 GM/DL (3.2-5.2); ALT/SGPT 37 U/L (12-78); BLOOD UREA NITROGEN 26 MG/DL (7-18); CALCIUM LEVEL 8.6 MG/DL (8.8-10.2); CARBON DIOXIDE LEVEL 28 MEQ/L (21-32); CHLORIDE LEVEL 109 MEQ/L (98-107); CREATININE FOR GFR 1.11 MG/DL (0.70-1.30); GLOMERULAR FILTRATION RATE > 60.0 (>49); GLUCOSE, FASTING 95 MG/DL (70-100); POTASSIUM SERUM 3.6 MEQ/L (3.5-5.1); SODIUM LEVEL 142 MEQ/L (136-145); TOTAL PROTEIN 6.2 GM/DL (6.4-8.2)
[2020-06-13] MEDS: FUROSEMIDE 40 MG TAB PO SCH ×2 (08:19→17:26)
[2020-06-13] MEDS: METOPROLOL TART 12.5 MG PER 1/2 TAB PO SCH ×2 (08:19→19:56)
[2020-06-13] MEDS: lisinopriL 5 MG TAB PO SCH (08:19)
[2020-06-13] MEDS: HEPARIN SOD (PORCINE) 5000UNITS/ML 1ML VIAL/SYRINGE SC SCH ×2 (08:20→19:57)
[2020-06-13] MEDS ORDERED: SPIRONOLACTONE 12.5MG PER 1/2 TABLET PO SCH (09:00)
[2020-06-13 14:00] VITALS: BP 123/86
[2020-06-13] MEDS: RAMELTEON 8 MG TAB (ROZEREM) PO SCH (19:57)
--- NOTE | 2020-06-13 20:41 | IPNPDOC ---
Date Seen The patient was seen on 06/13/20. Progress Note SUBJECTIVE: Patient was seen and examined at bedside this morning. He is comfortable sitting upright in bed. Continues to endorse generalized mild abdo pain. Denies shortness of breath, chest pain, nausea, vomiting, diarrhea. OBJECTIVE PHYSICAL EXAMINATION: VITAL SIGNS: please see below General: NAD, comfortable HEENT: PERRLA, EOMI, sclerae clear Neck: supple, normal ROM, no JVD Respiratory: lungs CTAB, no wheeze, no rales, no crackles CVS: RRR, normal S1, S2, no murmurs Abdo: soft, no masses, no hepatosplenomegaly, BS+, no rebound tenderness Extremities: Bilateral 2+ pitting edema. MSK: no joint deformities, normal ROM Neuro: no focal neuro deficits, moving all 4 extremities, CN2-12 intact. Strength 5/5 in all 4 extremities. No nystagmus. Psych: calm, cooperative, AAO x 3 LABORATORY DATA, IMAGING STUDIES, MICROBIOLOGY: Please see below. DVT prophylaxis ordered?: Yes HIDA scan: The gallbladder is not labile during the initial 60 minutes period it does fill at 3 hours. Findings are consistent with chronic cholecystitis. Otherwise negative hepatobiliary scan. US Abdomen: Thickening of the gallbladder wall. Minimal ascites. Right pleural effusion. Normal CBD. CT abd/pelvis from 05/2020: The gallbladder is incompletely distended. This is most likely related to incomplete fasting. Clinical correlation to exclude gallbladder pathology suggested. 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 PLAN: #Abdominal discomfort likely 2/2 to chronic cholecystitis -WBC wnl. Afebrile, + RUQ pain -T bili, AST/ALT wnl. alk phos remains elevated -HIDA: likely chronic cholecystitis - Discussed with Dr. Davenport regarding findings on HIDA scan, recommend stopping antibiotics. No surgical management at this time. Would like to see patient in clinic as outpatient within 1-2 weeks. -DC IV Zosyn -CMP daily #Unsteady gait likely multifactorial to chronic deconditioning, Brantley's disease -PT: rehab -PFS aware -C/w PT/OT while here, fall risk # Chronic CHFpEF, not thinking this is exacerbation -Denies shortness of breath, chest pain -Recent 2D echo (04/13) EF 40-45%. - fluid balance ~-400 - BP stable, increase spironolactone to 25 mg daily. Lasix 40 mg PO BID appropriate at this time based on improving edema. -Monitor I and O, daily weights, elevate head of bed, Fluid restriction 1.5L. # Pleural effusions likely 2/2 CHF. -Chest CT shows moderate R and small L effusions. - reviewed prior pleural fluid analysis from thoracentesis on 04/20/20 - t ransudative effusion - discussed with Dr. Amanda, size of pleural effusions diminishing with diures is compared to effusions seen on prior imaging in 05/2020. -continue with diuresis. # CLL -Outpatient follow up oncology #HTN -Stable # DVT Px - heparin Resolved issues: Chest discomfort/pain likely atypical chest pain Hypotension likely 2/2 to overdiuresis, medications Acute hypokalemia likely 2/2 to diuresis DISPOSITION: PT: benefit from rehab before returning to home situation. Will l ikely require placement to SNF. Medically cleared. ALC status on 06/13/20. VS, I&O, 24H, Fishbone Vital Signs/I&O Vital Signs Date Time Temp Pulse Resp B/P (MAP) Pulse Ox O2 Delivery O2 Flow Rate FiO2 06/13/20 19:56 74 134/90 06/13/20 14:00 97.9 18 93 Room Air I&O- Last 24 Hours up to 6 AM 06/13/20 06:00 Intake Total 1160 ml Output Total 1000 ml Balance 160 ml Laboratory Data 24H LABS Laboratory Tests 2 06/13/20 05:35: Nucleated Red Blood Cells % (auto) 0.0, Anion Gap 5L, Glomerular Filtration Rate > 60.0, Calcium Level 8.6L, Total Bilirubin 1.0, Aspartate Amino Transf (AST/SGOT) 18, Alanine Aminotransferase (ALT/SGPT) 37, Alkaline Phosphatase 295H, Total Protein 6.2L, Albumin 2.8L, Albumin/Globulin Ratio 0.8 CBC/BMP Laboratory Tests 06/13/20 05:35 ANY TREVINO MD Jun 13, 2020 20:41
[2020-06-14] MEDS: ACETAMINOPHEN TAB 650MG DOSE (2X325MG) PO PRN ×4 (00:25→15:06)
[2020-06-14 06:00] VITALS: BP 130/90
[2020-06-14] MEDS: HEPARIN SOD (PORCINE) 5000UNITS/ML 1ML VIAL/SYRINGE SC SCH (08:10)
[2020-06-14 08:11] VITALS: BP 138/89
[2020-06-14] MEDS: METOPROLOL TART 12.5 MG PER 1/2 TAB PO SCH (08:11)
[2020-06-14] MEDS: lisinopriL 5 MG TAB PO SCH (08:11)
[2020-06-14] MEDS: FUROSEMIDE 40 MG TAB PO SCH (08:11)
[2020-06-14] MEDS ORDERED: SPIRONOLACTONE 25 MG TAB PO SCH (09:00)
[2020-06-14] MEDS ORDERED: POTA10TA17 PO ×2 (13:59→14:40)
[2020-06-14] MEDS ORDERED: ACET1TAB55 PO (13:59)
[2020-06-14] MEDS ORDERED: LISI-542 PO ×2 (13:59→23:40)
[2020-06-14] MEDS ORDERED: SPIR-10 PO ×2 (13:59→23:40)
[2020-06-14] MEDS ORDERED: FURO40TA2 PO ×2 (13:59→23:40)
[2020-06-14] MEDS ORDERED: ROZE8TAB16 PO ×2 (13:59→23:40)
[2020-06-14] MEDS ORDERED: METO25TA4 PO ×2 (13:59→23:40)
--- NOTE | 2020-06-14 14:04 | DS.PDOC ---
Discharge Summary General Date of Admission Jun 06, 2020 at 19:50 Date of Discharge 06/14/20 Specialist/Consultants Involve: Issac Winn,Cruz Baldwin Discharge Summary PROCEDURES PERFORMED DURING STAY: [None]. ADMITTING DIAGNOSES: 1. Chest pain 2. chronic diastolic CHF 3. Hyperkalemia 4. Pleural effusions 5. HTN 6. Leukocytosis 7. CLL DISCHARGE DIAGNOSES: 1. Chest pain - ACS ruled out 2. Chronic cholecystitis 3. chronic diastolic CHF 4. Hyperkalemia 5. Pleural effusions 6. HTN 7. Leukocytosis 8. CLL COMPLICATIONS/CHIEF COMPLAINT: Chf Exacerbation,Huntingtons Disease. HISTORY OF PRESENT ILLNESS: History obtained from chart review and ER physician as well as based on my physical exam patient has significant [place] chorea and unable to communicate beyond very simple gestures and very briefly yes/no answers that can be difficult to interpret. Patient is a 64 year old male with [place]'s disease, CLL, CHFpEF and recurrent pleural effusion presented to the hospital with increasing lower extremity edema and Chest discomfort. Found to have 2+ pitting edema. Patient denies any CP to me at this time. Patient admitted to medical unit for further management. Questionable compliance with Lasix at home. PAST MEDICAL HISTORY: HOSPITAL COURSE: #Abdominal discomfort likely 2/2 to chronic cholecystitis -WBC wnl. Afebrile, + RUQ pain -T bili, AST/ALT wnl, ALP remains chronically elevated. -HIDA: likely chronic cholecystitis - Discussed with Dr. Davenport regarding findings on HIDA scan, recommend stopping antibiotics. No surgical management at this time. Would like to see patient in clinic as outpatient within 1-2 weeks. -DC IV Zosyn #Unsteady gait likely multifactorial to chronic deconditioning, Park[place]'s disease - PT recommended rehab, however patient declined. - Family willing to provide / care - [facility] health service will be re-instated. # Chronic CHFpEF - Denies shortness of breath, chest pain - Recent 2D echo (04/13) EF 40-45%. - BP stable, increase spironolactone to 25 mg daily. - patient was hypotensive on arrival, was taking lasix 80 mg BID. Will reduce dose on DC to 60 mg qam and 40 mg qpm. - continue fluid restriction 1800 cc/day at home. # Pleural effusions likely 2/2 CHF. -Chest CT shows moderate R and small L effusions. - reviewed prior pleural fluid analysis from thoracentesis on 04/20/20 - transudative effusion - discussed with Dr. Amanda, size of pleural effusions diminishing with diuresis compared to effusions seen on prior imaging in 05/2020. -continue with diuresis. # CLL -Outpatient follow up oncology #HTN - BP stable Resolved issues: Chest discomfort/pain likely atypical chest pain Hypotension likely 2/2 to overdiuresis, medications Acute hypokalemia likely 2/2 to diuresis DISCHARGE MEDICATIONS: Please see below. ALLERGIES: Please see below. PHYSICAL EXAMINATION ON DISCHARGE: VITAL SIGNS: please see below General: NAD, comfortable HEENT: PERRLA, EOMI, sclerae clear Neck: supple, normal ROM, no JVD Respiratory: lungs CTAB, no wheeze, no rales, no crackles CVS: RRR, normal S1, S2, no murmurs Abdo: soft, no masses, no hepatosplenomegaly, BS+, no rebound tenderness Extremities: Bilateral 2+ pitting edema. MSK: no joint deformities, normal ROM Neuro: no focal neuro deficits, moving all 4 extremities, CN2-12 intact. Strength 5/5 in all 4 extremities. No nystagmus. Psych: calm, cooperative, AAO x 3 LABORATORY DATA: Please see below. IMAGING: HIDA scan (06/11/20): The gallbladder is not labile during the initial 60 minutes period it does fill at 3 hours. Findings are consistent with chronic cholecystitis. Otherwise negative hepatobiliary scan. Abdomen US, limited (06/07/20): Thickening of the gallbladder wall. Minimal ascites. Right pleural effusion. Normal CBD. CT chest wo contrast (06/06/20): 1. Exam limited by motion artifact. A moderate-sized right and small left pleural effusion but no parenchymal lung mass or acute infiltrate. Some dependent atel ectatic and compressive atelectatic changes suggested, particularly in the right base. 2. Motion artifact limits evaluations of the bony structures no gross evidence for fracture on the roentgenology teacher image set. 3. Small amount of ascites in the upper abdomen. Limited evaluation of upper abdominal organs as described above. Calcified foci in the spleen from prior granulomatous disease. 4. No cardiomegaly. Trace pericardial fluid or thickening. No aortic aneurysm. No mediastinal mass or adenopathy. CXR 06/06/20: Chronic vascular congestion again noted. Small right pleural effusion and adjacent right basilar parenchymal opacity improved since the prior study PROGNOSIS: fair ACTIVITY: needs 24 assist, contact guard assist. DIET: 2g Na DISCHARGE PLAN: DC home with 7 care from family with home health services. F/u with Dr. Davenport in general surgery in 1 week for ongoing workup of abdominal pain 2/2 chronic cholecystitis. DISPOSITION: . DISCHARGE INSTRUCTIONS: 1. Please follow-up with your primary care doctor within 3-5 days 2. Please follow-up with general surgery Dr. Davenport within 1 week. 3. Please taking medications as prescribed. 4. If he developed bleeding, chest pain, shortness of breath, seizures, nausea, fevers, or otherwise worsening of your symptoms, please call 911 or return to the nearest emergency room ITEMS TO FOLLOWUP ON ON OUTPATIENT: Check BMP to monitor potassium Titrate diuretics as blood pressure tolerates DISCHARGE CONDITION: Stable TIME SPENT ON DISCHARGE: 35 minutes Vital Signs/I&Os Vital Signs Date Time Temp Pulse Resp B/P (MAP) Pulse Ox O2 Delivery O2 Flow Rate FiO2 06/14/20 08:11 73 138/89 06/14/20 06:00 96.6 16 88 Room Air I&O- Last 24 Hours up to 6 AM 06/14/20 05:59 Intake Total 450 ml Output Total 1175 ml Balance -725 ml Discharge Medications Scheduled Furosemide (Furosemide) 40 Mg Tablet, 40 MG PO BID@09,17 Lisinopril (Lisinopril) 5 Mg Tablet, 5 MG PO DAILY Metoprolol Tartrate (Metoprolol Tartrate) 25 Mg Tablet, 12.5 MG PO BID Ramelteon (Rozerem) 8 Mg Tablet, 8 MG PO QHS Spironolactone (Spironolactone) 25 Mg Tablet, 25 MG PO DAILY Scheduled PRN Acetaminophen (Acetaminophen) 325 Mg Tablet, 650 MG PO Q6H PRN for PAIN OR FEVER Allergies Coded Allergies: No Known Allergies (Unverified , 01/12/19) ANY TREVINO MD Jun 14, 2020 14:04
[2020-06-14] MEDS ORDERED: ACET-907 PO (23:40)
[2020-06-14] MEDS ORDERED: PATIENT COMMENT (23:45)
== END 2020-06-14 15:19 | disposition home or self-care (01) | DRG 445 ==
LOC: M ED 13:42 → M ED INP 19:50 → ENRESERV 20:30 → M PCU 22:40 → M MSPAV 06-09 09:21
PROVIDERS: ADMIT Family Medicine; ATTEND Family Medicine
DX: K81.1 Chronic cholecystitis (principal); I50.32 Chronic diastolic (congestive) heart failure; C91.10 Chronic lymphocytic leukemia of B-cell type not having achieved remission; G10 Huntington's disease; I11.0 Hypertensive heart disease with heart failure; E87.5 Hyperkalemia; D72.829 Elevated white blood cell count, unspecified; Z79.899 Other long term (current) drug therapy

== ENCOUNTER 2020-06-14 18:47 | Inpatient (IN) | payer MEDICARE, MEDICAID ==
[~2020-06-14] VITALS: Ht 180.3 cm; Wt 71.8 kg
[~2020-06-14 18:47] MED LIST changes: +ACET1TAB55 PO; +FURO80TA2 PO; +MED REC COMMENT; +POTA10TA17 PO; +ROZE8TAB16 PO
[2020-06-14] MEDS ORDERED: GI COCKTAIL 50ML BTL(HYOSCYAMINE/MAALOX/LIDOCAINE VISCOUS)(1:3:1) PO ONE (20:15)
[2020-06-14] MEDS ORDERED: NS 500 ML IV ONE (20:15)
[2020-06-14 20:37] LABS: BASO % 0.3 % (0.0-1.0); EOS % 0.3 % (0.0-3.0); HEMATOCRIT 37.3 % (42.0-52.0); HEMOGLOBIN 11.6 g/dl (13.5-17.5); LYMPH # 4.4 10^3/uL (1.5-5.0); LYMPH % 32.7 % (24.0-44.0); MEAN CORPUSCULAR HEMOGLOBIN 26.8 pg (27.0-33.0); MEAN CORPUSCULAR HGB CONC 31.1 g/dl (32.0-36.5); MEAN CORPUSCULAR VOLUME 86.1 fl (80.0-96.0); MONO % 7.3 % (0.0-5.0); PLATELET COUNT, AUTOMATED 416 10^3/uL (150-450); RED BLOOD COUNT 4.33 10^6/uL (4.30-6.10); WHITE BLOOD COUNT 13.5 10^3/uL (4.0-10.0)
[2020-06-14 21:08] LABS: ALBUMIN 3.5 GM/DL (3.2-5.2); ALT/SGPT 36 U/L (12-78); BILIRUBIN,DIRECT 0.6 MG/DL (0.0-0.2); BILIRUBIN,TOTAL 1.1 MG/DL (0.2-1.0); CK-MB VALUE MASS 1.3 NG/ML (<3.6); CPK CREATINE PHOSPHOKINASE 76 U/L (39-308); LIPASE 153 U/L (73-393); MB/CK RELATIVE INDEX 1.71 (< OR =4); TOTAL PROTEIN 7.1 GM/DL (6.4-8.2); TROPONIN I < 0.02 NG/ML (< 0.10)
[2020-06-14] MEDS ORDERED: ISOVUE-370 76% 100ML VIAL As Ordered ONE (21:35)
--- NOTE | 2020-06-14 22:02 | REPVR ---
PROCEDURE INFORMATION: Exam: US Abdomen, Limited; Right Upper Quadrant Exam date and time: 06/14/2020 9:43 PM Age: 64 years old Clinical indication: Abdominal pain; Epigastric; Additional info: Abd pain, known stones TECHNIQUE: Imaging protocol: US abdomen. Real time ultrasound with image documentation. Limited exam focused on the right upper quadrant. COMPARISON: Abdomen, limited US 06/07/2020 5:00 PM FINDINGS: Pleural space: Right pleural effusion. Liver: Unremarkable. Gallbladder: Small amount of dependent sludge. No gallstones. No gallbladder wall thickening or pericholecystic fluid. Negative sonographic Campos's sign, as per the performing cabinet abrasive sandblaster. Common bile duct: No stones. No ductal dilatation. Pancreas: Unremarkable as visualized. Right kidney: No mass. No definite stones. No hydronephrosis. Intraperitoneal space: Small upper abdominal ascites. IMPRESSION: 1. Small amount of dependent sludge in the gallbladder without sonographic evidence of acute cholecystitis. 2. Small upper abdominal ascites. 3. Right pleural effusion. Electronically signed by: Charlie Hampton On 06/14/2020 22:02:28 PM
--- NOTE | 2020-06-14 22:29 | REPVR ---
PROCEDURE INFORMATION: Exam: CT Abdomen And Pelvis With Contrast Exam date and time: 06/14/2020 9:56 PM Age: 64 years old Clinical indication: Abdominal pain; Generalized; Additional info: Abd pain, known gallstones, TECHNIQUE: Imaging protocol: Computed tomography of the abdomen and pelvis with intravenous contrast. Axial, coronal and sagittal reformatted images were created and reviewed. Radiation optimization: All CT scans at this facility use at least one of these dose optimization techniques: automated exposure control; mA and/or kV adjustment per patient size (includes targeted exams where dose is matched to clinical indication); or iterative reconstruction. Contrast material: ISOVUE 370; Contrast volume: 100 ml; Contrast route: INTRAVENOUS (IV); COMPARISON: CT ABD/PEL W/IV CONTRAST ONLY 05/17/2020 7:27 PM FINDINGS: Lungs: Linear stranding and groundglass at the lung bases, likely due to atelectasis and/or scarring. Pleural space: Small right greater than left pleural effusions. Heart: Small pericardial effusion. Liver: Diffuse hepatic steatosis. Gallbladder and bile ducts: No radiodense gallstones. No biliary ductal dilatation. Pancreas: Unremarkable. Spleen: Coarse calcified splenic granulomata. Capsular calcifications, suggestive of remote trauma. Adrenal glands: Normal. No mass. Kidneys and ureters: No mass. No radiodense calculi. No hydronephrosis. Stomach and bowel: Several mildly distended, possibly thick-walled loops of small bowel in the left mid abdomen. No obstruction. No pneumatosis. Appendix: Appendix not identified with certainty. Intraperitoneal space: Small to moderate ascites. No organized collection. No free air. Vasculature: Minimal atherosclerotic disease. No aneurysm or dissection. Lymph nodes: No pathologically enlarged lymph nodes. Urinary bladder: Unremarkable as visualized. Reproductive: Enlarged prostate. Bones/joints: No acute osseous abnormality. Osteopenia. Degenerative changes. Fixation hardware in the pelvis. Soft tissues: Anasarca. Left greater than right inguinal hernias, containing fluid. IMPRESSION: 1. Small right greater than left pleural effusions. 2. Small to moderate ascites. 3. Several mildly distended, possibly thick-walled loops of small bowel in the left mid abdomen, possibly secondary to 3rd spacing or nonspecific enteritis. 4. Small pericardial effusion. 5. Anasarca. 6. Additional findings, as above. Electronically signed by: Charlie Hampton On 06/14/2020 22:29:37 PM
[2020-06-14] MEDS ORDERED: metOLazone 5 MG TAB PO ONE (23:00)
[2020-06-14] MEDS ORDERED: POTASSIUM CHLORIDE 10 MEQ SR TABLET PO ONE (23:15)
[2020-06-14] MEDS ORDERED: SPIR-10 PO (23:40)
[2020-06-14] MEDS ORDERED: FURO40TA2 PO (23:40)
[2020-06-14] MEDS ORDERED: METO25TA4 PO (23:40)
[2020-06-14] MEDS ORDERED: ACET-907 PO (23:40)
[2020-06-14] MEDS ORDERED: ROZE8TAB16 PO (23:40)
[2020-06-14] MEDS ORDERED: LISI-542 PO (23:40)
[2020-06-14] MEDS ORDERED: PATIENT COMMENT (23:45)
[2020-06-15] MEDS: CIPROFLOXACIN 400 MG in IV 1 EA IV SCH ×2 (00:36→12:00)
[2020-06-15] MEDS: FUROSEMIDE 40MG/4ML VIAL (J1940) IV SCH ×4 (00:37→17:10)
[2020-06-15] MEDS ORDERED: ACETAMINOPHEN 325 MG TAB PO PRN (00:45)
[2020-06-15 01:14] VITALS: BP 142/95
[2020-06-15] MEDS: RAMELTEON 8 MG TAB (ROZEREM) PO SCH ×2 (01:28→20:55)
[2020-06-15] MEDS: metroNIDAZOLE 500 MG in IV 1 EA IV SCH ×3 (01:51→17:05)
--- NOTE | 2020-06-15 01:51 | HPEPDOC ---
[facility] Medical History & Physical Date of Admission Jun 14, 2020 Date of Service: Jun 14, 2020 History and Physical CHIEF COMPLAINT: abdominal pain HISTORY OF PRESENT ILLNESS: (POOR HISTORIAN) 64 y/o male with pmh significant for CLL, Lampasas's disease, systolic heart failure , EF 45%, mental disability recently discharged in May for congestive heart failure exacerbation, presents to the emergency room with diffuse abdominal pain, left greater than right without any nausea, vomiting, diarrhea, fever, chills, dysuria, urgency, frequency, flank pain or hematuria. Patient complains of slight shortness of breath without cough PND or orthopnea but admits to chronic lower extremity 3+ edema. Patient denies any bloody diarrhea, abdominal pain after eating or weight loss. Hospitalist was asked to admit for evaluation of abdominal pain, and management of decompensated CHF. PAST MEDICAL HISTORY: Lampasas's disease/Chorea, CLL, diastolic CHF and recurrent pleural effusion, mental disability, pelvic and rib fractures, splenic hematoma PAST SURGICAL HISTORY: Chest tube HOME MEDICATIONS: SEE BELOW ALLERGIES: SEE BELOW FAMILY HISTORY: Mother in her 80s from old age. History of CVA Father age 71 secondary to prostate cancer Siblings: Sister is alive ([place] [phone]) SOCIAL HISTORY Single and disability, unemployed, previously chews tobacco * Smoker: Denies Alcohol: Denies Drugs: denies ROS 10POINT ROS (-) ASIDE FROM (+) FINDINGS ON HPI PHYSICAL EXAMINATION: VITALS SEE BELOW GEN: Disheveled, uppers his stated age . No acute distress. Alert and oriented x 3. Pleasant, interactive. Responds appropriate to questioning on exam. Obvious slurred speech. Chorea . Chronic tremors HEENT: Normocephalic, atraumatic. Pupils are equal, round, and reactive to light. Extraocular movements are intact. No nystagmus appreciated. Sclera are nonicteric. Conjunctiva without injection. Nose midline. No facial asymmetry. Moist mucous membranes. Dentition poor. DenturesTongue midline. Pharynx pink and moist, no cobblestoning. Neck supple, trachea midline. No lymphadenopathy or thyromegaly appreciated. HEART: Regular rate and rhythm, +S1, +S2, 2/6 SEDRICK LLSB, 2/6 SEDRICK apex without radiation. no carotid bruits. LUNGS: Clear to auscultation bilaterally. No wheezes, rales, or rhonchi. Breathing appears symmetric and easy. Patient is speaking in full sentences. No accessory muscle use. ABD: Round, soft, tender non-distended. +Bowel sounds throughout. No rebound or guarding. No costovertebral angle tenderness. EXT: Pulses 2+ bilaterally dorsalis pedis and radial. 3+ pitting edema to the sacrum SKIN: Ivins, dry, warm. Capillary refill <2sec. LABORATORY DATA: SEE BELOW MICROBIOLOGY: SEE BELOW IMAGING STUDIES: SEE BELOW Exam: CT Abdomen And Pelvis With Contrast Exam date and time: 06/14/2020 9:56 PM Age: 64 years old Clinical indication: Abdominal pain; Generalized; Additional info: Abd pain, known gallstones, TECHNIQUE: Imaging protocol: Computed tomography of the abdomen and pelvis with intravenous contrast. Axial, coronal and sagittal reformatted images were created and reviewed. Radiation optimization: All CT scans at this facility use at least one of these dose optimization techniques: automated exposure control; mA and/or kV adjustment per patient size (includes targeted exams where dose is matched to clinical indication); or iterative reconstruction. Contrast material: ISOVUE 370; Contrast volume: 100 ml; Contrast route: INTRAVENOUS (IV); COMPARISON: CT ABD/PEL W/IV CONTRAST ONLY 05/17/2020 7:27 PM FINDINGS: Lungs: Linear stranding and groundglass at the lung bases, likely due to atelectasis and/or scarring. Pleural space: Small right greater than left pleural effusions. Heart: Small pericardial effusion. Liver: Diffuse hepatic steatosis. Gallbladder and bile ducts: No radiodense gallstones. No biliary ductal dilatation. Pancreas: Unremarkable. Spleen: Coarse calcified splenic granulomata. Capsular calcifications, suggestive of remote trauma. Adrenal glands: Normal. No mass. Kidneys and ureters: No mass. No radiodense calculi. No hydronephrosis. Stomach and bowel: Several mildly distended, possibly thick-walled loops of small bowel in the left mid abdomen. No obstruction. No pneumatosis. Appendix: Appendix not identified with certainty. Intraperitoneal space: Small to moderate ascites. No organized collection. No free air. Vasculature: Minimal atherosclerotic disease. No aneurysm or dissection. Lymph nodes: No pathologically enlarged lymph nodes. Urinary bladder: Unremarkable as visualized. Reproductive: Enlarged prostate. Bones/joints: No acute osseous abnormality. Osteopenia. Degenerative changes. Fixation hardware in the pelvis. Soft tissues: Anasarca. Left greater than right inguinal hernias, containing fluid. IMPRESSION: 1. Small right greater than left pleural effusions. 2. Small to moderate ascites. 3. Several mildly distended, possibly thick-walled loops of small bowel in the left mid abdomen, possibly secondary to 3rd spacing or nonspecific enteritis. 4. Small pericardial effusion. 5. Anasarca. 6. Additional findings, as above. Electronically signed by: Charlie Hampton On 06/14/2020 22:29:37 PM PROCEDURE INFORMATION: Exam: US Abdomen, Limited; Right Upper Quadrant Exam date and time: 06/14/2020 9:43 PM Age: 64 years old Clinical indication: Abdominal pain; Epigastric; Additional info: Abd pain, known stones TECHNIQUE: Imaging protocol: US abdomen. Real time ultrasound with image documentation. Limited exam focused on the right upper quadrant. COMPARISON: Abdomen, limited US 06/07/2020 5:00 PM FINDINGS: Pleural space: Right pleural effusion. Liver: Unremarkable. Gallbladder: Small amount of dependent sludge. No gallstones. No gallbladder wall thickening or pericholecystic fluid. Negative sonographic Campos's sign, as per the performing motion picture projectionist. Common bile duct: No stones. No ductal dilatation. Pancreas: Unremarkable as visualized. Right kidney: No mass. No definite stones. No hydronephrosis. Intraperitoneal space: Small upper abdominal ascites. IMPRESSION: 1. Small amount of dependent sludge in the gallbladder without sonographic evidence of acute cholecystitis. 2. Small upper abdominal ascites. 3. Right pleural effusion. Electronically signed by: Charlie Hampton On 06/14/2020 22:02:28 PM DATE OF PROCEDURE: 04/13/2020 Age: Gender: Male Height: Weight: Patient Location: [facility] REFERRING PHYSICIAN: Dr. Fidencio Ramos INDICATION: Congestive heart failure. MEASUREMENTS: 2D measurements: IVS 1.4 cm LV 3.5 cm LVPW 1.4 cm LA 3.6 cm Aorta 2.9 cm IVC 2.3 cm DOPPLER MEASUREMENTS: Peak velocity across the aortic valve 0.94 m/s Peak velocity across the LVOT 0.75 m/s Mitral E 0.65, mitral A 0.71 with a ratio of 0.9 Maximum tricuspid jet velocity 2.2 m/s 2D COMMENTS: 1. Mildly increased left ventricular wall thickness with normal left ventricular size, but left ventricular systolic function appears to be mildly depressed. The anterior septum, the mid portion and the apical septum appear catherine hypokinetic. The mid anterior wall, as well as the apical anterior also appear to be hypokinetic. Estimated global left ventricular systolic ejection fraction is 45 to 50% 2. Subjectively, the left atrium appear to be mildly enlarged, as well as the right atrium. The right ventricle also appears to be mildly enlarged, but the right ventricular free wall was not well visualized. 3. The atrial septum appears to be normal without evidence of defect or shunt. 4. Normal aortic root. 5. Trace pericardial effusion noted. No evidence of cardiac tamponade. In limited views, there are findings that may be associated with right pleural effusion. 6. Mildly calcified aortic valve with normal leaflet excursion. Mildly calcified mitral annulus with normal anterior mitral valve leaflet motion. Normal tricuspid valve and pulmonary valve. The proximal pulmonary artery branches were not well visualized. 7. The inferior vena cava was mildly enlarged, central venous pressure might beelevated. DOPPLER: It detects just mild mitral regurgitation (MR) and mild tricuspid regurgitation. The calculated pulmonary artery systolic pressure appears to be normal, but may be underestimated. Abnormal relaxation pattern was noted acrossthe mitral valve leaflets, as well as the mitral valve annulus consisted with features of grade 1 left ventricular diastolic dysfunction. IMPRESSION: 1. Probably mildly depressed global left ventricular systolic dysfunction with regional wall motion abnormalities. The findings consistent with left ventricular systolic dysfunction, grade 1. 2. Aortic valve sclerosis without stenosis or aortic regurgitation. 3. Mitral annulus calcification with just mild mitral regurgitation and subjectively, the left atrium appear to be mildly enlarged. 4. Mild tricuspid regurgitation with a normal pulmonary artery systolic pressure. The right atrium appears to be mildly enlarged. 5. There are features consistent with elevated central venous pressure; the inferior vena cava was mildly enlarged. 6. Trace pericardial effusion noted. Possible pleural effusion. 7. The patient had an echocardiogram on 03/19/2020; and at that time, left ventricular ejection fraction (LVEF) appeared to be higher. There was also mildaortic regurgitation and moderate mitral regurgitation, as well as moderate tricuspid regurgitation. The inferior vena cava/IVC then was also dilated. ASSESSMENT AND PLAN: 64 y/o male with pmh significant for CLL, Lampasas's disease, systolic heart failure , EF 45%, mental disability recently discharged in May for congestive heart failure exacerbation, presents to the emergency room with diffuse abdominal pain, left greater than right without any nausea, vomiting, diarrhea, fever, chills, dysuria, urgency, frequency, flank pain or hematuria. Patient complains of slight shortness of breath without cough PND or orthopnea but admits to chronic lower extremity 3+ edema. Patient denies any bloody diarrhea, abdominal pain after eating or weight loss. Hospitalist was asked to admit for evaluation of abdominal pain, and decompensated CHF. Decompensated acute on chronic systolic CHF with reduced EF -fluid restriction, strict I's and O's, daily weights, Lasix IV every 6 hourly with net negative balance. Daily metabolic panel, supplement electrolytes as needed. Monitor for worsening azotemia Anasarca -Secondary to decompensated CHF. Continue with fluid restriction, strict I's and O's, daily weights, Lasix diuresis to net negative balance check for hypoalbumin emia and third spacing Ascites -Secondary to decompensated CHF. Continue with Lasix diuresis. Strict I's and O's, daily weights and daily monitoring of metabolic panel Abdominal pain -Secondary to ascites and third spacing . Surgery was consulted to determine further etiology for patient's chronic abdominal pain at this time, patient does not exhibit any Campos's sign on examination to suggest gallbladder sludging as cause of patient's abdominal pain. Gallbladder sludging -Asymptomatic with normal bilirubin . CLL -Outpatient follow-up with his migratory worker/oncologist Lampasas's disease/chorea -Chronic. Mental disability HTN -Controlled. Resume on home meds DVT prophylaxis. Lovenox Vital Signs Vital Signs Date Time Temp Pulse Resp B/P (MAP) Pulse Ox O2 Delivery O2 Flow Rate FiO2 06/14/20 21:30 68 17 121/84 (96) 77 06/14/20 20:45 98.6 Laboratory Data Labs 24H Laboratory Tests 2 06/14/20 20:18: Immature Granulocyte % (Auto) 0.4, Neutrophils (%) (Auto) 59.0, Lymphocytes (%) (Auto) 32.7, Monocytes (%) (Auto) 7.3H, Eosinophils (%) (Auto) 0.3, Basophils (%) (Auto) 0.3, Neutrophils # (Auto) 8.0, Lymphocytes # (Auto) 4.4, Monocytes # (Auto) 1.0H, Eosinophils # (Auto) 0.0, Basophils # (Auto) 0.0, Nucleated Red Blood Cells % (auto) 0.0, Total Bilirubin 1.1H, Direct Bilirubin 0.6H, Aspartate Amino Transf (AST/SGOT) 21, Alanine Aminotransferase (ALT/SGPT) 36, Alkaline Phosphatase 359H, Total Creatine Kinase 76, Creatine Kinase MB 1.3, Creatine Kinase MB Relative Index 1.71, Troponin I < 0.02, Total Protein 7.1, Albumin 3.5#, Albumin/Globulin Ratio 1.0, Lipase 153 06/14/20 21:07: POC Glucose (Misc Panel) 97, POC Sodium (Misc Panel) 143, POC Potassium (Misc Panel) 3.3L, POC Chloride (Misc Panel) 105, POC Total CO2 (Misc Panel) 25.0, POC Blood Urea Nitrogen (Misc Panel 29H, POC Ionized Calcium (Misc Panel) 4.9, POC Creatinine (Misc Panel) 0.9, POC Hematocrit (Misc Panel) 58.0H CBC/BMP Laboratory Tests 06/14/20 20:18 Home Medications Scheduled Furosemide (Furosemide) 40 Mg Tablet, 40 MG PO BID Lisinopril (Lisinopril) 5 Mg Tablet, 5 MG PO DAILY Metoprolol Tartrate (Metoprolol Tartrate) 25 Mg Tablet, 12.5 MG PO BID Ramelteon (Rozerem) 8 Mg Tablet, 8 MG PO QHS Spironolactone (Spironolactone) 25 Mg Tablet, 25 MG PO DAILY Scheduled PRN Acetaminophen (Tylenol) 325 Mg Tablet, 650 MG PO Q6H PRN for PAIN / FEVER Miscellaneous Medications [Patient Comment] COMPLETED WITH DISCHARGE PAPERWORK FROM 06/14/2020 Allergies Coded Allergies: No Known Allergies (Unverified , 01/12/19) A-FIB/CHADSVASC A-FIB History Current/History of A-Fib/PAF?: No Current PO Anticoag Therapy: No Age/Risk Factor Scoring CHADSVASC: CHADSVASC Response (Comments) Value Age Risk Factor Age < 65 years old 0 Gender Risk Factor Male 0 Hx of CHF Yes 1 Hx of HTN Yes 1 Hx of Stroke/TIA/or VTE No 0 Hx of Diabetes No 0 Hx of Vascular Disease No 0 Total 2 Treatment Treatment ordered: NONE LOKESH TRAORE MD Jun 14, 2020 23:11
[2020-06-15 02:03] LABS: NT-PRO BNP 1367 PG/ML (<125)
[2020-06-15 06:00] VITALS: BP 130/83
[2020-06-15 06:29] LABS: BASO % 0.3 % (0.0-1.0); EOS # 0.1 10^3/uL (0.0-0.5); EOS % 0.5 % (0.0-3.0); HEMATOCRIT 35.8 % (42.0-52.0); HEMOGLOBIN 11.4 g/dl (13.5-17.5); LYMPH # 3.9 10^3/uL (1.5-5.0); LYMPH % 37.5 % (24.0-44.0); MEAN CORPUSCULAR HEMOGLOBIN 27.3 pg (27.0-33.0); MEAN CORPUSCULAR HGB CONC 31.8 g/dl (32.0-36.5); MEAN CORPUSCULAR VOLUME 85.9 fl (80.0-96.0); MONO # 0.8 10^3/uL (0.0-0.8); MONO % 7.6 % (0.0-5.0); NEUTROPHILS # 5.6 10^3/uL (1.5-8.5); NEUTROPHILS % 53.6 % (36.0-66.0); PLATELET COUNT, AUTOMATED 355 10^3/uL (150-450); RED BLOOD COUNT 4.17 10^6/uL (4.30-6.10); WHITE BLOOD COUNT 10.4 10^3/uL (4.0-10.0)
[2020-06-15 06:54] LABS: BLOOD UREA NITROGEN 24 MG/DL (7-18); CARBON DIOXIDE LEVEL 28 MEQ/L (21-32); CHLORIDE LEVEL 109 MEQ/L (98-107); CREATININE FOR GFR 0.95 MG/DL (0.70-1.30); GLOMERULAR FILTRATION RATE > 60.0 (>49); GLUCOSE, FASTING 92 MG/DL (70-100); MAGNESIUM LEVEL 2.5 MG/DL (1.8-2.4); POTASSIUM SERUM 3.7 MEQ/L (3.5-5.1); SODIUM LEVEL 143 MEQ/L (136-145)
[2020-06-15] MEDS: ACETAMINOPHEN TAB 650MG DOSE (2X325MG) PO PRN ×2 (10:32→20:55)
[2020-06-15] MEDS: POTASSIUM CHLORIDE 10 MEQ SR TABLET PO SCH ×2 (10:33→20:54)
[2020-06-15] MEDS: METOPROLOL TART 12.5 MG PER 1/2 TAB PO SCH ×2 (10:33→21:00)
--- NOTE | 2020-06-15 10:52 | CR.PDOC ---
General Surgery Consultation Date of Consultation 06/15/20 History and Physical CONSULT REPORT FOR: hospitalist service REASON FOR CONSULTATION: chronic abdominal pain HISTORY OF PRESENT ILLNESS: I was asked to weigh on the possible causes of his chronic abdominal pain on Mr. Motley. 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 He has been admitted 3 months mostly in the hospital for multiple reasons including exacerbation of his chronic abdominal pain. I have difficulty getting information further from him as his speech is greatly affected by his neurologic problem but he seems to be aware of what's going on and points may need to the midabdomen, right lower quadrant and left lower quadrant area where he hurts. This seems to be going on for several years now. He has had multiple admissions for this with multiple CT imaging. Since he was discharged yesterday and promptly came back for abdominal pain. When asked if he is able to tolerate food, he reports that he does and the pain is not affected by food intake or absent center of nor any nausea or vomiting associated with it. No fevers or chills being reported. He does have some mild leukocytosis of unclear origin and he has been treated with multiple courses of antibiotics for the abdominal pain. I've reviewed as much of the studies that has been done on him through the years through review of our medical records area he also seems to have been seen by Dr. Bauer from gastroenterology last year for the same reason for an outpatient workup. He had a normal endoscopy and colonoscopy save for a polyp that was removed and no explanation of possible causes of his abdominal discomfort. Since that at least from my review of records that the pain started right after his pelvic fracture back in 2012. He was seen by Dr. Menendez then and he was noted to have a history of a delayed subcapsular hematoma on his spleen which resolved nonoperatively. Pain seems to have worsened in 2019 does the gastroenterology consult. As mentioned he has had several imaging studies including workup for possible gallbladder problems including most recently a HIDA scan. PAST MEDICAL HISTORY: Reid's disease/Chorea, CLL, diastolic CHF and recurrent pleural effusion, mental disability, pelvic and rib fractures, splenic hematoma PAST SURGICAL HISTORY: INCLUDES: 1. Chest tube 2. Pinning of pelvic fractures ALLERGIES: Please see below. HOME MEDICATIONS: Please see below. REVIEW OF SYSTEMS: Unable to do a proper one given patient's limitation on communication. PHYSICAL EXAMINATION: VITALS SIGNS: Please see below. When I entered the room, patient was semirecumbent and looks comfortable. He does try to communicate with his limitations as mentioned and seems to be oriented. He points mainly to the midabdomen and lower abdomen where he hurts. He does not look vertically ill or toxic. He has a thin body habitus. No signs of anicteric sclerae. Lips appear mildly dry. No obvious jugular venous distention. Lungs sounds are clear to auscultation bilaterally without wheezing. Heart rate and rhythm are regular without murmurs. Abdomen is soft and nondistended slightly protuberant in appearance. No obvious herniation. As mentioned he points to the lower abdomen where he hurts. He does nod that he hurts when I push at the right lower quadrant and left lower quadrant area noted doesn't matter if I perform a light tactile palpation or deep palpation. No signs of rebound or guarding. He is not particularly tender over the right upper quadrant area consistently. He is nontender over the epigastric area and left upper quadrant area. He has no flank or CVA tenderness nor tenderness at the midline on his back area. He does have lower extremity edema on both sides extending to the upper thigh area. ANCILLARIES: LABORATORY DATA: Please see below. IMAGING STUDIES: He has multiple imaging studies including multiple CT scans abdomen and pelvis, gallbladder ultrasound most recently also a HIDA scan of the abdomen. No particular abnormality save for some sludge in the gallbladder without any accompanying signs of inflammation. On the HIDA scan there is delayed uptake of the gallbladder but eventually did show up, so there may be a possibility of chronic cholecystitis or chronic dysfunction of the gallbladder but no signs of inflammation, no LFT elevations that I note. He has had a colonoscopy and upper endoscopy last year. I noticed that he has been having ascites still not clear to me why, the liver seems to be enlarged but no real signs of cirrhosis. This is presumably from CHF though not clear why within it resolved. The radiologist keep pointing out possibility of enteritis though with the presence of ascites is is hard to ascertain and he does not have any history consistent with enteritis. IMPRESSION AND PLAN: Generalized abdominal pain, etiology uncertain possibly the abdominal wall, possibly some sort of mild chronic cholecystitis without any active inflammation at this time though on examination he is not really tender over the right upper quadrant area and the pain does not seem to be affected with food intake. He has significant history for an advanced Reid's chorea likewise seems to be on congestive heart failure. I could not find any clear etiology with a history, physical examination and I'm not so convinced that this is related to the gallbladder. The findings on the HIDA scan is nonspecific. His area of tenderness is not has a right upper quadrant area. On other, healthy patient's I would consider cholecystectomy if no other reason for it and if the history is consistent but given really unclear source with the patient that has congestive heart failure, I don't think it is s afe to offer cholecystectomy with unclear benefit and considerably high risk for him. I also looked at the vasculature and does not seem to have severe atherosclerosis. I'm not really sure why he is having or he has ascites, this may be an avenue for workup for possible liver problems, congestion may be from his congestive heart failure but as mentioned his pain is nowhere near where the right upper quadrant is. The pain also does not change at all and is not affecting his gastrointestinal system. So there is still possibility of functional abdominal pain, second gain for keeping on returning to the hospital soon as he gets discharged. May just need symptomatic treatment or even consideration for treatment for some low amounts of tricyclics or even Lyrica. I'll have any further recommendations for workup nor I don't think a surgical intervention is warranted at this time. I will not follow up the patient the a few have any further questions feel free to call me to discuss the patient. Vital Signs Vital Signs Date Time Temp Pulse Resp B/P (MAP) Pulse Ox O2 Delivery O2 Flow Rate FiO2 06/15/20 06:00 97.9 62 16 130/83 (99) 90 Room Air I&Os I&O- Last 24 Hours up to 6 AM 06/15/20 06:00 Intake Total 720 ml Output Total 1250 ml Balance -530 ml Laboratory Data Labs 24H Laboratory Tests 2 06/14/20 20:18: Immature Granulocyte % (Auto) 0.4, Neutrophils (%) (Auto) 59.0, Lymphocytes (%) (Auto) 32.7, Monocytes (%) (Auto) 7.3H, Eosinophils (%) (Auto) 0.3, Basophils (%) (Auto) 0.3, Neutrophils # (Auto) 8.0, Lymphocytes # (Auto) 4.4, Monocytes # (Auto) 1.0H, Eosinophils # (Auto) 0.0, Basophils # (Auto) 0.0, Nucleated Red Blood Cells % (auto) 0.0, Total Bilirubin 1.1H, Direct Bilirubin 0.6H, Aspartate Amino Transf (AST/SGOT) 21, Alanine Aminotransferase (ALT/SGPT) 36, Alkaline Phosphatase 359H, Total Creatine Kinase 76, Creatine Kinase MB 1.3, Creatine Kinase MB Relative Index 1.71, Troponin I < 0.02, [id number] Natriuretic Peptide 1367H, Total Protein 7.1, Albumin 3.5#, Albumin/Globulin Ratio 1.0, Lipase 153 06/14/20 21:07: POC Glucose (Misc Panel) 97, POC Sodium (Misc Panel) 143, POC Potassium (Misc Panel) 3.3L, POC Chloride (Misc Panel) 105, POC Total CO2 (Misc Panel) 25.0, POC Blood Urea Nitrogen (Misc Panel 29H, POC Ionized Calcium (Misc Panel) 4.9, POC Creatinine (Misc Panel) 0.9, POC Hematocrit (Misc Panel) 58.0H 06/14/20 23:33: Lactic Acid Level 0.7, Coronavirus (COVID-19)(PCR) NEGATIVE 06/15/20 06:13: Immature Granulocyte % (Auto) 0.5, Neutrophils (%) (Auto) 53.6, Lymphocytes (%) (Auto) 37.5, Monocytes (%) (Auto) 7.6H, Eosinophils (%) (Auto) 0.5, Basophils (%) (Auto) 0.3, Neutrophils # (Auto) 5.6, Lymphocytes # (Auto) 3.9, Monocytes # (Auto) 0.8, Eosinophils # (Auto) 0.1, Basophils # (Auto) 0.0, Nucleated Red Blood Cells % (auto) 0.0, Anion Gap 6L, Glomerular Filtration Rate > 60.0, Calcium Level 9.0, Magnesium Level 2.5H 06/15/20 09:11: Lab Scanned Report Miscellaneous Lab CBC/BMP Laboratory Tests 06/14/20 20:18 06/15/20 06:13 Home Medications Scheduled Furosemide (Furosemide) 40 Mg Tablet, 40 MG PO BID, (Reported) Lisinopril (Lisinopril) 5 Mg Tablet, 5 MG PO DAILY, (Reported) Metoprolol Tartrate (Metoprolol Tartrate) 25 Mg Tablet, 12.5 MG PO BID, (Repo rted) Ramelteon (Rozerem) 8 Mg Tablet, 8 MG PO QHS, (Reported) Spironolactone (Spironolactone) 25 Mg Tablet, 25 MG PO DAILY, (Reported) Scheduled PRN Acetaminophen (Tylenol) 325 Mg Tablet, 650 MG PO Q6H PRN for PAIN / FEVER, (Reported) Miscellaneous Medications [Patient Comment] , (Reported) COMPLETED WITH DISCHARGE PAPERWORK FROM 06/14/2020 Allergies Coded Allergies: No Known Allergies (Unverified , 01/12/19) ALYSSA ADAIR MD Jun 15, 2020 10:52
[2020-06-15 11:58] VITALS: BP 119/76
[2020-06-15 14:00] VITALS: BP 93/56
--- NOTE | 2020-06-15 14:06 | IPN ---
DATE: 06/15/2020 SUBJECTIVE: Yon is seen in [address] [place] [address], admitted to the hospitalist service with decompensated congestive heart failure with reduced ejection fraction and anasarca. He has had repeated hospitalizations for this. 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 Apparently he had only been discharged for a few hours before he came back to the hospital. Somehow he became significantly volume overloaded in the interim. OBJECTIVE: Vital signs: Blood pressure 133/83, pulse 62, respiratory rate 16, 98% O2 saturation. General appearance: Choreoathetoid movements at baseline. Lungs: Decreased breath sounds. Heart: Regular rate and rhythm. Abdomen: Soft, nontender. 1+ peripheral edema. LABORATORY DATA: White count 10.4, hemoglobin 11.4, platelets 355. Sodium 143, potassium 3.7, creatinine 0.9, glucose 92. BNP was 1367. IMPRESSION AND PLAN: 1. Volume overload. Continue diuresis. He had a 2 liter diuresis overnight. Continue his current diuretic regimen. Daily labs have been ordered. We will monitor his potassium closely. 2. Question of enteritis. He is on Cipro and Flagyl for presumed enteritis. We will see how his GI symptoms go but I anticipate we will probably discontinue this tomorrow. 3. Hypokalemia. Supplemental potassium has been given. 4. Sleep disturbance. Continue his Rozerem which he takes as an outpatient. [facility]
[2020-06-15 22:00] VITALS: BP 102/68
[2020-06-16] MEDS: CIPROFLOXACIN 400 MG in IV 1 EA IV SCH (00:09)
[2020-06-16] MEDS: DICYCLOMINE 10 MG CAP PO PRN ×2 (00:11→14:16)
[2020-06-16] MEDS: metroNIDAZOLE 500 MG in IV 1 EA IV SCH ×2 (01:30→09:11)
[2020-06-16] MEDS: FUROSEMIDE 40MG/4ML VIAL (J1940) IV SCH ×4 (05:33→21:32)
[2020-06-16 06:00] VITALS: BP 104/64
[2020-06-16 07:24] LABS: BASO % 0.4 % (0.0-1.0); EOS # 0.1 10^3/uL (0.0-0.5); EOS % 0.7 % (0.0-3.0); HEMATOCRIT 32.9 % (42.0-52.0); HEMOGLOBIN 10.3 g/dl (13.5-17.5); LYMPH # 3.4 10^3/uL (1.5-5.0); LYMPH % 35.7 % (24.0-44.0); MEAN CORPUSCULAR HEMOGLOBIN 26.9 pg (27.0-33.0); MEAN CORPUSCULAR HGB CONC 31.3 g/dl (32.0-36.5); MEAN CORPUSCULAR VOLUME 85.9 fl (80.0-96.0); MONO % 9.9 % (0.0-5.0); NEUTROPHILS # 5.1 10^3/uL (1.5-8.5); NEUTROPHILS % 52.5 % (36.0-66.0); PLATELET COUNT, AUTOMATED 333 10^3/uL (150-450); RED BLOOD COUNT 3.83 10^6/uL (4.30-6.10); WHITE BLOOD COUNT 9.6 10^3/uL (4.0-10.0)
[2020-06-16 07:37] LABS: BLOOD UREA NITROGEN 23 MG/DL (7-18); CALCIUM LEVEL 8.8 MG/DL (8.8-10.2); CARBON DIOXIDE LEVEL 29 MEQ/L (21-32); CHLORIDE LEVEL 107 MEQ/L (98-107); CREATININE FOR GFR 0.96 MG/DL (0.70-1.30); GLOMERULAR FILTRATION RATE > 60.0 (>49); GLUCOSE, FASTING 94 MG/DL (70-100); MAGNESIUM LEVEL 2.3 MG/DL (1.8-2.4); SODIUM LEVEL 141 MEQ/L (136-145)
[2020-06-16] MEDS: METOPROLOL TART 12.5 MG PER 1/2 TAB PO SCH ×2 (09:10→20:09)
[2020-06-16] MEDS: POTASSIUM CHLORIDE 10 MEQ SR TABLET PO SCH ×2 (09:10→20:10)
[2020-06-16 14:00] VITALS: BP 107/72
[2020-06-16] MEDS: RAMELTEON 8 MG TAB (ROZEREM) PO SCH (20:08)
[2020-06-16] MEDS: ACETAMINOPHEN TAB 650MG DOSE (2X325MG) PO PRN (20:09)
[2020-06-16 22:00] VITALS: BP 122/80
[2020-06-17 07:07] LABS: HEMATOCRIT 35.8 % (42.0-52.0); HEMOGLOBIN 11.2 g/dl (13.5-17.5); MEAN CORPUSCULAR HEMOGLOBIN 27.1 pg (27.0-33.0); MEAN CORPUSCULAR HGB CONC 31.3 g/dl (32.0-36.5); MEAN CORPUSCULAR VOLUME 86.7 fl (80.0-96.0); PLATELET COUNT, AUTOMATED 380 10^3/uL (150-450); RED BLOOD COUNT 4.13 10^6/uL (4.30-6.10); WHITE BLOOD COUNT 12.1 10^3/uL (4.0-10.0)
[2020-06-17 07:37] LABS: BLOOD UREA NITROGEN 24 MG/DL (7-18); CALCIUM LEVEL 9.1 MG/DL (8.8-10.2); CARBON DIOXIDE LEVEL 28 MEQ/L (21-32); CHLORIDE LEVEL 108 MEQ/L (98-107); CREATININE FOR GFR 0.99 MG/DL (0.70-1.30); GLOMERULAR FILTRATION RATE > 60.0 (>49); GLUCOSE, FASTING 88 MG/DL (70-100); MAGNESIUM LEVEL 2.5 MG/DL (1.8-2.4); POTASSIUM SERUM 4.9 MEQ/L (3.5-5.1); SODIUM LEVEL 141 MEQ/L (136-145)
[2020-06-17 07:41] LABS: ATYPICAL LYMPH 2 % (0-5); LYMPHOCYTES 37 % (16-44); MONOCYTES 10 % (0-5); NEUTROPHILS 50 % (28-66)
[2020-06-17 07:42] LABS: ANISOCYTOSIS 1+; PLATELET ESTIMATE NORMAL (NORMAL)
[2020-06-17 07:43] LABS: HYPOCHROMASIA 1+; MICROCYTOSIS 1+
[2020-06-17] MEDS: METOPROLOL TART 12.5 MG PER 1/2 TAB PO SCH ×2 (09:23→21:00)
[2020-06-17] MEDS: DICYCLOMINE 10 MG CAP PO PRN ×2 (09:23→21:24)
[2020-06-17] MEDS: FUROSEMIDE 40MG/4ML VIAL (J1940) IV SCH ×2 (09:24→22:03)
[2020-06-17 14:00] VITALS: BP 111/82
--- NOTE | 2020-06-17 14:39 | IPN ---
DATE: 06/16/2020 SUBJECTIVE: Yon continues to slowly diurese. He put out 3 liters yesterday. Edema is improved. Ascites improved. OBJECTIVE: VITAL SIGNS: Stable. LUNGS: Clear. HEART: Rhythm regular. ABDOMEN: Soft and nontender. Mild ascites present. EXTREMITIES: 1+ peripheral edema. LABORATORY DATA: White count 9.6, hemoglobin 10.3, platelets 333,000. Sodium 141, potassium 4, BUN 22, creatinine 0.9, glucose 94. ASSESSMENT/PLAN: 1. Ascites and volume overload with edema. Continue diuresis. Anticipate a one to two liter diuresis a day at this point. 2. ? enteritis. Gastrointestinal (GI) symptoms have resolved. We will stop his antibiotics at this point. 3. Hypokalemia. This has improved. 4. Disposition. This is problematic. He went home for approximately three hours before getting re-admitted from his last discharge. PFS will need to get involved on Thursday to discuss disposition plans. ADDENDUM: I reduced his furosemide to 40 mg every 12 hours today to try to get a more modest daily diuresis. MTDD
[2020-06-17] MEDS: ACETAMINOPHEN TAB 650MG DOSE (2X325MG) PO PRN (15:15)
--- NOTE | 2020-06-17 15:46 | IPN ---
DATE: 06/17/2020 SUBJECTIVE: Yon is about the same as yesterday. He looks unchanged. His vital signs are stable at 20/80, pulse 78. He did not have much of a diuresis yesterday. He had a brisk diuresis on 06/15. No diuresis on 06/16. PHYSICAL EXAMINATION: Exam is unchanged. Cardiopulmonary exam is stable. Edema has decreased. LABS: White count is 12.1, hemoglobin 11.2, platelets 380. Electrolytes are unremarkable. BUN 24, creatinine 0.9. Potassium is up to 4.9. PLAN: Continue efforts at diuresis. Potassium is up and we will hold his potassium supplement today. We will continue his intravenous furosemide. I stopped his Cipro and metronidazole yesterday and his abdominal exam is benign today. We do need to keep an eye on his white count off the antibiotics. MTDD
[2020-06-17] MEDS: CIPROFLOXACIN 400 MG in IV 1 EA IV SCH (15:51)
[2020-06-17] MEDS: metroNIDAZOLE 500 MG in IV 1 EA IV SCH (17:14)
[2020-06-17] MEDS: RAMELTEON 8 MG TAB (ROZEREM) PO SCH (21:24)
[2020-06-17 22:00] VITALS: BP 109/75
[2020-06-18] MEDS: metroNIDAZOLE 500 MG in IV 1 EA IV SCH ×3 (00:18→18:22)
[2020-06-18] MEDS: CIPROFLOXACIN 400 MG in IV 1 EA IV SCH ×2 (03:12→16:26)
[2020-06-18 06:00] VITALS: BP 119/81
[2020-06-18 06:44] LABS: HEMATOCRIT 34.4 % (42.0-52.0); HEMOGLOBIN 10.9 g/dl (13.5-17.5); MEAN CORPUSCULAR HEMOGLOBIN 27.5 pg (27.0-33.0); MEAN CORPUSCULAR HGB CONC 31.7 g/dl (32.0-36.5); MEAN CORPUSCULAR VOLUME 86.6 fl (80.0-96.0); PLATELET COUNT, AUTOMATED 376 10^3/uL (150-450); RED BLOOD COUNT 3.97 10^6/uL (4.30-6.10); WHITE BLOOD COUNT 11.8 10^3/uL (4.0-10.0)
[2020-06-18 07:04] LABS: BLOOD UREA NITROGEN 26 MG/DL (7-18); CALCIUM LEVEL 8.8 MG/DL (8.8-10.2); CARBON DIOXIDE LEVEL 29 MEQ/L (21-32); CHLORIDE LEVEL 106 MEQ/L (98-107); CREATININE FOR GFR 0.96 MG/DL (0.70-1.30); GLOMERULAR FILTRATION RATE > 60.0 (>49); GLUCOSE, FASTING 92 MG/DL (70-100); MAGNESIUM LEVEL 2.4 MG/DL (1.8-2.4); POTASSIUM SERUM 4.3 MEQ/L (3.5-5.1); SODIUM LEVEL 141 MEQ/L (136-145)
--- NOTE | 2020-06-18 07:30 | IPN ---
DATE: 06/17/2020 Nursing staff called. Yon developed a fever up to 101. I noted earlier that his white count had gone up to 12.1. He also seems to be having some abdominal pain. We are going to restart the Cipro 400 mg IV q.12h, Flagyl 500 mg IV q.8h. that was discontinued yesterday. Followup laps have been ordered for the morning. MTDD
[2020-06-18 07:55] LABS: ATYPICAL LYMPH 4 % (0-5); HYPOCHROMASIA 1+; LYMPHOCYTES 36 % (16-44); MONOCYTES 3 % (0-5); NEUTROPHILS 56 % (28-66); PLATELET ESTIMATE NORMAL (NORMAL)
[2020-06-18 07:56] LABS: ANISOCYTOSIS 1+; MICROCYTOSIS 1+
[2020-06-18] MEDS: DICYCLOMINE 10 MG CAP PO PRN ×2 (09:00→16:47)
[2020-06-18] MEDS: METOPROLOL TART 12.5 MG PER 1/2 TAB PO SCH ×2 (09:01→21:02)
[2020-06-18] MEDS: FUROSEMIDE 40MG/4ML VIAL (J1940) IV SCH ×2 (11:29→21:01)
[2020-06-18] MEDS: ACETAMINOPHEN TAB 650MG DOSE (2X325MG) PO PRN ×2 (11:34→21:01)
[2020-06-18 14:00] VITALS: BP 100/69
[2020-06-18] MEDS: RAMELTEON 8 MG TAB (ROZEREM) PO SCH (21:01)
[2020-06-18 22:00] VITALS: BP 117/79
[2020-06-19] MEDS: metroNIDAZOLE 500 MG in IV 1 EA IV SCH ×3 (01:28→16:19)
[2020-06-19] MEDS: CIPROFLOXACIN 400 MG in IV 1 EA IV SCH ×2 (03:24→15:09)
[2020-06-19 06:00] VITALS: BP 115/79
[2020-06-19 06:49] LABS: HEMATOCRIT 33.3 % (42.0-52.0); HEMOGLOBIN 10.3 g/dl (13.5-17.5); MEAN CORPUSCULAR HEMOGLOBIN 26.8 pg (27.0-33.0); MEAN CORPUSCULAR HGB CONC 30.9 g/dl (32.0-36.5); MEAN CORPUSCULAR VOLUME 86.7 fl (80.0-96.0); PLATELET COUNT, AUTOMATED 359 10^3/uL (150-450); RED BLOOD COUNT 3.84 10^6/uL (4.30-6.10)
[2020-06-19 06:55] LABS: LYMPHOCYTES 48 % (16-44); MONOCYTES 5 % (0-5); MYELOCYTES 2 % (0-0); NEUTROPHILS 45 % (28-66); PLATELET ESTIMATE NORMAL (NORMAL)
[2020-06-19 06:56] LABS: ANISOCYTOSIS 1+; HYPOCHROMASIA 1+
[2020-06-19 07:16] LABS: BLOOD UREA NITROGEN 31 MG/DL (7-18); CALCIUM LEVEL 8.7 MG/DL (8.8-10.2); CARBON DIOXIDE LEVEL 27 MEQ/L (21-32); CHLORIDE LEVEL 106 MEQ/L (98-107); CREATININE FOR GFR 1.02 MG/DL (0.70-1.30); GLOMERULAR FILTRATION RATE > 60.0 (>49); GLUCOSE, FASTING 98 MG/DL (70-100); MAGNESIUM LEVEL 2.2 MG/DL (1.8-2.4); POTASSIUM SERUM 3.9 MEQ/L (3.5-5.1); SODIUM LEVEL 140 MEQ/L (136-145)
[2020-06-19] MEDS: METOPROLOL TART 12.5 MG PER 1/2 TAB PO SCH ×2 (08:18→21:00)
[2020-06-19] MEDS: FUROSEMIDE 40MG/4ML VIAL (J1940) IV SCH ×2 (10:09→21:38)
[2020-06-19] MEDS: ACETAMINOPHEN TAB 650MG DOSE (2X325MG) PO PRN ×2 (12:28→18:43)
[2020-06-19 13:10] LABS: ANTINUCLEAR ANTIBODIES DIRECT Negative (Negative); Chitobioside Carbohydrat (ACCA 29 units (0-90); Laminaribioside Carbohyd (ALCA 30 units (0-60); Mannobioside Carbohydrat (AMCA 57 units (0-100); Saccharomyces cerevisiae IgG A 19 units (0-50)
[2020-06-19 14:00] VITALS: BP 103/71
--- NOTE | 2020-06-19 19:30 | IPNPDOC ---
Date Seen The patient was seen on 06/19/20. Progress Note SUBJECTIVE: Patient continues to complain of persistent mid-abdominal pain as before. GI consulted to see if there is anything else we may be needing to consider. Afebrile since 06/18/20 at 06:00, WBC mildly elevated at 11 but not worsened. Remains on abx. Denies chest pain, shortness of breath, n/v/d. PHYSICAL EXAMINATION: VS: Please see below Constitutional: Awake and alert x2- difficult to understand at times due to chorea ENT: Sclera are clear. Mucosa is moist. Respiratory: crackles in lower lungs bilaterally. No W/R Cardiovascular: RRR S1 and S2 are normal, no murmur/R/G Gastrointestinal: Abdomen is soft, mildly uncomfortable on exam, BS present. No fluid shift appreciated. Musculoskeletal: 2+ pitting edema extremities bilaterally. Neurologic: Chorea. No other focal deficits Skin: Warm, dry LABORATORY DATA: See below. IMAGING: No new imaging today MICROBIOLOGY: Please see below. 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 PLAN: #Abd pain on admission likely 2/2 to enteritis vs. abdominal ascities vs. unresolved abd cause -Previously diagnosed with chronic cholecystitis last admission- HIDA scan done then - Discomfort across mid-abdomen per patient - Diuresed well this admission, no need for paracentesis - Surgery consulted this admission, signed off. Not a surgical candidate at this time, no gallbladder pathology believed to be cause. - GI consulted to further evaluate - Cipro, flagyl was previously stopped then restarted several days ago. 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 # DVT Px -SC lovenox DISPOSITION: F/u GI consult. Rehab vs. home at discharge. VS, I&O, 24H, Fishbone Vital Signs/I&O Vital Signs Date Time Temp Pulse Resp B/P (MAP) Pulse Ox O2 Delivery O2 Flow Rate FiO2 06/19/20 14:00 98.1 76 16 103/71 (82) 95 Room Air I&O- Last 24 Hours up to 6 AM 06/19/20 05:59 Intake Total 1760 ml Output Total 1575 ml Balance 185 ml Laboratory Data 24H LABS Laboratory Tests 2 06/19/20 06:14: Neutrophils (%) (Auto) , Nucleated Red Blood Cells % (auto) 0.0, Neutrophils 45, Lymphocytes (Manual) 48H, Monocytes (Manual) 5, Myelocytes 2H, Hypochromasia 1+, Anisocytosis 1+, Platelet Estimate NORMAL, Anion Gap 7L, Glomerular Filtration Rate > 60.0, Calcium Level 8.7L, Magnesium Level 2.2 CBC/BMP Laboratory Tests 06/19/20 06:14 Current Medications Current Medications Medications (Trade) Dose Ordered Sig/Gina Route PRN Reason Start Time Stop Time Status Last Admin Dose Admin Acetaminophen (Tylenol Tab) 650 mg Q6H PRN PO PAIN / FEVER 06/15/20 00:45 06/15/20 00:45 DC Acetaminophen (Tylenol Tab) 650 mg Q6H PRN PO PAIN / FEVER 06/15/20 06:45 06/19/20 18:43 Ciprofloxacin 400 mg/IV Miscellaneous Supplies 200 ml @ 200 mls/hr Q12H IV 06/15/20 00:00 06/16/20 09:33 DC 06/16/20 00:09 Ciprofloxacin 400 mg/IV Miscellaneous Supplies 200 ml @ 200 mls/hr Q12H IV 06/17/20 16:00 06/19/20 15:09 Dicyclomine HCl (Bentyl) 10 mg Q8HP PRN PO ABDOMINAL PAIN 06/15/20 23:45 06/18/20 16:47 Furosemide (LASIX injection) 40 mg Q12H IV 06/16/20 10:00 06/19/20 10:09 Furosemide (LASIX injection) 40 mg Q6H IV 06/15/20 00:00 06/16/20 09:33 DC 06/15/20 11:59 Home Med (Med Rec Complete!) ASDIRECTED XX 06/14/20 23:45 06/14/20 23:58 DC Metoprolol Tartrate (Lopressor) 12.5 mg BID PO 06/15/20 09:00 06/19/20 08:18 Metronidazole 500 mg/IV Miscellaneous Supplies 100 ml @ 100 mls/hr Q8H IV 06/15/20 02:00 06/16/20 09:33 DC 06/16/20 09:11 Metronidazole 500 mg/IV Miscellaneous Supplies 100 ml @ 100 mls/hr Q8H IV 06/17/20 17:00 06/19/20 16:19 Potassium Chloride (Micro-K Extencaps) 40 meq BID PO 06/15/20 09:00 06/17/20 09:23 DC 06/16/20 20:10 Ramelteon (Rozerem) 8 mg QHS PO 06/14/20 21:00 06/18/20 21:01 Allergies Coded Allergies: No Known Allergies (Unverified , 01/12/19) Arlene Jones MD Jun 19, 2020 19:30
[2020-06-19] MEDS: DICYCLOMINE 10 MG CAP PO PRN (21:38)
[2020-06-19] MEDS: RAMELTEON 8 MG TAB (ROZEREM) PO SCH (21:38)
[2020-06-19 22:00] VITALS: BP 109/78
[2020-06-20] MEDS: metroNIDAZOLE 500 MG in IV 1 EA IV SCH ×3 (01:24→17:42)
[2020-06-20] MEDS: CIPROFLOXACIN 400 MG in IV 1 EA IV SCH ×2 (03:56→16:34)
[2020-06-20 06:00] VITALS: BP 110/72
[2020-06-20 06:30] LABS: HEMATOCRIT 34.4 % (42.0-52.0); MEAN CORPUSCULAR HEMOGLOBIN 27.4 pg (27.0-33.0); MEAN CORPUSCULAR VOLUME 85.8 fl (80.0-96.0); PLATELET COUNT, AUTOMATED 406 10^3/uL (150-450); RED BLOOD COUNT 4.01 10^6/uL (4.30-6.10)
[2020-06-20 06:33] LABS: WHITE BLOOD COUNT 13.5 10^3/uL (4.0-10.0)
[2020-06-20 06:55] LABS: BLOOD UREA NITROGEN 28 MG/DL (7-18); CALCIUM LEVEL 8.3 MG/DL (8.8-10.2); CARBON DIOXIDE LEVEL 29 MEQ/L (21-32); CHLORIDE LEVEL 106 MEQ/L (98-107); CREATININE FOR GFR 1.02 MG/DL (0.70-1.30); EOSINOPHILS 2 % (0-3); GLOMERULAR FILTRATION RATE > 60.0 (>49); GLUCOSE, FASTING 100 MG/DL (70-100); LYMPHOCYTES 35 % (16-44); MAGNESIUM LEVEL 2.1 MG/DL (1.8-2.4); MONOCYTES 7 % (0-5); NEUTROPHILS 56 % (28-66); SODIUM LEVEL 140 MEQ/L (136-145)
[2020-06-20 06:56] LABS: PLATELET ESTIMATE NORMAL (NORMAL)
[2020-06-20] MEDS: FUROSEMIDE 40MG/4ML VIAL (J1940) IV SCH ×2 (10:05→22:00)
[2020-06-20] MEDS: ENOXAPARIN 40MG/0.4ML SYRINGE (J1650 PER 10MG) SC SCH (10:06)
[2020-06-20] MEDS: METOPROLOL TART 12.5 MG PER 1/2 TAB PO SCH ×2 (10:06→21:00)
[2020-06-20 13:48] VITALS: BP 107/70
[2020-06-20] MEDS: ACETAMINOPHEN TAB 650MG DOSE (2X325MG) PO PRN ×2 (14:13→21:30)
--- NOTE | 2020-06-20 17:40 | IPNPDOC ---
Date Seen The patient was seen on 06/20/20. Progress Note SUBJECTIVE: Patient has elevated WBC 13.5 despite abx, no increased abd pain. Discussed case with GI, pain described is disproportionate to what exam yields. Hx of vasculopathy so perhaps mesenteric ischemia? WBC may be 2/2 to hx of CLL? Studies ordered. Denies chest pain, shortness of breath, n/v/d. PHYSICAL EXAMINATION: VS: Please see below Constitutional: Awake and alert x2- difficult to understand at times due to chorea ENT: Sclera are clear. Mucosa is moist. Respiratory: crackles in lower lungs bilaterally. No W/R Cardiovascular: RRR S1 and S2 are normal, no murmur/R/G Gastrointestinal: Abdomen is soft, mildly uncomfortable on exam, BS present. No fluid shift appreciated. Musculoskeletal: 2+ pitting edema extremities bilaterally. Neurologic: Chorea. No other focal deficits Skin: Warm, dry LABORATORY DATA: See below. IMAGING: No new imaging today MICROBIOLOGY: Please see below. 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 PLAN: #Abd pain on admission likely 2/2 to enteritis vs. abdominal ascities vs. unresolved abd cause. Cannot rule out mesenteric ischemia ;however, lower differential dx -Previously diagnosed with chronic cholecystitis last admission- HIDA scan done then - Discomfort across mid-abdomen per patient; however, pain described does not show on exam - At this time no need for paracentesis - Surgery consulted this admission, signed off. Not a surgical candidate at this time, no gallbladder pathology believed to be cause. - GI consulted to further evaluate, discussed case again with Dr. Bauer. He is to look more into prior studies. May order vascular studies if warranted. - Cipro, flagyl # Acute on chronic HFpEF, volume overload with lower ext edema, ascites - NEg fluid balance, heavily diuresed this admission - Recent 2D echo (04/13) EF 40-45% - C/w lasix BID, close I & O monitoring, daily weights, elevate head of bed, fluid restriction - Consider cardiology consult #Pleural effusions likely 2/2 CHF, R>L - hx of thoracentesis - C/w diuresis #Lower ext swelling likely 2/2 to CHF - C/w diuresis above #HTN -Softer BP on admission -BB with holding parameters, lasix #CLL -Outpatient follow up oncology #[place]'s disease -At baseline and Stable -F/u as o/p. # DVT Px -SC lovenox DISPOSITION: F/u GI consult. Rehab vs. home at discharge. VS, I&O, 24H, Fishbone Vital Signs/I&O Vital Signs Date Time Temp Pulse Resp B/P (MAP) Pulse Ox O2 Delivery O2 Flow Rate FiO2 06/20/20 13:48 97.5 72 16 107/70 (82) 90 Room Air I&O- Last 24 Hours up to 6 AM 06/20/20 06:00 Intake Total 1400 ml Output Total 3330 ml Balance -1930 ml Laboratory Data 24H LABS Laboratory Tests 2 06/20/20 06:12: Neutrophils (%) (Auto) , Nucleated Red Blood Cells % (auto) 0.0, Neutrophils 56, Lymphocytes (Manual) 35, Monocytes (Manual) 7H, Eosinophils (Manual) 2, Red Blo od Cell Morphology NORMAL, Platelet Estimate NORMAL, Anion Gap 5L, Glomerular Filtration Rate > 60.0, Calcium Level 8.3L, Magnesium Level 2.1 CBC/BMP Laboratory Tests 06/20/20 06:12 Current Medications Current Medications Medications (Trade) Dose Ordered Sig/Gina Route PRN Reason Start Time Stop Time Status Last Admin Dose Admin Acetaminophen (Tylenol Tab) 650 mg Q6H PRN PO PAIN / FEVER 06/15/20 00:45 06/15/20 00:45 DC Acetaminophen (Tylenol Tab) 650 mg Q6H PRN PO PAIN / FEVER 06/15/20 06:45 06/20/20 14:13 Ciprofloxacin 400 mg/IV Miscellaneous Supplies 200 ml @ 200 mls/hr Q12H IV 06/15/20 00:00 06/16/20 09:33 DC 06/16/20 00:09 Ciprofloxacin 400 mg/IV Miscellaneous Supplies 200 ml @ 200 mls/hr Q12H IV 06/17/20 16:00 06/20/20 16:34 Dicyclomine HCl (Bentyl) 10 mg Q8HP PRN PO ABDOMINAL PAIN 06/15/20 23:45 06/19/20 21:38 Enoxaparin Sodium (Lovenox) 40 mg DAILY SC 06/20/20 09:00 11/18/20 10:06 Furosemide (LASIX injection) 40 mg Q12H IV 06/16/20 10:00 06/20/20 10:05 Furosemide (LASIX injection) 40 mg Q6H IV 06/15/20 00:00 06/16/20 09:33 DC 06/15/20 11:59 Home Med (Med Rec Complete!) ASDIRECTED XX 06/14/20 23:45 06/14/20 23:58 DC Metoprolol Tartrate (Lopressor) 12.5 mg BID PO 06/15/20 09:00 06/20/20 10:06 Metronidazole 500 mg/IV Miscellaneous Supplies 100 ml @ 100 mls/hr Q8H IV 06/15/20 02:00 06/16/20 09:33 DC 06/16/20 09:11 Metronidazole 500 mg/IV Miscellaneous Supplies 100 ml @ 100 mls/hr Q8H IV 06/17/20 17:00 06/20/20 10:06 Potassium Chloride (Micro-K Extencaps) 40 meq BID PO 06/15/20 09:00 06/17/20 09:23 DC 06/16/20 20:10 Ramelteon (Rozerem) 8 mg QHS PO 06/14/20 21:00 06/19/20 21:38 Allergies Coded Allergies: No Known Allergies (Unverified , 01/12/19) Arlene Jones MD Jun 20, 2020 17:40
[2020-06-20] MEDS: RAMELTEON 8 MG TAB (ROZEREM) PO SCH (21:29)
[2020-06-20 22:00] VITALS: BP 105/75
[2020-06-21] MEDS: metroNIDAZOLE 500 MG in IV 1 EA IV SCH ×2 (01:15→08:13)
[2020-06-21] MEDS: DICYCLOMINE 10 MG CAP PO PRN ×2 (01:18→22:49)
[2020-06-21] MEDS: CIPROFLOXACIN 400 MG in IV 1 EA IV SCH (04:05)
[2020-06-21 06:00] VITALS: BP 101/69
[2020-06-21 06:07] LABS: HEMATOCRIT 33.8 % (42.0-52.0); HEMOGLOBIN 10.9 g/dl (13.5-17.5); MEAN CORPUSCULAR HEMOGLOBIN 27.5 pg (27.0-33.0); MEAN CORPUSCULAR HGB CONC 32.2 g/dl (32.0-36.5); MEAN CORPUSCULAR VOLUME 85.4 fl (80.0-96.0); PLATELET COUNT, AUTOMATED 445 10^3/uL (150-450); RED BLOOD COUNT 3.96 10^6/uL (4.30-6.10)
[2020-06-21 06:09] LABS: WHITE BLOOD COUNT 13.1 10^3/uL (4.0-10.0)
[2020-06-21 06:32] LABS: BLOOD UREA NITROGEN 27 MG/DL (7-18); CALCIUM LEVEL 8.5 MG/DL (8.8-10.2); CARBON DIOXIDE LEVEL 27 MEQ/L (21-32); CHLORIDE LEVEL 107 MEQ/L (98-107); CREATININE FOR GFR 0.88 MG/DL (0.70-1.30); GLOMERULAR FILTRATION RATE > 60.0 (>49); GLUCOSE, FASTING 105 MG/DL (70-100); MAGNESIUM LEVEL 2.3 MG/DL (1.8-2.4); POTASSIUM SERUM 3.5 MEQ/L (3.5-5.1); SODIUM LEVEL 139 MEQ/L (136-145)
[2020-06-21 07:23] LABS: ATYPICAL LYMPH 23 % (0-5); LYMPHOCYTES 23 % (16-44); MONOCYTES 5 % (0-5); NEUTROPHILS 49 % (28-66)
[2020-06-21 07:24] LABS: ANISOCYTOSIS 1+; PLATELET ESTIMATE INCREASED (NORMAL); SMUDGE CELLS 1+
[2020-06-21] MEDS: ENOXAPARIN 40MG/0.4ML SYRINGE (J1650 PER 10MG) SC SCH (08:12)
[2020-06-21] MEDS: METOPROLOL TART 12.5 MG PER 1/2 TAB PO SCH ×2 (08:12→21:00)
[2020-06-21] MEDS: SPIRONOLACTONE 12.5MG PER 1/2 TABLET PO SCH (09:00)
[2020-06-21] MEDS: FUROSEMIDE 40MG/4ML VIAL (J1940) IV SCH (10:00)
[2020-06-21 13:51] VITALS: BP 104/70
[2020-06-21] MEDS: ACETAMINOPHEN TAB 650MG DOSE (2X325MG) PO PRN ×2 (13:58→18:08)
--- NOTE | 2020-06-21 14:44 | IPNPDOC ---
Date Seen The patient was seen on 06/21/20. Progress Note SUBJECTIVE: WBC 13.1. Been on cipro, flagyl since 06/17/20 with no real improvement in WBC or abd pain. Discussed with GI, no real infection this is treating so perhaps WBC is 2/2 CLL? D/porfirio abx today. Monitoring off. Awaiting official GI recommendations. No complaints overnight. Denies chest pain, shortness of breath, n/v/d. PHYSICAL EXAMINATION: VS: Please see below Constitutional: Awake and alert x2- difficult to understand at times due to chorea ENT: Sclera are clear. Mucosa is moist. Respiratory: crackles in lower lungs bilaterally. No W/R Cardiovascular: RRR S1 and S2 are normal, no murmur/R/G Gastrointestinal: Abdomen is soft, no pain on exam, BS present. No organomegaly Musculoskeletal: 2+ pitting edema extremities bilaterally. Neurologic: Chorea. No other focal deficits Skin: Warm, dry LABORATORY DATA: See below. IMAGING: No new imaging today MICROBIOLOGY: Please see below. ASSESSMENT:64 year old male with [place]'s disease, CLL, CHF and recurrent pleural effusion admitted to the hospital for further treatment of CHF, ascites with volume overload, enteritis, increasing lower extremity edema. PLAN: #Abd pain on admission likely 2/2 abdominal ascites vs. unresolved abd cause. Cannot rule out mesenteric ischemia ;however, lower differential dx -Thus far, WBC remains elevated on abx, stopping today -No true identifiable source of infection -Previously diagnosed with chronic cholecystitis last admission- HIDA scan done then - Discomfort across mid-abdomen per patient; however, pain described does not show on exam - At this time no need for paracentesis - Surgery consulted this admission, signed off. Not a surgical candidate at this time, no gallbladder pathology believed to be cause. - GI consulted to further evaluate, discussed case again with Dr. Bauer. He is to look more into prior studies. May order vascular studies if warranted. - Cipro, flagyl stopped after discussion with GI. Monitor while off #Chronic leukocytosis possibly 2/2 to CLL -Per patient, he was told that he only needed to follow up yearly due to stability of CLL -Will review notes when received from heme/onc -Stopped abx today, f/u CBC -Consider heme/onc consult # Acute on chronic HFpEF, volume overload with lower ext edema, ascites - NEg fluid balance - Recent 2D echo (04/13) EF 40-45% - C/w lasix BID, BB, lower dose spironolactone, close I & O monitoring, daily weights, elevate head of bed, fluid restriction #Pleural effusions likely 2/2 CHF, R>L - hx of thoracentesis - C/w diuresis #Lower ext swelling likely 2/2 to CHF - C/w diuresis above #HTN -Softer BP on admission -BB with holding parameters, lasix, low dose spironolactone #[place]'s disease -At baseline and Stable -F/u as o/p. # DVT Px -SC lovenox DISPOSITION: F/u GI consult. Rehab vs. home at discharge. Plan is to have family meeting with sister arranged to discuss multiple hospital admission, failed discharges home. VS, I&O, 24H, Fishbone Vital Signs/I&O Vital Signs Date Time Temp Pulse Resp B/P (MAP) Pulse Ox O2 Delivery O2 Flow Rate FiO2 06/21/20 13:51 98.6 82 22 104/70 (81) 93 Room Air I&O- Last 24 Hours up to 6 AM 06/21/20 06:00 Intake Total 1155 ml Output Total 1500 ml Balance -345 ml Laboratory Data 24H LABS Laboratory Tests 2 06/21/20 05:48: Neutrophils (%) (Auto) , Nucleated Red Blood Cells % (auto) 0.0, Neutrophils 49, Lymphocytes (Manual) 23, Monocytes (Manual) 5, Atypical Lymphocytes 23H, Anisocytosis 1+, Macrocytosis 1+, Smudge Cells 1+, Platelet Estimate INCREASED, Anion Gap 5L, Glomerular Filtration Rate > 60.0, Calcium Level 8.5L, Magnesium Level 2.3 CBC/BMP Laboratory Tests 06/21/20 05:48 Current Medications Current Medications Medications (Trade) Dose Ordered Sig/Gina Route PRN Reason Start Time Stop Time Status Last Admin Dose Admin Acetaminophen (Tylenol Tab) 650 mg Q6H PRN PO PAIN / FEVER 06/15/20 00:45 06/15/20 00:45 DC Acetaminophen (Tylenol Tab) 650 mg Q6H PRN PO PAIN / FEVER 06/15/20 06:45 06/21/20 13:58 Ciprofloxacin 400 mg/IV Miscellaneous Supplies 200 ml @ 200 mls/hr Q12H IV 06/15/20 00:00 06/16/20 09:33 DC 06/16/20 00:09 Ciprofloxacin 400 mg/IV Miscellaneous Supplies 200 ml @ 200 mls/hr Q12H IV 06/17/20 16:00 06/21/20 04:05 Dicyclomine HCl (Bentyl) 10 mg Q8HP PRN PO ABDOMINAL PAIN 06/15/20 23:45 06/21/20 01:18 Enoxaparin Sodium (Lovenox) 40 mg DAILY SC 06/20/20 09:00 06/21/20 08:12 Furosemide (LASIX injection) 40 mg Q12H IV 06/16/20 10:00 06/20/20 10:05 Furosemide (LASIX injection) 40 mg Q6H IV 06/15/20 00:00 06/16/20 09:33 DC 06/15/20 11:59 Home Med (Med Rec Complete!) ASDIRECTED XX 06/14/20 23:45 06/14/20 23:58 DC Metoprolol Tartrate (Lopressor) 12.5 mg BID PO 06/15/20 09:00 06/20/20 10:06 Metronidazole 500 mg/IV Miscellaneous Supplies 100 ml @ 100 mls/hr Q8H IV 06/15/20 02:00 06/16/20 09:33 DC 06/16/20 09:11 Metronidazole 500 mg/IV Miscellaneous Supplies 100 ml @ 100 mls/hr Q8H IV 06/17/20 17:00 06/21/20 08:13 Potassium Chloride (Micro-K Extencaps) 40 meq BID PO 06/15/20 09:00 06/17/20 09:23 DC 06/16/20 20:10 Ramelteon (Rozerem) 8 mg QHS PO 06/14/20 21:00 06/20/20 21:29 Allergies Coded Allergies: No Known Allergies (Unverified , 01/12/19) Arlene Jones MD Jun 21, 2020 14:44
[2020-06-21] MEDS: FUROSEMIDE 40 MG TAB PO SCH (18:08)
[2020-06-21 22:00] VITALS: BP 107/70
[2020-06-21] MEDS: RAMELTEON 8 MG TAB (ROZEREM) PO SCH (22:50)
[2020-06-22 06:00] VITALS: BP 116/77
[2020-06-22 06:33] LABS: HEMATOCRIT 35.2 % (42.0-52.0); HEMOGLOBIN 11.1 g/dl (13.5-17.5); MEAN CORPUSCULAR HEMOGLOBIN 27.3 pg (27.0-33.0); MEAN CORPUSCULAR HGB CONC 31.5 g/dl (32.0-36.5); MEAN CORPUSCULAR VOLUME 86.5 fl (80.0-96.0); PLATELET COUNT, AUTOMATED 469 10^3/uL (150-450); RED BLOOD COUNT 4.07 10^6/uL (4.30-6.10); WHITE BLOOD COUNT 13.4 10^3/uL (4.0-10.0)
[2020-06-22 06:53] LABS: BLOOD UREA NITROGEN 27 MG/DL (7-18); CALCIUM LEVEL 8.7 MG/DL (8.8-10.2); CARBON DIOXIDE LEVEL 29 MEQ/L (21-32); CHLORIDE LEVEL 107 MEQ/L (98-107); GLOMERULAR FILTRATION RATE > 60.0 (>49); GLUCOSE, FASTING 96 MG/DL (70-100); POTASSIUM SERUM 4.2 MEQ/L (3.5-5.1); SODIUM LEVEL 141 MEQ/L (136-145)
[2020-06-22] MEDS ORDERED: ISOVUE-370 76% 100ML VIAL As Ordered ONE (07:41)
--- NOTE | 2020-06-22 09:07 | REP ---
INDICATION: r/o thrombus, cause for poss mesenteric ischemia COMPARISON: 06/14/2020. TECHNIQUE: CT angiogram of the abdomen and pelvis was performed with intravenous administration of 100 cc of Isovue 370, without oral contrast. 3D MIP reconstruction images performed. FINDINGS: Abdominal aorta: No aneurysm or dissection. There are mild atherosclerotic calcifications of the abdominal aorta. Celiac artery and branches are patent with no stenosis. Mild narrowing at the origin of the superior mesenteric artery which is otherwise patent with no thrombus. Inferior mesenteric artery is patent. There is apparent fairly high-grade stenosis at the origin of the main right renal artery. The main left renal artery is widely patent. Bilaterally the common iliac, external iliac and common femoral arteries are widely patent, as are the origins of the superficial femoral arteries. Lung bases: Bilateral effusions appear unchanged. There is mild adjacent patchy parenchymal opacity in each lung base likely representing dependent atelectatic change. Liver: There is mild hepatomegaly. Gallbladder: Grossly unremarkable. Spleen: Normal. Adrenals: Normal. Pancreas: Normal. Kidneys: Normal. Small and large bowel: Unremarkable. Free fluid: Mild abdominal and pelvic ascites is noted. Adenopathy: There are slightly enlarged inguinal lymph nodes bilaterally. Appendix: Not inflamed. Pelvis: No mass. There are small inguinal hernias bilaterally containing ascites fluid, left larger than right. Osseous structures: Degenerative changes of the spine with mild chronic compression deformity of T12. there is metallic fixation in the pelvis. IMPRESSION: No aortic aneurysm or dissection. Mild scattered atherosclerotic calcifications. No mesenteric artery stenosis or thrombosis. 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 Stable bilateral pleural effusions. Stable ascites. <Electronically signed by Nahum Crowell > 06/22/20 0904
[2020-06-22] MEDS: SPIRONOLACTONE 12.5MG PER 1/2 TABLET PO SCH (09:26)
[2020-06-22] MEDS: FUROSEMIDE 40 MG TAB PO SCH ×2 (09:27→17:56)
[2020-06-22] MEDS: ENOXAPARIN 40MG/0.4ML SYRINGE (J1650 PER 10MG) SC SCH (09:27)
[2020-06-22] MEDS: METOPROLOL TART 12.5 MG PER 1/2 TAB PO SCH ×2 (09:28→20:48)
[2020-06-22] MEDS: DICYCLOMINE 10 MG CAP PO PRN (11:58)
[2020-06-22 14:00] VITALS: BP 108/70
[2020-06-22] MEDS: ACETAMINOPHEN TAB 650MG DOSE (2X325MG) PO PRN ×2 (14:41→20:52)
--- NOTE | 2020-06-22 15:37 | IPNPDOC ---
Date Seen The patient was seen on 06/22/20. Progress Note SUBJECTIVE: CTA abd to be done today to r/o poss ischemia as cause of abd pain. If neg, possibly neuropathic pain vs. malingering? Family meeting after weekend to discuss multiple hosp admissions. Denies chest pain, shortness of breath, n/v/d. PHYSICAL EXAMINATION: VS: Please see below Constitutional: Awake and alert x2- difficult to understand at times due to chor ea ENT: Sclera are clear. Mucosa is moist. Respiratory: crackles in lower lungs bilaterally. No W/R Cardiovascular: RRR S1 and S2 are normal, no murmur/R/G Gastrointestinal: Abdomen is soft, no pain on exam, BS present. No organomegaly Musculoskeletal: 1+ pitting edema extremities bilaterally. Neurologic: Chorea. No other focal deficits Skin: Warm, dry LABORATORY DATA: See below. IMAGING: No new imaging today MICROBIOLOGY: Please see below. 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 PLAN: #Abd pain on admission likely 2/2 abdominal ascites vs. unresolved abd cause. Cannot rule out mesenteric ischemia ;however, lower differential dx -CTA abd/pelvis today -WBC 13.4 -No true identifiable source of infection -Previously diagnosed with chronic cholecystitis last admission- HIDA scan done then - Discomfort across mid-abdomen per patient; however, pain described does not show on exam - At this time no need for paracentesis - Surgery consulted this admission, signed off. Not a surgical candidate at this time, no gallbladder pathology believed to be cause. - Cipro, flagyl stopped 06/21/20 #Chronic leukocytosis possibly 2/2 to CLL -Per patient, he was told that he only needed to follow up yearly due to stability of CLL -Heme/onc notes in chart -Stopped abx today, f/u CBC # Acute on chronic HFpEF, volume overload with lower ext edema, ascites - NEg fluid balance - Recent 2D echo (04/13) EF 40-45% - C/w lasix BID, BB, lower dose spironolactone, close I & O monitoring, daily weights, elevate head of bed, fluid restriction #Pleural effusions likely 2/2 CHF, R>L - hx of thoracentesis - C/w diuresis #Lower ext swelling likely 2/2 to CHF - C/w diuresis above #HTN -Softer BP on admission -BB with holding parameters, lasix, low dose spironolactone #Reid's disease -At baseline and Stable -F/u as o/p. # DVT Px -SC lovenox DISPOSITION: Rehab vs. home at discharge. Family meeting to take place after weekend to discuss safe discharge. VS, I&O, 24H, Fishbone Vital Signs/I&O Vital Signs Date Time Temp Pulse Resp B/P (MAP) Pulse Ox O2 Delivery O2 Flow Rate FiO2 06/22/20 14:00 98.2 71 18 108/70 (83) 94 Room Air I&O- Last 24 Hours up to 6 AM 06/22/20 06:00 Intake Total 1080 ml Output Total 545 ml Balance 535 ml Laboratory Data 24H LABS Laboratory Tests 2 06/22/20 05:51: Nucleated Red Blood Cells % (auto) 0.0, Anion Gap 5L, Glomerular Filtration Rate > 60.0, Calcium Level 8.7L CBC/BMP Laboratory Tests 06/22/20 05:51 Current Medications Current Medications Medications (Trade) Dose Ordered Sig/Gina Route PRN Reason Start Time Stop Time Status Last Admin Dose Admin Acetaminophen (Tylenol Tab) 650 mg Q6H PRN PO PAIN / FEVER 06/15/20 00:45 06/15/20 00:45 DC Acetaminophen (Tylenol Tab) 650 mg Q6H PRN PO PAIN / FEVER 06/15/20 06:45 06/22/20 14:41 Ciprofloxacin 400 mg/IV Miscellaneous Supplies 200 ml @ 200 mls/hr Q12H IV 06/15/20 00:00 06/16/20 09:33 DC 06/16/20 00:09 Ciprofloxacin 400 mg/IV Miscellaneous Supplies 200 ml @ 200 mls/hr Q12H IV 06/17/20 16:00 06/21/20 14:36 DC 06/21/20 04:05 Dicyclomine HCl (Bentyl) 10 mg Q8HP PRN PO ABDOMINAL PAIN 06/15/20 23:45 06/22/20 11:58 Enoxaparin Sodium (Lovenox) 40 mg DAILY SC 06/20/20 09:00 06/22/20 09:27 Furosemide (LASIX injection) 40 mg Q12H IV 06/16/20 10:00 06/21/20 14:41 DC 06/20/20 10:05 Furosemide (LASIX injection) 40 mg Q6H IV 06/15/20 00:00 06/16/20 09:33 DC 06/15/20 11:59 Furosemide (Lasix) 40 mg BID@09,17 PO 06/21/20 17:00 06/22/20 09:27 Home Med (Med Rec Complete!) ASDIRECTED XX 06/14/20 23:45 06/14/20 23:58 DC Metoprolol Tartrate (Lopressor) 12.5 mg BID PO 06/15/20 09:00 06/22/20 09:28 Metronidazole 500 mg/IV Miscellaneous Supplies 100 ml @ 100 mls/hr Q8H IV 06/15/20 02:00 06/16/20 09:33 DC 06/16/20 09:11 Metronidazole 500 mg/IV Miscellaneous Supplies 100 ml @ 100 mls/hr Q8H IV 06/17/20 17:00 06/21/20 14:36 DC 06/21/20 08:13 Potassium Chloride (Micro-K Extencaps) 40 meq BID PO 06/15/20 09:00 06/17/20 09:23 DC 06/16/20 20:10 Ramelteon (Rozerem) 8 mg QHS PO 06/14/20 21:00 06/21/20 22:50 Spironolactone (Aldactone) 12.5 mg DAILY PO 06/21/20 09:00 06/22/20 09:26 Allergies Coded Allergies: No Known Allergies (Unverified , 01/12/19) Arlene Jones MD Jun 22, 2020 15:37
[2020-06-22] MEDS: RAMELTEON 8 MG TAB (ROZEREM) PO SCH (20:52)
[2020-06-22 22:00] VITALS: BP 106/70
[2020-06-23 06:00] VITALS: BP 126/85
[2020-06-23 06:43] LABS: HEMATOCRIT 35.8 % (42.0-52.0); HEMOGLOBIN 11.1 g/dl (13.5-17.5); MEAN CORPUSCULAR HEMOGLOBIN 26.8 pg (27.0-33.0); MEAN CORPUSCULAR VOLUME 86.5 fl (80.0-96.0); PLATELET COUNT, AUTOMATED 499 10^3/uL (150-450); RED BLOOD COUNT 4.14 10^6/uL (4.30-6.10); WHITE BLOOD COUNT 14.8 10^3/uL (4.0-10.0)
[2020-06-23 07:12] LABS: BLOOD UREA NITROGEN 28 MG/DL (7-18); CALCIUM LEVEL 8.8 MG/DL (8.8-10.2); CARBON DIOXIDE LEVEL 29 MEQ/L (21-32); CHLORIDE LEVEL 107 MEQ/L (98-107); CREATININE FOR GFR 0.97 MG/DL (0.70-1.30); GLOMERULAR FILTRATION RATE > 60.0 (>49); GLUCOSE, FASTING 91 MG/DL (70-100); POTASSIUM SERUM 3.6 MEQ/L (3.5-5.1); SODIUM LEVEL 140 MEQ/L (136-145)
[2020-06-23] MEDS: ENOXAPARIN 40MG/0.4ML SYRINGE (J1650 PER 10MG) SC SCH (08:49)
[2020-06-23] MEDS: FUROSEMIDE 40 MG TAB PO SCH ×2 (08:53→16:52)
[2020-06-23] MEDS: SPIRONOLACTONE 12.5MG PER 1/2 TABLET PO SCH (08:54)
[2020-06-23] MEDS: METOPROLOL TART 12.5 MG PER 1/2 TAB PO SCH ×2 (08:54→21:00)
[2020-06-23] MEDS: GABAPENTIN 100 MG CAP PO SCH ×2 (09:00→22:05)
[2020-06-23] MEDS: DICYCLOMINE 10 MG CAP PO PRN ×2 (12:32→22:05)
[2020-06-23 14:00] VITALS: BP 99/63
--- NOTE | 2020-06-23 14:56 | IPNPDOC ---
Date Seen The patient was seen on 06/23/20. Progress Note SUBJECTIVE: No acute events overnight. Starting gabapentin BID, low dose. Denies abdominal pain today, chest pain, shortness of breath, n/v/d. PHYSICAL EXAMINATION: VS: Please see below Constitutional: NAD, resting in bedside chair, Awake and alert x2- difficult to understand ENT: Sclera are clear. Mucosa is moist. Respiratory: CTAB, No W/R/R Cardiovascular: RRR S1 and S2 are normal, no murmur/R/G Gastrointestinal: Abdomen is soft, no pain on exam, BS present. No organomegaly Musculoskeletal: 1+ pitting edema extremities bilaterally. Neurologic: Chorea. No other focal deficits Skin: Warm, dry LABORATORY DATA: See below. IMAGING: CTA abd/pelvis: No aortic aneurysm or dissection. Mild scattered atherosclerotic calcifications. No mesenteric artery stenosis or thrombosis. 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 Stable bilateral pleural effusions. Stable ascites. MICROBIOLOGY: Please see below. ASSESSMENT:64 year old male with [place]'s disease, CLL, CHF and recurrent pleural effusion admitted to the hospital for further treatment of CHF, ascites with volume overload, enteritis, increasing lower extremity edema. PLAN: #Abd pain on admission likely 2/2 unresolved abd cause. Cannot rule out neuropathic pain vs. malingering? - CTA abd/pelvis above - WBC 14.8, incr slightly from 06/22/20 - No true identifiable source of infection so cipro, flagyl stopped 06/21/20 - Previously diagnosed with chronic cholecystitis last admission- HIDA scan done then - Discomfort across mid-abdomen per patient; however, pain described does not show on exam. At this time no need for paracentesis - Surgery consulted this admission, signed off. Not a surgical candidate at this time, no gallbladder pathology believed to be cause. - Will start on low dose gabapentin BID. - If pain persists, consider psych consult. 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 New finding -Cr wnl -Will discuss with vascular surgery after the weekend to see if 1. this needs to be addressed now or as o/p 2. What options are for patient. # Acute on chronic HFpEF, volume overload with lower ext edema, ascites - Denies chest pain, SOB, cough - Recent 2D echo (04/13) EF 40-45% - C/w lasix BID, BB, lower dose spironolactone, close I & O monitoring, daily weights, elevate head of bed, fluid restriction #Pleural effusions likely 2/2 CHF, R>L - hx of thoracentesis - C/w diuresis #Lower ext swelling likely 2/2 to CHF - C/w diuresis above #HTN -STable -BB with holding parameters, lasix, low dose spironolactone #[place]'s disease -At baseline and Stable -F/u as o/p. # DVT Px -SC lovenox DISPOSITION: Rehab vs. home at discharge. Family meeting to take place after weekend to discuss safe discharge. VS, I&O, 24H, Fishbone Vital Signs/I&O Vital Signs Date Time Temp Pulse Resp B/P (MAP) Pulse Ox O2 Delivery O2 Flow Rate FiO2 06/23/20 08:54 78 101/64 06/23/20 06:00 98.8 18 100 Room Air I&O- Last 24 Hours up to 6 AM 06/23/20 06:00 Intake Total 1050 ml Output Total 750 ml Balance 300 ml Laboratory Data 24H LABS Laboratory Tests 2 06/23/20 06:12: Nucleated Red Blood Cells % (auto) 0.0, Anion Gap 4L, Glomerular Filtration Rate > 60.0, Calcium Level 8.8 CBC/BMP Laboratory Tests 06/23/20 06:12 Current Medications Current Medications Medications (Trade) Dose Ordered Sig/Gina Route PRN Reason Start Time Stop Time Status Last Admin Dose Admin Acetaminophen (Tylenol Tab) 650 mg Q6H PRN PO PAIN / FEVER 06/15/20 00:45 06/15/20 00:45 DC Acetaminophen (Tylenol Tab) 650 mg Q6H PRN PO PAIN / FEVER 06/15/20 06:45 06/22/20 20:52 Ciprofloxacin 400 mg/IV Miscellaneous Supplies 200 ml @ 200 mls/hr Q12H IV 06/15/20 00:00 06/16/20 09:33 DC 06/16/20 00:09 Ciprofloxacin 400 mg/IV Miscellaneous Supplies 200 ml @ 200 mls/hr Q12H IV 06/17/20 16:00 06/21/20 14:36 DC 06/21/20 04:05 Dicyclomine HCl (Bentyl) 10 mg Q8HP PRN PO ABDOMINAL PAIN 06/15/20 23:45 06/23/20 12:32 Enoxaparin Sodium (Lovenox) 40 mg DAILY SC 06/20/20 09:00 06/23/20 08:49 Furosemide (LASIX injection) 40 mg Q12H IV 06/16/20 10:00 06/21/20 14:41 DC 06/20/20 10:05 Furosemide (LASIX injection) 40 mg Q6H IV 06/15/20 00:00 06/16/20 09:33 DC 06/15/20 11:59 Furosemide (Lasix) 40 mg BID@09,17 PO 06/21/20 17:00 06/23/20 08:53 Home Med (Med Rec Complete!) ASDIRECTED XX 06/14/20 23:45 06/14/20 23:58 DC Metoprolol Tartrate (Lopressor) 12.5 mg BID PO 06/15/20 09:00 06/22/20 09:28 Metronidazole 500 mg/IV Miscellaneous Supplies 100 ml @ 100 mls/hr Q8H IV 06/15/20 02:00 06/16/20 09:33 DC 06/16/20 09:11 Metronidazole 500 mg/IV Miscellaneous Supplies 100 ml @ 100 mls/hr Q8H IV 06/17/20 17:00 06/21/20 14:36 DC 06/21/20 08:13 Potassium Chloride (Micro-K Extencaps) 40 meq BID PO 06/15/20 09:00 06/17/20 09:23 DC 06/16/20 20:10 Ramelteon (Rozerem) 8 mg QHS PO 06/14/20 21:00 06/22/20 20:52 Spironolactone (Aldactone) 12.5 mg DAILY PO 06/21/20 09:00 06/23/20 08:54 Allergies Coded Allergies: No Known Allergies (Unverified , 01/12/19) Arlene Jones MD Jun 23, 2020 14:56
[2020-06-23] MEDS: ACETAMINOPHEN TAB 650MG DOSE (2X325MG) PO PRN (16:52)
[2020-06-23 22:00] VITALS: BP 100/64
[2020-06-23] MEDS: RAMELTEON 8 MG TAB (ROZEREM) PO SCH (22:05)
[2020-06-24 06:00] VITALS: BP 119/68
[2020-06-24 07:10] LABS: HEMATOCRIT 33.4 % (42.0-52.0); HEMOGLOBIN 10.5 g/dl (13.5-17.5); MEAN CORPUSCULAR HEMOGLOBIN 26.9 pg (27.0-33.0); MEAN CORPUSCULAR HGB CONC 31.4 g/dl (32.0-36.5); MEAN CORPUSCULAR VOLUME 85.4 fl (80.0-96.0); PLATELET COUNT, AUTOMATED 521 10^3/uL (150-450); RED BLOOD COUNT 3.91 10^6/uL (4.30-6.10); WHITE BLOOD COUNT 14.7 10^3/uL (4.0-10.0)
[2020-06-24 07:31] LABS: BLOOD UREA NITROGEN 27 MG/DL (7-18); CALCIUM LEVEL 8.6 MG/DL (8.8-10.2); CARBON DIOXIDE LEVEL 28 MEQ/L (21-32); CHLORIDE LEVEL 109 MEQ/L (98-107); CREATININE FOR GFR 0.89 MG/DL (0.70-1.30); GLOMERULAR FILTRATION RATE > 60.0 (>49); GLUCOSE, FASTING 91 MG/DL (70-100); POTASSIUM SERUM 3.7 MEQ/L (3.5-5.1); SODIUM LEVEL 141 MEQ/L (136-145)
[2020-06-24] MEDS: SPIRONOLACTONE 12.5MG PER 1/2 TABLET PO SCH (10:15)
[2020-06-24] MEDS: GABAPENTIN 100 MG CAP PO SCH ×2 (10:15→21:23)
[2020-06-24] MEDS: FUROSEMIDE 40 MG TAB PO SCH ×2 (10:16→17:42)
[2020-06-24] MEDS: METOPROLOL TART 12.5 MG PER 1/2 TAB PO SCH ×2 (10:18→21:00)
[2020-06-24] MEDS: ENOXAPARIN 40MG/0.4ML SYRINGE (J1650 PER 10MG) SC SCH (10:19)
[2020-06-24] MEDS: ACETAMINOPHEN TAB 650MG DOSE (2X325MG) PO PRN (13:44)
[2020-06-24 14:00] VITALS: BP 108/68
--- NOTE | 2020-06-24 14:29 | IPNPDOC ---
Date Seen The patient was seen on 06/24/20. Progress Note SUBJECTIVE: No acute events overnight. Denies abdominal pain today, chest pain, shortness of breath, n/v/d. PHYSICAL EXAMINATION: VS: Please see below Constitutional: NAD, in bedside chair, Awake and alert x2- difficult to understand ENT: Sclera are clear. Mucosa is moist. Respiratory: CTAB, No W/R/R Cardiovascular: RRR S1 and S2 are normal, no murmur/R/G Gastrointestinal: Abdomen is soft, no pain on exam, BS present. No organomegaly Musculoskeletal: 1+ pitting edema extremities bilaterally. Neurologic: Chorea. No other focal deficits Skin: Warm, dry LABORATORY DATA: See below. IMAGING: CTA abd/pelvis: No aortic aneurysm or dissection. Mild scattered atherosclerotic calcifications. No mesenteric artery stenosis or thrombosis. 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 Stable bilateral pleural effusions. Stable ascites. MICROBIOLOGY: Please see below. ASSESSMENT:64 year old male with [place]'s disease, CLL, CHF and recurrent pleural effusion admitted to the hospital for further treatment of CHF, ascites with volume overload, enteritis, increasing lower extremity edema. PLAN: #Abd pain on admission likely 2/2 unresolved abd cause. Cannot rule out neuropathic pain vs. malingering? - CTA abd/pelvis above - WBC 14.8, incr slightly from 06/22/20 - No true identifiable source of infection so cipro, flagyl stopped 06/21/20 - Previously diagnosed with chronic cholecystitis last admission- HIDA scan done then - Discomfort across mid-abdomen per patient; however, pain described does not show on exam. At this time no need for paracentesis - Surgery consulted this admission, signed off. Not a surgical candidate at this time, no gallbladder pathology believed to be cause. - C/w gabapentin BID. - If pain persists, consider psych consult. #Chronic leukocytosis possibly 2/2 to CLL -Per last oncology note from 05/07/20, he had stage 0 smoldering CLL with stable counts. They were watching him and following up [id number]. -Baseline WBC count mentioned in note 19K -Absolute lymphocyte count 5177 -Heme/onc notes in chart -At this time, no need to involve heme/onc. Patient can follow up as reguarly. 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 New finding -Cr wnl -Will discuss with vascular surgery after the weekend to see if 1. this needs to be addressed now or as o/p and 2. What options are for patient. # Acute on chronic HFpEF, volume overload with lower ext edema, ascites - Denies chest pain, SOB, cough - Recent 2D echo (04/13) EF 40-45% - C/w lasix BID, BB, lower dose spironolactone, close I & O monitoring, daily weights, elevate head of bed, fluid restriction #Pleural effusions likely 2/2 CHF, R>L - hx of thoracentesis - C/w diuresis #Lower ext swelling likely 2/2 to CHF, chronic but improved - C/w diuresis above #HTN -Stable -BB with holding parameters, lasix, low dose spironolactone #[place]'s disease -At baseline and Stable -F/u as o/p. # DVT Px -SC lovenox DISPOSITION: At this time, most medical issues have stabilized. Decision needs to be rehab vs. home at discharge. Family meeting to take place after weekend to discuss safe discharge. VS, I&O, 24H, Fishbone Vital Signs/I&O Vital Signs Date Time Temp Pulse Resp B/P (MAP) Pulse Ox O2 Delivery O2 Flow Rate FiO2 06/24/20 10:18 76 99/63 06/24/20 06:00 98.4 18 96 Room Air I&O- Last 24 Hours up to 6 AM 06/24/20 06:00 Intake Total 930 ml Output Total 975 ml Balance -45 ml Laboratory Data 24H LABS Laboratory Tests 2 06/24/20 06:50: Nucleated Red Blood Cells % (auto) 0.0, Anion Gap 4L, Glomerular Filtration Rate > 60.0, Calcium Level 8.6L CBC/BMP Laboratory Tests 06/24/20 06:50 Current Medications Current Medications Medications (Trade) Dose Ordered Sig/Gina Route PRN Reason Start Time Stop Time Status Last Admin Dose Admin Acetaminophen (Tylenol Tab) 650 mg Q6H PRN PO PAIN / FEVER 06/15/20 00:45 06/15/20 00:45 DC Acetaminophen (Tylenol Tab) 650 mg Q6H PRN PO PAIN / FEVER 06/15/20 06:45 06/24/20 13:44 Ciprofloxacin 400 mg/IV Miscellaneous Supplies 200 ml @ 200 mls/hr Q12H IV 06/15/20 00:00 06/16/20 09:33 DC 06/16/20 00:09 Ciprofloxacin 400 mg/IV Miscellaneous Supplies 200 ml @ 200 mls/hr Q12H IV 06/17/20 16:00 06/21/20 14:36 DC 06/21/20 04:05 Dicyclomine HCl (Bentyl) 10 mg Q8HP PRN PO ABDOMINAL PAIN 06/15/20 23:45 06/23/20 22:05 Enoxaparin Sodium (Lovenox) 40 mg DAILY SC 06/20/20 09:00 06/24/20 10:19 Furosemide (LASIX injection) 40 mg Q12H IV 06/16/20 10:00 06/21/20 14:41 DC 06/20/20 10:05 Furosemide (LASIX injection) 40 mg Q6H IV 06/15/20 00:00 06/16/20 09:33 DC 06/15/20 11:59 Furosemide (Lasix) 40 mg BID@09,17 PO 06/21/20 17:00 06/24/20 10:16 Gabapentin (Neurontin) 100 mg BID PO 06/23/20 09:00 06/24/20 10:15 Home Med (Med Rec Complete!) ASDIRECTED XX 06/14/20 23:45 06/14/20 23:58 DC Metoprolol Tartrate (Lopressor) 12.5 mg BID PO 06/15/20 09:00 06/22/20 09:28 Metronidazole 500 mg/IV Miscellaneous Supplies 100 ml @ 100 mls/hr Q8H IV 06/15/20 02:00 06/16/20 09:33 DC 06/16/20 09:11 Metronidazole 500 mg/IV Miscellaneous Supplies 100 ml @ 100 mls/hr Q8H IV 06/17/20 17:00 06/21/20 14:36 DC 06/21/20 08:13 Potassium Chloride (Micro-K Extencaps) 40 meq BID PO 06/15/20 09:00 06/17/20 09:23 DC 06/16/20 20:10 Ramelteon (Rozerem) 8 mg QHS PO 06/14/20 21:00 11/21/20 22:05 Spironolactone (Aldactone) 12.5 mg DAILY PO 06/21/20 09:00 06/24/20 10:15 Allergies Coded Allergies: No Known Allergies (Unverified , 01/12/19) Arlene Jonse MD Jun 24, 2020 14:29
[2020-06-24] MEDS: DICYCLOMINE 10 MG CAP PO PRN (21:23)
[2020-06-24] MEDS: RAMELTEON 8 MG TAB (ROZEREM) PO SCH (21:23)
[2020-06-24 22:00] VITALS: BP 100/66
[2020-06-25 06:00] VITALS: BP 109/74
[2020-06-25 06:40] LABS: HEMATOCRIT 33.3 % (42.0-52.0); HEMOGLOBIN 10.4 g/dl (13.5-17.5); MEAN CORPUSCULAR HEMOGLOBIN 26.7 pg (27.0-33.0); MEAN CORPUSCULAR HGB CONC 31.2 g/dl (32.0-36.5); MEAN CORPUSCULAR VOLUME 85.6 fl (80.0-96.0); PLATELET COUNT, AUTOMATED 538 10^3/uL (150-450); RED BLOOD COUNT 3.89 10^6/uL (4.30-6.10); WHITE BLOOD COUNT 14.1 10^3/uL (4.0-10.0)
[2020-06-25 07:03] LABS: BLOOD UREA NITROGEN 25 MG/DL (7-18); CARBON DIOXIDE LEVEL 28 MEQ/L (21-32); CHLORIDE LEVEL 105 MEQ/L (98-107); CREATININE FOR GFR 0.88 MG/DL (0.70-1.30); GLOMERULAR FILTRATION RATE > 60.0 (>49); GLUCOSE, FASTING 88 MG/DL (70-100); POTASSIUM SERUM 4.2 MEQ/L (3.5-5.1); SODIUM LEVEL 139 MEQ/L (136-145)
[2020-06-25 07:04] LABS: CALCIUM LEVEL 8.7 MG/DL (8.8-10.2)
[2020-06-25 09:00] VITALS: BP 102/70
[2020-06-25] MEDS: FUROSEMIDE 40 MG TAB PO SCH (09:00)
[2020-06-25] MEDS: METOPROLOL TART 12.5 MG PER 1/2 TAB PO SCH (09:00)
[2020-06-25] MEDS: ENOXAPARIN 40MG/0.4ML SYRINGE (J1650 PER 10MG) SC SCH (09:11)
[2020-06-25] MEDS: DICYCLOMINE 10 MG CAP PO PRN (09:11)
[2020-06-25] MEDS: GABAPENTIN 100 MG CAP PO SCH (09:11)
[2020-06-25] MEDS: SPIRONOLACTONE 12.5MG PER 1/2 TABLET PO SCH (09:44)
[2020-06-25] MEDS ORDERED: GABA-1171 PO (10:30)
--- NOTE | 2020-06-25 17:46 | DS.PDOC ---
Discharge Summary General Date of Admission Jun 14, 2020 at 22:59 Date of Discharge 06/25/20 Attending Physician: Arlene Jones MD Discharge Summary HISTORY OF PRESENT ILLNESS: (POOR HISTORIAN) 64 y/o male with pmh significant for CLL, Reid's disease, systolic heart failure , EF 45%, mental disability recently discharged in May for congestive heart failure exacerbation, presents to the emergency room with diffuse abdominal pain, left greater than right without any nausea, vomiting, diarrhea, fever, chills, dysuria, urgency, frequency, flank pain or hematuria. Patient complains of slight shortness of breath without cough PND or orthopnea but admits to chronic lower extremity 3+ edema. Patient denies any bloody diarrhea, abdominal pain after eating or weight loss. Hospitalist was asked to admit for evaluation of abdominal pain, and management of decompensated CHF. HOSPITAL COURSE: Patient had extensive workup done this admission for abdominal pain, including GI and surgery consults. Both did not find acute or chronic reason for this continued pain. GI felt this could be neuropathic pain so gabapentin BID was started low dose. When asked if this treatment helped, the patient stated he could not tell because his pain comes and goes. CTA of abd also found renal artery stenosis. patient has known HTN but has never been followed for this in past. Vascular surgery discussed case and would like to follow up in office after discharge to monitor this closely. WBC was persistently elevated but this was found to be 2/2 to his CLL which, according to most recent note in 05/2020, has been stable. Patient was offered rehab vs. SNF and patient did not wish to go. He wanted to go home. His sister was updated and patient was discharged home 06/25/20 in stable condition. At time of d/c, patient's heart failure was stable and he was diuresing nicely on home medications. PAST MEDICAL HISTORY: [place]'s disease/Chorea, CLL, diastolic CHF and recurrent pleural effusion, mental disability, pelvic and rib fractures, splenic hematoma PAST SURGICAL HISTORY: Chest tube HOME MEDICATIONS: SEE BELOW ALLERGIES: SEE BELOW FAMILY HISTORY: Mother in her 80s from old age. History of CVA Father age 71 secondary to prostate cancer Siblings: Sister is alive ([place] [phone]) SOCIAL HISTORY Single and disability, unemployed, previously chews tobacco * Smoker: Denies Alcohol: Denies Drugs: denies ALLERGIES: Please see below. DISCHARGE MEDICATIONS: Please see below. PHYSICAL EXAMINATION: VS: Please see below Constitutional: NAD, in bedside chair, Awake and alert x2- difficult to understand ENT: Sclera are clear. Mucosa is moist. Respiratory: CTAB, No W/R/R Cardiovascular: RRR S1 and S2 are normal, no murmur/R/G Gastrointestinal: Abdomen is soft, no pain on exam, BS present. No organomegaly Musculoskeletal: 1+ pitting edema extremities bilaterally. Neurologic: Chorea. No other focal deficits Skin: Warm, dry LABORATORY DATA: See below. IMAGING: CTA abd/pelvis: No aortic aneurysm or dissection. Mild scattered atherosclerotic calcifications. No mesenteric artery stenosis or thrombosis. 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 Stable bilateral pleural effusions. Stable ascites. MICROBIOLOGY: Please see below. ASSESSMENT:64 year old male with [place]'s disease, CLL, CHF and recurrent pleural effusion admitted to the hospital for further treatment of CHF, ascites with volume overload, enteritis, increasing lower extremity edema. PLAN: #Abd pain on admission likely 2/2 unresolved abd cause. Cannot rule out neuropathic pain vs. malingering? - CTA abd/pelvis above - WBC 14.8, incr slightly from 06/22/20 - No true identifiable source of infection so cipro, flagyl stopped 06/21/20 - Previously diagnosed with chronic cholecystitis last admission- HIDA scan done then - Discomfort across mid-abdomen per patient; however, pain described does not show on exam. At this time no need for paracentesis - Surgery consulted this admission, signed off. Not a surgical candidate at this time, no gallbladder pathology believed to be cause. - C/w gabapentin BID. - If pain persists, consider psych consult. #Chronic leukocytosis possibly 2/2 to CLL -Per last oncology note from 05/07/20, he had stage 0 smoldering CLL with stable counts. They were watching him and following up [id number]. -Baseline WBC count mentioned in note 19K -Absolute lymphocyte count 5177 -Heme/onc notes in chart -At this time, no need to involve heme/onc. Patient can follow up as reguarly planned . 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 New finding -Cr wnl -Vascular would like to see as o/p. Will likely need f/u Q6mo. # Acute on chronic HFpEF, volume overload with lower ext edema, ascites - Denies chest pain, SOB, cough - Recent 2D echo (04/13) EF 40-45% - C/w lasix BID, BB, lower dose spironolactone #Pleural effusions likely 2/2 CHF, R>L - hx of thoracentesis - C/w diuresis #Lower ext swelling likely 2/2 to CHF, chronic but improved - C/w diuresis above #HTN -Stable -BB with holding parameters, lasix, low dose spironolactone #Reid's disease -At baseline and Stable -F/u as o/p. DISPOSITION: At this time, most medical issues have stabilized. D/c home today with follow up for vascular surgery, PCP. TIME SPENT ON DISCHARGE: Greater than 30 minutes. Vital Signs/I&Os Vital Signs Date Time Temp Pulse Resp B/P (MAP) Pulse Ox O2 Delivery O2 Flow Rate FiO2 06/25/20 09:00 76 102/70 06/25/20 06:00 97.4 17 95 Room Air I&O- Last 24 Hours up to 6 AM 06/25/20 06:00 Intake Total 840 ml Output Total 1250 ml Balance -410 ml Laboratory Data Labs 24H Laboratory Tests 2 06/25/20 05:47: Nucleated Red Blood Cells % (auto) 0.0, Anion Gap 6L, Glomerular Filtration Rate > 60.0, Calcium Level 8.7L CBC/BMP Laboratory Tests 06/25/20 05:47 Discharge Medications Scheduled Furosemide (Furosemide) 40 Mg Tablet, 40 MG PO BID, (Reported) Gabapentin (Gabapentin) 100 Mg Capsule, 100 MG PO BID Lisinopril (Lisinopril) 5 Mg Tablet, 5 MG PO DAILY, (Reported) Metoprolol Tartrate (Metoprolol Tartrate) 25 Mg Tablet, 12.5 MG PO BID, (Reported) Ramelteon (Rozerem) 8 Mg Tablet, 8 MG PO QHS, (Reported) Spironolactone (Spironolactone) 25 Mg Tablet, 25 MG PO DAILY, (Reported) Scheduled PRN Acetaminophen (Tylenol) 325 Mg Tablet, 650 MG PO Q6H PRN for PAIN / FEVER, (Reported) Miscellaneous Medications [Patient Comment] , (Reported) COMPLETED WITH DISCHARGE PAPERWORK FROM 06/14/2020 Allergies Coded Allergies: No Known Allergies (Unverified , 01/12/19) Arlene Jones MD Jun 25, 2020 17:46
== END 2020-06-25 13:55 | disposition home or self-care (01) | DRG 292 ==
LOC: M ED 18:47 → EDBD 18:47 → M ED INP 22:59 → ENRESERV 06-15 00:19 → M MSPAV 06-15 01:14
PROVIDERS: ADMIT General Practice; ATTEND Internal Medicine
DX: I11.0 Hypertensive heart disease with heart failure (principal); R18.8 Other ascites; G10 Huntington's disease; C91.90 Lymphoid leukemia, unspecified not having achieved remission; F79 Unspecified intellectual disabilities; F17.220 Nicotine dependence, chewing tobacco, uncomplicated; I50.23 Acute on chronic systolic (congestive) heart failure; Z79.899 Other long term (current) drug therapy; K52.9 Noninfective gastroenteritis and colitis, unspecified; E87.6 Hypokalemia; G47.9 Sleep disorder, unspecified; Z20.828 Contact with and (suspected) exposure to other viral communicable diseases

== ENCOUNTER 2020-07-01 13:57 | Inpatient (IN) | payer MEDICARE, MEDICAID ==
[~2020-07-01] VITALS: Ht 182.9 cm; Wt 73.5 kg
[~2020-07-01 13:57] MED LIST changes: +ACET-907 PO; +GABA-1171 PO; +PATIENT COMMENT
--- NOTE | 2020-07-01 15:38 | REP ---
INDICATION: Abdominal Pain COMPARISON: 06/06/2020 TECHNIQUE: PA and lateral. FINDINGS: The mediastinum and cardiac silhouette are stable. Lung ding demonstrate chronic changes along with suspected small to moderate right pleural effusion and passive atelectasis. Skeletal structures intact. IMPRESSION: Chronic changes with suspected moderate right pleural effusion and passive atelectasis. <Electronically signed by Wale Green > 07/01/20 [id number]
--- NOTE | 2020-07-01 15:55 | REP ---
INDICATION: ams COMPARISON: 07/26/2019 TECHNIQUE: Axial noncontrast images from the skull base to the thoracic inlet with coronal reformations. This CT examination was performed using the following dose reduction techniques: Automated exposure control, adjustment of mA and/or kv according to the patient's size, and use of iterative reconstruction technique. FINDINGS: Age-related atrophy and microvascular ischemic changes are appreciated. The ventricles and sulci are symmetric. Crowell-white differentiation is maintained. There is no evidence for acute intracranial hemorrhage, mass/mass effect, pathology or infarction. No extra-axial fluid collection. Calvarium is intact. Paranasal sinuses and mastoid air cells are clear. IMPRESSION: Age related atrophy and microvascular ischemic changes. No acute intracranial hemorrhage, infarction, or mass/mass effect. <Electronically signed by Wale Green > 07/01/20 [id number]
[2020-07-01 17:15] LABS: HEMOGLOBIN 11.5 g/dl (13.5-17.5); MEAN CORPUSCULAR HEMOGLOBIN 27.2 pg (27.0-33.0); MEAN CORPUSCULAR HGB CONC 31.1 g/dl (32.0-36.5); MEAN CORPUSCULAR VOLUME 87.5 fl (80.0-96.0); PLATELET COUNT, AUTOMATED 599 10^3/uL (150-450); RED BLOOD COUNT 4.23 10^6/uL (4.30-6.10); WHITE BLOOD COUNT 15.5 10^3/uL (4.0-10.0)
[2020-07-01 17:31] LABS: INR 1.14; PROTHROMBIN TIME 14.9 SECONDS (12.5-14.3)
[2020-07-01 17:32] LABS: PARTIAL THROMBOPLASTIN TIME 34.5 SECONDS (24.2-38.5)
[2020-07-01] MEDS ORDERED: GABA-1171 PO (17:38)
[2020-07-01] MEDS ORDERED: POTA10TA16 PO (17:41)
[2020-07-01 17:51] LABS: ALT/SGPT 22 U/L (12-78); AMYLASE 31 U/L (25-115); BILIRUBIN,DIRECT 0.6 MG/DL (0.0-0.2); BILIRUBIN,TOTAL 0.9 MG/DL (0.2-1.0); BLOOD UREA NITROGEN 23 MG/DL (7-18); CALCIUM LEVEL 8.8 MG/DL (8.8-10.2); CARBON DIOXIDE LEVEL 26 MEQ/L (21-32); CHLORIDE LEVEL 109 MEQ/L (98-107); CK-MB VALUE MASS 1.5 NG/ML (<3.6); CPK CREATINE PHOSPHOKINASE 68 U/L (39-308); CREATININE FOR GFR 0.86 MG/DL (0.70-1.30); GLOMERULAR FILTRATION RATE > 60.0 (>49); GLUCOSE, FASTING 88 MG/DL (70-100); LIPASE 97 U/L (73-393); MB/CK RELATIVE INDEX 2.21 (< OR =4); NT-PRO BNP 877 PG/ML (<125); POTASSIUM SERUM 3.8 MEQ/L (3.5-5.1); SODIUM LEVEL 140 MEQ/L (136-145); TOTAL PROTEIN 6.6 GM/DL (6.4-8.2); TROPONIN I < 0.02 NG/ML (< 0.10)
[2020-07-01 18:07] LABS: ATYPICAL LYMPH 7 % (0-5); BASOPHILS 1 % (0-1); LYMPHOCYTES 18 % (16-44); MONOCYTES 4 % (0-5); NEUTROPHILS 69 % (28-66)
[2020-07-01] MEDS ORDERED: ISOVUE-370 76% 100ML VIAL As Ordered ONE (18:07)
[2020-07-01 18:08] LABS: PLATELET ESTIMATE INCREASED (NORMAL)
[2020-07-01 18:09] LABS: ANISOCYTOSIS 1+; HYPOCHROMASIA 1+
[2020-07-01] MEDS ORDERED: MORPHINE 4 MG/ML 1ML VIAL/SYRINGE (J2270) IV ONE ×2 (18:15→19:15)
[2020-07-01] MEDS ORDERED: ONDANSETRON 4MG/2ML VIAL IV ONE (18:15)
--- NOTE | 2020-07-01 18:46 | REPVR ---
PROCEDURE INFORMATION: Exam: CT Angiography Chest With Contrast Exam date and time: 07/01/2020 6:18 PM Age: 64 years old Clinical indication: Abnormal findings; Abnormal diagnostic tests; Other: Leukocytosis; Additional info: SOB, leukocytosis TECHNIQUE: Imaging protocol: Computed tomographic angiography of the chest with intravenous contrast. 3D rendering (Not supervised by radiologist): MIP and/or 3D reconstructed images were created by the technologist. Radiation optimization: All CT scans at this facility use at least one of these dose optimization techniques: automated exposure control; mA and/or kV adjustment per patient size (includes targeted exams where dose is matched to clinical indication); or iterative reconstruction. Contrast material: ISOVUE 370; Contrast volume: 100 ml; Contrast route: INTRAVENOUS (IV); COMPARISON: CT ANGIO CHEST 04/30/2020 10:41 PM FINDINGS: Pulmonary arteries: There are no pulmonary emboli. Aorta: There is no aortic dissection or aneurysm. Decreased contrast density in the thoracic aorta limits evaluation. Lungs: Compressive atelectasis right lung base. Pleural space: Small right pleural effusion. Heart: Unremarkable. No cardiomegaly. No pericardial effusion. Mild coronary artery calcifications. Lymph nodes: Unremarkable. No enlarged lymph nodes. Bones/joints: Unremarkable. No acute fracture. Soft tissues: Unremarkable. IMPRESSION: 1. There are no pulmonary emboli. 2. There is no aortic dissection or aneurysm. Decreased contrast density in the thoracic aorta limits evaluation. 3. No acute pulmonary parenchymal abnormalities. 4. Small right pleural effusion. Electronically signed by: Jett Abdullahi On 07/01/2020 18:46:08 PM
--- NOTE | 2020-07-01 18:52 | REPVR ---
PROCEDURE INFORMATION: Exam: CT Abdomen And Pelvis With Contrast Exam date and time: 07/01/2020 6:18 PM Age: 64 years old Clinical indication: Abdominal pain; Additional info: Diffuse abd pain TECHNIQUE: Imaging protocol: Computed tomography of the abdomen and pelvis with intravenous contrast. Radiation optimization: All CT scans at this facility use at least one of these dose optimization techniques: automated exposure control; mA and/or kV adjustment per patient size (includes targeted exams where dose is matched to clinical indication); or iterative reconstruction. Contrast material: ISOVUE 370; Contrast volume: 100 ml; Contrast route: INTRAVENOUS (IV); COMPARISON: CT ABD/PEL W/IV CONTRAST ONLY 06/14/2020 9:52 PM FINDINGS: Liver: Normal. No mass. Gallbladder and bile ducts: The gallbladder is incompletely distended. This is most likely related to incomplete fasting. Clinical correlation to exclude gallbladder pathology suggested. Pancreas: Normal. No ductal dilation. Spleen: The spleen demonstrates punctate calcifications, consistent with remote granulomatous organism exposure. Also noted is calcification along the lateral aspect of the splenic capsule, finding which may be related to prior infection or trauma. Adrenal glands: Normal. No mass. Kidneys and ureters: Normal. No hydronephrosis. Stomach and bowel: Multiple thick-walled loops of small bowel may be related to hypoproteinemia although inflammatory causes including ischemia infection not excluded. Appendix: No evidence of appendicitis. Intraperitoneal space: There is a small amount of free intraperitoneal fluid present. Vasculature: Unremarkable. No abdominal aortic aneurysm. Lymph nodes: Unremarkable. No enlarged lymph nodes. Urinary bladder: Unremarkable as visualized. Reproductive: The prostate gland demonstrates moderate hyperplasia. Bones/joints: Mild central spinal stenosis L2-L3, severe central spinal stenosis L3-L4 and L4-L5. Status post ORIF left pubic bone. Soft tissues: Bilateral fluid containing inguinal hernias, left greater than right. Small bowel loops demonstrated in the left inguinal hernia. No obvious incarceration. There is soft tissue edema demonstrated in the abdominal wall, flanks and buttock regions consistent with anasarca. Other findings: Levoscoliosis. Osteoporosis. IMPRESSION: 1. There is a small amount of free intraperitoneal fluid present. 2. The gallbladder is incompletely distended. This is most likely related to incomplete fasting. Clinical correlation to exclude gallbladder pathology suggested. 3. The spleen demonstrates punctate calcifications, consistent with remote granulomatous organism exposure. Also noted is calcification along the lateral aspect of the splenic capsule, finding which may be related to prior infection or trauma. 4. Moderate prostatic hyperplasia. 5. Bilateral fluid containing inguinal hernias, left greater than right. Small bowel loops demonstrated in the left inguinal hernia. No obvious incarceration. 6. Anasarca. 7. Multiple thick-walled loops of small bowel may be related to hypoproteinemia although inflammatory causes including ischemia infection not excluded. Electronically signed by: Jett Abdullahi On 07/01/2020 18:52:58 PM
[2020-07-01] MEDS ORDERED: MAALOX 30 ML SUSP *UDC PO PRN (19:45)
[2020-07-01] MEDS ORDERED: NORCO, ANEXSIA 5/325MG TABLET (HYDROcodone/ACETAMINOPHEN) PO PRN (19:45)
[2020-07-01] MEDS ORDERED: ACETAMINOPHEN TAB 650MG DOSE (2X325MG) PO PRN (19:45)
[2020-07-01] MEDS ORDERED: MOM 30ML SUSPENSION UDC PO PRN (19:45)
[2020-07-01] MEDS ORDERED: FUROSEMIDE 40MG/4ML VIAL (J1940) IV SCH (20:00)
--- NOTE | 2020-07-01 20:44 | ECGEPIP ---
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
[2020-07-01] MEDS ORDERED: lisinopriL 5 MG TAB PO SCH (21:00)
[2020-07-01] MEDS ORDERED: RAMELTEON 8 MG TAB (ROZEREM) PO SCH (21:00)
[2020-07-01] MEDS ORDERED: ENOXAPARIN 40MG/0.4ML SYRINGE (J1650 PER 10MG) SC SCH (21:00)
[2020-07-01 21:04] LABS: MAGNESIUM LEVEL 2.3 MG/DL (1.8-2.4); PHOSPHORUS LEVEL 3.5 MG/DL (2.5-4.9)
[2020-07-01 21:39] VITALS: O2SAT 91
[2020-07-01 21:40] VITALS: BP 105/60
[2020-07-01 22:00] VITALS: O2SAT 94
--- NOTE | 2020-07-01 22:28 | HPEPDOC ---
[facility] Medical History & Physical Date of Admission Jul 01, 2020 Date of Service: Jul 01, 2020 Primary Care Physician: ANIL MARQUEZ PA-C Attending Physician: BILLY LINN MD History and Physical TIME OF SERVICE: 9:01 pm CHIEF COMPLAINT: Abdominal pain HISTORY OF PRESENT ILLNESS: The patient has a developmental disability and was unable to provide any history, the majority of the history was obtained from Lupe Malin . This 64-year-old gentleman was admitted for evaluation of abdominal pain from June 14 to June 25. According to his sister, the patient developed worsening upper abdominal pain for the last day and his behavior has not been at his baseline. The patient's sister denied noticing vomiting or diarrhea that also commented that her brother complained of dyspnea. Lupe Malin contacted Dr. Cornell who recommended conservative measures for now. At the time of my evaluation, the patient seemed uncomfortable, but I was unable to understand wh at he was saying. REVIEW OF SYSTEMS: Unobtainable because the patient has a developmental delay PAST MEDICAL/ SURGICAL HISTORY: Seneca's Chorea CLL Chronic HFrEF (EF 45%) with HFpEF (grade 1 DD) History of recurrent pleural effusion with history of pneumothorax and thoracentesis Chronic microvascular ischemia BPH Developmental disability Hx of pelvic and rib fractures post Hx of splenic hematoma s/p splenectomy SOCIAL HISTORY: He is a former tobacco user He lives with his sister FAMILY HISTORY: Mother in her 80s from old age. History of CVA Father age 71 secondary to prostate cancer Siblings: Sister is alive (Chantel [phone]) ALLERGIES: Please see below. HOME MEDICATIONS: Please see below. PHYSICAL EXAMINATION: VITAL SIGNS: Please see below. GEN: slim build/ well developed/ has chorea affecting all extremities and the trunk INTEGUMENT: not flushed/ not jaundice HEENT: lips acyanotic /mucus membranes moist and pink CVS: RRR/NMRG LUNGS: no coughing / lungs are clear to auscultation bilaterally on room air ABDOMEN: Contour (flat) / soft & unable to tell if he has pain with palpation MSK/EXTREMITIES: NCAT / range of motion intact in all 4 extremities NEURO: speech dysarthric PSYCH: alert LABORATORY DATA: 07/01/20 17:01 07/01/20 16:33: Urine Color EDDA, Urine Appearance HAZY, Urine pH 5.0, Urine Specific [place] 1.041, Urine Protein 1+H, Urine Glucose (UA) NEGATIVE, Urine Ketones NEGATIVE, Urine Blood NEGATIVE, Urine Nitrite NEGATIVE, Urine Bilirubin 1+H, Urine Urobilinogen 4.0H, Urine Leukocyte Esterase NEGATIVE, Urine WBC (Auto) 1, Urine RBC (Auto) 2, Urine Hyaline Casts (Auto) 3, Urine Bacteria (Auto) NEGATIVE, Urine Squamous Epithelial Cells 2, Urine Mucus (Auto) SMALL, Urine Sperm (Auto) 07/01/20 17:01: Neutrophils (%) (Auto) , Nucleated Red Blood Cells % (auto) 0.0, Neutrophils 69H, Band Neutrophils 1, Lymphocytes (Manual) 18, Monocytes (Manual) 4, Basophils (Manual) 1, Atypical Lymphocytes 7H, Hypochromasia 1+, Anisocytosis 1+, Platelet Estimate INCREASED, Prothrombin Time 14.9H, Prothromb Time International Ratio 1.14, Activated Partial Thromboplast Time 34.5, Anion Gap 5L, Glomerular Filtration Rate > 60.0, Lactic Acid Level 1.2, Calcium Level 8.8, Total Bilirubin 0.9, Direct Bilirubin 0.6H, Aspartate Amino Transf (AST/SGOT) 24, Alanine Aminotransferase (ALT/SGPT) 22, Alkaline Phosphatase 425H, Ammonia < 10, Total Creatine Kinase 68, Creatine Kinase MB 1.5, Creatine Kinase MB Relative Index 2.21, Troponin I < 0.02, NC-Ccg-B-Type Natriuretic Peptide 877H, Total Protein 6.6, Albumin 3.0L, Albumin/Globulin Ratio 0.8, Amylase Level 31, Lipase 97 07/01/20 17:22: Coronavirus (COVID-19)(PCR) NEGATIVE 07/01/20 20:27: Phosphorus Level 3.5, Magnesium Level 2.3 EKG normal sinus rhythm with a rate of 74, inverted T waves from V1 to V6 which is similar to the EKG taken on June 03 IMAGING: Chest xray "IMPRESSION: Chronic changes with suspected moderate right pleural effusion and passive atelectasis." CT head "IMPRESSION: Age related atrophy and microvascular ischemic changes. No acute intracranial hemorrhage, infarction, or mass/mass effect. CTA chest "IMPRESSION: 1. There are no pulmonary emboli. 2. There is no aortic dissection or aneurysm. Decreased contrast density in the thoracic aorta limits evaluation. 3. No acute pulmonary parenchymal abnormalities. 4. Small right pleural effusion." CT abdomen and pelvis "IMPRESSION: 1. There is a small amount of free intraperitoneal fluid present. 2. The gallbladder is incompletely distended. This is most likely related to incomplete fasting. Clinical correlation to exclude gallbladder pathology suggested. 3. The spleen demonstrates punctate calcifications, consistent with remote granulomatous organism exposure. Also noted is calcification along the lateral aspect of the splenic capsule, finding which may be related to prior infection or trauma. 4. Moderate prostatic hyperplasia. 5. Bilateral fluid containing inguinal hernias, left greater than right. Small bowel loops demonstrated in the left inguinal hernia. No obvious incarceration." MICROBIOLOGY: Please see below. ASSESSMENT: Mr. Motley is a 54-year-old with a history of chronic HFpEF w HFrEF, Seneca's chorea CLL, recurrent pleural effusions develop mental disability, chronic vascular ischemic changes and BPH will be admitted for evaluation of acute on chronic abdominal pain and partially decompensated CHF. PLAN: 1. Acute on chronic abdominal pain. The cause is unclear. CT mentioned gall bladder abnormalities but I'm not sure about the significance of these findings Plan: Nothing by mouth/ hold off IVF to avoid making CHF worse/NORCO for pain/velocity time team to consult Dr. Cornell officially and discuss HIDA scan to r/o biliary dyskinesia 2. Partially decompensated CHF - HFpEF w HFrEF I suspect this is the cause of the shortness of breath. His Echo done on Jun 26 showed "...Estimated global left ventricular systolic ejection fraction is 45 to 50%...1. Probably mildly depressed global left ventricular systolic dysfunction with regional wall motion abnormalities. The findings consistent with left ventricular systolic dysfunction, grade 1." He has a hx of recurrent pleural effusions, but the pleural effusion has not increased significantly in size. His BNP is slightly elevated He also has anasarca on CT Plan: elevate head of bed to 30 degrees/ Is/OS, daily weights, fluid restriction to 2L or 67oz, salt restriction to 2G / BNP should be measured upon admission and before discharge for prognostic purposes because high levels and levels that dont trend down are linked with increased mortality and rehospitalization / f/u TSH, serial Troponins / will give 1 dose of lasix day time team may switch to his regular PO dose tomorrow / c/w beta britta, ACEI & K sparing diuretic / will instruct RNs to avoid administering NSAIDS 3. NN Anemia w reactive thrombocytosis Likely 2/2 BETO Plan: f/u w PCP or Manager Product Marketing for work up 4. Reid's Chorea / Developmental Disability Sister Chantel can be contacted at [phone] 4. CLL Plan: f/u w Hem/Onc on out patient basis DVT PROPHYLAXIS: lovenox DISPOSITION: home after more than 2 midnight's stay Home Medications Scheduled Furosemide (Furosemide) 40 Mg Tablet, 40 MG PO BID Gabapentin (Gabapentin) 100 Mg Capsule, 100 MG PO BID NEW MED, NOT PICKED UP FROM PHARMACY Lisinopril (Lisinopril) 5 Mg Tablet, 5 MG PO QHS Metoprolol Tartrate (Metoprolol Tartrate) 25 Mg Tablet, 12.5 MG PO BID Potassium Chloride (Potassium Chloride) 10 Meq Tab.er.prt, 10 MEQ PO DAILY Ramelteon (Rozerem) 8 Mg Tablet, 8 MG PO QHS Spironolactone (Spironolactone) 25 Mg Tablet, 25 MG PO DAILY Scheduled PRN Acetaminophen (Tylenol) 325 Mg Tablet, 650 MG PO Q6H PRN for PAIN / FEVER Allergies Coded Allergies: No Known Allergies (Unverified , 01/12/19) A-FIB/CHADSVASC A-FIB History Current/History of A-Fib/PAF?: No Current PO Anticoag Therapy: No BILLY LINN MD Jul 01, 2020 22:28
[2020-07-01] MEDS: GABAPENTIN 100 MG CAP PO SCH (22:30)
[2020-07-01 23:00] VITALS: O2SAT 97
[2020-07-01 23:20] LABS: TROPONIN I < 0.02 NG/ML (< 0.10)
[2020-07-01] MEDS: METOPROLOL TART 12.5 MG PER 1/2 TAB PO SCH (23:30)
[2020-07-02] VITALS (19 sets, daily range): BP systolic 90–112; BP diastolic 62–84; O2SAT 83–97
[2020-07-02 05:48] LABS: HEMATOCRIT 32.9 % (42.0-52.0); HEMOGLOBIN 10.1 g/dl (13.5-17.5); MEAN CORPUSCULAR HEMOGLOBIN 26.8 pg (27.0-33.0); MEAN CORPUSCULAR HGB CONC 30.7 g/dl (32.0-36.5); MEAN CORPUSCULAR VOLUME 87.3 fl (80.0-96.0); PLATELET COUNT, AUTOMATED 544 10^3/uL (150-450); RED BLOOD COUNT 3.77 10^6/uL (4.30-6.10); WHITE BLOOD COUNT 11.3 10^3/uL (4.0-10.0)
[2020-07-02 06:25] LABS: BLOOD UREA NITROGEN 22 MG/DL (7-18); CALCIUM LEVEL 8.3 MG/DL (8.8-10.2); CARBON DIOXIDE LEVEL 25 MEQ/L (21-32); CHLORIDE LEVEL 113 MEQ/L (98-107); GLOMERULAR FILTRATION RATE > 60.0 (>49); GLUCOSE, FASTING 90 MG/DL (70-100); POTASSIUM SERUM 4.2 MEQ/L (3.5-5.1); SODIUM LEVEL 144 MEQ/L (136-145); TROPONIN I < 0.02 NG/ML (< 0.10)
[2020-07-02 07:52] LABS: FREE T4 0.81 NG/DL (0.76-1.46)
[2020-07-02] MEDS ORDERED: SPIRONOLACTONE 25 MG TAB PO SCH (09:00)
[2020-07-02] MEDS ORDERED: POTASSIUM CHLORIDE 10 MEQ SR TABLET PO SCH (09:00)
[2020-07-02] MEDS: GABAPENTIN 100 MG CAP PO SCH (09:01)
[2020-07-02] MEDS: METOPROLOL TART 12.5 MG PER 1/2 TAB PO SCH (09:01)
[2020-07-02 12:21] LABS: HEMATOCRIT 37.9 % (42.0-52.0); HEMOGLOBIN 11.7 g/dl (13.5-17.5); MEAN CORPUSCULAR HEMOGLOBIN 27.4 pg (27.0-33.0); MEAN CORPUSCULAR HGB CONC 30.9 g/dl (32.0-36.5); MEAN CORPUSCULAR VOLUME 88.8 fl (80.0-96.0); PLATELET COUNT, AUTOMATED 555 10^3/uL (150-450); RED BLOOD COUNT 4.27 10^6/uL (4.30-6.10); WHITE BLOOD COUNT 11.2 10^3/uL (4.0-10.0)
--- NOTE | 2020-07-02 17:00 | DS.PDOC ---
Discharge Summary General Date of Admission Jul 01, 2020 at 19:31 Date of Discharge 07/02/2020 Primary Care Physician: ANIL MARQUEZ PA-C Attending Physician: GEOVANY SEQUEIRA MD Discharge Summary PROCEDURES PERFORMED DURING STAY: None. ADMITTING DIAGNOSES: 1. Acute on chronic abdominal pain 2. Partially decompensated CHF with preserved EF (>40%) 3. Chronic normocytic anemia 4. Aguada's disease 5. Developmental disability 6. CLL stage 0 DISCHARGE DIAGNOSES: 1. Chronic abdominal pain 2. CHF with preserved EF (>40%), compensated 3. Chronic normocytic anemia 4. Aguada's disease 5. Developmental disability 6. CLL stage 0 7. Elevated TSH COMPLICATIONS/CHIEF COMPLAINT: Abdominal Pain,Chf Exacerbation,Chronic Generalize. HISTORY OF PRESENT ILLNESS: 64-year-old male was admitted for evaluation of abdominal pain from June 14 to June 25. According to his sister, the patient developed worsening upper abdominal pain for the last day and his behavior has not been at his baseline. The patient's sister denied noticing vomiting or diarrhea. She also commented that her brother complained of dyspnea. Work up in the ED revealed a mildly elevated WBC count, elevated BNP, small right pleural effusion, and other imaging findings detailed below. Due to the recurrent abdominal pain, Lupe Malin PA-C contacted Dr. Cornell who recommended conservative measures for now. Hospitalist team was called for admission. HOSPITAL COURSE: The patient was admitted to the hospital and kept NPO overnight. In the morning his diet was progressed and he tolerated a BRAT diet. No acute cause for abdominal pain or change in behavior was found during his ED work up or admission. Patient was noted to have multiple prior hospitalizations in the past 2-3 months with extensive work up for abdominal pain without a clear etiology. I called the patient's sister Chantel who stated that she brought the patient to the ER because "he said he needed to go to the hospital". She stated that he has had chronic abdominal pain but she is not sure that it is any worse right now. We agreed that the patient could be discharged home and follow up with his PCP. It was also noted that the patient had an elevated TSH with normal free T4. This should be followed up outpatient with repeat lab studies by the PCP. DISCHARGE MEDICATIONS: Please see below. ALLERGIES: Please see below. PHYSICAL EXAMINATION ON DISCHARGE: VITAL SIGNS: Please see below. GENERAL: Alert, comfortable, in no acute distress HEENT: Normocephalic, atraumatic, EOMI, moist mucous membranes NECK: Supple, trachea midline, no lymphadenopathy, no JVD CARDIOVASCULAR: Regular rate and rhythm, normal S1 and S2. No murmurs, rubs, or gallops RESPIRATORY: Clear to auscultation bilaterally with equal air entry bilaterally. No wheezing, rhonchi, or rales. ABDOMEN: Soft, nondistended, bowel sounds present, no masses or hepatosplenomegaly appreciated. Pt could not communicate if there is tenderness. EXTREMITIES: Trace to 1+ edema of bilateral lower extremities up to the mid calf. Pulses 2+/4 in bilateral upper and lower extremities SKIN: [place], warm, dry NEUROLOGIC: moves with chorea affecting all four extremities, speech is dysarthric PSYCHIATRIC: Difficult to asses mood and affect LABORATORY DATA: Please see below. IMAGING: - CXR Chronic changes with suspected moderate right pleural effusion and passive atelectasis. - Head CT Age related atrophy and microvascular ischemic changes. No acute intracranial hemorrhage, infarction, or mass/mass effect. - CTA chest 1. There are no pulmonary emboli. 2. There is no aortic dissection or aneurysm. Decreased contrast density in the thoracic aorta limits evaluation. 3. No acute pulmonary parenchymal abnormalities. 4. Small right pleural effusion. - CT abdomen/pelvis 1. There is a small amount of free intraperitoneal fluid present. 2. The gallbladder is incompletely distended. This is most likely related to incomplete fasting. Clinical correlation to exclude gallbladder pathology suggested. 3. The spleen demonstrates punctate calcifications, consistent with remote granulomatous organism exposure. Also noted is calcification along the lateral aspect of the splenic capsule, finding which may be related to prior infection or trauma. 4. Moderate prostatic hyperplasia. 5. Bilateral fluid containing inguinal hernias, left greater than right. Small bowel loops demonstrated in the left inguinal hernia. No obvious i ncarceration. 6. Anasarca. 7. Multiple thick-walled loops of small bowel may be related to hypop roteinemia although inflammatory causes including ischemia infection not excluded. PROGNOSIS: Fair ACTIVITY: As tolerated. DIET: As tolerated DISCHARGE PLAN: Home to follow up with PCP DISPOSITION: Home with care from sister Chantel DISCHARGE INSTRUCTIONS: 1. Follow-up with your PCP in 7-10 days 2. Please continue taking all of your regularly prescribed medicines. 3. If your symptoms return or your condition worsens, please call your PCP or return to the ED for further evaluation. ITEMS TO FOLLOWUP ON ON OUTPATIENT: 1. Chronic abdominal pain, consider outpatient GI referral. 2. Elevated TSH with normal free T4, recommend repeat labs DISCHARGE CONDITION: Stable. TIME SPENT ON DISCHARGE: Greater than 35 minutes. Vital Signs/I&Os Vital Signs Date Time Temp Pulse Resp B/P (MAP) Pulse Ox O2 Delivery O2 Flow Rate FiO2 07/02/20 09:01 65 105/77 07/02/20 07:06 97.9 16 94 Room Air I&O- Last 24 Hours up to 6 AM 07/02/20 06:00 Intake Total 180 ml Output Total 950 ml Balance -770 ml Laboratory Data Labs 24H Laboratory Tests 2 07/01/20 16:33: Urine Color EDDA, Urine Appearance HAZY, Urine pH 5.0, Urine Specific [place] 1.041, Urine Protein 1+H, Urine Glucose (UA) NEGATIVE, Urine Ketones NEGATIVE, Urine Blood NEGATIVE, Urine Nitrite NEGATIVE, Urine Bilirubin 1+H, Urine Urobilinogen 4.0H, Urine Leukocyte Esterase NEGATIVE, Urine WBC (Auto) 1, Urine RBC (Auto) 2, Urine Hyaline Casts (Auto) 3, Urine Bacteria (Auto) NEGATIVE, Urine Squamous Epithelial Cells 2, Urine Mucus (Auto) SMALL, Urine Sperm (Auto) 07/01/20 17:01: Neutrophils (%) (Auto) , Nucleated Red Blood Cells % (auto) 0.0, Neutrophils 6 9H, Band Neutrophils 1, Lymphocytes (Manual) 18, Monocytes (Manual) 4, Basophils (Manual) 1, Atypical Lymphocytes 7H, Hypochromasia 1+, Anisocytosis 1+, Platelet Estimate INCREASED, Prothrombin Time 14.9H, Prothromb Time International Ratio 1.14, Activated Partial Thromboplast Time 34.5, Anion Gap 5L, Glomerular Filtration Rate > 60.0, Lactic Acid Level 1.2, Calcium Level 8.8, Total Bilirubin 0.9, Direct Bilirubin 0.6H, Aspartate Amino Transf (AST/SGOT) 24, Alanine Aminotransferase (ALT/SGPT) 22, Alkaline Phosphatase 425H, Ammonia < 10, Total Creatine Kinase 68, Creatine Kinase MB 1.5, Creatine Kinase MB Relative Index 2.21, Troponin I < 0.02, VP-Etl-X-Type Natriuretic Peptide 877H, Total Pr otein 6.6, Albumin 3.0L, Albumin/Globulin Ratio 0.8, Amylase Level 31, Lipase 97 07/01/20 17:22: Coronavirus (COVID-19)(PCR) NEGATIVE 07/01/20 20:27: Phosphorus Level 3.5, Magnesium Level 2.3 07/01/20 22:45: Troponin I < 0.02, Thyroid Stimulating Hormone (TSH) 31.800H 07/02/20 05:31: Troponin I < 0.02, Nucleated Red Blood Cells % (auto) 0.0, Anion Gap 6L, Glomerular Filtration Rate > 60.0, Calcium Level 8.3L, Free Thyroxine 0.81 CBC/BMP Laboratory Tests 07/01/20 17:01 07/02/20 05:31 Discharge Medications Scheduled Furosemide (Furosemide) 40 Mg Tablet, 40 MG PO BID, (Reported) Gabapentin (Gabapentin) 100 Mg Capsule, 100 MG PO BID, (Reported) NEW MED, NOT PICKED UP FROM PHARMACY Lisinopril (Lisinopril) 5 Mg Tablet, 5 MG PO QHS, (Reported) Metoprolol Tartrate (Metoprolol Tartrate) 25 Mg Tablet, 12.5 MG PO BID, (Reported) Potassium Chloride (Potassium Chloride) 10 Meq Tab.er.prt, 10 MEQ PO DAILY, (Reported) Ramelteon (Rozerem) 8 Mg Tablet, 8 MG PO QHS, (Reported) Spironolactone (Spironolactone) 25 Mg Tablet, 25 MG PO DAILY, (Reported) Scheduled PRN Acetaminophen (Tylenol) 325 Mg Tablet, 650 MG PO Q6H PRN for PAIN / FEVER, (Reported) Allergies Coded Allergies: No Known Allergies (Unverified , 01/12/19) MARCIA ANDRADE D.O. Jul 02, 2020 11:58
[2020-07-03] MEDS ORDERED: PATIENT COMMENT (21:58)
== END 2020-07-02 16:28 | disposition home or self-care (01) | DRG 391 ==
LOC: M ED 13:57 → M ED INP 19:31 → ENRESERV 20:16 → M PCU 21:38
PROVIDERS: ADMIT Internal Medicine; ATTEND Internal Medicine
DX: R10.9 Unspecified abdominal pain (principal); I50.33 Acute on chronic diastolic (congestive) heart failure; G10 Huntington's disease; C91.10 Chronic lymphocytic leukemia of B-cell type not having achieved remission; D64.9 Anemia, unspecified; Z79.899 Other long term (current) drug therapy; N40.0 Benign prostatic hyperplasia without lower urinary tract symptoms; Z90.81 Acquired absence of spleen

== ENCOUNTER 2020-07-03 16:56 | Inpatient (IN) | payer MEDICARE, MEDICAID ==
[~2020-07-03] VITALS: Ht 182.9 cm; Wt 71.9 kg
[~2020-07-03 16:56] MED LIST changes: +POTA10TA16 PO
[2020-07-03 18:22] LABS: HEMATOCRIT 36.9 % (42.0-52.0); HEMOGLOBIN 11.2 g/dl (13.5-17.5); MEAN CORPUSCULAR HEMOGLOBIN 26.7 pg (27.0-33.0); MEAN CORPUSCULAR HGB CONC 30.4 g/dl (32.0-36.5); MEAN CORPUSCULAR VOLUME 87.9 fl (80.0-96.0); PLATELET COUNT, AUTOMATED 633 10^3/uL (150-450); WHITE BLOOD COUNT 14.7 10^3/uL (4.0-10.0)
[2020-07-03 18:32] LABS: INR 1.17; PROTHROMBIN TIME 15.2 SECONDS (12.5-14.3)
[2020-07-03 18:33] LABS: PARTIAL THROMBOPLASTIN TIME 33.7 SECONDS (24.2-38.5)
[2020-07-03 18:47] LABS: ALBUMIN 2.9 GM/DL (3.2-5.2); ALT/SGPT 21 U/L (12-78); BILIRUBIN,DIRECT 0.5 MG/DL (0.0-0.2); BILIRUBIN,TOTAL 0.8 MG/DL (0.2-1.0); BLOOD UREA NITROGEN 27 MG/DL (7-18); CALCIUM LEVEL 8.9 MG/DL (8.8-10.2); CARBON DIOXIDE LEVEL 27 MEQ/L (21-32); CHLORIDE LEVEL 110 MEQ/L (98-107); CK-MB VALUE MASS 1.3 NG/ML (<3.6); CPK CREATINE PHOSPHOKINASE 58 U/L (39-308); CREATININE FOR GFR 1.11 MG/DL (0.70-1.30); GLOMERULAR FILTRATION RATE > 60.0 (>49); GLUCOSE, FASTING 99 MG/DL (70-100); LIPASE 116 U/L (73-393); MB/CK RELATIVE INDEX 2.24 (< OR =4); POTASSIUM SERUM 4.3 MEQ/L (3.5-5.1); SODIUM LEVEL 142 MEQ/L (136-145); TOTAL PROTEIN 6.3 GM/DL (6.4-8.2); TROPONIN I < 0.02 NG/ML (< 0.10)
--- NOTE | 2020-07-03 18:55 | REP ---
INDICATION: SOB. COMPARISON: Comparison chest x-ray July 01, 2020.. TECHNIQUE: Upright AP portable radiograph. FINDINGS: Monitoring electrodes are seen. The lungs are again exposed at a relatively low level of inspiration unchanged. There is blunting of the right lateral and to a lesser extent left lateral pleural angles suggesting a small amount of pleural fluid. Right hemidiaphragm is elevated. The aorta is somewhat tortuous. No definite focal infiltrate. IMPRESSION: Low level of inspiration. Small bilateral effusions, right greater than left no definite focal infiltrate. <Electronically signed by Jose Desir > 07/03/20 [id number]
[2020-07-03 18:57] LABS: BASOPHILS 1 % (0-1); EOSINOPHILS 1 % (0-3); LYMPHOCYTES 33 % (16-44); MONOCYTES 6 % (0-5); NEUTROPHILS 59 % (28-66)
[2020-07-03 18:58] LABS: PLATELET ESTIMATE INCREASED (NORMAL)
[2020-07-03] MEDS ORDERED: ISOVUE-370 76% 100ML VIAL As Ordered ONE (19:12)
[2020-07-03] MEDS: MORPHINE 2 MG/ML 1ML VIAL (J2270) IV PRN ×2 (19:33→22:22)
--- NOTE | 2020-07-03 20:57 | REPVR ---
PROCEDURE INFORMATION: Exam: CT Abdomen And Pelvis With Contrast Exam date and time: 07/03/2020 8:04 PM Age: 64 years old Clinical indication: Abdominal pain; Generalized; Additional info: Abdominal pain/distention TECHNIQUE: Imaging protocol: Computed tomography of the abdomen and pelvis with intravenous contrast. Radiation optimization: All CT scans at this facility use at least one of these dose optimization techniques: automated exposure control; mA and/or kV adjustment per patient size (includes targeted exams where dose is matched to clinical indication); or iterative reconstruction. Contrast material: ISOVUE 370; Contrast volume: 100 ml; Contrast route: INTRAVENOUS (IV); COMPARISON: CT ABD/PEL W/IV CONTRAST ONLY 07/01/2020 6:06 PM FINDINGS: Lungs: Mild bibasilar atelectasis. Pleural space: Right greater than left bilateral pleural effusions appears slightly increased in size.. Heart: Small pericardial effusion. Liver: Normal. No mass. Gallbladder and bile ducts: Normal. No calcified stones. No ductal dilation. Pancreas: Normal. No ductal dilation. Spleen: Chronic capsular calcifications in the spleen. Adrenal glands: Normal. No mass. Kidneys and ureters: Normal. No hydronephrosis. Stomach and bowel: Mild intraluminal fluid and mucosal enhancement are noted in the small bowel. No wall thickening or other inflammatory changes. No bowel obstruction. The stomach and colon are unremarkable. Appendix: No evidence of appendicitis. Intraperitoneal space: There is a large volume of abdominal and pelvic ascites, similar to the prior exam. Vasculature: Unremarkable. No abdominal aortic aneurysm. Lymph nodes: Unremarkable. No enlarged lymph nodes. Urinary bladder: Unremarkable as visualized. Reproductive: Unremarkable as visualized. Bones/joints: Prior ORIF of old healed pelvic fractures. There are advanced degenerative changes in the spine and pelvis. Soft tissues: Generalized subcutaneous edema. Bilateral inguinal hernias containing fluid, unchanged. IMPRESSION: 1. Increasing bilateral pleural effusions. 2. Mild mucosal enhancement and intraluminal fluid in the small bowel is nonspecific but may indicate a viral enteritis, portal hypertension, or other causes of systemic edema. No obstruction. 3. Persistent large volume of abdominal and pelvic ascites. Electronically signed by: Saulo Carter On 07/03/2020 20:57:45 PM
[2020-07-03 21:37] LABS: NT-PRO BNP 973 PG/ML (<125)
[2020-07-03] MEDS ORDERED: PATIENT COMMENT (21:58)
--- NOTE | 2020-07-03 22:01 | HPEPDOC ---
[facility] Medical History & Physical Date of Admission Jul 03, 2020 Date of Service: Jul 03, 2020 History and Physical Chief complaint: Presented to the emergency room with abdominal pain History of present illness: Patient is a 64-year-old male with a PMHx of [place]'s Chorea, Developmental disability, Chronic HFrEF (EF 45%) with HFpEF (Grade 1 DD), Chronic microvascular ischemia, History of recurrent pleural effusion with history of pneumothorax and thoracentesis, CLL, BPH, essential emergency room with abdominal pain. Patient has had multiple admissions for abdominal pain. She was here 06/14- 06/25, as well as 07/01 to 07/02. Patient has had an extensive workup for his abdominal pain, which has had an unclear etiology. Patient reports that his abdominal pain is occurring all over his abdomen. Reports it is a 14/10. However, appears to be resting comfortably in bed. Patient is the pain as achy, continuous, nonradiating. He denies any nausea, vomiting, constipation, diarrhea, or urinary discomfort. He denies any fevers but does report chills. Patient denies any chest pain, shortness of breath or cough. He reports his appetite is fairly normal and denies any changes in his weight. Past Medical History: Reid's Chorea Developmental disability Chronic HFrEF (EF 45%) with HFpEF (Grade 1 DD) Chronic microvascular ischemia History of recurrent pleural effusion with history of pneumothorax and thoracentesis CLL BPH Past Surgical History: Hx of pelvic and rib fractures post Hx of splenic hematoma s/p splenectomy Allergies: See below Medications: See below Family History: - Reviewed and noncontributory Social History: - Denies the use of alcohol or illicit drugs; prior smoker - Denies recent travel or sick contacts - Lives with sister Review of Systems: 10 point review of systems complete, all negative otherwise stated in HPI Physical exam: - Vitals: BP [98/61], HR [72], RR [18], Sat [98%RA], Temp [98.3F] - General: Lying in bed, No acute distress, Speaking in full sentences, AAOx3 - HEENT: NC, AT, PERRLA - CVS: RRR, +S1S2 - Lungs: Diminished lung sounds at bases, No appreciable wheezing / rales / rhonchi - Abdomen: Soft, Non-distended, Reported to have tenderness diffusely - Extremities: 2+ pitting edema at bilateral LE, No calf tenderness - Neuro: No focal motor or sensory deficit - Skin: No visible rashes Labs: See below Imaging: See below EKG: See below Assessment and Plan: Acute on chronic abdominal pain - possibly 2/2 ascites - Patient has had multiple admissions for abdominal pain and multiple imaging completed without any significant etiology - Physical reveals diffuse abdominal tenderness, however, patient appears to be comfortable while in bed - His lower extremities do reveal 2+ pitting edema - CT abdomen / pelvis 07/03: 1. Increasing bilateral pleural effusions. 2. Mild mucosal enhancement and intraluminal fluid in the small bowel is nonspecific but may indicate a viral enteritis, portal hypertension, or other causes of systemic edema. No obstruction. 3. Persistent large volume of abdominal and pelvic ascites. - CXR 07/03: Low level of inspiration. Small bilateral effusions, right greater than left no definite focal infiltrate. - Will check US of liver / abdomen - Patient may require paracentesis based on US findings - Will start Furosemide 40 IV BID with hold parameters Bilateral pleural effusions - History of recurrent pleural effusion with history of pneumothorax and thoracentesis - ECHO 04/13/2020: HFrEF (EF 45%) with HFpEF (Grade 1 DD) - c/w Telemetry monitoring - Will start daily weights / strict ins/outs / fluid restriction - Will start Furosemide 40 IV BID with hold parameters - c/w Spironolactone Leukocytosis - Appears to be chronic; dating back to March - Patient is hemodynamically stable and afebrile - Will repeat UA / Blood cultures / Procalcitonin - Will hold antibiotics at this time HTN - BP well controlled - c/w Lisinopril / Metoprolol with hold parameters Reid's Chorea / Neuropathy - c/w Gabapentin Developmental disability Chronic microvascular ischemia CLL - Will have outpatient follow-up with hematology BPH - currently not on medications Gastrointestinal prophylaxis - Will start Protonix DVT prophylaxis - Will start heparin Vital Signs Vital Signs Date Time Temp Pulse Resp B/P (MAP) Pulse Ox O2 Delivery O2 Flow Rate FiO2 07/03/20 21:46 61 18 113/73 (86) 96 Room Air 07/03/20 16:57 98.3 Laboratory Data Labs 24H Laboratory Tests 2 07/03/20 18:06: Neutrophils (%) (Auto) , Nucleated Red Blood Cells % (auto) 0.0, Neutrophils 59, Lymphocytes (Manual) 33, Monocytes (Manual) 6H, Eosinophils (Manual) 1, Basophils (Manual) 1, Platelet Estimate INCREASED, Prothrombin Time 15.2H, Prothromb Time International Ratio 1.17, Activated Partial Thromboplast Time 33.7, Anion Gap 5L, Glomerular Filtration Rate > 60.0, Lactic Acid Level 0.8, Calcium Level 8.9, Total Bilirubin 0.8, Direct Bilirubin 0.5H, Aspartate Amino Transf (AST/SGOT) 19, Alanine Aminotransferase (ALT/SGPT) 21, Alkaline Phosphatase 414H, Ammonia < 10, Total Creatine Kinase 58, Creatine Kinase MB 1.3, Creatine Kinase MB Relative Index 2.24, Troponin I < 0.02, EN-Lkp-T-Type Natriuretic Peptide 973H, Total Protein 6.3L, Albumin 2.9L, Albumin/Globulin Ratio 0.9, Lipase 116 CBC/BMP Laboratory Tests 07/03/20 18:06 Home Medications Scheduled Furosemide (Furosemide) 40 Mg Tablet, 40 MG PO BID Gabapentin (Gabapentin) 100 Mg Capsule, 100 MG PO BID NEW MED, NOT PICKED UP FROM PHARMACY Lisinopril (Lisinopril) 5 Mg Tablet, 5 MG PO QHS Metoprolol Tartrate (Metoprolol Tartrate) 25 Mg Tablet, 12.5 MG PO BID Potassium Chloride (Potassium Chloride) 10 Meq Tab.er.prt, 10 MEQ PO DAILY Ramelteon (Rozerem) 8 Mg Tablet, 8 MG PO QHS Spironolactone (Spironolactone) 25 Mg Tablet, 25 MG PO DAILY Scheduled PRN Acetaminophen (Tylenol) 325 Mg Tablet, 650 MG PO Q6H PRN for PAIN / FEVER Miscellaneous Medications [Patient Comment] PATIENT IS NOT A GOOD HISTORIAN. MED REC COMPLETED VIA PREVIOUS DISCHARGE PAPERWORK (07/01/2020) Allergies Coded Allergies: No Known Allergies (Unverified , 01/12/19) MARISSA QUIJANO MD Jul 03, 2020 22:01
[2020-07-03] MEDS: HEPARIN SOD (PORCINE) 5000UNITS/ML 1ML VIAL/SYRINGE SQ SCH (22:21)
[2020-07-03] MEDS: PANTOPRAZOLE 40MG VIAL (C9113 PER 1) IV SCH (22:23)
[2020-07-03 23:25] VITALS: BP 120/65
[2020-07-04 04:00] VITALS: BP 103/76
[2020-07-04 05:21] LABS: HEMATOCRIT 33.6 % (42.0-52.0); HEMOGLOBIN 10.3 g/dl (13.5-17.5); MEAN CORPUSCULAR HEMOGLOBIN 26.7 pg (27.0-33.0); MEAN CORPUSCULAR HGB CONC 30.7 g/dl (32.0-36.5); PLATELET COUNT, AUTOMATED 542 10^3/uL (150-450); RED BLOOD COUNT 3.86 10^6/uL (4.30-6.10); WHITE BLOOD COUNT 11.2 10^3/uL (4.0-10.0)
[2020-07-04 05:40] LABS: ATYPICAL LYMPH 2 % (0-5); BLOOD UREA NITROGEN 26 MG/DL (7-18); CALCIUM LEVEL 8.5 MG/DL (8.8-10.2); CARBON DIOXIDE LEVEL 26 MEQ/L (21-32); CHLORIDE LEVEL 113 MEQ/L (98-107); GLOMERULAR FILTRATION RATE > 60.0 (>49); GLUCOSE, FASTING 83 MG/DL (70-100); LYMPHOCYTES 35 % (16-44); MAGNESIUM LEVEL 2.1 MG/DL (1.8-2.4); MONOCYTES 9 % (0-5); NEUTROPHILS 54 % (28-66); POTASSIUM SERUM 4.1 MEQ/L (3.5-5.1); SODIUM LEVEL 144 MEQ/L (136-145)
[2020-07-04 05:41] LABS: PLATELET ESTIMATE INCREASED (NORMAL)
[2020-07-04 05:43] LABS: ANISOCYTOSIS 2+
[2020-07-04] MEDS: ACETAMINOPHEN TAB 650MG DOSE (2X325MG) PO PRN ×2 (06:13→12:54)
[2020-07-04] MEDS: HEPARIN SOD (PORCINE) 5000UNITS/ML 1ML VIAL/SYRINGE SQ SCH ×2 (06:14→12:55)
[2020-07-04 07:25] VITALS: BP 103/72
[2020-07-04] MEDS: FUROSEMIDE 40MG/4ML VIAL (J1940) IV SCH ×2 (09:00→17:24)
--- NOTE | 2020-07-04 09:38 | REP ---
INDICATION: Ascites. COMPARISON: None. TECHNIQUE: Four quadrant abdominal ascites survey. Transabdominal scanning. FINDINGS: Four quadrant sonography of the abdomen confirms the presence of moderate degree of diffuse abdominal ascites. IMPRESSION: Diffuse ascites. <Electronically signed by Jose Desir > 07/04/20 0960
[2020-07-04] MEDS: POTASSIUM CHLORIDE 10 MEQ SR TABLET PO SCH (09:51)
[2020-07-04] MEDS: GABAPENTIN 100 MG CAP PO SCH ×2 (09:51→20:27)
[2020-07-04] MEDS: PANTOPRAZOLE 40MG VIAL (C9113 PER 1) IV SCH ×2 (09:51→22:09)
[2020-07-04] MEDS: SPIRONOLACTONE 25 MG TAB PO SCH (09:56)
[2020-07-04] MEDS: METOPROLOL TART 12.5 MG PER 1/2 TAB PO SCH ×2 (09:56→20:31)
[2020-07-04] MEDS ORDERED: FUROSEMIDE 20 MG TAB PO ONE ×2 (10:15→11:00)
[2020-07-04] MEDS ORDERED: FUROSEMIDE 20 MG TAB As Ordered ONE (11:07)
[2020-07-04 11:34] VITALS: BP 138/92
[2020-07-04] MEDS ORDERED: SLF 3 ML SYR IV PRN (12:00)
--- NOTE | 2020-07-04 12:16 | IPNPDOC ---
Text Note Date of Service The patient was seen on 07/04/20. NOTE Subjective: Patient was seen and examined this morning at bedside. Patient has severe chorea and difficult to communicate. He is able to answer very basic questions. Follows commands well. He tells me his abdominal pain is still there but a little better. Nurse reports no overnight events. He denies being in any other pain and says he is comfortable. Objective: Constitutional: Awake and alert, in no apparent distress resting very comfortably in bed. has significant chorea ENT: Sclera are clear. Mucosa is moist. Respiratory: Lungs rhales at bases bilaterally. No respiratory distress. No use of accessory muscles. Cardiovascular: RRR S1 and S2 are normal, no murmur Gastrointestinal: Abdomen is soft, non distended, diffuse mild discomfort on palpation, BS present. No fluid shift. Musculoskeletal: 2+ pitting edema LE Neurologic: Chorea. Skin: Warm, dry imaging: CT abdomen/Pelvis 07/03/2020 IMPRESSION: 1. Increasing bilateral pleural effusions. 2. Mild mucosal enhancement and intraluminal fluid in the small bowel is nonspecific but may indicate a viral enteritis, portal hypertension, or other causes of systemic edema. No obstruction. 3. Persistent large volume of abdominal and pelvic ascites. CXR 07/03/2020: impression: Low level of inspiration. Small bilateral effusions, right greater than left no definite focal infiltrate US abdomen 07/04/2020: Four quadrant sonography of the abdomen confirms the presence of moderate degree of diffuse abdominal ascites. Assessment/plan: 64 year old male with [place]'s disease, CLL, CHFpEF and recurrent pleural effusion presented to the hospital with generalized abdominal discomfort. Patient admitted to medical for further management. Found to have moderate to large volume ascites. # Acute on chronic abdominal pain: Likely 2/[address] abdomen, and US. Ongoing problem with multiple admissions for abdominal pain and multiple imaging completed without significant etiology. Patient appeared very comfortable on exam had vague generalized abdominal discomfort. Asked radiology to do US guided paracentesis. Continue lasix for now. # Acute on chronic CHFpEF: IV lasix. Recent 2D echo (04/13) EF 40-45%. BNP around baseline. I and O, daily weights, elevate head of bed, Fluid restriction 1.5L. Maintain K>4 and Mg>2. Continue spironolactone. # Small Pleural effusions: likely 2/2 CHF. CXR shows R>L small effusions. M anagement as above, Diuresis. # HTN: Continue home meds. Monitor and titrate. # Leukocytosis: Chronic, has hx of CLL. Afebrile, hemodynamically stable. CXR/Chest CT negative PNA. Fu UA. No suspicion for infection at this time, No ABx. Trend CBC. # CLL: outpatient follow up oncology # Reid's Chorea and Neuropathy: Continue gabapentin # DVT prophylaxis: Heparin Dispo: Patient may need assistance with placement as there is concern for him being able to take his medicines at home as he lives with his sister who tries system but his [place] chorea is fairly advanced. [facility] Laboratory Tests 07/03/20 18:06 07/04/20 04:53 Vital Signs Date Time Temp Pulse Resp B/P (MAP) Pulse Ox O2 Delivery O2 Flow Rate FiO2 07/04/20 11:34 98.1 68 20 138/92 (107) 94 Room Air I&O- Last 24 Hours up to 6 AM 07/04/20 06:00 Intake Total 0 ml Output Total 50 ml Balance -50 ml CHRIS PARRY MD Jul 04, 2020 12:16
[2020-07-04] MEDS: SLF 3 ML SYR IV SCH ×2 (12:55→22:09)
[2020-07-04] MEDS ORDERED: MORPHINE 2 MG/ML 1ML VIAL (J2270) IV ONE (15:30)
[2020-07-04 16:00] VITALS: BP 118/89
[2020-07-04 20:12] VITALS: BP 102/84
[2020-07-04] MEDS ORDERED: RAMELTEON 8 MG TAB (ROZEREM) PO SCH (21:00)
[2020-07-04] MEDS ORDERED: lisinopriL 5 MG TAB PO SCH (21:00)
[2020-07-05] VITALS (7 sets, daily range): BP systolic 98–110; BP diastolic 64–76
[2020-07-05 05:14] LABS: HEMATOCRIT 32.6 % (42.0-52.0); HEMOGLOBIN 10.7 g/dl (13.5-17.5); MEAN CORPUSCULAR HEMOGLOBIN 27.9 pg (27.0-33.0); MEAN CORPUSCULAR HGB CONC 32.8 g/dl (32.0-36.5); MEAN CORPUSCULAR VOLUME 85.1 fl (80.0-96.0); PLATELET COUNT, AUTOMATED 570 10^3/uL (150-450); RED BLOOD COUNT 3.83 10^6/uL (4.30-6.10); WHITE BLOOD COUNT 11.9 10^3/uL (4.0-10.0)
[2020-07-05] MEDS: ACETAMINOPHEN TAB 650MG DOSE (2X325MG) PO PRN ×2 (05:15→11:59)
[2020-07-05] MEDS: SLF 3 ML SYR IV SCH ×2 (05:17→13:49)
[2020-07-05 05:39] LABS: BLOOD UREA NITROGEN 24 MG/DL (7-18); CALCIUM LEVEL 8.4 MG/DL (8.8-10.2); CARBON DIOXIDE LEVEL 24 MEQ/L (21-32); CHLORIDE LEVEL 109 MEQ/L (98-107); CREATININE FOR GFR 0.96 MG/DL (0.70-1.30); GLOMERULAR FILTRATION RATE > 60.0 (>49); GLUCOSE, FASTING 92 MG/DL (70-100); POTASSIUM SERUM 4.4 MEQ/L (3.5-5.1); SODIUM LEVEL 140 MEQ/L (136-145)
[2020-07-05 05:43] LABS: ATYPICAL LYMPH 2 % (0-5); LYMPHOCYTES 28 % (16-44); MONOCYTES 5 % (0-5); NEUTROPHILS 65 % (28-66)
[2020-07-05 05:44] LABS: ANISOCYTOSIS 2+; PLATELET ESTIMATE INCREASED (NORMAL)
[2020-07-05] MEDS: SPIRONOLACTONE 25 MG TAB PO SCH (09:00)
[2020-07-05] MEDS: METOPROLOL TART 12.5 MG PER 1/2 TAB PO SCH (09:00)
[2020-07-05] MEDS: FUROSEMIDE 40MG/4ML VIAL (J1940) IV SCH ×2 (09:00→16:43)
[2020-07-05] MEDS: POTASSIUM CHLORIDE 10 MEQ SR TABLET PO SCH (09:31)
[2020-07-05] MEDS: PANTOPRAZOLE 40MG VIAL (C9113 PER 1) IV SCH (09:31)
[2020-07-05] MEDS: GABAPENTIN 100 MG CAP PO SCH (09:31)
[2020-07-05] MEDS: HEPARIN SOD (PORCINE) 5000UNITS/ML 1ML VIAL/SYRINGE SQ SCH (14:00)
[2020-07-05 15:35] LABS: APPEARANCE, BODY FLUID CLOUDY (CLEAR); PERITONEAL FL COLOR YELLOW (COLORLESS); SOURCE, BODY FLUID PERITONEAL
[2020-07-05 16:24] LABS: SOURCE, BODY FLUID ALBUMIN PERITONEAL; SOURCE, BODY FLUID GLUCOSE PERITONEAL; SOURCE, BODY FLUID TOT PROTEIN PERITONEAL; TOTAL PROTEIN, BODY FLUID 3.2 G/DL (NOT ESTABLISHED)
--- NOTE | 2020-07-05 16:41 | DS.PDOC ---
Discharge Summary General Date of Admission Jul 03, 2020 at 21:31 Date of Discharge 07/05/2020 Discharge Summary PROCEDURES PERFORMED DURING STAY: Ultrasound-guided paracentesis ADMITTING DIAGNOSES: 1. Abdominal pain DISCHARGE DIAGNOSES: 1. Abdominal pain secondary to ascites COMPLICATIONS/CHIEF COMPLAINT: Abdominal Pain HISTORY OF PRESENT ILLNESS: From admitting H&P: Patient is a 64-year-old male with a PMHx of [place]'s Chorea, Developmental disability, Chronic HFrEF (EF 45%) with HFpEF (Grade 1 DD), Chronic microvascular ischemia, History of recurrent pleural effusion with history of pneumothorax and thoracentesis, CLL, BPH, essential emergency room with abdominal pain. Patient has had multiple admissions for abdominal pain. She was here 06/14- 06/25, as well as 07/01 to 07/02. Patient has had an extensive workup for his abdominal pain, which has had an unclear etiology. Patient reports that his abdominal pain is occurring all over his abdomen. Reports it is a 14/10. However, appears to be resting comfortably in bed. Patient is the pain as achy, continuous, nonradiating. He denies any nausea, vomiting, constipation, diarrhea, or urinary discomfort. He denies any fevers but does report chills. Patient denies any chest pain, shortness of breath or cough. He reports his appetite is fairly normal and denies any changes in his weight. HOSPITAL COURSE: 64 year old male with Reid's disease, CLL, CHFpEF and recurrent pleural effusion presented to the hospital with generalized abdominal discomfort. Patient admitted to medical for further management. Found to have moderate to large volume ascites. Patient underwent ultrasound-guided paracentesis on 07/05/2020 and 1400 mL of fluid was drained resulting in some relief patient's abdominal pain. Patient still communicates that he has some tenderness medially over the spot where the needle was inserted. I explained to the patient as normal and can last a few days before the discomfort at the site of needle insertion resolves. Overall he does feel better and looks well. He was eating all his meals today. I had an extensive conversation with his sister Chantel #[phone] and discussed his nursing home. She tells me she's frustrated with his care at home but doesn't know what else to do as he has been denied nursing homes and rehabilitation facilities after he tried to escape from a rehabilitation facility in [place]. Tells me that she routinely complains of this vague abdominal pain at home every few days on and off and he asks to be brought to the hospital. At the time of discharge the patient was more comfortable after the paracentesis. I asked Chantel to take Yon to see his primary care doctor within a few days after discharge. At the time of discharge patient was feeling comfortable denying chest pain or shortness of breath to the best of his ability to communicate. He appeared very comfortable on exam. # Acute on chronic abdominal pain: Likely 2/[address] abdomen, and US. Ongoing problem with multiple admissions for abdominal pain and multiple imaging completed without significant etiology. Patient appeared very comfortable on exam had vague generalized abdominal discomfort initially. US guided paracentesis completed on 07/05/2020 1400 mL removed. Patient did complain of discomfort around the area of needle insertion and was given a one- time dose of morphine to alleviate this discomfort. # Acute on chronic CHFpEF: IV lasix. Recent 2D echo (04/13) EF 40-45%. BNP around baseline. I and O, daily weights, elevate head of bed, Fluid restriction 1.5L. Maintain K>4 and Mg>2. Continue spironolactone. # Small Pleural effusions: likely 2/2 CHF. CXR shows R>L small effusions. Management as above, continue Lasix on discharge by mouth. # HTN: Continue home meds. Monitor and titrate. # Leukocytosis: Chronic, has hx of CLL. Afebrile, hemodynamically stable. CXR/Chest CT negative PNA. Fu UA. No suspicion for infection at this time, No ABx. Trend CBC. # CLL: outpatient follow up oncology # Taliaferro's Chorea and Neuropathy: Continue gabapentin DISCHARGE MEDICATIONS: Please see below. ALLERGIES: Please see below. PHYSICAL EXAMINATION ON DISCHARGE: Constitutional: Awake and alert, in no apparent distress resting very comfortably in bed. has significant chorea, communication difficulty due to impaired speech from [place] ENT: Sclera are clear. Mucosa is moist. Respiratory: Lungs clear to auscultation bilaterally. No respiratory distress. No use of accessory muscles. Cardiovascular: RRR S1 and S2 are normal, no murmur Gastrointestinal: Abdomen is soft, non distended, BS present. No fluid shift, abdomen is generally less uncomfortable/tender on exam. When patient is distracted and I examine his abdomen while speaking to him patient pays no attention to his abdomen and displays no discomfort. He has point tenderness medially over the site of needle insertion post paracentesis. Musculoskeletal: 1+ pitting edema LE Neurologic: Chorea. Skin: Warm, dry LABORATORY DATA: Please see below. IMAGING: CT abdomen/Pelvis 07/03/2020 IMPRESSION: 1. Increasing bilateral pleural effusions. 2. Mild mucosal enhancement and intraluminal fluid in the small bowel is nonspecific but may indicate a viral enteritis, portal hypertension, or other causes of systemic edema. No obstruction. 3. Persistent large volume of abdominal and pelvic ascites. CXR 07/03/2020: impression: Low level of inspiration. Small bilateral effusions, right greater than left no definite focal infiltrate US abdomen 07/04/2020: Four quadrant sonography of the abdomen confirms the presence of moderate degree of diffuse abdominal ascites. PROGNOSIS: fair ACTIVITY: [As tolerated]. DIET: No salt added diet DISPOSITION: Home with supervision/care by sister DISCHARGE INSTRUCTIONS: Please follow up with your primary care physician within 1 week from discharge. If you do not have one, please follow up with us to schedule an appointment. Please keep all of your follow up appointments. Please call central to book your appointments with hospital specialists. Please take all your medications as prescribed. Please call/come to Clinic or go to the Emergency Department if - Temp >101, intractable Nausea/Vomiting, Diarrhea, Mouth sores, Headaches, Altered mental status, Seizures, sudden onset of swelling, bleeding, shortness of breath or chest pain. ITEMS TO FOLLOWUP ON ON OUTPATIENT: 1. Follow-up with primary care doctor within 3-5 days of discharge DISCHARGE CONDITION: [Stable]. TIME SPENT ON DISCHARGE: Greater than 35 minutes. Vital Signs/I&Os Vital Signs Date Time Temp Pulse Resp B/P (MAP) Pulse Ox O2 Delivery O2 Flow Rate FiO2 07/05/20 16:00 98.8 73 18 98/70 (79) 90 Room Air I&O- Last 24 Hours up to 6 AM 07/05/20 06:00 Intake Total 780 ml Output Total 1300 ml Balance -520 ml Laboratory Data Labs 24H Laboratory Tests 2 07/05/20 04:30: Neutrophils (%) (Auto) , Nucleated Red Blood Cells % (auto) 0.0, Neutrophils 65, Lymphocytes (Manual) 28, Monocytes (Manual) 5, Atypical Lymphocytes 2, Anisocytosis 2+, Platelet Estimate INCREASED, Anion Gap 7L, Glomerular Filtration Rate > 60.0, Calcium Level 8.4L, Magnesium Level 2.0 07/05/20 14:00: Body Fluid WBC (Auto) 6254H, Body Fluid RBC (Auto) < 2, Body Fluid Mononuclear Cells % Auto 20.9H, Fluid Polymorphonuclear Cell % Auto 79.1H, Body Fluid Glucose Source PERITONEAL, Body Fluid Glucose 150, Body Fluid Protein Source PERITONEAL, Body Fluid Total Protein 3.2, Body Fluid Albumin Source PERITONEAL, Body Fluid Albumin 1.6, Peritoneal Fluid Source PERITONEAL, Peritoneal Fluid Color YELLOW, Peritoneal Fluid Appearance CLOUDY CBC/BMP Laboratory Tests 07/05/20 04:30 Microbiology Microbiology 07/05/20 Acid Fast Stain, Received Pending 07/05/20 Mycobacterial Culture, Received Pending 07/05/20 Fungal Smear, Received Pending 07/05/20 Fungal Culture, Received Pending 07/05/20 Gram Stain - Final, Resulted 07/05/20 Body Fluid Culture, Resulted Pending 07/05/20 Anaerobic Culture, Resulted Pending 07/03/20 Blood Culture - Preliminary, Resulted No growth after 24 hours . All specim... 07/03/20 Blood Culture - Preliminary, Resulted No growth after 24 hours . All specim... Discharge Medications Scheduled Furosemide (Furosemide) 40 Mg Tablet, 40 MG PO BID, (Reported) Gabapentin (Gabapentin) 100 Mg Capsule, 100 MG PO BID, (Reported) NEW MED, NOT PICKED UP FROM PHARMACY Lisinopril (Lisinopril) 5 Mg Tablet, 5 MG PO QHS, (Reported) Metoprolol Tartrate (Metoprolol Tartrate) 25 Mg Tablet, 12.5 MG PO BID, (Reported) Potassium Chloride (Potassium Chloride) 10 Meq Tab.er.prt, 10 MEQ PO DAILY, (Reported) Ramelteon (Rozerem) 8 Mg Tablet, 8 MG PO QHS, (Reported) Spironolactone (Spironolactone) 25 Mg Tablet, 25 MG PO DAILY, (Reported) Scheduled PRN Acetaminophen (Tylenol) 325 Mg Tablet, 650 MG PO Q6H PRN for PAIN / FEVER, (Reported) Miscellaneous Medications [Patient Comment] , (Reported) PATIENT IS NOT A GOOD HISTORIAN. MED REC COMPLETED VIA PREVIOUS DISCHARGE PAPERWORK (07/01/2020) Allergies Coded Allergies: No Known Allergies (Unverified , 01/12/19) CHRIS PARRY MD Jul 05, 2020 16:41
[2020-07-05] MEDS ORDERED: MORPHINE 2 MG/ML 1ML VIAL (J2270) IV ONE (16:45)
[2020-07-05 16:51] LABS: SPEC. GRAVITY BODY FLUIDS 1.022 (NOT ESTABLISHED)
--- NOTE | 2020-07-06 07:40 | ECGEPIP ---
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
== END 2020-07-05 18:15 | disposition home or self-care (01) | DRG 947 ==
LOC: M ED 16:56 → M ED INP 21:31 → ENRESERV 22:08 → M PCU 23:21
PROVIDERS: ADMIT Internal Medicine; ATTEND Family Medicine
PROC: 0W9G3ZZ Drainage of Peritoneal Cavity, Percutaneous Approach (ICD-10-PCS; principal; 2020-07-05 10:00)
DX: R18.8 Other ascites (principal); I50.33 Acute on chronic diastolic (congestive) heart failure; G10 Huntington's disease; C91.90 Lymphoid leukemia, unspecified not having achieved remission; I11.0 Hypertensive heart disease with heart failure; N40.0 Benign prostatic hyperplasia without lower urinary tract symptoms; D72.829 Elevated white blood cell count, unspecified; Z79.899 Other long term (current) drug therapy; Z20.828 Contact with and (suspected) exposure to other viral communicable diseases

== ENCOUNTER → 2020-07-24 | Outpatient (CLI) | payer MEDICARE, MEDICAID ==
--- NOTE | 2020-07-24 09:46 | REP ---
INDICATION: ATHEROSCLEROSIS OF RENAL ARTERY COMPARISON: None TECHNIQUE: Real time wooten scale ultrasound examination using curved array transducer followed by color Doppler evaluation of the renal vasculature. FINDINGS: The bilateral kidneys demonstrate normal reniform shape and echotexture without hydronephrosis, nephrolithiasis, cystic or renal mass lesion. Right kidney measures 10.3 x 5.4 x 4.5 cm. Left kidney measures 10.8 x 5.2 x 5.7 cm. Bladder is under distended. Color Doppler evaluation is extremely limited and essentially nondiagnostic due to inability to identify the abdominal aorta and bilateral main renal arteries due to overlying bowel gas and associated technical limitations.. Peak aortic velocity: -- centimeters/second RIGHT KIDNEY Renal arterial velocity: -- centimeters/second Renal-aortic ratio: -- Intrarenal resistive indices: 0.59-0.67 Intrarenal acceleration times: 0.042-0.063 LEFT KIDNEY Renal arterial velocity: -- centimeters/second Renal-aortic ratio: -- Intrarenal resistive indices: 0.59-0.70 Intrarenal acceleration times: 0.042-0.046 IMPRESSION: 1. Kidneys appear normal. 2. Doppler evaluation for renal arterial stenosis is essentially nondiagnostic due to overlying bowel gas and technical limitations. Consider MRA or CTA evaluation of the renal arteries if necessary. <Electronically signed by Wale Green > 07/24/20 0622
== END ==
LOC: M RAD 08:43
PROVIDERS: ATTEND Surgery Vascular Surgery
DX: I70.1 Atherosclerosis of renal artery (principal)

== ENCOUNTER → 2020-08-07 | Outpatient (REF) | payer MEDICARE, MEDICAID ==
[2020-08-07 13:57] LABS: BLOOD UREA NITROGEN 37 MG/DL (7-18); CALCIUM LEVEL 9.3 MG/DL (8.8-10.2); CARBON DIOXIDE LEVEL 27 MEQ/L (21-32); CHLORIDE LEVEL 104 MEQ/L (98-107); CREATININE FOR GFR 1.25 MG/DL (0.70-1.30); GLOMERULAR FILTRATION RATE > 60.0 (>49); GLUCOSE, FASTING 92 MG/DL (70-100); NT-PRO BNP 689 PG/ML (<125); POTASSIUM SERUM 4.4 MEQ/L (3.5-5.1); SODIUM LEVEL 137 MEQ/L (136-145)
== END ==
LOC: M LABDRWAD 12:21
PROVIDERS: ATTEND Internal Medicine Cardiovascular Disease
DX: I50.42 Chronic combined systolic (congestive) and diastolic (congestive) heart failure (principal)

== ENCOUNTER 2020-10-17 18:41 | Inpatient (IN) | payer MEDICARE, MEDICAID ==
[~2020-10-17] VITALS: Ht 167.6 cm; Wt 63.4 kg
[~2020-10-17 18:41] MED LIST changes: -LISI-542 PO; +LISI-898 PO
[2020-10-17 19:27] LABS: HEMATOCRIT 38.8 % (42.0-52.0); HEMOGLOBIN 12.1 g/dl (13.5-17.5); MEAN CORPUSCULAR HEMOGLOBIN 28.9 pg (27.0-33.0); MEAN CORPUSCULAR HGB CONC 31.2 g/dl (32.0-36.5); MEAN CORPUSCULAR VOLUME 92.8 fl (80.0-96.0); PLATELET COUNT, AUTOMATED 397 10^3/uL (150-450); RED BLOOD COUNT 4.18 10^6/uL (4.30-6.10)
[2020-10-17] MEDS ORDERED: NS 1,000 ML IV ONE (19:30)
--- NOTE | 2020-10-17 19:43 | REP ---
INDICATION: DYSPNEA/COUGH. COMPARISON: Portable chest dated 07/03/2020. abdomen/pelvis CT dated 07/03/2020. TECHNIQUE: Portable AP chest with the patient upright. FINDINGS: The lung ding are clear. The bilateral pleural effusions identified previously are no longer identified. Cardiac size is normal. The ulises, mediastinum, and skeletal structures are unremarkable. IMPRESSION: No acute cardiopulmonary findings. The previous bilateral pleural effusions are no longer identified. <Electronically signed by Nahum Lebron > 10/17/201938
[2020-10-17 19:48] LABS: ATYPICAL LYMPH 2 % (0-5); BASOPHILS 3 % (0-1); EOSINOPHILS 1 % (0-3); LYMPHOCYTES 55 % (16-44); MONOCYTES 3 % (0-5); NEUTROPHILS 36 % (28-66)
[2020-10-17 19:49] LABS: PLATELET ESTIMATE NORMAL (NORMAL)
[2020-10-17 20:01] LABS: ALBUMIN 3.9 GM/DL (3.2-5.2); ALT/SGPT 69 U/L (12-78); BILIRUBIN,DIRECT 0.4 MG/DL (0.0-0.2); BILIRUBIN,TOTAL 0.6 MG/DL (0.2-1.0); CPK CREATINE PHOSPHOKINASE 43 U/L (39-308); LIPASE 259 U/L (73-393); MB/CK RELATIVE INDEX 2.33 (< OR =4); THYROXINE (T4) 6.9 UG/DL (4.5-12.0); TOTAL PROTEIN 7.5 GM/DL (6.4-8.2); TROPONIN I < 0.02 NG/ML (< 0.10)
--- NOTE | 2020-10-17 20:50 | REPVR ---
PROCEDURE INFORMATION: Exam: CT Chest Without Contrast; Diagnostic Exam date and time: 10/17/2020 8:01 PM Age: 64 years old Clinical indication: Other: Aspiration; Additional info: Aspiration, abd pain, ckd TECHNIQUE: Imaging protocol: Diagnostic computed tomography of the chest without contrast. Radiation optimization: All CT scans at this facility use at least one of these dose optimization techniques: automated exposure control; mA and/or kV adjustment per patient size (includes targeted exams where dose is matched to clinical indication); or iterative reconstruction. COMPARISON: CT Chest without contrast 06/06/2020 4:16 PM FINDINGS: Lungs: Bibasilar atelectasis. Remaining lungs are clear. Pleural spaces: Unremarkable. No pneumothorax. No pleural effusion. Heart: Small pericardial effusion. Increased density fluid may suggest hemopericardium. Aorta: There is mild atherosclerosis in the thoracic aorta. Lymph nodes: Calcified right hilar lymph nodes. Spleen: The spleen demonstrates punctate calcifications, consistent with remote granulomatous organism exposure. Capsular calcifications along the lateral aspect of the spleen may be related to prior trauma. Intraperitoneal space: There is a small amount of free intraperitoneal fluid present. Bones/joints: The spine demonstrates moderate degenerative changes. Soft tissues: Unremarkable. IMPRESSION: 1. No acute pulmonary parenchymal infiltrates. 2. Small pericardial effusion. Increased density fluid may suggest hemopericardium. 3. There is a small amount of free intraperitoneal fluid present. Electronically signed by: Jett Abdullahi On 10/17/2020 20:50:13 PM
--- NOTE | 2020-10-17 20:54 | REPVR ---
PROCEDURE INFORMATION: Exam: CT Abdomen And Pelvis Without Contrast Exam date and time: 10/17/2020 8:01 PM Age: 64 years old Clinical indication: Abdominal pain; Additional info: Aspiration, abd pain, ckd TECHNIQUE: Imaging protocol: Computed tomography of the abdomen and pelvis without contrast. Radiation optimization: All CT scans at this facility use at least one of these dose optimization techniques: automated exposure control; mA and/or kV adjustment per patient size (includes targeted exams where dose is matched to clinical indication); or iterative reconstruction. COMPARISON: CT ABD/PEL W/IV CONTRAST ONLY 07/03/2020 7:58 PM FINDINGS: Liver: Normal. No mass. Gallbladder and bile ducts: Normal. No calcified stones. No ductal dilation. Pancreas: There is diffuse pancreatic atrophy. Spleen: The spleen demonstrates punctate calcifications, consistent with remote granulomatous organism exposure. Coarse peripheral calcifications lateral aspect of the spleen may be related to prior trauma in the appropriate clinical setting. Adrenal glands: Normal. No mass. Kidneys and ureters: Reduced volume of both kidneys consistent with reported history of chronic kidney disease. Stomach and bowel: There is increased feces throughout the right colon consistent with constipation. Appendix: No evidence of appendicitis. Intraperitoneal space: There is a small amount of free intraperitoneal fluid present. Vasculature: The aortoiliac vessels demonstrate mild atherosclerotic calcification. Lymph nodes: Unremarkable. No enlarged lymph nodes. Urinary bladder: Unremarkable as visualized. Reproductive: Unremarkable as visualized. Bones/joints: The spine demonstrates moderate degenerative changes. Moderate central spinal stenosis L2-L3, severe central spinal stenosis L3-L4 and L4-L5. Status post ORIF left hip. Chronic fracture deformity left inferior pubic ramus. Soft tissues: Bilateral fluid containing inguinal hernias, left greater than right. Other findings: Levoscoliosis. IMPRESSION: 1. There is a small amount of free intraperitoneal fluid present. 2. The spleen demonstrates punctate calcifications, consistent with remote granulomatous organism exposure. Coarse peripheral calcifications lateral aspect of the spleen may be related to prior trauma in the appropriate clinical setting. 3. There is diffuse pancreatic atrophy. 4. Bilateral fluid containing inguinal hernias, left greater than right. 5. Reduced volume of both kidneys consistent with reported history of chronic kidney disease. 6. There is increased feces throughout the right colon consistent with constipation. Electronically signed by: Jett Abdullahi On 10/17/2020 20:54:41 PM
[2020-10-17] MEDS ORDERED: ACETAMINOPHEN *IV* 1,000 MG in IV 1 EA IV ONE (21:30)
[2020-10-18] VITALS (12 sets, daily range): BP systolic 95–143; BP diastolic 59–72
[2020-10-18 00:49] LABS: INR 1.09; PROTHROMBIN TIME 14.4 SECONDS (12.5-14.3)
[2020-10-18 00:50] LABS: PARTIAL THROMBOPLASTIN TIME 33.2 SECONDS (24.2-38.5)
[2020-10-18] MEDS ORDERED: TORS100T PO (00:55)
--- NOTE | 2020-10-18 01:03 | HPEPDOC ---
[facility] Medical History & Physical Date of Admission Oct 18, 2020 Date of Service: Oct 18, 2020 Attending Physician: BILLY LINN MD History and Physical CHIEF COMPLAINT: abdominal pain HISTORY OF PRESENT ILLNESS: 64 year old male with PMHx detailed below who presented to the ED with ongoing abdominal pain and an episode of dysphagia at home. Patient states he has generalized pain all over his abdomen. He denies nausea or vomiting. Denies dysphagia, although EMS reports he had a choking episode today which led the family to call and have him brought to the ED. Pt denies diarrhea or constipation, states he has one BM daily. Denies blood in stool. Pt states he has been eating normally without any difficulty. PAST MEDICAL HISTORY: [place]'s Chorea Developmental disability Chronic HFrEF (EF 45%) with HFpEF (Grade 1 DD) Chronic microvascular ischemia History of recurrent pleural effusion with history of pneumothorax and thoracentesis CLL BPH PAST SURGICAL HISTORY: Hx of pelvic and rib fractures post Hx of splenic hematoma s/p splenectomy SOCIAL HISTORY: Former smoker. Denies the use of alcohol or illicit drugs. Lives with siblings FAMILY HISTORY: Reviewed and noncontributory to this admission ALLERGIES: Please see below. REVIEW OF SYSTEMS: CONSTITUTIONAL: Denies fevers, chills, night sweats, fatigue, unexpected change in weight. HEENT: Denies change in vision, change in hearing. CARDIOVASCULAR: Pt endorses chronic SOB at baseline. Denies chest pain, palpitations, lightheadedness. RESPIRATORY: Denies cough, wheezing. GASTROINTESTINAL: Per HPI GENITOURINARY: Denies dysuria, urinary frequency, urinary urgency. SKIN: Denies rash, lesions. MUSCULOSKELETAL: Denies joint pain or muscle aches. NEUROLOGICAL: Denies headache, dizziness, weakness. PSYCHIATRIC: Denies change in mood. HOME MEDICATIONS: Please see below. PHYSICAL EXAMINATION: VITAL SIGNS: See below GENERAL: Alert, comfortable, in no acute distress HEENT: Normocephalic, atraumatic, sclera anicteric, moist mucous membranes NECK: Supple, trachea midline, no lymphadenopathy, no JVD CARDIOVASCULAR: Regular rate and rhythm, normal S1 and S2. No murmurs, rubs, or gallops RESPIRATORY: Clear to auscultation bilaterally with equal air entry bilaterally. No wheezing, rhonchi, or rales. ABDOMEN: Mildly tender to deep palpation in the RLQ extending toward the LLQ. Soft, nondistended, bowel sounds present. EXTREMITIES: No cyanosis or edema. Pulses 2+/4 in bilateral upper and lower extremities SKIN: [place], warm, dry NEUROLOGIC: No focal deficits appreciated PSYCHIATRIC: Mood and affect appropriate LABORATORY DATA: See below. IMAGING: - CXR No acute cardiopulmonary findings. The previous bilateral pleural effusions are no longer identified. - CT chest 1. No acute pulmonary parenchymal infiltrates. 2. Small pericardial effusion. Increased density fluid may suggest hemopericardium. 3. There is a small amount of free intraperitoneal fluid present. - CT abdomen/pelvis 1. There is a small amount of free intraperitoneal fluid present. 2. The spleen demonstrates punctate calcifications, consistent with remote granulomatous organism exposure. Coarse peripheral calcifications lateral aspect of the spleen may be related to prior trauma in the appropriate clinical setting. 3. There is diffuse pancreatic atrophy. 4. Bilateral fluid containing inguinal hernias, left greater than right. 5. Reduced volume of both kidneys consistent with reported history of chronic kidney disease. 6. There is increased feces throughout the right colon consistent with constipation. MICROBIOLOGY: Please see below. ASSESSMENT: 64 year old male with PMHx including Reid's Chorea, developmental disability, CHF, CLL, presented to the ED with generalized weakness, abdominal pain and dysphagia found to have acute kidney injury and constipation seen on CT imaging admitted for further work up and management. PLAN: 1. Abdominal pain with dysphagia - Pt has chronic issues with abdominal pain. No acute CT findings. - ST eval for dysphagia at home - Clear liquid diet, will advance as tolerated per ST recommendations - [place] S BID scheduled for constipation. Milk of mag and fleet enema ordered prn daily. 2. MARA - Cr bumped to 2.0 from baseline of 1.2 - Check renal U/S, UA, and urine electrolytes - avoid nephrotoxic agents. Hold home lisinopril, torsemide, gabapentin 3. Small pericardial effusion - Seen on chest CT, f/u echocardiogram results - per ED, no acute bleeding seen on echocardiogram 4. Leukocytosis - Appears to be chronic dating back to March - Patient is hemodynamically stable and afebrile - No evidence of acute infection. no further work up at this time 5. CHF, compensated - he does not appear clinically fluid overloaded 6. HTN - hold meds as noted above. BP currently low/normal range. 7. Generalized weakness - PT/OT eval 8. Reid's Chorea / Neuropathy - hold gabapentin due to MARA DVT prophylaxis: SC heparin Disposition: admitted inpatient to PCU expect greater than two midnight stay Vital Signs Vital Signs Date Time Temp Pulse Resp B/P (MAP) Pulse Ox O2 Delivery O2 Flow Rate FiO2 10/17/20 22:35 83/60 (68) 10/17/20 22:33 60 100 10/17/20 21:03 24 Nasal Cannula 2.0 10/17/20 19:36 99.1 Laboratory Data Labs 24H Laboratory Tests 2 10/17/20 19:14: Neutrophils (%) (Auto) , Nucleated Red Blood Cells % (auto) 0.0, Neutrophils 36, Lymphocytes (Manual) 55H, Monocytes (Manual) 3, Eosinophils (Manual) 1, Basophils (Manual) 3H, Atypical Lymphocytes 2, Platelet Estimate NORMAL, Lactic Acid Level 1.7, Total Bilirubin 0.6, Direct Bilirubin 0.4H, Aspartate Amino Transf (AST/SGOT) 29, Alanine Aminotransferase (ALT/SGPT) 69, Alkaline Phosphatase 335H, Total Creatine Kinase 43, Creatine Kinase MB 1.0, Creatine Kinase MB Relative Index 2.33, Troponin I < 0.02, Total Protein 7.5, Albumin 3.9, Albumin/Globulin Ratio 1.1, Lipase 259, Thyroid Stimulating Hormone (TSH) 2.560, Thyroxine (T4) 6.9 10/17/20 19:18: POC Glucose (Misc Panel) 101, POC Sodium (Misc Panel) 137, POC Potassium (Misc Panel) 4.9, POC Chloride (Misc Panel) 103, POC Total CO2 (Misc Panel) 26.0, POC Blood Urea Nitrogen (Misc Panel 49H, POC Ionized Calcium (Misc Panel) 4.8, POC Creatinine (Misc Panel) 2.0H, POC Hematocrit (Misc Panel) 36.0L 10/17/20 21:31: POC Total CO2 (Misc Panel) 21.0L, POC pH (Misc Panel) 7.396, POC Base Excess (Misc Panel) -5.0L, POC Saturated Percent O2 (Misc) 100H, POC pO2 (Misc Panel) 186.0H, POC pCO2 (Misc Panel) 33.1L, POC HCO3 (Misc Panel) 20.3L 10/18/20 00:32: Prothrombin Time 14.4H, Prothromb Time International Ratio 1.09, Activated Partial Thromboplast Time 33.2 CBC/BMP Laboratory Tests 10/17/20 19:14 Microbiology Microbiology 10/17/20 Blood Culture, Received Pending 10/17/20 Respiratory Virus Panel (PCR) ([facility]) - Final, Complete 10/17/20 Blood Culture, Received Pending Home Medications Scheduled Gabapentin (Gabapentin) 100 Mg Capsule, 100 MG PO BID Lisinopril (Lisinopril) 5 Mg Tablet, 5 MG PO QHS Potassium Chloride (Potassium Chloride) 10 Meq Tab.er.prt, 10 MEQ PO DAILY Spironolactone (Spironolactone) 25 Mg Tablet, 25 MG PO DAILY Torsemide (Torsemide) 100 Mg Tablet, 50 MG PO DAILY Scheduled PRN Acetaminophen (Tylenol) 325 Mg Tablet, 650 MG PO Q6H PRN for PAIN / FEVER Miscellaneous Medications [Med Rec Comment] LIST OBTAINED FROM PHARMACY, NO FAMILY MEMBERS REACHABLE Allergies Coded Allergies: No Known Allergies (Unverified , 01/12/19) GME ATTESTATION GME ATTESTATION My faculty preceptor for this patient encounter was physically present during the encounter and was fully available. All aspects of the patient interview, examination, medical decision making process, and medical care plan development were reviewed and approved by the faculty preceptor. The faculty preceptor is aware and concurs with the plan as stated in the body of this note and will attest to such by his/her cosignature. ATTENDING NOTE time of service 12:30 am is a 64 yr old M w ahx of [place] Chorea, HFpEF (45% w grade 1DD) microvascular ischemic dz, hx of pneumothorax requiring thoracentesis and pleural effusion, hx of small pericardial effusion who presented w c/o abdominal pain; CT showed possible hemopericardium. Per Dr.Maynard Portillo read the stat Echo and reported that the pericardial effusion was about the same size as it was on the previous Echo. He will be admitted for management of hypotension likely 2/2 multiple CHF meds, MARA, and abdominal pain 2/2 constipation. Rest per H&P LATE ENTRY 1:50AM Despite IVF the patient's MAP remained <65, placed a central line and the patient was upgraded from PCU to ICU in anticipation of starting pressors MARCIA ANDRADE D.O. Oct 18, 2020 01:02 BILLY LINN MD Oct 18, 2020 03:41
--- NOTE | 2020-10-18 01:14 | ECGEPIP ---
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
[2020-10-18] MEDS ORDERED: FLEET ENEMA PR PRN (01:40)
[2020-10-18] MEDS ORDERED: MOM 30ML SUSPENSION UDC PO PRN (01:40)
[2020-10-18] MEDS: HEPARIN SOD (PORCINE) 5000UNITS/ML 1ML VIAL/SYRINGE SC SCH ×3 (03:50→20:57)
--- NOTE | 2020-10-18 04:50 | REP ---
INDICATION: MARA COMPARISON: 07/24/2020 TECHNIQUE: Real time wooten scale ultrasound examination using curved array transducer. FINDINGS: The bilateral kidneys are relatively normal in contour, size, echogenicity, and reniform shape. No significant hydronephrosis, nephrolithiasis, cystic or renal mass lesion appreciated. Right kidney measures 10.5 x 3.9 x 3.5 cm. Left kidney measures 10.0 x 3.8 x 4.5 cm with subtle pelviectasis likely transient. Heterogeneous enlarged prostate gland measures 4.4 x 3.0 x 4.4 cm. Mild amount of right upper quadrant ascites noted. IMPRESSION: 1. Kidneys are relatively normal in appearance as described above. Mild transient left renal pelviectasis is suspected without significant hydronephrosis. 2. Mildly enlarged heterogeneous prostate gland. 3. Mild amount of right upper/perihepatic quadrant ascites noted. <Electronically signed by Wale Green > 10/18/20 044
[2020-10-18 05:42] LABS: CREATININE,RANDOM URINE 60.5 MG/DL; POTASSIUM RANDOM URINE 36.2 MEQ/L
[2020-10-18 08:14] LABS: BASO # 0.1 10^3/uL (0.0-0.2); BASO % 0.5 % (0.0-1.0); EOS # 0.1 10^3/uL (0.0-0.5); EOS % 0.4 % (0.0-3.0); HEMATOCRIT 34.7 % (42.0-52.0); LYMPH % 53.4 % (24.0-44.0); MEAN CORPUSCULAR HEMOGLOBIN 29.5 pg (27.0-33.0); MEAN CORPUSCULAR HGB CONC 31.7 g/dl (32.0-36.5); MONO # 0.7 10^3/uL (0.0-0.8); MONO % 5.1 % (2.0-8.0); NEUTROPHILS # 5.2 10^3/uL (1.5-8.5); NEUTROPHILS % 39.8 % (36.0-66.0); PLATELET COUNT, AUTOMATED 321 10^3/uL (150-450); RED BLOOD COUNT 3.73 10^6/uL (4.30-6.10)
[2020-10-18 08:15] LABS: WHITE BLOOD COUNT 13.1 10^3/uL (4.0-10.0)
[2020-10-18 08:43] LABS: ALBUMIN 3.4 GM/DL (3.2-5.2); ALT/SGPT 54 U/L (12-78); BILIRUBIN,TOTAL 0.7 MG/DL (0.2-1.0); BLOOD UREA NITROGEN 50 MG/DL (7-18); C REACTIVE PROTEIN QUANTITATIV 0.37 MG/DL (0.00-0.30); CALCIUM LEVEL 8.5 MG/DL (8.8-10.2); CARBON DIOXIDE LEVEL 23 MEQ/L (21-32); CHLORIDE LEVEL 110 MEQ/L (98-107); CREATININE FOR GFR 1.79 MG/DL (0.70-1.30); GLOMERULAR FILTRATION RATE 40.9 (>49); GLUCOSE, FASTING 166 MG/DL (70-100); NT-PRO BNP 998 PG/ML (<125); POTASSIUM SERUM 4.6 MEQ/L (3.5-5.1); SODIUM LEVEL 139 MEQ/L (136-145); TOTAL PROTEIN 6.6 GM/DL (6.4-8.2); TROPONIN I < 0.02 NG/ML (< 0.10)
[2020-10-18] MEDS ORDERED: NS 500 ML IV ONE (09:00)
[2020-10-18] MEDS: SENOKOT S TAB PO SCH ×2 (09:45→20:57)
[2020-10-18] MEDS ORDERED: MED REC COMMENT (11:47)
[2020-10-18] MEDS ORDERED: SODIUM CHLORIDE 0.9% INJ 10 ML SYR IV PRN (13:45)
[2020-10-18] MEDS: ACETAMINOPHEN TAB 650MG DOSE (2X325MG) PO PRN ×2 (14:03→18:43)
[2020-10-18] MEDS ORDERED: DICYCLOMINE 10 MG CAP PO ONE (19:00)
[2020-10-19] VITALS: BP 117/78
[2020-10-19 04:00] VITALS: BP 125/61
[2020-10-19 05:24] LABS: HEMATOCRIT 31.6 % (42.0-52.0); HEMOGLOBIN 9.8 g/dl (13.5-17.5); MEAN CORPUSCULAR HEMOGLOBIN 29.1 pg (27.0-33.0); MEAN CORPUSCULAR VOLUME 93.8 fl (80.0-96.0); PLATELET COUNT, AUTOMATED 286 10^3/uL (150-450); RED BLOOD COUNT 3.37 10^6/uL (4.30-6.10)
[2020-10-19 05:48] LABS: BILIRUBIN,TOTAL 0.7 MG/DL (0.2-1.0); CALCIUM LEVEL 8.4 MG/DL (8.8-10.2); CREATININE FOR GFR 1.42 MG/DL (0.70-1.30); GLOMERULAR FILTRATION RATE 53.4 (>49); POTASSIUM SERUM 4.7 MEQ/L (3.5-5.1); TOTAL PROTEIN 6.1 GM/DL (6.4-8.2)
[2020-10-19 08:00] VITALS: BP 131/79
[2020-10-19] MEDS: SODIUM CHLORIDE 0.9% INJ 10 ML SYR IV SCH (08:40)
[2020-10-19] MEDS: SENOKOT S TAB PO SCH ×2 (08:40→21:00)
[2020-10-19] MEDS: HEPARIN SOD (PORCINE) 5000UNITS/ML 1ML VIAL/SYRINGE SC SCH ×2 (08:40→22:12)
[2020-10-19 12:00] VITALS: BP 118/75
--- NOTE | 2020-10-19 15:05 | ECHO ---
DATE OF PROCEDURE: 10/17/2020 Age: 64 Gender: Male REFERRING PHYSICIAN: LOCO RAZO. REASON FOR STUDY: Pericardial effusion. 2D MEASUREMENTS: IVS 1.1 cm LV 4.1 cm LVPW 1.0 cm LA 3.7 cm Aorta 3.1 cm IVC 2.6 cm DOPPLER MEASUREMENT Peak velocity across the aortic valve 0.9 m/s Peak velocity across the LVOT 0.7 m/s Mitral E 0.5 Mitral A 0.4 with a ratio of 1.2 Maximum tricuspid valve velocity 1.6 m/s 2D COMMENTS: 1. Normal left ventricle size, wall thickness, and normal global left ventricular systolic function. The estimated left ventricular systolic ejection fraction is 55% to 65%. 2. Normal left atrium. The right atrium and the right ventricle are mildly enlarged. 3. The atrial septum appeared to be normal without evidence of defect or shunt. 4. Normal aortic root. 5. Trace to small pericardial effusion noted. No evidence of cardiac tamponade. There are findings also consistent with pleural effusion. 6. Normal aortic valve. Mildly calcified mitral annulus with normal anterior mitral valve leaflet motion. Normal tricuspid valve. The pulmonic valve appeared to be normal in limited views. 7. The inferior vena cava is dilated, central venous pressure is probably elevated. DOPPLER: It detects moderate mitral regurgitation, moderate tricuspid regurgitation. The calculated pulmonary artery systolic pressure was normal, but most likely under estimated. Assessment of the left ventricular diastolic function appeared to be normal. IMPRESSION: 1. Normal global left ventricular systolic function. Assessment of the left ventricular diastolic function appeared to be normal. 2. Moderate mitral regurgitation with mitral annular calcification. 3. Moderate tricuspid regurgitation with a normal calculated pulmonary artery systolic pressure, but most likely under estimated. The right heart chambers also appear to be dilated. 4. Trace to small pericardial effusion, no evidence of cardiac tamponade. There are findings consistent with right pleural effusion. 5. The inferior vena cava is enlarged, central venous pressure is most likely elevated. 6. This was compared with a prior study on 04/13/2020, normal remarkable changes. 7. The above findings were discussed last night with the ER provider. ZHANNA
[2020-10-19 16:00] VITALS: BP 124/79
[2020-10-19] MEDS ORDERED: SLF 3 ML SYR IV PRN (18:00)
[2020-10-19] MEDS: ACETAMINOPHEN TAB 650MG DOSE (2X325MG) PO PRN (18:07)
[2020-10-19 20:00] VITALS: BP 120/71
[2020-10-19] MEDS: SLF 3 ML SYR IV SCH (22:12)
--- NOTE | 2020-10-19 23:31 | IPNPDOC ---
Date Seen The patient was seen on 10/19/20. Progress Note SUBJECTIVE: Patient seen, examined at bedside this morning. No acute events overnight. Denies chest pain, fevers, shortness of breath, nausea, vomiting, diarrhea. Work with physical therapy continues to have unsteady gait. Abdominal pain resolved after large BMs with bowel regimen. OBJECTIVE PHYSICAL EXAMINATION: VITAL SIGNS: please see below General: The right in chair, comfortable HEENT: PERRLA, EOMI, sclerae clear Neck: supple, normal ROM, no JVD Respiratory: lungs CTAB, no wheeze, no rales, no crackles CVS: RRR, normal S1, S2, no murmurs Abdo: soft, no masses, no hepatosplenomegaly, BS+, no rebound tenderness Extremities: no edema, pulses 2+ MSK: no joint deformities, normal ROM Neuro: Denies to have choreiform movements. Moving all 4 extremities. Psych: calm, cooperative, AAO x 3 LABORATORY DATA, IMAGING STUDIES, MICROBIOLOGY: Please see below. Echocardiogram (10/18/20) 1. Normal global left ventricular systolic function. Assessment of the left ventricular diastolic function appeared to be normal. 2. Moderate mitral regurgitation with mitral annular calcification. 3. Moderate tricuspid regurgitation with a normal calculated pulmonary artery systolic pressure, but most likely under estimated. The right heart chambers also appear to be dilated. 4. Trace to small pericardial effusion, no evidence of cardiac tamponade. Thereare findings consistent with right pleural effusion. 5. The inferior vena cava is enlarged, central venous pressure is most likely elevated. 6. This was compared with a prior study on 04/13/2020, normal remarkable changes. 7. The above findings were discussed last night with the ER provider. DVT prophylaxis ordered?: SC heparin ASSESSMENT AND PLAN: 64 year old male with PMHx including [place]'s Chorea, developmental disability, CHF, CLL, presented to the ED with generalized weakness, abdominal pain and dysphagia found to have acute kidney injury and constipation seen on CT imaging admitted for further work up and management.]. PROBLEMS: 1. Abdominal pain with dysphagia - Pt has chronic issues with abdominal pain. No acute CT findings. - ST eval for dysphagia, recommending OT for eating devices, far too spontaneous with eating - diet advance as tolerated per ST recommendations - adominal pain improved, had several large BMs on bowel regimen 2. MARA - improving - Cr bumped to 2.0 from baseline of 1.2 - Check renal U/S, UA, and urine electrolytes - avoid nephrotoxic agents. Hold home lisinopril, torsemide, gabapentin 3. Small pericardial effusion - Seen on chest CT, f/u echocardiogram results - per ED, no acute bleeding seen on echocardiogram 4. Leukocytosis - Appears to be chronic dating back to March - Patient is hemodynamically stable and afebrile - No evidence of acute infection. no further work up at this time - blood cultures prelim negative 5. CHF, compensated - he does not appear clinically fluid overloaded 6. HTN - hold meds as noted above. BP currently low/normal range. 7. Generalized weakness - PT/OT eval - recommending 24/7 support vs rehab/placement - PFS to assist 8. Reid's Chorea / Neuropathy - hold gabapentin due to MARA Resolved: Lactic acidosis - resolved s/p IV, likely 2/2 reduce PO intake DVT prophylaxis: SC heparin Disposition: admitted inpatient to PCU expect greater than two midnight stay. Transfer to [facility] status. Pending placement, as family is unable to provide 24/7 care. VS, I&O, 24H, Fishbone Vital Signs/I&O Vital Signs Date Time Temp Pulse Resp B/P (MAP) Pulse Ox O2 Delivery O2 Flow Rate FiO2 10/19/20 20:00 97.8 83 18 120/71 (87) 98 Room Air 10/18/20 03:11 3.0 I&O- Last 24 Hours up to 6 AM 10/19/20 06:00 Intake Total 2300 ml Output Total 1550 ml Balance 750 ml Laboratory Data 24H LABS Laboratory Tests 2 10/19/20 05:09: Nucleated Red Blood Cells % (auto) 0.0, Anion Gap 5L, Glomerular Filtration Rate 53.4, Calcium Level 8.4L, Total Bilirubin 0.7, Aspartate Amino Transf (AST/SGOT) 20, Alanine Aminotransferase (ALT/SGPT) 51, Alkaline Phosphatase 248H, Total Protein 6.1L, Albumin 3.0L, Albumin/Globulin Ratio 1.0 CBC/BMP Laboratory Tests 10/19/20 05:09 Microbiology Microbiology 10/17/20 Blood Culture - Preliminary, Resulted No Growth after 48 hours. All Specime... 10/17/20 Respiratory Virus Panel (PCR) ([facility]) - Final, Complete 10/17/20 Blood Culture - Preliminary, Resulted No Growth after 48 hours. All Specime... ANY TREVINO MD Oct 19, 2020 23:31
[2020-10-20 04:00] VITALS: BP 105/71
[2020-10-20] MEDS: ACETAMINOPHEN TAB 650MG DOSE (2X325MG) PO PRN ×3 (05:44→20:20)
[2020-10-20] MEDS: SLF 3 ML SYR IV SCH (05:46)
[2020-10-20 06:29] LABS: HEMATOCRIT 32.5 % (42.0-52.0); MEAN CORPUSCULAR HGB CONC 30.8 g/dl (32.0-36.5); MEAN CORPUSCULAR VOLUME 94.2 fl (80.0-96.0); PLATELET COUNT, AUTOMATED 294 10^3/uL (150-450); RED BLOOD COUNT 3.45 10^6/uL (4.30-6.10); WHITE BLOOD COUNT 12.7 10^3/uL (4.0-10.0)
[2020-10-20 06:56] LABS: ALBUMIN 3.2 GM/DL (3.2-5.2); ALT/SGPT 56 U/L (12-78); BILIRUBIN,TOTAL 0.8 MG/DL (0.2-1.0); BLOOD UREA NITROGEN 35 MG/DL (7-18); CALCIUM LEVEL 8.5 MG/DL (8.8-10.2); CARBON DIOXIDE LEVEL 22 MEQ/L (21-32); CHLORIDE LEVEL 112 MEQ/L (98-107); GLOMERULAR FILTRATION RATE > 60.0 (>49); GLUCOSE, FASTING 127 MG/DL (70-100); POTASSIUM SERUM 4.1 MEQ/L (3.5-5.1); SODIUM LEVEL 142 MEQ/L (136-145); TOTAL PROTEIN 6.5 GM/DL (6.4-8.2)
[2020-10-20 08:00] VITALS: BP 102/75
[2020-10-20] MEDS: SODIUM CHLORIDE 0.9% INJ 10 ML SYR IV SCH (09:00)
[2020-10-20] MEDS: SENOKOT S TAB PO SCH ×2 (09:00→20:20)
[2020-10-20] MEDS: HEPARIN SOD (PORCINE) 5000UNITS/ML 1ML VIAL/SYRINGE SC SCH ×2 (09:39→20:19)
[2020-10-20 12:00] VITALS: BP 105/77
[2020-10-21] MEDS: ACETAMINOPHEN TAB 650MG DOSE (2X325MG) PO PRN ×4 (05:07→18:50)
[2020-10-21 05:57] LABS: HEMATOCRIT 33.3 % (42.0-52.0); HEMOGLOBIN 10.4 g/dl (13.5-17.5); MEAN CORPUSCULAR HEMOGLOBIN 29.4 pg (27.0-33.0); MEAN CORPUSCULAR HGB CONC 31.2 g/dl (32.0-36.5); MEAN CORPUSCULAR VOLUME 94.1 fl (80.0-96.0); PLATELET COUNT, AUTOMATED 288 10^3/uL (150-450); RED BLOOD COUNT 3.54 10^6/uL (4.30-6.10); WHITE BLOOD COUNT 13.2 10^3/uL (4.0-10.0)
[2020-10-21 06:00] VITALS: BP 115/76
[2020-10-21 06:33] LABS: ALBUMIN 3.3 GM/DL (3.2-5.2); ALT/SGPT 53 U/L (12-78); BILIRUBIN,TOTAL 0.7 MG/DL (0.2-1.0); BLOOD UREA NITROGEN 29 MG/DL (7-18); CALCIUM LEVEL 8.7 MG/DL (8.8-10.2); CARBON DIOXIDE LEVEL 23 MEQ/L (21-32); CHLORIDE LEVEL 112 MEQ/L (98-107); CREATININE FOR GFR 1.04 MG/DL (0.70-1.30); GLOMERULAR FILTRATION RATE > 60.0 (>49); GLUCOSE, FASTING 91 MG/DL (70-100); POTASSIUM SERUM 4.6 MEQ/L (3.5-5.1); SODIUM LEVEL 142 MEQ/L (136-145); TOTAL PROTEIN 6.3 GM/DL (6.4-8.2)
[2020-10-21] MEDS: SENOKOT S TAB PO SCH ×2 (09:30→20:36)
[2020-10-21] MEDS: HEPARIN SOD (PORCINE) 5000UNITS/ML 1ML VIAL/SYRINGE SC SCH ×2 (09:30→20:36)
--- NOTE | 2020-10-21 16:33 | REP ---
INDICATION: abdo pain. COMPARISON: Abdomen pelvis CT dated 10/17/2020 TECHNIQUE: There are 2 supine views of the abdomen. FINDINGS: The bowel gas pattern is normal. There are no calcifications except for pleural pelvic phleboliths. There is scoliosis of the lumbar spine convex left there is a advanced multilevel degenerative disc disease of the lumbar spine with multiple bridging osteophytes. The There is been internal fixation of the sacrum with a transverse orthopedic screw. There has been interval of internal fixation of the left pubic symphysis on the left with an with an orthopedic screw. IMPRESSION: Normal bowel gas pattern. Other findings as described above. <Electronically signed by Nahum Lebron > 10/21/20 [id number]
[2020-10-21] MEDS ORDERED: DICYCLOMINE 10 MG CAP PO ONE (18:00)
[2020-10-22 06:00] VITALS: BP 120/78
[2020-10-22 06:24] LABS: HEMATOCRIT 33.5 % (42.0-52.0); HEMOGLOBIN 10.4 g/dl (13.5-17.5); MEAN CORPUSCULAR HEMOGLOBIN 28.8 pg (27.0-33.0); MEAN CORPUSCULAR VOLUME 92.8 fl (80.0-96.0); PLATELET COUNT, AUTOMATED 300 10^3/uL (150-450); RED BLOOD COUNT 3.61 10^6/uL (4.30-6.10); WHITE BLOOD COUNT 13.8 10^3/uL (4.0-10.0)
[2020-10-22 06:47] LABS: ALBUMIN 3.5 GM/DL (3.2-5.2); ALT/SGPT 50 U/L (12-78); BILIRUBIN,TOTAL 0.8 MG/DL (0.2-1.0); BLOOD UREA NITROGEN 25 MG/DL (7-18); CALCIUM LEVEL 8.6 MG/DL (8.8-10.2); CARBON DIOXIDE LEVEL 23 MEQ/L (21-32); CHLORIDE LEVEL 114 MEQ/L (98-107); CREATININE FOR GFR 1.04 MG/DL (0.70-1.30); GLOMERULAR FILTRATION RATE > 60.0 (>49); GLUCOSE, FASTING 103 MG/DL (70-100); POTASSIUM SERUM 4.2 MEQ/L (3.5-5.1); SODIUM LEVEL 143 MEQ/L (136-145); TOTAL PROTEIN 6.7 GM/DL (6.4-8.2)
[2020-10-22] MEDS: SENOKOT S TAB PO SCH ×2 (10:09→21:39)
[2020-10-22] MEDS: HEPARIN SOD (PORCINE) 5000UNITS/ML 1ML VIAL/SYRINGE SC SCH ×2 (10:10→21:39)
[2020-10-22] MEDS: ACETAMINOPHEN TAB 650MG DOSE (2X325MG) PO PRN ×3 (10:10→21:40)
[2020-10-23 06:00] VITALS: BP 120/76
[2020-10-23 06:23] LABS: HEMATOCRIT 33.9 % (42.0-52.0); HEMOGLOBIN 10.6 g/dl (13.5-17.5); MEAN CORPUSCULAR HEMOGLOBIN 29.4 pg (27.0-33.0); MEAN CORPUSCULAR HGB CONC 31.3 g/dl (32.0-36.5); MEAN CORPUSCULAR VOLUME 93.9 fl (80.0-96.0); PLATELET COUNT, AUTOMATED 287 10^3/uL (150-450); RED BLOOD COUNT 3.61 10^6/uL (4.30-6.10); WHITE BLOOD COUNT 13.2 10^3/uL (4.0-10.0)
[2020-10-23 06:45] LABS: ALBUMIN 3.3 GM/DL (3.2-5.2); ALT/SGPT 52 U/L (12-78); BILIRUBIN,TOTAL 0.8 MG/DL (0.2-1.0); BLOOD UREA NITROGEN 25 MG/DL (7-18); CALCIUM LEVEL 8.8 MG/DL (8.8-10.2); CARBON DIOXIDE LEVEL 25 MEQ/L (21-32); CHLORIDE LEVEL 115 MEQ/L (98-107); GLOMERULAR FILTRATION RATE > 60.0 (>49); GLUCOSE, FASTING 91 MG/DL (70-100); POTASSIUM SERUM 4.4 MEQ/L (3.5-5.1); SODIUM LEVEL 144 MEQ/L (136-145); TOTAL PROTEIN 6.4 GM/DL (6.4-8.2)
[2020-10-23] MEDS: SENOKOT S TAB PO SCH ×2 (08:15→22:27)
[2020-10-23] MEDS: HEPARIN SOD (PORCINE) 5000UNITS/ML 1ML VIAL/SYRINGE SC SCH ×2 (08:15→22:27)
[2020-10-23] MEDS: ACETAMINOPHEN TAB 650MG DOSE (2X325MG) PO PRN ×2 (11:07→18:48)
[2020-10-24 06:00] VITALS: BP 134/76
[2020-10-24 06:06] LABS: HEMATOCRIT 34.1 % (42.0-52.0); HEMOGLOBIN 10.5 g/dl (13.5-17.5); MEAN CORPUSCULAR HEMOGLOBIN 29.2 pg (27.0-33.0); MEAN CORPUSCULAR HGB CONC 30.8 g/dl (32.0-36.5); PLATELET COUNT, AUTOMATED 275 10^3/uL (150-450); RED BLOOD COUNT 3.59 10^6/uL (4.30-6.10); WHITE BLOOD COUNT 13.3 10^3/uL (4.0-10.0)
[2020-10-24 06:29] LABS: ALBUMIN 3.3 GM/DL (3.2-5.2); ALT/SGPT 53 U/L (12-78); BILIRUBIN,TOTAL 0.7 MG/DL (0.2-1.0); BLOOD UREA NITROGEN 26 MG/DL (7-18); CALCIUM LEVEL 8.8 MG/DL (8.8-10.2); CARBON DIOXIDE LEVEL 22 MEQ/L (21-32); CHLORIDE LEVEL 118 MEQ/L (98-107); CREATININE FOR GFR 1.24 MG/DL (0.70-1.30); GLOMERULAR FILTRATION RATE > 60.0 (>49); GLUCOSE, FASTING 87 MG/DL (70-100); POTASSIUM SERUM 4.4 MEQ/L (3.5-5.1); SODIUM LEVEL 146 MEQ/L (136-145); TOTAL PROTEIN 6.5 GM/DL (6.4-8.2)
[2020-10-24] MEDS: SENOKOT S TAB PO SCH (09:00)
[2020-10-24] MEDS: HEPARIN SOD (PORCINE) 5000UNITS/ML 1ML VIAL/SYRINGE SC SCH (11:11)
[2020-10-24] MEDS: ACETAMINOPHEN TAB 650MG DOSE (2X325MG) PO PRN ×2 (11:12→15:00)
--- NOTE | 2020-10-24 13:23 | DS.PDOC ---
Discharge Summary General Date of Admission Oct 18, 2020 at 00:27 Date of Discharge 10/24/20 Discharge Summary PROCEDURES PERFORMED DURING STAY: [None]. ADMITTING/DISCHARGE DIAGNOSES: Acute kidney injury Abdominal pain COMPLICATIONS/CHIEF COMPLAINT: Abdominal Pain,Mara. HISTORY OF PRESENT ILLNESS: From admitting physician H&P: 64 year old male with PMHx detailed below who presented to the ED with ongoing abdominal pain and an episode of dysphagia at home. Patient states he has generalized pain all over his abdomen. He denies nausea or vomiting. Denies dysphagia, although EMS reports he had a choking episode today which led the family to call and have him brought to the ED. Pt denies diarrhea or constipation, states he has one BM daily. Denies blood in stool. Pt states he has been eating normally without any difficulty. HOSPITAL COURSE: 64 year old male with PMHx including Reid's Chorea, developmental disability, CHF, CLL, presented to the ED with generalized weakness, abdominal pain and dysphagia found to have acute kidney injury and constipation seen on CT imaging # Abdominal pain with dysphagia. Pt has chronic issues with abdominal pain. No acute CT findings. ST eval for dysphagia, recommending OT for eating devices, far too spontaneous with eating. Diet advance as tolerated per ST recommendations. adominal pain improved, had several large BMs on bowel regimen # MARA: Resolved. # Small pericardial effusion Seen on chest CT, f/u echocardiogram results. per ED, no acute bleeding seen on echocardiogram # Generalized weakness: Transferred to subacute rehabilitation at time of discharge DISCHARGE MEDICATIONS: Please see below. ALLERGIES: Please see below. PHYSICAL EXAMINATION ON DISCHARGE: VITAL SIGNS: Please see below. Constitutional: Awake and alert, in no apparent distress resting very comfortably in bed. has significant chorea, communication difficulty due to impaired speech from [place] ENT: Sclera are clear. Mucosa is moist. Respiratory: Lungs clear to auscultation bilaterally. No respiratory distress. Cardiovascular: Regular rate and rhythm no appreciable murmurs Gastrointestinal: Abdomen is soft, non distended, BS present. Nontender to palpation Musculoskeletal: Dependent pedal edema Neurologic: Chorea. Skin: Warm, dry LABORATORY DATA: Please see below. IMAGING: See chart PROGNOSIS: Fair ACTIVITY: [As tolerated]. DIET: Soft Mechanical diet DISPOSITION: [facility] with subacute rehabilitation with plan to transition to long-term care DISCHARGE INSTRUCTIONS: Please follow up with your primary care physician within 1 week from discharge. If you do not have one, please follow up with us to schedule an appointment. Please keep all of your follow up appointments. Please call central to book your appointments with hospital specialists. Please take all your medications as prescribed. Please call/come to Clinic or go to the Emergency Department if - Temp >101, intractable Nausea/Vomiting, Diarrhea, Mouth sores, Headaches, Altered mental status, Seizures, sudden onset of swelling, bleeding, shortness of breath or chest pain. ITEMS TO FOLLOWUP ON ON OUTPATIENT: Follow-up with PCP within 5 days of discharge DISCHARGE CONDITION: [Stable]. TIME SPENT ON DISCHARGE: 35 minutes. Vital Signs/I&Os Vital Signs Date Time Temp Pulse Resp B/P (MAP) Pulse Ox O2 Delivery O2 Flow Rate FiO2 10/24/20 06:00 98.2 65 18 134/76 (95) 97 Room Air 10/18/20 03:11 3.0 I&O- Last 24 Hours up to 6 AM 10/24/20 06:00 Intake Total 1110 ml Output Total 650 ml Balance 460 ml Laboratory Data Labs 24H Laboratory Tests 2 10/24/20 05:40: Nucleated Red Blood Cells % (auto) 0.0, Anion Gap 6L, Glomerular Filtration Rate > 60.0, Calcium Level 8.8, Total Bilirubin 0.7, Aspartate Amino Transf (AST/ SGOT) 20, Alanine Aminotransferase (ALT/SGPT) 53, Alkaline Phosphatase 244H, Total Protein 6.5, Albumin 3.3, Albumin/Globulin Ratio 1.0 10/24/20 11:08: Coronavirus (COVID-19)(PCR) NEGATIVE CBC/BMP Laboratory Tests 10/24/20 05:40 Microbiology Microbiology 10/17/20 Blood Culture - Final, Complete NO GROWTH AFTER 5 DAYS 10/17/20 Respiratory Virus Panel (PCR) (LETHA) - Final, Complete 10/17/20 Blood Culture - Final, Complete NO GROWTH AFTER 5 DAYS Discharge Medications Scheduled Gabapentin (Gabapentin) 100 Mg Capsule, 100 MG PO BID, (Reported) Spironolactone (Spironolactone) 25 Mg Tablet, 25 MG PO DAILY, (Reported) Torsemide (Torsemide) 100 Mg Tablet, 50 MG PO DAILY, (Reported) Scheduled PRN Acetaminophen (Tylenol) 325 Mg Tablet, 650 MG PO Q6H PRN for PAIN / FEVER, (Reported) Allergies Coded Allergies: No Known Allergies (Unverified , 01/12/19) CHRIS PARRY MD Oct 24, 2020 13:23
== END 2020-10-24 15:07 | DRG 683 ==
LOC: M ED 18:41 → EDBD 18:41 → M ED INP 10-18 00:27 → M ICU 10-18 03:36 → M PCU 10-18 11:15 → M MSPAV 10-20 13:32
PROVIDERS: ADMIT Internal Medicine; ATTEND Family Medicine
DX: N17.9 Acute kidney failure, unspecified (principal); I31.3 Pericardial effusion (noninflammatory); G10 Huntington's disease; I50.32 Chronic diastolic (congestive) heart failure; C91.90 Lymphoid leukemia, unspecified not having achieved remission; E87.2 Acidosis; R13.10 Dysphagia, unspecified; D72.829 Elevated white blood cell count, unspecified; R10.9 Unspecified abdominal pain; I11.0 Hypertensive heart disease with heart failure; R53.1 Weakness; N40.0 Benign prostatic hyperplasia without lower urinary tract symptoms; Z87.891 Personal history of nicotine dependence; Z79.899 Other long term (current) drug therapy; Z20.822 Contact with and (suspected) exposure to COVID-19

== ENCOUNTER 2020-12-14 19:57 | Inpatient (IN) | payer MEDICARE, MEDICAID ==
[~2020-12-14] VITALS: Ht 167.6 cm; Wt 46.3 kg
[~2020-12-14 19:57] MED LIST changes: +TORS100T PO
[2020-12-14 23:15] VITALS: BP 84/56
[2020-12-14] MEDS ORDERED: NS 1,000 ML IV ONE (23:25)
--- NOTE | 2020-12-14 23:45 | IPNPDOC ---
Text Note Date of Service The patient was seen on 12/14/20. NOTE time of service 205am Mr. 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 He was diagnosed with # dehydration/ poor PO intake # hypotension # MARA # lactic acidosis # constipation # hypercalcemia # hypernatremia # possible PNA at [facility]; he received zosyn, IVF and was disimpacted prior to transfer here for a higher level of care. Plan; repeat labs / treat hypotension & his dehydration / ask the day time team to consider a swallow eval, touching base w Neuro confirm whether progression of the Huntingtons is the reason why he is not eating and loosing weight & consulting Pallative care to discuss his goals of care and code status rest per 's H&P LATE ENTRY 519AM # Worsening Hypernatremia Na 147-->149 He is asymptomatic so this is likely chronic Will aim to lower Na by no more than 10meq Q24H Plan: switch from NS to D5W@ 100ml/H & f/u Na Q4H BILLY LINN MD December 14, 2020 23:45
--- NOTE | 2020-12-14 23:49 | HPEPDOC ---
[facility] Medical History & Physical Date of Admission December 14, 2020 Date of Service: December 14, 2020 Attending Physician: BILLY LINN MD History and Physical CHIEF COMPLAINT: abdominal pain HISTORY OF PRESENT ILLNESS: 64 year old male who presented to [facility] with worsening abdominal pain over the past 1 month. Patient states he has generalized pain all over his abdomen. He denies nausea or vomiting. States he has a bowel movement every day. Denies diarrhea and blood in stool. Pt states he has been eating normally without any difficulty. No fevers or chills at home. It should be noted that the patient has some difficulty with communication and on prior admissions has reported a different history than was obtained from family/EMS/other providers. Patient has difficulty communicating, so much of the history is obtained from chart review. PAST MEDICAL HISTORY: [place]'s Chorea Developmental disability Chronic HFrEF (EF 45%) with HFpEF (Grade 1 DD) Chronic microvascular ischemia History of recurrent pleural effusion with history of pneumothorax and thoracentesis CLL BPH PAST SURGICAL HISTORY: Hx of pelvic and rib fractures post Hx of splenic hematoma s/p splenectomy SOCIAL HISTORY: Former smoker. Denies the use of alcohol or illicit drugs. Lives at [facility] FAMILY HISTORY: Reviewed and noncontributory to this admission ALLERGIES: Please see below. REVIEW OF SYSTEMS: (ROS obtained from patient, but it is unclear if this is reliable) CONSTITUTIONAL: Denies fevers, chills, night sweats, fatigue, unexpected change in weight. HEENT: Denies change in vision, change in hearing. CARDIOVASCULAR: Pt endorses chronic SOB at baseline. Denies chest pain, palpitations, lightheadedness. RESPIRATORY: Denies cough, wheezing. GASTROINTESTINAL: Per HPI GENITOURINARY: Denies dysuria, urinary frequency, urinary urgency. SKIN: Denies rash, lesions. MUSCULOSKELETAL: Denies joint pain or muscle aches. NEUROLOGICAL: Denies headache, dizziness, weakness. PSYCHIATRIC: Denies change in mood. HOME MEDICATIONS: Please see below. PHYSICAL EXAMINATION: VITAL SIGNS: See below GENERAL: Alert, appears mildly uncomfortable, in no acute distress HEENT: Normocephalic, atraumatic, sclera anicteric, moist mucous membranes NECK: Supple, trachea midline, no lymphadenopathy CARDIOVASCULAR: Regular rate and rhythm, normal S1 and S2. No murmurs, rubs, or gallops RESPIRATORY: Clear to auscultation bilaterally with equal air entry bilaterally. No wheezing, rhonchi, or rales. ABDOMEN: Tender to palpation throughout without guarding, rigidity, or rebound tenderness. Soft, nondistended, bowel sounds present. EXTREMITIES: No cyanosis or edema. Pulses 2+/4 in bilateral upper and lower extremities NEUROLOGIC: Answers questions with "yes", "no" or one word answers. Unable to determine orientation. Chorea present. PSYCHIATRIC: Mood and affect appropriate LABORATORY DATA: See below. IMAGING: - Per [facility] records MICROBIOLOGY: Please see below. ASSESSMENT: 64 year old male with PMHx including Reid's Chorea, developmental disability, CHF, CLL, presented to the ED with generalized weakness, abdominal pain and dysphagia found to have acute kidney injury and constipation seen on CT imaging admitted for further work up and management. PLAN: # Abdominal pain 2/2 constipation - Pt has chronic issues with abdominal pain. CT abdomen/pelvis shows stool burden (see [place] records) - his constipation could be related to dehydration with poor oral intake - IV fluid hydration. Continue to encourage oral intake. - Bowel regimen with scheduled senokot, prn milk of mag, prn enema # MARA likely 2/2 dehydration - Cr increased to 2.0 from baseline of 1.2 - Check UA and urine electrolytes - avoid nephrotoxic agents. Hold home torsemide, spironolactone, gabapentin # Hypotension - likely 2/2 dehydration, monitor VS with IV fluid hydration - has been fluid responsive. consider further work up if not improved with fluids # SIRS criteria met 2/2 sepsis vs dehydration - meets 3/4 SIRS criteria with tachycardia, tachypnea, and elevated WBC. No fever. - His leukocytosis appears to be chronic dating back to March 2020, may be elevated above baseline 2/2 dehydration - UA pending. blood cultures x2 pending. CT abdomen from [place] shows stool burden. - Lactic acid elevated 3.4, will repeat. - CRP elevated to 93 at [facility]. Will recheck. - CXR from [facility] with question of infiltrate vs atelectasis, no clinical signs of PNA. Can consider PA and lateral views to further evaluate - s/p IV zosyn at [facility], will hold off on further abx and monitor for improvement with IV fluid hydration # Elevated H/H - on labs from [place] - suspect 2/2 dehydration, trend with IV fluid hydration # Hypernatremia - on labs from [place] - likely due to dehydration, trend with IV fluid hydration # Hx of dysphagia - soft mechanical diet level [address] recommendations # CHF, compensated - he does not appear clinically fluid overloaded - hold home torsemide and spironolactone as noted above for MARA and dehydration # [place]'s Chorea / Neuropathy - hold gabapentin due to MARA # Protein-calorie malnutrition - supplement meals with ensure DVT prophylaxis: SC heparin Disposition: admitted inpatient to PCU pending clinical improvement Vital Signs Vital Signs Date Time Temp Pulse Resp B/P (MAP) Pulse Ox O2 Delivery O2 Flow Rate FiO2 12/15/20 02:37 97.1 79 20 95/56 (69) 100 Nasal Cannula 2.0 Home Medications Scheduled Bisacodyl (Dulcolax) 5 Mg Tablet.dr, 10 MG PO DAILY Mirtazapine (Mirtazapine) 7.5 Mg Tablet, 7.5 MG PO DAILY Spironolactone (Spironolactone) 25 Mg Tablet, 25 MG PO DAILY Torsemide (Torsemide) 100 Mg Tablet, 100 MG PO DAILY Scheduled PRN Magnesium Hydroxide (Milk of Magnesia) 400 Mg/5 Ml Oral.susp, 30 ML PO DAILY PRN for CONSTIPATION if no BM for 3 days Miscellaneous Medications [med rec comment] patient unable to verify at this time used external history Allergies Coded Allergies: No Known Allergies (Unverified , 01/12/19) GME ATTESTATION GME ATTESTATION My faculty preceptor for this patient encounter was physically present during the encounter and was fully available. All aspects of the patient interview, examination, medical decision making process, and medical care plan development were reviewed and approved by the faculty preceptor. The faculty preceptor is aware and concurs with the plan as stated in the body of this note and will attest to such by his/her cosignature. ATTENDING NOTE time of service 205am Mr. 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 He was diagnosed with # dehydration/ poor PO intake # hypotension # MARA # lactic acidosis # constipation # hypercalcemia # hypernatremia # possible PNA at [facility]; he received zosyn, IVF and was disimpacted prior to transfer here for a higher level of care. Plan; repeat labs / treat hypotension & his dehydration / ask the day time team to consider a swallow eval, touching base w Neuro confirm whether progression of the Huntingtons is the reason why he is not eating and loosing weight & consulting Palliative care to discuss his goals of care and code status rest per 's H&P LATE ENTRY 519AM # Worsening Hypernatremia Na 147-->149 He is asymptomatic so this is likely chronic Will aim to lower Na by no more than 10meq Q24H Plan: switch from NS to D5W@ 100ml/H & f/u Na Q4H MARCIA ANDRADE D.O. December 14, 2020 23:49 BILLY LINN MD December 15, 2020 19:37
[2020-12-15] VITALS (7 sets, daily range): BP systolic 88–106; BP diastolic 56–76
[2020-12-15] MEDS ORDERED: ACETAMINOPHEN TAB 650MG DOSE (2X325MG) PO PRN (00:10)
[2020-12-15] MEDS ORDERED: NS 1,000 ML IV SCH (00:20)
[2020-12-15] MEDS ORDERED: MOM 30ML SUSPENSION UDC PO PRN (00:30)
[2020-12-15] MEDS ORDERED: FLEET ENEMA PR PRN (00:30)
[2020-12-15] MEDS ORDERED: MIRT1TAB PO (01:48)
[2020-12-15] MEDS ORDERED: MILK400S12 PO (01:48)
[2020-12-15] MEDS ORDERED: DULC5TAB PO (01:48)
[2020-12-15] MEDS ORDERED: med rec comment (01:51)
[2020-12-15 02:47] LABS: HEMATOCRIT 45.7 % (42.0-52.0); HEMOGLOBIN 14.3 g/dl (13.5-17.5); MEAN CORPUSCULAR HEMOGLOBIN 29.3 pg (27.0-33.0); MEAN CORPUSCULAR HGB CONC 31.3 g/dl (32.0-36.5); MEAN CORPUSCULAR VOLUME 93.6 fl (80.0-96.0); PLATELET COUNT, AUTOMATED 451 10^3/uL (150-450); RED BLOOD COUNT 4.88 10^6/uL (4.30-6.10)
[2020-12-15 03:03] LABS: CREATININE,RANDOM URINE 50.8 MG/DL; POTASSIUM RANDOM URINE 28.9 MEQ/L; SODIUM,RANDOM URINE 10 MEQ/L; UREA NITROGEN RANDOM URINE 803 MG/DL
[2020-12-15 03:09] LABS: BLOOD UREA NITROGEN 105 MG/DL (7-18); C REACTIVE PROTEIN QUANTITATIV 6.52 MG/DL (0.00-0.30); CALCIUM LEVEL 9.2 MG/DL (8.8-10.2); CARBON DIOXIDE LEVEL 25 MEQ/L (21-32); CHLORIDE LEVEL 114 MEQ/L (98-107); CREATININE FOR GFR 2.09 MG/DL (0.70-1.30); GLOMERULAR FILTRATION RATE 34.1 (>49); GLUCOSE, FASTING 103 MG/DL (70-100); MAGNESIUM LEVEL 3.3 MG/DL (1.8-2.4); NT-PRO BNP 1455 PG/ML (<125); POTASSIUM SERUM 4.2 MEQ/L (3.5-5.1); SODIUM LEVEL 149 MEQ/L (136-145); TROPONIN I < 0.02 NG/ML (< 0.10)
[2020-12-15] MEDS ORDERED: NS 1,000 ML IV ONE (03:50)
[2020-12-15 05:36] LABS: OSMOLALITY URINE 427 MOSM/KG (50-1400)
[2020-12-15] MEDS: HEPARIN SOD (PORCINE) 5000UNITS/ML 1ML VIAL/SYRINGE SC SCH ×3 (05:39→20:41)
[2020-12-15] MEDS: D5W 1,000 ML IV SCH ×2 (05:39→15:28)
[2020-12-15 06:13] LABS: CALCIUM LEVEL 8.6 MG/DL (8.8-10.2); CREATININE FOR GFR 2.02 MG/DL (0.70-1.30); GLOMERULAR FILTRATION RATE 35.5 (>49); POTASSIUM SERUM 4.4 MEQ/L (3.5-5.1)
[2020-12-15] MEDS: SENOKOT S TAB PO SCH ×2 (08:00→20:41)
--- NOTE | 2020-12-15 09:54 | IPNPDOC ---
Text Note Date of Service The patient was seen on 12/15/20. NOTE Hospitalist Progress Note Subjective: The patient is reclined in bed. He does not appear to be in any acute distress at this time. He is not a very good historian, and his speech is difficult to understand. Nevertheless, when asked how he is feeling he replies sore, when asked where he is sore, he rubs his belly. Otherwise, trying to obtain any additional review of systems seems to be futile. Objective: General: Awake, alert. Not in any acute distress. HEENT: Head normocephalic, atraumatic, sclera are nonicteric. Hearing is grossly intact to conversation. Respiratory: Clear to auscultation bilaterally with no wheezes, rales, or rhonchi. Cardiovascular: Regular rate and rhythm, with no rubs, gallops, or murmur. Abdomen: Soft, nontender, nondistended, no hepatosplenomegaly appreciated. Bowel sounds hyperactive in all 4 quadrants Extremities: 2+ pulses in the radial and dorsalis pedis bilaterally. No evidence of clubbing or cyanosis. Assessment: -Abdominal pain, likely secondary to constipation, tertiary to dehydration and poor oral intake -Acute kidney injury, likely secondary to dehydration -Prerenal azotemia with a very high BUN -Hypernatremia -Hypermagnesemia -Hypotension, again likely secondary to dehydration -Meets sepsis criteria with tachycardia, tachypnea, and elevated WBC. No fever. No lactic acidosis upon admission. -Chronic leukocytosis -Elevated CRP -Records from [place] indicate chest x-ray with question of infiltrate versus atelectasis. No clinical indication of pneumonia though. - History of dysphagia. Continue soft mechanical diet. Per recommendations from speech therapy during previous admissions. -[place]'s chorea -Developmental disability -History of chronic heart failure with reduced ejection fraction (EF 45%) and grade 1 diastolic dysfunction, currently compensated -Protein calorie malnutrition. Supplement meals with Ensure -History of CLL -DVT prophylaxis with subcutaneous heparin Plan: -Continue IV fluid rehydration using D5W due to hypernatremia. Will continue to recheck her sodium every 4 hours today, and if hypernatremia resolves, we'll switch to different fluids at that time. -Chest x-ray and KUB ordered today -Blood culture still pending -Urinalysis is unremarkable, no UTI -Currently has Francisco catheter, apparently placed in [place] prior to admission for critical I's & O's. We will leave in place for now until renal function improves. -PT/OT Saray[place] ordered to determine if he is safe to go back to his prior level of care in the setting of his [place]'s Disease. - Medical records indicate he was on gabapentin at home before his Reid's chorea, but this was not included in his Med Rec done by pharmacy. This nevertheless would still be on hold due to MARA. Will resume once renal function improves, and dose is confirmed. VS,Fishbone, I+O VS, Fishbone, I+O Laboratory Tests 12/15/20 02:10 12/15/20 05:27 Vital Signs Date Time Temp Pulse Resp B/P (MAP) Pulse Ox O2 Delivery O2 Flow Rate FiO2 12/15/20 08:00 2.0 12/15/20 07:04 96.1 92 19 96/69 (78) Nasal Cannula 12/15/20 05:37 97 I&O- Last 24 Hours up to 6 AM 12/15/20 06:00 Intake Total 2090 ml Output Total 450 ml Balance 1640 ml KAVITA KAUR DO December 15, 2020 09:37
[2020-12-15] MEDS: MIRTAZAPINE 7.5MG PER 1/2 TABLET PO SCH (10:26)
--- NOTE | 2020-12-15 10:29 | REP ---
INDICATION: PNA COMPARISON: 10/17/2020. TECHNIQUE: PA/Lateral FINDINGS: Lungs: Clear, no infiltrate. Heart: Normal in size. Mediastinum: Mediastinal silhouette unremarkable. Pleural angles: Unremarkable.. Bones and soft tissues: Unremarkable. IMPRESSION: No acute pulmonary disease. <Electronically signed by Nahum Crowell > 12/15/20 1027
--- NOTE | 2020-12-15 10:32 | REP ---
INDICATION: constipation. COMPARISON: 10/21/2020. TECHNIQUE: AP view abdomen and pelvis. FINDINGS: Scattered air is seen throughout the GI tract in a nonspecific pattern with no compelling evidence of bowel obstruction. Moderate fecal material is seen in the rectosigmoid colon. Degenerative changes of the spine are again noted with large bridging osteophytes on the right. Two metallic screws are again seen overlying the pelvis. IMPRESSION: Moderate fecal material rectosigmoid colon. No compelling evidence of bowel obstruction. <Electronically signed by Nahum Crowell > 12/15/20 1025
[2020-12-15] MEDS: LR 1,000 ML IV SCH (17:31)
[2020-12-16] VITALS (8 sets, daily range): BP systolic 80–99; BP diastolic 46–74
[2020-12-16] MEDS: LR 1,000 ML IV SCH ×2 (03:41→13:13)
[2020-12-16 05:04] LABS: HEMATOCRIT 38.7 % (42.0-52.0); HEMOGLOBIN 12.2 g/dl (13.5-17.5); MEAN CORPUSCULAR HEMOGLOBIN 29.3 pg (27.0-33.0); MEAN CORPUSCULAR HGB CONC 31.5 g/dl (32.0-36.5); PLATELET COUNT, AUTOMATED 366 10^3/uL (150-450); RED BLOOD COUNT 4.16 10^6/uL (4.30-6.10); WHITE BLOOD COUNT 12.1 10^3/uL (4.0-10.0)
[2020-12-16 05:22] LABS: CALCIUM LEVEL 9.2 MG/DL (8.8-10.2); CREATININE FOR GFR 1.3 MG/DL (0.70-1.30); POTASSIUM SERUM 4.5 MEQ/L (3.5-5.1)
[2020-12-16] MEDS: HEPARIN SOD (PORCINE) 5000UNITS/ML 1ML VIAL/SYRINGE SC SCH ×3 (05:39→21:42)
[2020-12-16] MEDS: MIRTAZAPINE 7.5MG PER 1/2 TABLET PO SCH (08:19)
[2020-12-16] MEDS: SENOKOT S TAB PO SCH ×2 (08:19→20:20)
--- NOTE | 2020-12-16 12:29 | IPNPDOC ---
Text Note Date of Service The patient was seen on 12/16/20. NOTE Hospitalist Progress Note Subjective: Patient is sitting upright in the chair. He reports that he is actually feeling fairly well at this time, he does continue to have some mild belly discomfort, but it appears that it is improved since yesterday. It is very difficult to ascertain this history as his speech is difficult to understand. When asked if there is anything else, he replies that he is otherwise feeling well. Objective: General: Awake, alert. Not in any acute distress. HEENT: Head normocephalic, atraumatic, sclera are nonicteric. Hearing is grossly intact to conversation. Respiratory: Clear to auscultation bilaterally with no wheezes, rales, or rhonchi. Cardiovascular: Regular rate and rhythm, with no rubs, gallops, or murmur. Abdomen: Soft, nontender, nondistended, no hepatosplenomegaly appreciated. Bowel sounds hyperactive in all 4 quadrants Extremities: 2+ pulses in the radial and dorsalis pedis bilaterally. No evidence of clubbing or cyanosis. Assessment: -Abdominal pain, likely secondary to constipation, tertiary to dehydration and poor oral intake -Acute kidney injury, likely secondary to dehydration -Prerenal azotemia with a very high BUN -Hypernatremia, resolved -Hypermagnesemia -Hypotension, again likely secondary to dehydration -Meets sepsis criteria with tachycardia, tachypnea, and elevated WBC. No fever. No lactic acidosis upon admission. -Chronic leukocytosis -Elevated CRP - History of dysphagia. Continue soft mechanical diet. Per recommendations from speech therapy during previous admissions. -Pullman's chorea -Developmental disability -History of chronic heart failure with reduced ejection fraction (EF 45%) and grade 1 diastolic dysfunction, currently compensated -Protein calorie malnutrition. Supplement meals with Ensure -History of CLL -DVT prophylaxis with subcutaneous heparin Plan: -Renal function has significantly improved, but it is still not back to normal. -Hypernatremia has now resolved -Continue IV fluid rehydration using LR -Will d/c telemetry and transfer to Med/Surg -Chest x-ray does not show any acute disease and he does not have any clinical evidence of pneumonia - KUB showed constipation without obstruction. He has been moving his bowels quite well today. -Blood culture negative -Since he is doing better, will discontinue Francisco catheter at this time -PT has seen the patient and they feel he is back to baseline and is safe to go back to his prior level of care (LTC at [facility]) once medically stable. - Medical records has been received, and he is typically on gabapentin 100 mg twice a day at home. Will resume this once his kidney function is back to normal. -It also appears that he is on spironolactone 25 mg daily, and torsemide 100 mg daily for treatment of combined systolic and diastolic congestive heart failure. Given his degree of dehydration at this time, I expect this to the much too high, and we will send him home on a reduced dose when he is medically safe for discharge. VS,Fishbone, I+O VS, Fishbone, I+O Laboratory Tests 12/15/20 12:42 12/15/20 17:15 12/15/20 21:13 12/16/20 04:25 Vital Signs Date Time Temp Pulse Resp B/P (MAP) Pulse Ox O2 Delivery O2 Flow Rate FiO2 12/16/20 12:00 97.2 75 18 91/65 (74) 96 Room Air 12/16/20 08:00 2.0 I&O- Last 24 Hours up to 6 AM 12/16/20 06:00 Intake Total 2080 ml Output Total 2125 ml Balance -45 ml KAVITA KAUR DO December 16, 2020 12:29
[2020-12-17] MEDS: LR 1,000 ML IV SCH ×2 (00:52→10:48)
[2020-12-17] MEDS: HEPARIN SOD (PORCINE) 5000UNITS/ML 1ML VIAL/SYRINGE SC SCH ×3 (05:20→21:26)
[2020-12-17 06:31] VITALS: BP 90/64
[2020-12-17 06:52] LABS: HEMATOCRIT 40.1 % (42.0-52.0); HEMOGLOBIN 12.5 g/dl (13.5-17.5); MEAN CORPUSCULAR HEMOGLOBIN 29.5 pg (27.0-33.0); MEAN CORPUSCULAR HGB CONC 31.2 g/dl (32.0-36.5); MEAN CORPUSCULAR VOLUME 94.6 fl (80.0-96.0); PLATELET COUNT, AUTOMATED 334 10^3/uL (150-450); RED BLOOD COUNT 4.24 10^6/uL (4.30-6.10); WHITE BLOOD COUNT 13.1 10^3/uL (4.0-10.0)
[2020-12-17 07:06] LABS: BLOOD UREA NITROGEN 34 MG/DL (7-18); CALCIUM LEVEL 7.7 MG/DL (8.8-10.2); CARBON DIOXIDE LEVEL 23 MEQ/L (21-32); CHLORIDE LEVEL 115 MEQ/L (98-107); CREATININE FOR GFR 0.93 MG/DL (0.70-1.30); GLOMERULAR FILTRATION RATE > 60.0 (>49); GLUCOSE, FASTING 92 MG/DL (70-100); POTASSIUM SERUM 4.6 MEQ/L (3.5-5.1); SODIUM LEVEL 144 MEQ/L (136-145)
[2020-12-17] MEDS: SENOKOT S TAB PO SCH ×2 (09:00→21:26)
[2020-12-17] MEDS: MIRTAZAPINE 7.5MG PER 1/2 TABLET PO SCH (10:48)
[2020-12-17 14:00] VITALS: BP 100/71
--- NOTE | 2020-12-17 20:03 | IPNPDOC ---
Text Note Date of Service The patient was seen on 12/17/20. NOTE Hospitalist Progress Note Subjective: Patient was sleeping when I entered the room, although he is easily aroused. He is not complaining of any pain at this time. As a matter of fact he does not have any other complaints, and the remainder of his review of systems is negative. Objective: General: Awake, alert. Not in any acute distress. HEENT: Head normocephalic, atraumatic, sclera are nonicteric. Hearing is grossly intact to conversation. Buccal mucosa is pink and moist, he does appear to be much better hydrated at this time. Respiratory: Clear to auscultation bilaterally with no wheezes, rales, or rhonchi. Cardiovascular: Regular rate and rhythm, with no rubs, gallops, or murmur. Abdomen: Soft, nontender, nondistended, no hepatosplenomegaly appreciated. Bowel sounds hyperactive in all 4 quadrants Extremities: 2+ pulses in the radial and dorsalis pedis bilaterally. No evidence of clubbing or cyanosis. Assessment: -Abdominal pain, likely secondary to constipation, tertiary to dehydration and poor oral intake -Acute kidney injury, likely secondary to dehydration -Prerenal azotemia with a very high BUN on admission, improving but still elevated -Hypernatremia, resolved -Hypermagnesemia -Hypotension, again likely secondary to dehydration -Meets sepsis criteria with tachycardia, tachypnea, and elevated WBC. No fever. No lactic acidosis upon admission. -Chronic leukocytosis -Elevated CRP - History of dysphagia. Continue soft mechanical diet. Per recommendations from speech therapy during previous admissions. -Piute's chorea -Developmental disability -History of chronic heart failure with reduced ejection fraction (EF 45%) and grade 1 diastolic dysfunction, currently compensated -Protein calorie malnutrition. Supplement meals with Ensure -History of CLL -DVT prophylaxis with subcutaneous heparin Plan: -Renal function is now normal once again, but his BUN is still elevated. I will reduce the rate of his fluids at this time as I do not want him to be fluid overloaded. -Still mildly hypotensive -Voiding well without the Francisco catheter -PT has seen the patient and they feel he is back to baseline and is safe to go back to his prior level of care (LTC at [facility]) once medically stable. -It appears that he is on spironolactone 25 mg daily, and torsemide 100 mg daily for treatment of combined systolic and diastolic congestive heart failure. Given his degree of dehydration upon admission, I expect this dose to be much too high, and recommend we send him home on a reduced dose when he is medically safe for discharge. - If BUN returns to normal and blood pressure improved, then anticipate discharge within the next 1-2 days. VS,Fishbone, I+O VS, Fishbone, I+O Laboratory Tests 12/17/20 06:14 Vital Signs Date Time Temp Pulse Resp B/P (MAP) Pulse Ox O2 Delivery O2 Flow Rate FiO2 12/17/20 14:00 97.4 73 17 100/71 (81) 94 Room Air 12/16/20 20:00 0.0 I&O- Last 24 Hours up to 6 AM 12/17/20 06:00 Intake Total 3818 ml Output Total 600 ml Balance 3218 ml KAVITA KAUR DO December 17, 2020 20:03
[2020-12-17 22:00] VITALS: BP 96/67
[2020-12-18] MEDS: LR 1,000 ML IV SCH (05:10)
[2020-12-18] MEDS: HEPARIN SOD (PORCINE) 5000UNITS/ML 1ML VIAL/SYRINGE SC SCH ×3 (05:10→20:57)
[2020-12-18 06:00] VITALS: BP 93/65
[2020-12-18 06:27] LABS: HEMOGLOBIN 12.6 g/dl (13.5-17.5); MEAN CORPUSCULAR HGB CONC 30.7 g/dl (32.0-36.5); MEAN CORPUSCULAR VOLUME 94.3 fl (80.0-96.0); PLATELET COUNT, AUTOMATED 311 10^3/uL (150-450); RED BLOOD COUNT 4.35 10^6/uL (4.30-6.10); WHITE BLOOD COUNT 12.3 10^3/uL (4.0-10.0)
[2020-12-18 06:48] LABS: BLOOD UREA NITROGEN 22 MG/DL (7-18); CALCIUM LEVEL 8.4 MG/DL (8.8-10.2); CARBON DIOXIDE LEVEL 26 MEQ/L (21-32); CHLORIDE LEVEL 113 MEQ/L (98-107); CREATININE FOR GFR 0.89 MG/DL (0.70-1.30); GLOMERULAR FILTRATION RATE > 60.0 (>49); GLUCOSE, FASTING 95 MG/DL (70-100); POTASSIUM SERUM 4.1 MEQ/L (3.5-5.1); SODIUM LEVEL 142 MEQ/L (136-145)
[2020-12-18] MEDS: MIRTAZAPINE 7.5MG PER 1/2 TABLET PO SCH (08:00)
[2020-12-18] MEDS: SENOKOT S TAB PO SCH ×2 (08:00→20:49)
[2020-12-18] MEDS ORDERED: SPIRONOLACTONE 25 MG TAB PO SCH (09:00)
[2020-12-18] MEDS ORDERED: FAMOTIDINE 20 MG TAB PO SCH (09:00)
--- NOTE | 2020-12-18 12:31 | IPNPDOC ---
Subjective Date Seen The patient was seen on 12/18/20. Subjective Chief Complaint/HPI Complains of nausea and abdominal pain. Has been having bowel movements several times a day in the hospital. No vomiting Objective Physical Examination General Exam: Positive: Alert, Cooperative, No Acute Distress ENT Exam: Positive: Other ENT (bitemporal wasting) Neck Exam: Positive: Supple; Negative: JVD, thyromegaly Chest Exam: Positive: Clear to auscultation, Normal air movement Heart Exam: Positive: Rate Normal, Regular Rhythm, Normal S1, Normal S2; Negative: Murmurs, Rubs Abdomen Exam: Positive: Normal bowel sounds, Soft, Tenderness (in all cynthia quadrants but no guarding or rigidity.); Negative: Hepatospenomegaly Extremity Exam: Negative: Clubbing, Cyanosis, Edema Assessment /Plan Assessment 64 year old male with developmental disability, Mullins's chorea, CLL, chronic microvascular ischemic disease , recurrent pleural effusions, CHF who was at time [facility] and was transferred to [facility] for evaluation of abdominal pain, weight loss and nausea. He was subsequently transferred here for MARA, weight loss and abdominal pain. Acute kidney injury secondary to dehydration likely from overdiuresis Now resolved will continue spironolactone but reduce torsemide to 20 mg daily on discharge Combined systolic and diastolic CHF with h/o pleural effusion and ascites EF of 45%, grade 1 diastolic dysfunction Was over diuresed and dehydrated Will cut down on diuretics on discharge Severe protein calorie malnutrition BMI of 16.5, bitemporal wasting, wasting of small muscles of the hand and feet Review of chart shows that he has lost more than 20 kgs from last year Had EGD and Colonoscopy in 2019. Calorie count Likely due to progression of Neurological disease. Abdominal pain, likely secondary to constipation and chronic gastritis. Had EGD and Colonoscopy in 2019. will give famotidine and sucralfate. Hypernatremia, resolved Hypermagnesemia due to dehydration resolved Hypotension This is likely chronic. Because of his very low BMI. May have been a little worse due to dehydration, now seems to be at baseline History of dysphagia. Continue soft mechanical diet. Per recommendations from speech therapy during previous admissions. Reid's chorea refused treatment Developmental delay with mental retardation History of CLL With chronic leukocytosis 2012- FELL THROUGH A ROOF 15 FT TALL, SUSTAINED SPLENIC HEMATOMA, PELVIC FX, NONDISPLACED T12 FX, 12TH RIB FX, HEMOTHORAX CHRONIC GASTRITIS, GERI GLAND HYPERPLASIA, tubular adenomatous polyp. Plan/VTE VTE Prophylaxis Ordered?: Yes VS, I&O, 24H, Fishbone Vital Signs/I&O Vital Signs Date Time Temp Pulse Resp B/P (MAP) Pulse Ox O2 Delivery O2 Flow Rate FiO2 12/18/20 06:00 97.3 80 17 93/65 (74) 95 Room Air 12/16/20 20:00 0.0 I&O- Last 24 Hours up to 6 AM 12/18/20 06:00 Intake Total 1680 ml Output Total 300 ml Balance 1380 ml Laboratory Data 24H LABS Laboratory Tests 2 12/18/20 06:05: Nucleated Red Blood Cells % (auto) 0.0, Anion Gap 3L, Glomerular Filtration Rate > 60.0, Calcium Level 8.4L CBC/BMP Laboratory Tests 12/18/20 06:05 Microbiology Microbiology 12/15/20 Blood Culture - Preliminary, Resulted No Growth after 72 hours. All specime... 12/15/20 Blood Culture - Preliminary, Resulted No Growth after 72 hours. All specime... ASHLEY REYES MD December 18, 2020 12:31
[2020-12-18] MEDS: SUCRALFATE SUSP 1GM/10ML UD PO SCH ×3 (13:29→20:57)
[2020-12-18 14:00] VITALS: BP 103/70
[2020-12-18] MEDS: FAMOTIDINE 20 MG TAB PO SCH ×2 (15:03→20:57)
[2020-12-18 22:00] VITALS: BP 98/67
[2020-12-19] MEDS: HEPARIN SOD (PORCINE) 5000UNITS/ML 1ML VIAL/SYRINGE SC SCH ×2 (05:10→12:59)
[2020-12-19 06:00] VITALS: BP 93/64
[2020-12-19 06:27] LABS: HEMATOCRIT 38.4 % (42.0-52.0); HEMOGLOBIN 11.9 g/dl (13.5-17.5); MEAN CORPUSCULAR HEMOGLOBIN 29.5 pg (27.0-33.0); MEAN CORPUSCULAR VOLUME 95.3 fl (80.0-96.0); PLATELET COUNT, AUTOMATED 308 10^3/uL (150-450); RED BLOOD COUNT 4.03 10^6/uL (4.30-6.10); WHITE BLOOD COUNT 12.3 10^3/uL (4.0-10.0)
[2020-12-19 06:47] LABS: BLOOD UREA NITROGEN 17 MG/DL (7-18); CALCIUM LEVEL 7.8 MG/DL (8.8-10.2); CARBON DIOXIDE LEVEL 24 MEQ/L (21-32); CHLORIDE LEVEL 111 MEQ/L (98-107); CREATININE FOR GFR 0.85 MG/DL (0.70-1.30); GLOMERULAR FILTRATION RATE > 60.0 (>49); GLUCOSE, FASTING 87 MG/DL (70-100); POTASSIUM SERUM 3.9 MEQ/L (3.5-5.1); SODIUM LEVEL 141 MEQ/L (136-145)
[2020-12-19] MEDS ORDERED: SENN-52 PO (07:48)
[2020-12-19] MEDS ORDERED: SUCR1ORA PO (07:48)
[2020-12-19] MEDS ORDERED: FAMO20TA PO (07:48)
[2020-12-19] MEDS ORDERED: TORS20TA2 PO (07:48)
[2020-12-19] MEDS: MIRTAZAPINE 7.5MG PER 1/2 TABLET PO SCH (08:54)
[2020-12-19] MEDS: SUCRALFATE SUSP 1GM/10ML UD PO SCH ×2 (08:54→12:59)
[2020-12-19] MEDS: FAMOTIDINE 20 MG TAB PO SCH (08:54)
[2020-12-19] MEDS: SENOKOT S TAB PO SCH (08:54)
[2020-12-19 14:00] VITALS: BP 91/78
--- NOTE | 2020-12-19 16:05 | DS.PDOC ---
Discharge Summary General Date of Admission December 14, 2020 at 22:54 Date of Discharge 12/19/20 Discharge Summary PROCEDURES PERFORMED DURING STAY: [None]. DISCHARGE DIAGNOSES: MARA from Overdiuresis. Gastritis Constipation Hypernatremia Hypermagnesemia Severe protein calorie malnutrition Chronic Systolic and diastolic CHF with h/o pleural effusion and ascites EF of 45%, grade 1 diastolic dysfunction Chronic hypotension Dysphagia [place] Clair's chorea Developmental delay with intellectual disability Chronic, lymphocytic leukemia COMPLICATIONS/CHIEF COMPLAINT: Dehydration. HOSPITAL COURSE: 64 year old male with developmental disability, Reid's chorea, CLL, chronic microvascular ischemic disease , recurrent pleural effusions, CHF who was at time [facility] and was transferred to [facility] for evaluation of abdominal pain, weight loss and nausea. He was subsequently transferred here for MARA, weight loss and abdominal pain. Acute kidney injury secondary to dehydration likely from overdiuresis Now resolved will continue spironolactone but reduce torsemide to 20 mg daily on discharge Combined systolic and diastolic CHF with h/o pleural effusion and ascites EF of 45%, grade 1 diastolic dysfunction Was over diuresed and dehydrated Will cut down on diuretics on discharge Severe protein calorie malnutrition BMI of 16.5, bitemporal wasting, wasting of small muscles of the hand and feet Review of chart shows that he has lost more than 20 kgs from last year Had EGD and Colonoscopy in 2019. Calorie count done Likely due to progression of Neurological disease. Abdominal pain, likely secondary to constipation and chronic gastritis. Had EGD and Colonoscopy in 2019. will give famotidine and sucralfate. Hypernatremia, resolved Hypermagnesemia due to dehydration resolved Hypotension This is likely chronic. Because of his very low BMI. May have been a little worse due to dehydration, now seems to be at baseline History of dysphagia. Continue soft mechanical diet. Per recommendations from speech therapy during previous admissions. St. Clair's chorea refused treatment Developmental delay with mental retardation History of CLL With chronic leukocytosis H/O major trauma 2012- FELL THROUGH A ROOF 15 FT TALL, SUSTAINED SPLENIC HEMATOMA, PELVIC FX, NONDISPLACED T12 FX, 12TH RIB FX, HEMOTHORAX H/o CHRONIC GASTRITIS, GERI GLAND HYPERPLASIA, tubular adenomatous polyp. DISCHARGE MEDICATIONS: Please see below. ALLERGIES: Please see below. PHYSICAL EXAMINATION ON DISCHARGE: VITAL SIGNS: Please see below. General Exam: Positive: Alert, Cooperative, No Acute Distress ENT Exam: Positive: Other ENT (bitemporal wasting) Neck Exam: Positive: Supple; Negative: JVD, thyromegaly Chest Exam: Positive: Clear to auscultation, Normal air movement Heart Exam: Positive: Rate Normal, Regular Rhythm, Normal S1, Normal S2; Negative: Murmurs, Rubs Abdomen Exam: Positive: Normal bowel sounds, Soft, Tenderness (in all cynthia quadrants but no guarding or rigidity.); Negative: Hepatosplenomegaly Extremity Exam: Negative: Clubbing, Cyanosis, Edema LABORATORY DATA: Please see below. ACTIVITY: [As tolerated]. DIET: Soft mechanical DISPOSITION: [facility]/ [facility]. DISCHARGE INSTRUCTIONS: Follow up with PMD in 2 weeks May need referral to GI if continues to have abdominal pain Check Basic metabolic profile in 3 days. DISCHARGE CONDITION: [Stable]. TIME SPENT ON DISCHARGE: 35 minutes. Vital Signs/I&Os Vital Signs Date Time Temp Pulse Resp B/P (MAP) Pulse Ox O2 Delivery O2 Flow Rate FiO2 12/19/20 14:00 73 18 91/78 (82) 93 Room Air 12/19/20 06:00 97.7 12/16/20 20:00 0.0 I&O- Last 24 Hours up to 6 AM 12/19/20 06:00 Intake Total 1380 ml Output Total 315 ml Balance 1065 ml Laboratory Data Labs 24H Laboratory Tests 2 12/19/20 05:55: Nucleated Red Blood Cells % (auto) 0.0, Anion Gap 6L, Glomerular Filtration Rate > 60.0, Calcium Level 7.8L CBC/BMP Laboratory Tests 12/19/20 05:55 Microbiology Microbiology 12/19/20 Respiratory Virus Panel (PCR) ([facility]) - Final, Complete 12/15/20 Blood Culture - Preliminary, Resulted No Growth after 72 hours. All specime... 12/15/20 Blood Culture - Preliminary, Resulted No Growth after 72 hours. All specime... Discharge Medications Scheduled Bisacodyl (Dulcolax) 5 Mg Tablet.dr, 10 MG PO DAILY, (Reported) Famotidine (Famotidine) 20 Mg Tablet, 20 MG PO BID Mirtazapine (Mirtazapine) 7.5 Mg Tablet, 7.5 MG PO DAILY, (Reported) Sennosides/Docusate Sodium (Senna Plus Tablet) 1 Each Tablet, 1 TAB PO BID Spironolactone (Spironolactone) 25 Mg Tablet, 25 MG PO DAILY, (Reported) Sucralfate (Sucralfate) 1 Gm/10 Ml Oral.susp, 1 GM PO ACHS Torsemide (Torsemide) 20 Mg Tablet, 1 TAB PO DAILY start from 12/24/20 Scheduled PRN Magnesium Hydroxide (Milk of Magnesia) 400 Mg/5 Ml Oral.susp, 30 ML PO DAILY PRN for CONSTIPATION, (Reported) if no BM for 3 days Miscellaneous Medications [med rec comment] , (Reported) patient unable to verify at this time used external history Allergies Coded Allergies: No Known Allergies (Unverified , 01/12/19) ASHLEY REYES MD December 19, 2020 16:05
== END 2020-12-19 15:40 | DRG 682 ==
LOC: M PCU 22:54 → M MSPAV 12-16 22:32
PROVIDERS: ADMIT Internal Medicine; ATTEND Internal Medicine Nephrology
DX: N17.9 Acute kidney failure, unspecified (principal); E43 Unspecified severe protein-calorie malnutrition; E87.0 Hyperosmolality and hypernatremia; I50.42 Chronic combined systolic (congestive) and diastolic (congestive) heart failure; G10 Huntington's disease; C91.90 Lymphoid leukemia, unspecified not having achieved remission; Z68.1 Body mass index [BMI] 19.9 or less, adult; E86.0 Dehydration; K59.00 Constipation, unspecified; R13.10 Dysphagia, unspecified; E83.41 Hypermagnesemia; I95.89 Other hypotension; F79 Unspecified intellectual disabilities; K29.50 Unspecified chronic gastritis without bleeding; Z79.899 Other long term (current) drug therapy